=== PATIENT | male | born 1960 | race Two or more races ===

== ENCOUNTER 2023-10-27 14:12 | Outpatient (OUT) | payer MEDICARE, SELFPAY ==
[2023-10-27 16:15] LABS: Hematocrit 30.1 % (42.0-54.0); Hemoglobin 10.4 g/dL (14.0-18.0); Mean Corpuscular HGB Conc 34.6 g/dL (29.9-35.2); Mean Corpuscular Volume 89.9 fL (80.0-94.0); Mean Platelet Volume 8.8 fL (9.5-13.5); Platelet Count 433 10^3/uL (150-450); Red Blood Count 3.35 10^6/uL (4.70-6.10); Red Cell Distribution Width 12.6 % (11.0-15.0); White Blood Count 8.1 10^3/uL (4.0-11.0)
[2023-10-27 16:36] LABS: Free T4 0.95 ng/dL (0.76-1.46)
[2023-10-27 16:51] LABS: Alanine Aminotransferase 23 U/L (16-63); Albumin Globulin Ratio 0.9; Albumin Level 3.2 g/dL (3.4-5.0); Alkaline Phosphatase 114 U/L (46-116); Anion Gap 10.9; Aspartate Amino Transferase 23 U/L (15-37); BUN Creatinine Ratio 9.8; Bilirubin Total 0.5 mg/dL (0.2-1.0); Calcium 9.2 mg/dL (8.5-10.1); Carbon Dioxide 28.2 mmol/L (21.0-32.0); Chloride 91 mmol/L (98-107); Estimated GFR (African America >60 (>=60); Estimated GFR (Non-African Ame >60 (>=60); Free T3 2.39 pg/mL (2.18-3.98); Globulin 3.7 g/dL; Glucose 93 mg/dL (74-106); Potassium 4.1 mmol/L (3.5-5.1); Sodium 126 mmol/L (136-145); Thyroid Stimulating Hormone 3.421 uIU/mL (0.358-3.740); Total Protein 6.9 g/dL (6.4-8.2)
[2023-10-27 19:07] LABS: Band Neutrophils Absolute 0.2 10^3/uL (0.0-0.3); Basophils Abs Manual 0.08 10^3/uL (0.00-0.10); Lymphocytes Absolute Manual 0.72 10^3/uL (1.20-3.80); Monocytes Absolute Manual 0.32 10^3/uL (0.30-0.80); Segmented Neut Absolute Manual 6.39 10^3/uL (1.4-6.5)
== END 2023-10-27 14:13 | disposition home or self-care (01) ==
LOC: LAB 14:25
PROVIDERS: PCP Nurse Practitioner Family
DX: C78.02 Secondary malignant neoplasm of left lung (principal); C44.42 Squamous cell carcinoma of skin of scalp and neck
CPT/HCPCS: 36415; 80053; 84439; 84443; 84481; 85007; 85027

== ENCOUNTER 2023-11-18 14:04 | Outpatient (OUT) | payer MEDICARE, SELFPAY ==
[2023-11-18 14:22] LABS: Basophils Absolute Auto 0.1 10^3/uL (0.0-0.1); Basophils Percent Auto 0.7 % (0.2-2.0); Eosinophils Absolute Auto 0.6 10^3/uL (0.0-0.7); Eosinophils Percent Auto 7.6 % (0.9-7.0); Hematocrit 29.5 % (42.0-54.0); Immature Granulocytes Abs Auto 0.02 10^3/uL (0.00-0.03); Immature Granulocytes Pct Auto 0.3 % (0.0-0.5); Lymphocytes Absolute Auto 0.7 10^3/uL (1.2-3.8); Lymphocytes Percent Auto 9.4 % (20.5-60.0); Mean Corpuscular HGB Conc 33.9 g/dL (29.9-35.2); Mean Corpuscular Hemoglobin 30.1 pg (25.9-34.0); Mean Corpuscular Volume 88.9 fL (80.0-94.0); Mean Platelet Volume 8.2 fL (9.5-13.5); Monocytes Percent Auto 13.2 % (1.7-12.0); Neutrophils Absolute Auto 5.3 10^3/uL (1.4-6.5); Neutrophils Percent Auto 68.8 % (43.0-75.0); Platelet Count 319 10^3/uL (150-450); Red Blood Count 3.32 10^6/uL (4.70-6.10); Red Cell Distribution Width 12.5 % (11.0-15.0); White Blood Count 7.6 10^3/uL (4.0-11.0)
[2023-11-18 15:13] LABS: Alanine Aminotransferase 23 U/L (16-63); Albumin Globulin Ratio 0.9; Albumin Level 3.2 g/dL (3.4-5.0); Alkaline Phosphatase 117 U/L (46-116); Anion Gap 15.7; Aspartate Amino Transferase 22 U/L (15-37); BUN Creatinine Ratio 10.6; Bilirubin Total 0.5 mg/dL (0.2-1.0); Carbon Dioxide 25.5 mmol/L (21.0-32.0); Chloride 91 mmol/L (98-107); Estimated GFR (African America >60 (>=60); Estimated GFR (Non-African Ame >60 (>=60); Free T3 2.56 pg/mL (2.18-3.98); Globulin 3.5 g/dL; Glucose 98 mg/dL (74-106); Potassium 4.2 mmol/L (3.5-5.1); Sodium 128 mmol/L (136-145); Thyroid Stimulating Hormone 2.885 uIU/mL (0.358-3.740); Total Protein 6.7 g/dL (6.4-8.2)
[2023-11-18 15:20] LABS: Free T4 0.85 ng/dL (0.76-1.46)
== END 2023-11-18 14:05 | disposition home or self-care (01) ==
LOC: LAB 14:06
DX: C78.02 Secondary malignant neoplasm of left lung (principal); C44.42 Squamous cell carcinoma of skin of scalp and neck
CPT/HCPCS: 36415; 80053; 84439; 84443; 84481; 85025

== ENCOUNTER 2023-11-20 06:57 | Outpatient (OUT) | payer MEDICARE, SELFPAY | END 2023-11-20 06:58 | disposition home or self-care (01) | DX: E87.1 Hypo-osmolality and hyponatremia (principal) | CPT/HCPCS: 36415; 82533 ==

== ENCOUNTER 2023-12-09 13:54 | Outpatient (OUT) | payer MEDICARE, SELFPAY ==
[2023-12-09 14:24] LABS: Basophils Absolute Auto 0.1 10^3/uL (0.0-0.1); Basophils Percent Auto 1.1 % (0.2-2.0); Eosinophils Absolute Auto 0.8 10^3/uL (0.0-0.7); Eosinophils Percent Auto 10.6 % (0.9-7.0); Hematocrit 29.9 % (42.0-54.0); Hemoglobin 10.3 g/dL (14.0-18.0); Immature Granulocytes Abs Auto 0.02 10^3/uL (0.00-0.03); Immature Granulocytes Pct Auto 0.3 % (0.0-0.5); Lymphocytes Absolute Auto 0.7 10^3/uL (1.2-3.8); Lymphocytes Percent Auto 9.9 % (20.5-60.0); Mean Corpuscular HGB Conc 34.4 g/dL (29.9-35.2); Mean Corpuscular Hemoglobin 31.2 pg (25.9-34.0); Mean Corpuscular Volume 90.6 fL (80.0-94.0); Mean Platelet Volume 8.6 fL (9.5-13.5); Monocytes Absolute Auto 1.1 10^3/uL (0.3-0.8); Monocytes Percent Auto 15.2 % (1.7-12.0); Neutrophils Absolute Auto 4.6 10^3/uL (1.4-6.5); Neutrophils Percent Auto 62.9 % (43.0-75.0); Platelet Count 298 10^3/uL (150-450); Red Cell Distribution Width 12.1 % (11.0-15.0); White Blood Count 7.2 10^3/uL (4.0-11.0)
[2023-12-09 16:44] LABS: Alanine Aminotransferase 24 U/L (16-63); Albumin Globulin Ratio 1.1; Albumin Level 3.4 g/dL (3.4-5.0); Alkaline Phosphatase 100 U/L (46-116); Anion Gap 13.7; Aspartate Amino Transferase 24 U/L (15-37); BUN Creatinine Ratio 11.7; Bilirubin Total 0.5 mg/dL (0.2-1.0); Calcium 9.2 mg/dL (8.5-10.1); Carbon Dioxide 25.4 mmol/L (21.0-32.0); Chloride 94 mmol/L (98-107); Estimated GFR (African America >60 (>=60); Estimated GFR (Non-African Ame >60 (>=60); Free T3 2.05 pg/mL (2.18-3.98); Globulin 3.2 g/dL; Glucose 98 mg/dL (74-106); Potassium 4.1 mmol/L (3.5-5.1); Sodium 129 mmol/L (136-145); Total Protein 6.6 g/dL (6.4-8.2)
[2023-12-09 16:48] LABS: Free T4 0.77 ng/dL (0.76-1.46)
== END 2023-12-09 13:55 | disposition home or self-care (01) ==
LOC: LAB 13:55
DX: C78.02 Secondary malignant neoplasm of left lung (principal); C44.42 Squamous cell carcinoma of skin of scalp and neck
CPT/HCPCS: 36415; 80053; 84439; 84443; 84481; 85025

== ENCOUNTER 2024-01-08 06:58 | Outpatient (OUT) | payer MEDICARE, SELFPAY ==
--- OUTSIDE RECORDS SUMMARY | 2024-01-08 07:03 | XMS_ITS ---
Patient Summarization (C-CDA 2.1 CCD) Created on: January 08, 2024 HANHOSBALDO : 1960 Sex: Male Author Organization Sample organization Care Team Providers Care Bellhop Service Captain Name Role Phone Joseolegario Damien Unavailable Clara Jordan Unavailable SELF, REFERRED Referring Unavailable SELF, REFERRED Primary Care Unavailable JULIEN, TOSEEF Admitting Unavailable JULIEN, TOSEEF Attending Unavailable MAST, KAM Primary Care Unavailable MAST, KAM Referring Unavailable ISSA, FIRAS G Attending Unavailable ISSA, FIRAS G Admitting Unavailable MAST, KAM Referring Unavailable SINDHWANI, NGHIA Attending Unavailable SINDHWANI, NGHIA Admitting Unavailable CLARA JORDAN Primary Care Unavailable CLARA JORDAN Primary Care Unavailable HAMOUDA, BIJU Admitting Unavailable HAMOUDA, BIJU Attending Unavailable UNKNOWN, PHYSICIAN Referring Unavailable Omballi, Mohamed A. Admitting Unavailable Omballi, Mohamed A. Attending Unavailable UNKNOWN, PHYSICIAN Referring Unavailable UNKNOWN, PHYSICIAN Primary Care Unavailable YOLA, E Primary Care Unavailable JOSUE GRIMM Admitting Unavailable JOSUE GRIMM Attending Unavailable UNKNOWN, PHYSICIAN Referring Unavailable NAZZAL, MUNIER Admitting Unavailable NAZZAL, MUNIER Attending Unavailable UNKNOWN, PHYSICIAN Referring Unavailable UNKNOWN, PHYSICIAN Primary Care Unavailable HAMOUDA, BIJU Admitting Unavailable HAMOUDA, BIJU Attending Unavailable UNKNOWN, PHYSICIAN Referring Unavailable UNKNOWN, PHYSICIAN Primary Care Unavailable HAMOUDA, BIJU Attending Unavailable HAMOUDA, BIJU Admitting Unavailable UNKNOWN, PHYSICIAN Referring Unavailable UNKNOWN, PHYSICIAN Primary Care Unavailable CLARA JORDAN Primary Care Unavailable ISSA, FIRAS G Admitting Unavailable UNKNOWN, PHYSICIAN Referring Unavailable ISSA, FIRAS G Attending Unavailable FRANDY Jordan Primary Care Provider FRANDY Jordan Attending Provider None, No PCP Unavailable Unavailable KIRAN WILSON Attending Unavailable Nikki, FRANDY Elizabeth Primary Care Provider ANTON Morris Attending Provider Cortez Morris Admitting Unavailable Cortez Morris Attending Unavailable Clara Jordan Primary Care Unavailable Nikki, Clara Admitting Unavailable Clara Jordan Attending Unavailable Clara Jordan Primary Care Unavailable Generic Provider MD, No Assigned Pcp Primary Car e Provider Unavailable SABAS RICHARDS Attending Unavailable HAMOUDA, BIJU M Referring Unavailable XAVIER, CORTEZ Referring Unavailable HADZIAHMETOVIC, NINO Attending Unavaila ble HAMOUDA, BIJU M Referring Unavailable HAMOUDA, BIJU Asher Attending Unavailable SABAS RICHARDS Attending Unavailable XAVIER, CORTEZ Referring Unavailable HADZIAHMETOVIC, NINO Attending Unavaila SABAS Banks Referring Unavailable HADZIAHMETOVIC, NINO Attending Unavaila ble HADZIAHMETOVIC, NINO Attending Unavaila ble HAMOUDA, BIJU M Referring Unavailable RICHARDSSABAS EM Attending Unavailable ISSA, MATEUSZ Attending Unavailable HAMOUDA, BIUJ M Referring Unavailable SABAS RICHARDS Attending Unavailable HAMOUDA, BIJU M Referring Unavailable HAMOUDA, BIJU M Referring Unavailable HAMOUDA, BIJU M Referring Unavailable HAMOUDA, BIJU M Referring Unavailable HAMOUDA, BIJU M Referring Unavailable HAMOUDA, BIJU M Attending Unavailable HAMOUDA, BIJU M Admitting Unavailable HAMOUDA, BIJU M Referring Unavailable ISSA, FIRMELECIO Attending Unavailable HAMOUDA, BIJU M Attending Unavailable HAMOUDA, BIJU M Attending Unavailable HAMOUDA, BIJU M Referring Unavailable XAVIER, CORTEZ Attending Unavailable HAMOUDA, BIJU M Attending Unavailable XAVIER, CORTEZ Attending Unavailable HAMOUDA, BIJU M Referring Unavailable ISSA, FIRMELECIO Attending Unavailable HADZIAHMETOVIC, MERSIHA Referring Unavaila ble HAMOUDA, BIJU M Referring Unavailable HAMOUDA, BIJU M Referring Unavailable HAMOUDA, BIJU M Referring Unavailable HAMOUDA, BIJU M Referring Unavailable SANDRA PARKER Attending Unavailable SABAS RICHARDS Attending Unavailable CABRERAJH GRAJEDA Attending Unavailable JH CABRERA Admitting Unavailable BIJU SUE Referring Unavailable Allergies Allergy Classification Reported Allergen(s) Allergy Type Date of Onset Reaction(s) Facility Pollen (2 sources) Grass pollen; Translations: [GRASS POLLEN] Substance Allergy 2 [facility] Repository (2 sources) Grass pollen; Translations: [GRASS POLLEN] Propensity to adverse reactions (disorder) 2 Other [facility] Repository (2 sources) bee pollen Allergy to substance (finding) MG-Otolaryngol ogy-Jamee [facility] [place] Work Phone: (2 sources) Grass Allergy to substance (finding) MG-Otolaryngol ogy-Peck [facility] [place] Work Phone: (1 source) Bee pollen Drug Allergy 4 Other [facility] Encounters Encounter Date Encounter Type Care Provider Facility Start: 12-30-2023 End: 12-30-2023 ambulatory SABAS RICHARDS [facility] Start: 12-27-2023 End: 12-28-2023 ambulatory BIJU Asher [facility] Start: 12-10-2023 End: 12-10-2023 [facility] Start: 11-19-2023 End: 11-19-2023 [facility] Start: 11-05-2023 End: 11-05-2023 ambulatory SANDRA [facility] Start: 11-05-2023 End: 11-05-2023 Encounter for general adult medical examination without abnormal findings SANDRA PARKER [facility] Start: 10-29-2023 End: 10-29-2023 [facility] Start: 10-20-2023 End: 10-21-2023 ambulatory NINO ZHENG [facility] Start: 10-08-2023 End: 10-08-2023 ambulatory [facility] Start: 10-07-2023 ambulatory SABAS [facility] Start: 10-05-2023 End: 10-05-2023 ambulatory BIJU [facility] Start: 10-04-2023 End: 10-04-2023 Office outpatient visit 15 minutes Kiran Wilson MD Work Phone: [facility] Comment on above: 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) Start: 09-27-2023 End: 09-28-2023 ambulatory SABAS [facility] Start: 09-21-2023 End: 09-21-2023 ambulatory MATEUSZ CONROY [facility] Start: 09-14-2023 ambulatory [facility] Start: 08-17-2023 End: 08-18-2023 ambulatory [facility] Start: 08-06-2023 End: 08-07-2023 ambulatory [facility] Start: 07-28-2023 End: 07-28-2023 ambulatory [facility]: [facility]28-[facility] Start[facility] 07-22-2023 End: 07-23-2023 ambulatory BIJU Asher [facility] Start: 07-13-2023 End: 07-13-2023 ambulatory Clara Jordan Other [facility] [facility] Other Start: 07-13-2023 Telephone encounter Clara [facility] Start: 06-25-2023 End: 06-25-2023 ambulatory JH CABRERA [facility] Start: 06-22-2023 End: 06-23-2023 ambulatory BIJU Asher [facility] Start: 06-17-2023 ambulatory [facility] Start: 06-08-2023 End: 06-09-2023 ambulatory [facility] Start: 06-05-2023 End: 06-05-2023 ambulatory [facility] Facility:[facility] Start: 06-05-2023 End: 06-05-2023 ambulatory FRANDY Jordan Work Phone: [facility] Work Phone: Start: 06-05-2023 End: 06-05-2023 Patient encounter procedure DNP Clara Jordan Work Phone: [facility] [place] Work Phone: Start: 06-01-2023 End: 06-02-2023 ambulatory [facility] Start: 06-01-2023 [facility] Start: 05-27-2023 End: 05-[facility] Start: 05-21-2023 End: 05-21-2023 ambulatory [facility] Start: 05-21-2023 End: 05-[facility]23 [facility] Start: 05-20-2023 ambulatory [facility] Start: 05-03-2023 Office outpatient ne w 30 minutes No PCP None YT-Tilcihghwoxcwn-Vjd [place]lake Work Phone: Start: 05-03-2023 Patient encounter procedure No PCP None [id number]-[id number] n [facility] [place] Work Phone: Start: 05-03-2023 ambulatory KIRAN WILSON Facility: Start: 04-30-2023 End: 05-03-2023 ambulatory [facility] Start: 04-29-2023 ambulatory [facility] Start: 04-15-2023 End: 04-16-2023 ambulatory NINO ZHENG [facility] Start: 04-09-2023 End: 04-09-2023 ambulatory BIJU Asher [facility] Start: 04-08-2023 ambulatory SABAS [facility] Start: 03-22-2023 End: 03-22-2023 ambulatory CARLOSMELECIO ISSA [facility] Start: 03-19-2023 End: 03-19-2023 ambulatory BIJU Lb [facility] Start: 03-18-2023 ambulatory BIJU [facility]her [facility] Start: 02-26-2023 End: 02-26-2023 ambulatory BIJU Asher [facility] Start: 02-25-2023 End: 02-[facility]-2023 [facility] Start: 02-22-2023 End: 02-23-2023 ambulatory BIJU Asher [facility] Start: 02-05-2023 End: 02-05-2023 ambulatory BIJU Asher [facility] Start: 02-04-2023 ambulatory [facility] Start: 01-15-2023 End: 01-15-2023 ambulatory BIJU Asher [facility] Start: 01-13-2023 End: 01-14-2023 ambulatory KARENShun NORM [facility] Start: 01-12-2023 End: 01-13-2023 ambulatory SABAS [facility] Start: 01-11-2023 End: 01-12-2023 ambulatory [facility] Start: 01-08-2023 End: 01-09-2023 ambulatory [facility] Start: 01-07-2023 End: 01-08-2023 ambulatory [facility] Start: 01-06-2023 End: 01-07-2023 ambulatory [facility] Start: 09-28-2022 End: 09-28-2022 ambulatory Clara Jordan Other [employer] Other Start: 09-28-2022 Telephone encounter Clara Nikki [facility] Start: 09-22-2022 End: 09-22-2022 ambulatory Clara Jordan Other [employer] Other Start: 09-22-2022 Encounter for genera l adult medical examination without abnormal findings Clara Jordan [facility] [place] Start: 09-22-2022 Periodic preventive med est patient 40-64yrs Clara Jordan [facility] [place] Start: 09-19-2022 End: 09-19-2022 ambulatory Clara Jordan Facility:[facility] Start: 09-19-2022 End: 09-19-2022 ambulatory DNP Clara Nikki Work Phone: [facility] Work Phone: Start: 09-19-2022 End: 09-19-2022 Patient encounter procedure DNP Clara Nikki Work Phone: [facility] [place] Work Phone: Start: 09-10-2022 End: 09-10-2022 ambulatory Clara Jordan Other [employer] Other Start: 09-10-2022 Encounter for genera l adult medical examination without abnormal findings Clara Jordan [facility] [place] Start: 09-10-2022 Telephone encounter Clara [facility] Start: 06-23-2022 End: 06-23-2022 ambulatory Clara Jordan Other [employer] Other Start: 06-23-2022 Office outpatient vi sit 25 minutes Clara Jordan [facility] [place] Start: 05-12-2022 End: 05-12-2022 ambulatory Clara Jordan Other [employer] Other Start: 05-12-2022 Office outpatient vi sit 25 minutes Clara Jordan [facility] [place] Start: 04-14-2022 End: 04-14-2022 ambulatory BIJU HAMOUDA Facility:[facility] Start: 04-10-2022 End: 04-11-2022 ambulatory REFERRED SELF Facility:[facility] Start: 03-31-2022 End: 03-31-2022 ambulatory BIJU HAMOUDA Facility:[facility] Start: 03-23-2022 End: 03-23-2022 ambulatory CLARA JORDAN Facility:[facility] Start: 03-06-2022 End: 03-07-2022 ambulatory TREVON SILVERAL Facility:[facility] Start: 02-26-2022 End: 02-27-2022 ambulatory Irais Lora Facility:[facility] Start: 02-24-2022 End: 02-25-2022 ambulatory E YOLA Facility:[facility] Start: 02-02-2022 End: 02-02-2022 ambulatory Damien Adams Other [employer] Other Start: 02-02-2022 Telephone encounter Damien Adams [facility] Start: 12-15-2021 End: 12-16-2021 Evaluation and management of inpatient KAM MAST Facility:[facility] Start: 12-05-2021 End: 12-05-2021 ambulatory Clara Jordan Other [employer] Other Start: 12-05-2021 Telephone encounter Clara [facility] Start: 11-13-2021 End: 11-13-2021 ambulatory Clara Jordan Other [employer] Other Start: 11-13-2021 Telephone encounter Clara [facility] Start: 11-12-2021 End: 11-12-2021 ambulatory Clara Jordan Other [employer] Other Start: 11-12-2021 Encounter for other preprocedural examination Clara Jordan [facility] [place] Start: 11-12-2021 Office outpatient vi sit 25 minutes Clara Jordan [facility] [place] Start: 10-30-2021 End: 10-31-2021 ambulatory CLARA NIKKI Facility:[facility] Start: 08-29-2021 End: 08-30-2021 ambulatory KAM MAST Facility:[facility] Immunizations Immunization Date Immunization Notes Care Provider Bladimir kimble 07-22-2022 influenza virus vaccine, unspecified formulation Kiran Wilson MD Work Phone: [facility] Work Phone: 11-15-2020 COVID-19 Vaccine Moderna - Documentation Purposes Only Clara Nikki Other [employer] Other 10-18-2020 COVID-19 Vaccine Moderna - Documentation Purposes Only Clara Jordan Other [employer] Other 05-17-2020 influenza, seasonal, injectable Clara Nikki Other [employer] Other Medications Current Medications Medication Drug Class(es) Dates Sig (Normalized) Sig (Original) aspirin 81 mg delayed release oral tablet (1 source) Platelet Aggregation Inhibitor, Nonsteroidal Anti-inflammatory Drug take 1 tablet by mouth once daily aspirin 81 mg EC tablet Take 1 tablet (81 mg) by mouth once daily. 0 Active atorvastatin 40 mg oral tablet (13 sources) HMG-CoA Reductase Inhibitor Start: 07-29-2023 End: 07-23-2024 take 1 tablet by mouth once daily atorvastatin (Lipitor) 40 mg tablet Take 1 tablet (40 mg) by mouth once daily. 0 07/29/2023 07/23/2024 Active Atorvastatin Maxime cium 20 MG Take 1 tablet by mouth once daily for 90 days for 90 days Active Atorvastatin Maxime cium 20 MG Oral Tablet Quantity: 0 Refills: 0 Ordered: 03-May-2023 DO Active carvedilol 3.125 mg oral tablet (1 source) alpha-Adrenergic Sylvester, beta-Adrenergic Sylvester take 1 tablet by mouth at dinner carvedilol (Coreg) 3.125 mg tablet TAKE 1 TABLET BY MOUTH WITH BREAKFAST AND WITH EVENING MEAL 0 Active colchicine 0.6 mg oral capsule (2 sources) Start: Colchicine 0.6 MG 1 tablet Orally twice daily (days 2-5) for 4 days Jun, Active Start: 06-23-2022 Colchicine 0.6 MG 1 capsule Orally 1.2 mg (2 capsules) x 1 then 0.6 mg (1 capsule) 1 hour later x 1 (day 1) for 1 days Jun, Active fluconazole 100 mg oral tablet (1 source) Azole Antifungal Fluconazole 100 MG 1 tablet Orally Active lidocaine 25 mg/ml / prilocaine 25 mg/ml topical cream (1 source) Antiarrhythmic, Amide Local Anesthetic Start: lidocaine-prilocain e (Emla) 2.5-2.5 % cream APPLY TO PORT SITE AND COVER 30-45 MINUTES PRIOR TO NEEDLE ACCESS 0 04/09/2023 Active Multi For Him 50+ (4 sources) take 1 tablet by mouth once daily Multi For Him 50+ 1 Tablet Orally Daily Active multivitamin with minerals iron-free (Multivitamin 50 Plus) (1 source) take 1 tablet by mouth once daily multivitamin with minerals iron-free (Multivitamin 50 Plus) Take 1 tablet by mouth once daily. 0 Active predniSONE 20 mg oral tablet (1 source) Start: take 2 tablets by mouth once daily predniSONE 20 MG 2 tabs Orally Once a day for 5 days May, Active sodium fluoride 0.011 mg/mg toothpaste (1 source) Start: PreviDent 5000 Dry Mouth 1.1 % dental paste APPLY AT LEAST A 1 INCH STRIP ONTO TOOTHBRUSH. BRUSH FOR 1 MINUTE & EXPECTORATE. USE TWICE DAILY 0 11/30/2022 Active tadalafil 20 mg oral tablet (1 source) Phosphodiesterase 5 Inhibitor Start: tadalafil 20 mg tablet Take 1 tablet (20 mg) by mouth. 0 03/22/2023 Active Completed/Discontinued Medications Medication Drug Class(es) Dates Sig (Normalized) Sig (Original) Lidocaine CREA (2 sources) Lidocaine CREA Quantity: 0 Refills: 0 Ordered: 03-May-2023 DO Active Triamcinolone (10 sources) Corticosteroid Start: 01-27-2021 Kenalog -40 mg Jan, 20 mg Payers Date Payer Category Payer Medicare [id number] 2023 Unknown [id number] 2023 Unknown [id number] 2023 Unknown 2022 Self-pay [id number] 2022 Unknown [id number] 1960 Unknown [id number] 2.16.8 [id number] 1960 Unknown [id number] .16.8 [id number]. 1960 Unknown [id number] .16.8 [id number] 1960 Unknown [id number] 2.16.8 [id number] 1960 Unknown [id number] 2.16.8 [id number] 1960 Unknown [id number] 2.16.8 [id number] 1960 Unknown [id number] 2.16.8 [id number] 1960 Unknown [id number] 2.16.8 [id number] 1960 Unknown [id number] 2.16.8 [id number] 1960 Unknown [id number] 2.16.8 [id number]. 1960 Unknown [id number] 2.16. [id number] Unknown [id number] 2. [id number] Unknown [id number] 2.16.8 [id number] Unknown [id number] 2.16.8 [id number] Plan of Treatment Date Care Activity Detail Author Start: 01-31-2024 End: 01-31-2024 Patient encounter procedure 01/31/2024 2:00 PM EDT Office Visit [facility] [address] [place] [id number] [place] [id number] [address] [facility] [place] [address] [facility] Start: 2023 Pneumococcal Vaccine: 65+ Years (1 - PCV) Pneumococcal Vaccine: 65+ Years (1 - PCV) [facility] Start: 04-09-2023 COVID-19 Vaccine ( season) COVID-19 Vaccine ( season) [facility] Start: 04-09-2023 Influenza vaccination Influenza Vaccine (#1) [facility] Start: 2008 Zoster Vaccines (1 of 2) Zoster Vaccines (1 of 2) [facility] Start: 1980 DTaP/Tdap/Td Vaccines (1 - Tdap) DTaP/Tdap/Td Vaccines (1 - Tdap) [facility] Start: 1976 Diabetes mellitus screening Diabetes Screening [facility] Start: 1976 Hepatitis C screening Hepatitis C Screening [facility] Start: 1959 MMR Vaccines (1 of 1 - Standard series) MMR Vaccines (1 of 1 - Standard series) [facility] Start: 1960 Lipid panel Lipid Panel [facility] Start: 1960 Screening for malignant neoplasm of colon [facility] Start: 1960 Yearly Adult Physical Yearly Adult Physical [facility] Problems Active Problems Problem Classification Problem Date Documented Date Episodic/Chronic Alcohol-related disorders (11 sources) Alcohol dependence; Translations: [Alcohol dependence, uncomplicated] Onset: 11-12-2021 Resolved: 11-12-2021 Chronic Cancer of bronchus; lung (8 sources) Malignant tumor of lung; Translations: [Malignant neoplasm of unspecified part of unspecified bronchus or lung] Chronic Cancer of head and neck (15 sources) Malignant tumor of tongue; Translations: [Malignant neoplasm of tongue, unspecified] Onset: 03-30-2022 Chronic Cancer of prostate (10 sources) Malignant tumor of prostate; Translations: [Malignant neoplasm of prostate] Onset: 04-02-2022 Chronic Coronary atherosclerosis and other heart disease (2 sources) Atherosclerotic heart disease of [place] coronary artery without angina pectoris; Translations: [Atherosclerotic heart disease of [place] coronary artery without angina pectoris] Onset: 06-10-2023 Chronic Diabetes mellitus without complication (12 sources) Prediabetes; Translations: [Prediabetes] Onset: 11-12-2021 Resolved: 11-12-2021 Episodic Disorders of lipid metabolism (15 sources) Mixed hyperlipidemia; Translations: [Mixed hyperlipidemia] Onset: 11-12-2021 Resolved: 11-12-2021 Chronic Fluid and electrolyte disorders (2 sources) Hypo-osmolality and hyponatremia; Translations: [Hypo-osmolality and hyponatremia] Onset: 11-19-2023 Episodic Gout and other crystal arthropathies (20 sources) Gouty arthropathy; Translations: [Gout, unspecified] Onset: 11-12-2021 Resolved: 11-12-2021 Chronic Maintenance chemotherapy; radiotherapy (2 sources) Encounter for antineoplastic chemotherapy; Translations: [Encounter for antineoplastic chemotherapy] Onset: 11-19-2023 Chronic Osteoarthritis (20 sources) Osteoarthritis of joint of left hand; Translations: [Primary osteoarthritis, left hand] Chronic Other lower respiratory disease (2 sources) Other disorders of lung; Translations: [Other disorders of lung] Onset: 12-30-2023 Episodic Other male genital disorders (2 sources) Erectile dysfunction following radical prostatectomy; Translations: [Erectile dysfunction following radical prostatectomy] Onset: 03-22-2023 Chronic Other non-epithelial cancer of skin (2 sources) Squamous cell carcinoma of skin of scalp and neck; Translations: [Squamous cell carcinoma of skin of scalp and neck] Onset: 05-04-2022 Episodic Other screening for suspected conditions (not mental disorders or infectious disease) (2 sources) Abnormal findings on diagnostic imaging of other specified body structures; Translations: [Abnormal findings on diagnostic imaging of other specified body structures] Onset: 06-01-2023 Chronic Other upper respiratory disease (10 sources) Allergic rhinitis due to pollen; Translations: [Allergic rhinitis due to pollen] Onset: 04-08-2009 Chronic Mikayla-; endo-; and myocarditis; cardiomyopathy (except that caused by tuberculosis or sexually transmitted disease) (2 sources) Endocarditis, valve unspecified; Translations: [Endocarditis, valve unspecified] Onset: 07-28-2023 Chronic Secondary malignancies (2 sources) Secondary malignant neoplasm of right lung; Translations: [Secondary malignant neoplasm of right lung] Onset: 12-03-2022 Chronic Secondary malignancies (2 sources) Secondary malignant neoplasm of left lung; Translations: [Secondary malignant neoplasm of left lung] Onset: 12-03-2022 Chronic Substance-related disorders (11 sources) Nicotine dependence; Translations: [Nicotine dependence, chewing tobacco, uncomplicated] Onset: 11-12-2021 Resolved: 11-12-2021 Chronic Unclassified (1 source) Encounter for general adult medical examination without abnormal findings; Translations: [Encounter for general adult medical examination without abnormal findings] Onset: 09-19-2022 Past or Other Problems Problem Classification Problem Date Documented Da te Episodic/Chronic Deficiency and other anemia (1 source) Anemia, unspecified Onset: 12-05-2021 Resolved: 12-05-2021 Episodic E Codes: Adverse effects of medical drugs (2 sources) Adverse effect of unspecified drugs, medicaments and biological substances, initial encounter; Translations: [Adverse effect of unspecified drugs, medicaments and biological substances, initial encounter] Onset: 05-27-2023 Episodic Other screening for suspected conditions (not mental disorders or infectious disease) (2 sources) Abnormal findings on diagnostic imaging of heart and coronary circulation; Translations: [Abnormal findings on diagnostic imaging of heart and coronary circulation] Onset: 06-10-2023 Episodic Unclassified (1 source) Onset: 10-04-2023 10-04-2023 Procedures Date Procedure Procedure Detail Performing Clinician Start: 02-10-2022 PSA screening REFERRED SELF Comment on above: Performed By: #### [id number] ####[place] [address] [address] Start: 04-27-2022 PSA screening REFERRED SELF Comment on above: Performed By: #### 4 [id number] ####[facility] Start: 10-30-2021 PSA screening REFERRED SELF Comment on above: Performed By: #### 4 [id number] ####[facility] [place], [place] [address] [place] [address] Start: 07-01-2021 PSA screening REFERRED SELF Comment on above: Performed By: #### 4 [id number] ####[facility] Results Test Name Value Interpretation Reference Range Facility CBC WITH AUTO DIFFERENTIALon 12-27-2023 Basophils (Bld) [#/Vol] 0.06 10*3/uL Normal 0.00-0.20 [facility] Comment on above: Performed By: #### L [id number] ####[facility] ([facility])[address] [place] [address] Basophils/100 WBC (Bld) 0.8 % Normal 0.0-1.0 [facility] Comment on above: Performed By: #### L [id number] ####[facility] ([facility])[address] [place] [address] Eosinophils (Bld) [#/Vol] 0.72 10*3/uL High 0.00-0.50 [facility] Comment on above: Performed By: #### L [id number] ####[facility] ([facility])[address] [place] [address] Eosinophils/100 WBC (Bld) 9.6 % High 0.0-6.0 [facility] Comment on above: Performed By: #### L [id number] ####[facility] ([facility])[address] [place] [address] Erythrocyte distribution width (RBC) [Ratio] 12.3 % Normal 11.5-15.0 [facility] Comment on above: Performed By: #### L [id number] ####[facility] ([facility])[address] [place] [address] ERYTHROCYTE MEAN CORPUSCULAR HEMOGLOBIN CONCENTRATION (G/DL) BY AUTOMATED 34.5 g/dL Normal 32.0-35.0 [facility] Comment on above: Performed By: #### L [id number] ####[facility] ([facility])[address] [place] [address] Hematocrit (Bld) [Volume fraction] 33.6 % Low 39.0-55.0 [facility] Comment on above: Performed By: #### L [id number] ####[facility] ([facility])[address] [place] [address] Hemoglobin (Bld) [Mass/Vol] 11.6 g/dL Low 13.0-17.0 [facility] Comment on above: Performed By: #### L [id number] ####[facility] ([facility])[address] [place] [address] Immature granulocytes (Bld) [#/Vol] 0.02 10*3/uL Normal 0.00-0.20 [facility] Comment on above: Performed By: #### L [id number] ####[facility] (AKER)[address] [place] [address] Immature granulocytes/100 WBC (Bld) 0.3 % Normal 0.0-1.0 [facility] Comment on above: Performed By: #### L [id number] ####[facility] ([facility])[address] [place] [address] Lymphocytes (Bld) [#/Vol] 0.70 10*3/uL Low 1.20-4.00 [facility] Comment on above: Performed By: #### L [id number] ####[facility] ([facility])[address] [place] [address] Lymphocytes/100 WBC (Bld) 9.3 % Low 20.0-45.0 [facility] Comment on above: Performed By: #### L [id number] ####[facility] ([facility])[address] [place] [address] MCH (RBC) [Entitic mass] 30.5 pg Normal 27.0-33.0 [facility] Comment on above: Performed By: #### L [id number] ####[facility] ([facility])[address] [place] [address] MCV (RBC) [Entitic vol] 88.4 fL Normal 82.0-98.0 [facility] Comment on above: Performed By: #### L [id number] ####[facility] ([facility])[address] [place] [address] Monocytes (Bld) [#/Vol] 0.85 10*3/uL Normal 0.10-1.00 [facility] Comment on above: Performed By: #### L [id number] ####[facility] ([facility])[address] [place] [address] Monocytes/100 WBC (Bld) 11.3 % Normal 5.0-12.0 [facility] Comment on above: Performed By: #### L [id number] ####[facility] ([facility])[address] [place] [address] Neutrophils (Bld) [#/Vol] 5.18 10*3/uL Normal 1.60-7.60 [facility] Comment on above: Performed By: #### L [id number] ####[facility] ([facility])[address] [place] [address] Neutrophils/100 WBC (Bld) 68.7 % Normal 40.0-72.0 [facility] Comment on above: Performed By: #### L [id number] ####[facility] ([facility])[address] [place] [address] NRBC (PER 100 WBCS) BY AUTOMATED COUNT 0.0 % Normal 0 [facility] Comment on above: Performed By: #### L [id number] ####[facility] ([facility])[address] [place] [address] PLATELETS (10*3/UL) IN BLOOD AUTOMATED COUNT 328 10*3/uL Normal 150-400 [facility] Comment on above: Performed By: #### L [id number] ####[facility] ([facility])[address] [place] [address] RBC (Bld) [#/Vol] 3.80 10*6/uL Low 4.20-5.70 [facility] Comment on above: Performed By: #### L [id number] ####[facility] ([facility])[address] [place] [address] WBC (Bld) [#/Vol] 7.53 10*3/uL Normal 4.00-10.60 [facility] Comment on above: Performed By: #### L [id number] ####[facility] ([facility])[address] [place] [address] COMPREHENSIVE METABOLIC PANE Yahir 12-27-2023 Albumin [Mass/Vol] 4.1 g/dL Normal 3.5-5.7 [facility] Comment on above: Performed By: #### L [id number] ####[facility] ([facility])[address] [place] [address] ALP [Catalytic activity/Vol] 110 U/L High 34-104 [facility] Comment on above: Performed By: #### L [id number] ####[facility] ([facility])[address] [place] [address] ALT [Catalytic activity/Vol] 14 U/L Normal 7-52 [facility] Comment on above: Performed By: #### L [id number] ####[facility] ([facility])[address] [place] [address] Anion gap [Moles/Vol] 12 mmol/L Normal 7-20 [facility] Comment on above: Performed By: #### L [id number] ####[facility] ([facility])[address] [place] [address] AST [Catalytic activity/Vol] 21 U/L Normal 13-39 [facility] Comment on above: Performed By: #### L [id number] ####[facility] ([facility])[address] [place] [address] Bilirubin [Mass/Vol] 0.6 mg/dL Normal 0.3-1.0 [facility] Comment on above: Performed By: #### L [id number] ####[facility] ([facility])[address] [place] [address] Calcium [Mass/Vol] 9.0 mg/dL Normal 8.6-10.3 [facility] Comment on above: Performed By: #### L [id number] ####[facility] ([facility])[address] [place] [address] Chloride [Moles/Vol] 93 mmol/L Low 98-107 [facility] Comment on above: Performed By: #### L [id number] ####[facility] ([facility])[address] [place] [address] CO2 [Moles/Vol] 27 mmol/L Normal 21-31 [facility] Comment on above: Performed By: #### L [id number] ####[facility] (BE[facility]ER)[address] [place] [address] Creatinine [Mass/Vol] 0.78 mg/dL Normal 0.70-1.30 [facility] Comment on above: Performed By: #### L [id number] ####[facility] ([facility])[address] [place] [address] GLOMERULAR FILTRATION RATE ML/MIN/1.73 SQ M.PREDICTED 99.0 mL/min/1.73m*2 Normal >60.0 [facility] Comment on above: Result Comment: The [facility]???s estimated glomerular filtration rate (eGFR) will no longer include consideration of race in its calculation. The National Kidney Foundation???s eGFR Task Force developed new recommendations for the estimation of the glomerular filtration rate in the [place] They recommend immediate implementation of the new equation refit without the race variable in all laboratories because the calculation does not include race. In addition to not including race in the calculation and reporting, it included diversity in its development, and has acceptable performance characteristics and potential consequences that do not disproportionately affect any one group of individuals. Performed By: #### L [id number] ####[facility] ([facility])[address] [place] [address] Glucose [Mass/Vol] 107 mg/dL High 70-100 [facility] Comment on above: Performed By: #### L [id number] ####[facility] ([facility])[address] [place] [address] Potassium [Moles/Vol] 4.5 mmol/L Normal 3.5-5.1 [facility] Comment on above: Performed By: #### L [id number] ####[facility] ([facility])[address] [place] [address] Protein [Mass/Vol] 5.9 g/dL Low 6.0-8.3 [facility] Comment on above: Performed By: #### L [id number] ####[facility] ([facility])[address] [place] [address] Sodium [Moles/Vol] 127 mmol/L Low 136-145 [facility] Comment on above: Performed By: #### L [id number] ####[facility] ([facility])[address] [place] [address] Urea nitrogen [Mass/Vol] 12 mg/dL Normal 7-25 [facility] Comment on above: Performed By: #### L [id number] ####[facility] ([facility])[address] [place] [address] UREA NITROGEN/CREATININE (MASS RATIO) IN SER/PLAS 15.4 Normal [facility] Comment on above: Performed By: #### L [id number] ####[facility] ([facility])[address] [place] [address] CORTISOLon 12-27-2023 CORTISOL (UG/DL) IN SER/PLAS 9.0 ug/dL Normal 6-23 [facility] Comment on above: Performed By: #### L [id number] ####[facility] ([facility])[address] [place] [address] CT CHEST W IV CONTRASTon CT CHEST W IV CONTRAST Invalid Interpretation Code [facility] HEMOGLOBIN A1Con 12-27-2023 Glucose [Mass/Vol] 114 mg/dL Normal [facility] Comment on above: Performed By: #### L [id number] ####[facility] ([facility])[address] [place] [address] HbA1c (Bld) [Mass fraction] 5.6 % Normal 4.0-6.0 [facility] Comment on above: Performed By: #### L [id number] ####[facility] ([facility])[address] [place] [address] Labon 12-27-2023 Lab Normal [facility] PSA, DIAGNOSTICon 12-27-2023 PROSTATE SPECIFIC AG (NG/ML) IN SER/PLAS <0.1 Low 0.4-4 [facility] Comment on above: Order Comment: To be collected in 01/2024. Performed By: #### L [id number] ####[facility] ([facility])[address] [facility] [facility] [address] T3, FREEon 12-27-2023 TRIIODOTHYRONINE (T3) FREE (PG/ML) IN SER/PLAS 3.8 pg/mL Normal 2.5-3.9 [facility] Comment on above: Performed By: #### L [id number] ####[facility] ([facility])[address] [facility] [facility] [address] T4, FREEon 12-27-2023 THYROXINE (T4) FREE (NG/DL) IN SER/PLAS 0.72 ng/dL Normal 0.71-1.85 [facility] Comment on above: Performed By: #### L [id number] ####[facility] ([facility])[address] [facility] [facility] [address] TSHon 12-27-2023 THYROTROPIN (MIU/L) IN SER/PLAS BY DETECTION LIMIT <= 0.05 MIU/L 1.79 mIU/L Normal 0.34-5.60 [facility] Comment on above: Performed By: #### L [id number] ####[facility] ([facility])[address] [place] [address] Orders Onlyon 12-10-2023 Orders Only Normal [facility] Orders Onlyon 11-22-2023 Orders Only Normal [facility] 29on 11-19-2023 29 Addended by: NIKUNJ DYE on: 12/09/2023 04:04 PM Modules accepted: Orders Normal [facility] 37on 11-19-2023 37 Cortisol level in the morning upon waking Keep close track of cough and any shortness of breath, Call if changes/worsens Normal [facility] Infusionon 11-19-2023 Infusion Normal [facility] Orders Onlyon 11-19-2023 Orders Only Normal [facility] Consulton 11-05-2023 Consult Normal [facility] Orders Onlyon 10-29-2023 Orders Only Normal [facility] Orders Onlyon 10-28-2023 Orders Only Normal [facility] CBC WITH AUTO DIFFERENTIALon 10-07-2023 Basophils (Bld) [#/Vol] 0.07 10*3/uL Normal 0.00-0.20 [facility] Comment on above: Performed By: #### L [id number] ####[facility] ([facility])[address] [place] [address] Basophils/100 WBC (Bld) 0.9 % Normal 0.0-1.0 [facility] Comment on above: Performed By: #### L [id number] ####[facility] ([facility]ER)[address] [place] [address] Eosinophils (Bld) [#/Vol] 0.28 10*3/uL Normal 0.00-0.50 [facility] Comment on above: Performed By: #### L [id number] ####[facility] ([facility])[address] [place] [address] Eosinophils/100 WBC (Bld) 3.5 % Normal 0.0-6.0 [facility] Comment on above: Performed By: #### L [id number] ####[facility] ([facility])[address] [place] [address] Erythrocyte distribution width (RBC) [Ratio] 13.2 % Normal 11.5-15.0 [facility] Comment on above: Performed By: #### L [id number] ####[facility] ([facility])[address] [place] [address] ERYTHROCYTE MEAN CORPUSCULAR HEMOGLOBIN CONCENTRATION (G/DL) BY AUTOMATED 36.4 g/dL High 32.0-35.0 [facility] Comment on above: Performed By: #### L [id number] ####[facility] ([facility])[address] [place] [address] Hematocrit (Bld) [Volume fraction] 31.3 % Low 39.0-55.0 [facility] Comment on above: Performed By: #### L [id number] ####[facility] ([facility])[address] [place] [address] Hemoglobin (Bld) [Mass/Vol] 11.4 g/dL Low 13.0-17.0 [facility] Comment on above: Performed By: #### L [id number] ####[facility] ([facility])[address] [place] [address] Immature granulocytes (Bld) [#/Vol] 0.05 10*3/uL Normal 0.00-0.20 [facility] Comment on above: Performed By: #### L [id number] ####[facility] ([facility])[address] [place] [address] Immature granulocytes/100 WBC (Bld) 0.6 % Normal 0.0-1.0 [facility] Comment on above: Performed By: #### L [id number] ####[facility] ([facility])[address] [place] [address] Lymphocytes (Bld) [#/Vol] 0.93 10*3/uL Low 1.20-4.00 [facility] Comment on above: Performed By: #### L [id number] ####[facility] ([facility])[address] [place] [address] Lymphocytes/100 WBC (Bld) 11.6 % Low 20.0-45.0 [facility] Comment on above: Performed By: #### L [id number] ####[facility] (BEAKER)[address] [place] [address] MCH (RBC) [Entitic mass] 31.2 pg Normal 27.0-33.0 [facility] Comment on above: Performed By: #### L [id number] ####[facility] (BE[facility]ER)[address] [place] [address] MCV (RBC) [Entitic vol] 85.8 fL Normal 82.0-98.0 [facility] Comment on above: Performed By: #### L [id number] ####[facility] ([facility])[address] [place] [address] Monocytes (Bld) [#/Vol] 1.28 10*3/uL High 0.10-1.00 [facility] Comment on above: Performed By: #### L [id number] ####[facility] (BE[facility]ER)[address] [place] [address] Monocytes/100 WBC (Bld) 16.0 % High 5.0-12.0 [facility] Comment on above: Performed By: #### L [id number] ####[facility] ([facility])[address] [place] [address] Neutrophils (Bld) [#/Vol] 5.40 10*3/uL Normal 1.60-7.60 [facility] Comment on above: Performed By: #### L [id number] ####[facility] ([facility])[address] [place] [address] Neutrophils/100 WBC (Bld) 67.4 % Normal 40.0-72.0 [facility] Comment on above: Performed By: #### L [id number] ####[facility] (BEAKER)[address] [place] [address] NRBC (PER 100 WBCS) BY AUTOMATED COUNT 0.0 % Normal 0 [facility] Comment on above: Performed By: #### L [id number] ####[facility] ([facility])[address] [place] [address] PLATELETS (10*3/UL) IN BLOOD AUTOMATED COUNT 316 10*3/uL Normal 150-400 [facility] Comment on above: Performed By: #### L [id number] ####[facility] ([facility])[address] [place] [address] RBC (Bld) [#/Vol] 3.65 10*6/uL Low 4.20-5.70 [facility] Comment on above: Performed By: #### L [id number] ####[facility] ([facility])[address] [place] [address] WBC (Bld) [#/Vol] 8.01 10*3/uL Normal 4.00-10.60 [facility] Comment on above: Performed By: #### L [id number] ####[facility] ([facility])[address] [place] [address] COMPREHENSIVE METABOLIC PANE Yahir 10-07-2023 Albumin [Mass/Vol] 4.2 g/dL Normal 3.5-5.7 [facility] Comment on above: Performed By: #### L [id number] ####[facility] ([facility])[address] [place] [address] ALP [Catalytic activity/Vol] 73 U/L Normal 34-104 [facility] Comment on above: Performed By: #### L [id number] ####[facility] ([facility])[address] [place] [address] ALT [Catalytic activity/Vol] 17 U/L Normal 7-52 [facility] Comment on above: Performed By: #### L [id number] ####[facility] (BEAKER)[address] [place] [address] Anion gap [Moles/Vol] 10 mmol/L Normal 7-20 [facility] Comment on above: Performed By: #### L [id number] ####[facility] ([facility])[address] [place] [address] AST [Catalytic activity/Vol] 21 U/L Normal 13-39 [facility] Comment on above: Performed By: #### L [id number] ####[facility] ([facility]ER)[address] [place] [address] Bilirubin [Mass/Vol] 0.5 mg/dL Normal 0.3-1.0 [facility] Comment on above: Performed By: #### L [id number] ####[facility] ([facility]ER)[address] [place] [address] Calcium [Mass/Vol] 9.3 mg/dL Normal 8.6-10.3 [facility] Comment on above: Performed By: #### L [id number] ####[facility] (BEAKER)[address] [place] [address] Chloride [Moles/Vol] 92 mmol/L Low 98-107 [facility] Comment on above: Performed By: #### L [id number] ####[facility] ([facility]ER)[address] [place] [address] CO2 [Moles/Vol] 26 mmol/L Normal 21-31 [facility] Comment on above: Performed By: #### L [id number] ####[facility] ([facility]ER)[address] [place] [address] Creatinine [Mass/Vol] 0.84 mg/dL Normal 0.70-1.30 [facility] Comment on above: Performed By: #### L [id number] ####[facility] (BEAKER)[address] [place] [address] GLOMERULAR FILTRATION RATE ML/MIN/1.73 SQ M.PREDICTED 96.8 mL/min/1.73m*2 Normal >60.0 [facility] Comment on above: Result Comment: The [facility]???s estimated glomerular filtration rate (eGFR) will no longer include consideration of race in its calculation. The National Kidney Foundation???s eGFR Task Force developed new recommendations for the estimation of the glomerular filtration rate in the [place] They recommend immediate implementation of the new equation refit without the race variable in all laboratories because the calculation does not include race. In addition to not including race in the calculation and reporting, it included diversity in its development, and has acceptable performance characteristics and potential consequences that do not disproportionately affect any one group of individuals. Performed By: #### L [id number] ####[facility] ([facility])[address] [place] [address] Glucose [Mass/Vol] 88 mg/dL Normal 70-100 [facility] Comment on above: Performed By: #### L [id number] ####[facility] ([facility])[address] [place] [address] Potassium [Moles/Vol] 4.0 mmol/L Normal 3.5-5.1 [facility] Comment on above: Performed By: #### L [id number] ####[facility] ([facility])[address] [place] [address] Protein [Mass/Vol] 6.8 g/dL Normal 6.0-8.3 [facility] [facility] Comment on above: Performed By: #### L [id number] ####[facility] ([facility])[address] [place] [address] Sodium [Moles/Vol] 124 mmol/L Invalid Interpretation Code 136-145 [facility] Comment on above: Performed By: #### L [id number] ####[facility] (BEAKER)[address] [place] [address] Urea nitrogen [Mass/Vol] 9 mg/dL Normal 7-25 [facility] Comment on above: Performed By: #### L [id number] ####[facility] ([facility])[address] [place] [address] UREA NITROGEN/CREATININE (MASS RATIO) IN SER/PLAS 10.7 Normal [facility] Comment on above: Performed By: #### L [id number] ####[facility] (BEAKER)[address] [place] [address] Labon 10-07-2023 Lab Normal [facility] T3, FREEon 10-07-2023 TRIIODOTHYRONINE (T3) FREE (PG/ML) IN SER/PLAS 3.2 pg/mL Normal 2.5-3.9 [facility] Comment on above: Performed By: #### L [id number] ####[facility] ([facility])[address] [place] [address] T4, FREEon 10-07-2023 THYROXINE (T4) FREE (NG/DL) IN SER/PLAS 0.84 ng/dL Normal 0.71-1.85 [facility] Comment on above: Performed By: #### L [id number] ####[facility] ([facility])[address] [place] [address] TSHon 10-07-2023 THYROTROPIN (MIU/L) IN SER/PLAS BY DETECTION LIMIT <= 0.05 MIU/L 2.87 mIU/L Normal 0.34-5.60 [facility] Comment on above: Performed By: #### L [id number] ####[facility] ([facility])[address] [place] [address] CT CHEST W IV CONTRASTon CT CHEST W IV CONTRAST [facility] 09-21-2023 Follow-Up Normal [facility] Labon 09-14-2023 Lab Normal [facility] PSA, SCREENINGon 09-14-2023 PROSTATE SPECIFIC AG (NG/ML) IN SER/PLAS <0.1 Low 0.4-4 [facility] Comment on above: Order Comment: To be collected 09/2023. Performed By: #### L [id number] ####[facility] ([facility])[address] [place] [address] 37on 08-17-2023 37 50 mg 08/18-08/22 40 mg 08/23-08/27 30 mg 08/28-09/01 20 mg 09/02-09/06 10 mg 09/07-2/3 10mg every other day 09/13, 09/15, 09/17 then stop When finished ok to stop Antibiotic too Normal [facility] 37 Port flushed and CMP, CBC w/d, T3, T4 and TSH drawn today Normal [facility] CBC WITH AUTO DIFFERENTIALon 08-17-2023 Basophils (Bld) [#/Vol] 0.01 10*3/uL Normal 0.00-0.20 [facility] Comment on above: Performed By: #### L [id number] ####[facility] (BEAKER)[address] [place] [address] Basophils/100 WBC (Bld) 0.1 % Normal 0.0-1.0 [facility] Comment on above: Performed By: #### L [id number] ####[facility] (BEAKER)[address] [place] [address] Eosinophils (Bld) [#/Vol] 0.00 10*3/uL Normal 0.00-0.50 [facility] Comment on above: Performed By: #### L [id number] ####[facility] (BEAKER)[address] [place] [address] Eosinophils/100 WBC (Bld) 0.0 % Normal 0.0-6.0 [facility] Comment on above: Performed By: #### L [id number] ####[facility] (BEAKER)[address] [place] [address] Erythrocyte distribution width (RBC) [Ratio] 14.0 % Normal 11.5-15.0 [facility] Comment on above: Performed By: #### L [id number] ####[facility] (BEAKER)[address] [place] [address] ERYTHROCYTE MEAN CORPUSCULAR HEMOGLOBIN CONCENTRATION (G/DL) BY AUTOMATED 35.9 g/dL High 32.0-35.0 [facility] Comment on above: Performed By: #### L [id number] ####[facility] (BEAKER)[address] [address] Hematocrit (Bld) [Volume fraction] 34.8 % Low 39.0-55.0 [facility] Comment on above: Performed By: #### L [id number] ####[facility] (BEAKER)[address] [place] [address] Hemoglobin (Bld) [Mass/Vol] 12.5 g/dL Low 13.0-17.0 [facility] Comment on above: Performed By: #### L [id number] ####[facility] (BEAKER)[address] [place] [address] Immature granulocytes (Bld) [#/Vol] 0.08 10*3/uL Normal 0.00-0.20 [facility] Comment on above: Performed By: #### L [id number] ####[facility] (BEAKER)[address] [place] [address] Immature granulocytes/100 WBC (Bld) 0.8 % Normal 0.0-1.0 [facility] Comment on above: Performed By: #### L [id number] ####[facility] (BEAKER)[address] [place] [address] Lymphocytes (Bld) [#/Vol] 0.49 10*3/uL Low 1.20-4.00 [facility] Comment on above: Performed By: #### L [id number] ####[facility] (BEAKER)[address] [place] [address] Lymphocytes/100 WBC (Bld) 4.7 % Low 20.0-45.0 [facility] Comment on above: Performed By: #### L [id number] ####[facility] (BEAKER)[address] [place] [address] MCH (RBC) [Entitic mass] 30.6 pg Normal 27.0-33.0 [facility] Comment on above: Performed By: #### L [id number] ####[facility] (BEAKER)[address] [place] [address] MCV (RBC) [Entitic vol] 85.3 fL Normal 82.0-98.0 [facility] Comment on above: Performed By: #### L [id number] ####[facility] (BEAKER)[address] [address] Monocytes (Bld) [#/Vol] 0.45 10*3/uL Normal 0.10-1.00 [facility] Comment on above: Performed By: #### L [id number] ####[facility] (BEAKER)[address] [address] Monocytes/100 WBC (Bld) 4.3 % Low 5.0-12.0 [facility] Comment on above: Performed By: #### L [id number] ####[facility] (AKER)[address] [address] Neutrophils (Bld) [#/Vol] 9.33 10*3/uL High 1.60-7.60 [facility] Comment on above: Performed By: #### L [id number] ####[facility] ([facility])[address] [address] Neutrophils/100 WBC (Bld) 90.1 % High 40.0-72.0 [facility] Comment on above: Performed By: #### L [id number] ####[facility] ([facility])[address] [address] NRBC (PER 100 WBCS) BY AUTOMATED COUNT 0.0 % Normal 0 [facility] Comment on above: Performed By: #### L [id number] ####[facility] ([facility])[address] [address] PLATELETS (10*3/UL) IN BLOOD AUTOMATED COUNT 253 10*3/uL Normal 150-400 [facility] Comment on above: Performed By: #### L [id number] ####[facility] ([facility])[address] [address] RBC (Bld) [#/Vol] 4.08 10*6/uL Low 4.20-5.70 [facility] Comment on above: Performed By: #### L [id number] ####[facility] ([facility])[address] [place] [address] WBC (Bld) [#/Vol] 10.36 10*3/uL Normal 4.00-10.60 [facility] Comment on above: Performed By: #### L [id number] ####[facility] ([facility])[address] [place] [address] COMPREHENSIVE METABOLIC PANE Yahir 08-17-2023 Albumin [Mass/Vol] 4.2 g/dL Normal 3.5-5.7 [facility] Comment on above: Performed By: #### L [id number] ####[facility] ([facility])[address] [place] [address] ALP [Catalytic activity/Vol] 64 U/L Normal 34-104 [facility] Comment on above: Performed By: #### L [id number] ####[facility] ([facility])[address] [place] [address] ALT [Catalytic activity/Vol] 31 U/L Normal 7-52 [facility] Comment on above: Performed By: #### L [id number] ####[facility] ([facility])[address] [place] [address] Anion gap [Moles/Vol] 11 mmol/L Normal 7-20 [facility] Comment on above: Performed By: #### L [id number] ####[facility] ([facility])[address] [place] [address] AST [Catalytic activity/Vol] 22 U/L Normal 13-39 [facility] Comment on above: Performed By: #### L [id number] ####[facility] ([facility])[address] [place] [address] Bilirubin [Mass/Vol] 0.7 mg/dL Normal 0.3-1.0 [facility] Comment on above: Performed By: #### L [id number] ####[facility] ([facility])[address] [place] [address] Calcium [Mass/Vol] 9.3 mg/dL Normal 8.6-10.3 [facility] Comment on above: Performed By: #### L [id number] ####[facility] ([facility])[address] [place] [address] Chloride [Moles/Vol] 94 mmol/L Low 98-107 [facility] Comment on above: Performed By: #### L [id number] ####[facility] ([facility])[address] [place] [address] CO2 [Moles/Vol] 25 mmol/L Normal 21-31 [facility] Comment on above: Performed By: #### L [id number] ####[facility] ([facility])[address] [place] [address] Creatinine [Mass/Vol] 0.85 mg/dL Normal 0.70-1.30 [facility] Comment on above: Performed By: #### L [id number] ####[facility] ([facility])[address] [place] [address] GLOMERULAR FILTRATION RATE ML/MIN/1.73 SQ M.PREDICTED 96.4 mL/min/1.73m*2 Normal >60.0 [facility] Comment on above: Result Comment: The [facility]???s estimated glomerular filtration rate (eGFR) will no longer include consideration of race in its calculation. The National Kidney Foundation???s eGFR Task Force developed new recommendations for the estimation of the glomerular filtration rate in the [place] They recommend immediate implementation of the new equation refit without the race variable in all laboratories because the calculation does not include race. In addition to not including race in the calculation and reporting, it included diversity in its development, and has acceptable performance characteristics and potential consequences that do not disproportionately affect any one group of individuals. Performed By: #### L [id number] ####[facility] ([facility])[address] [place] [address] Glucose [Mass/Vol] 115 mg/dL High 70-100 [facility] Comment on above: Performed By: #### L [id number] ####[facility] ([facility])[address] [place] [address] Potassium [Moles/Vol] 4.2 mmol/L Normal 3.5-5.1 [facility] Comment on above: Performed By: #### L [id number] ####[facility] ([facility])[address] [place] [address] Protein [Mass/Vol] 6.5 g/dL Normal 6.0-8.3 [facility] Comment on above: Performed By: #### L [id number] ####[facility] ([facility])[address] [place] [address] Sodium [Moles/Vol] 126 mmol/L Low 136-145 [facility] Comment on above: Performed By: #### L [id number] ####[facility] ([facility])[address] [place] [address] Urea nitrogen [Mass/Vol] 18 mg/dL Normal 7-25 [facility] Comment on above: Performed By: #### L [id number] ####[facility] ([facility])[address] [place] [address] UREA NITROGEN/CREATININE (MASS RATIO) IN SER/PLAS 21.2 Normal [facility] Comment on above: Performed By: #### L [id number] ####[facility] ([facility])[address] [address] Infusionon 08-17-2023 Infusion Normal [facility] T3, FREEon 08-17-2023 TRIIODOTHYRONINE (T3) FREE (PG/ML) IN SER/PLAS 2.7 pg/mL Normal 2.5-3.9 [facility] Comment on above: Performed By: #### L [id number] ####[facility] ([facility])[address] [place] [address] T4, FREEon 08-17-2023 THYROXINE (T4) FREE (NG/DL) IN SER/PLAS 0.78 ng/dL Normal 0.71-1.85 [facility] Comment on above: Performed By: #### L [id number] ####[facility] ([facility])[address] [place] [address] TSHon 08-17-2023 THYROTROPIN (MIU/L) IN SER/PLAS BY DETECTION LIMIT <= 0.05 MIU/L 0.60 mIU/L Normal 0.34-5.60 [facility] Comment on above: Performed By: #### L [id number] ####[facility] ([employer])[address] [place] [address] CT SOFT TISSUE NECK W IV CON TRASTon 08-06-2023 CT SOFT TISSUE NECK W IV CONTRAST Normal [facility] 36on 07-28-2023 36 I called [facility] for pt lipid lab results but no answer. I LVM to fax results or call our office. Normal [facility] Follow-Upon 07-28-2023 Follow-Up Normal [facility] CT CHEST W IV CONTRASTon CT CHEST W IV CONTRAST Normal Un [facility] 36on 07-16-20[address] Cuellar with [employer] Approved follow up CT chest with contrast re-assess pneumonitis Auth # [id number] Team updated via [employer] chat [facility] ANESon 06-25-2023 ANES [facility] HPon 06-25-2023 HP H&P reviewed. The patient was examined and there are no changes to the H&P. [facility] NURSNOTEon 06-25-2023 NURSNOTE RN educated pt on d/c instructions. RN encouraged pt to voice any questions or concerns. Pt verbalizes no questions or concerns at this time. Pt was wheeled off of unit with all of belongings. Normal [facility] CT CHEST W IV CONTRASTon CT CHEST W IV CONTRAST Normal Un [facility] Follow-Upon 06-22-2023 Follow-Up Normal [facility] BASIC METABOLIC PANELon 11-0 Anion gap [Moles/Vol] 11 mmol/L Normal 7-20 [facility] Comment on above: Performed By: #### L [id number] ####[facility] ([facility])[address] [place] [address] Calcium [Mass/Vol] 9.3 mg/dL Normal 8.6-10.3 [facility] Comment on above: Performed By: #### L [id number] ####[facility] ([facility])[address] [place] [address] Chloride [Moles/Vol] 95 mmol/L Low 98-107 [facility] Comment on above: Performed By: #### L [id number] ####[facility] ([facility])[address] [place] [address] CO2 [Moles/Vol] 27 mmol/L Normal 21-31 [facility] Comment on above: Performed By: #### L [id number] ####[facility] ([facility])[address] [place] [address] Creatinine [Mass/Vol] 0.85 mg/dL Normal 0.70-1.30 [facility] Comment on above: Performed By: #### L [id number] ####[facility] ([facility])[address] [place] [address] GLOMERULAR FILTRATION RATE ML/MIN/1.73 SQ M.PREDICTED 97.0 mL/min/1.73m*2 Normal >60.0 [facility] Comment on above: Result Comment: The [facility]???s estimated glomerular filtration rate (eGFR) will no longer include consideration of race in its calculation. The National Kidney Foundation???s eGFR Task Force developed new recommendations for the estimation of the glomerular filtration rate in the [place] They recommend immediate implementation of the new equation refit without the race variable in all laboratories because the calculation does not include race. In addition to not including race in the calculation and reporting, it included diversity in its development, and has acceptable performance characteristics and potential consequences that do not disproportionately affect any one group of individuals. Performed By: #### L [id number] ####[facility] ([facility])[address] [place] [address] Glucose [Mass/Vol] 87 mg/dL Normal 70-100 [facility] Comment on above: Performed By: #### L [id number] ####[facility] (BEAKER)[address] [place] [address] Potassium [Moles/Vol] 4.3 mmol/L Normal 3.5-5.1 [facility] Comment on above: Performed By: #### L [id number] ####[facility] (BEAKER)[address] [place] [address] Sodium [Moles/Vol] 129 mmol/L Low 136-145 [facility] Comment on above: Performed By: #### L [id number] ####[facility] (BEAKER)[address] [place] [address] Urea nitrogen [Mass/Vol] 11 mg/dL Normal 7-25 [facility] Comment on above: Performed By: #### L [id number] ####[facility] ([facility])[address] [place] [address] UREA NITROGEN/CREATININE (MASS RATIO) IN SER/PLAS 12.9 Normal [facility] Comment on above: Performed By: #### L [id number] ####[facility] (BEAKER)[address] [place] [address] CBCon 06-17-2023 Erythrocyte distribution width (RBC) [Ratio] 12.8 % Normal 11.5-15.0 [facility] Comment on above: Performed By: #### L [id number] ####[facility] (BEAKER)[address] [place] [address] ERYTHROCYTE MEAN CORPUSCULAR HEMOGLOBIN CONCENTRATION (G/DL) BY AUTOMATED 34.8 g/dL Normal 32.0-35.0 [facility] Comment on above: Performed By: #### L [id number] ####[facility] (BEAKER)[address] [place] [address] Hematocrit (Bld) [Volume fraction] 32.8 % Low 39.0-55.0 [facility] Comment on above: Performed By: #### L [id number] ####[facility] (BEAKER)[address] [place] [address] Hemoglobin (Bld) [Mass/Vol] 11.4 g/dL Low 13.0-17.0 [facility] Comment on above: Performed By: #### L [id number] ####[facility] ([facility])[address] [address] MCH (RBC) [Entitic mass] 29.7 pg Normal 27.0-33.0 [facility] Comment on above: Performed By: #### L [id number] ####[facility] ([facility])[address] [address] MCV (RBC) [Entitic vol] 85.4 fL Normal 82.0-98.0 [facility] Comment on above: Performed By: #### L [id number] ####[facility] ([facility])[address] [place] [address] PLATELETS (10*3/UL) IN BLOOD AUTOMATED COUNT 305 10*3/uL Normal 150-400 [facility] Comment on above: Performed By: #### L [id number] ####[facility] ([facility])[address] [place] [address] RBC (Bld) [#/Vol] 3.84 10*6/uL Low 4.20-5.70 [facility] Comment on above: Performed By: #### L [id number] ####[facility] ([facility])[address] [place] [address] WBC (Bld) [#/Vol] 6.91 10*3/uL Normal 4.00-10.60 [facility] Comment on above: Performed By: #### L [id number] ####[facility] ([facility])[address] [address] Labon 06-17-2023 Lab Normal [facility] Orders Onlyon 06-17-2023 Orders Only Normal [facility] PSA, SCREENINGon 06-17-2023 PROSTATE SPECIFIC AG (NG/ML) IN SER/PLAS <0.1 Low 0.4-4 [facility] Comment on above: Order Comment: To be collected in 06/2023 Performed By: #### L [id number] ####[facility] ([place])[address] [place] [address] 36on 06-12-2023 36 Spoke to . Questions answered. [facility] 36on 06-10-2023 36 Patient calling to discuss recent heart testing. Please call to discuss cell [phone]. Thank you [facility] 36 Spoke to patient/ regarding ECHO results. 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 Recommend coronary angiogram for ischemic evaluation. Discussed risks and benefits. Patient is agreeable to proceed. [facility] Telephoneon 06-10-2023 Telephone [facility] Cholesterol [Mass/volume] in Serum or PlasmaOrdered By: Clara Jordan on 06-05-2023 Cholesterol [Mass/Vol] 152 mg/dL 140-200 [facility] Comment on above: Chol less than 200 m g/dl low riskChol 201-239 mg/dl borderline riskChol 240 mg/dl and greater high risk Cholesterol in LDL Calc [Mas s/Vol]Ordered By: Clara Jordan on 06-05-2023 Cholesterol in LDL [Mass/Vol] 82 mg/dL 0-100 [facility] Comment on above: LDL ATP III CLASSIFI CATIONLDL less than 100 mg/dL OptimalLDL 100-129 mg/dL Near or above optimalLDL 130-159 mg/dL Borderline highLDL 160-189 mg/dL HighLDL greater than 189 mg/dL Very high Cholesterol in VLDL Calc [Ma ss/Vol]Ordered By: Clara Jordan on 06-05-2023 Cholesterol in VLDL [Mass/Vol] 23 mg/dL [facility] Lipid Panelon 06-05-2023 Cholesterol [Mass/Vol] 152 mg/dL Normal 140-200 [facility] Comment on above: Order Comment: FASTI NG Result Comment: Chol less than 200 mg/dl low risk Chol 201-239 mg/dl borderline risk Chol 240 mg/dl and greater high risk Performed By: #### L IPID #### [facility] [address] Cholesterol in HDL [Mass/Vol] 47 mg/dL Normal 23-92 [facility] Comment on above: Order Comment: FASTI NG Result Comment: HDL CHOL ATP-III CLASSIFICATION Cardiovascular Risk HDL > or equal to 60 mg/dL LOW HDL < 40 mg/dL HIGH Performed By: #### L IPID #### [facility] [address] Cholesterol.total/Chol esterol in HDL [Mass ratio] 3.2 {ratio} Normal <5.0 [facility] Comment on above: Order Comment: FASTI NG Result Comment: PERF ORMED BY: [place], [place] [address] PATHOLOGIST EPIC APPLICATION COORDINATOR MAYA SHELTON M.D. Performed By: #### L IPID #### [facility] [address] LDL Cholesterol,Calculated 82 mg/dL Normal 0-100 [facility] Comment on above: Order Comment: FASTI NG Result Comment: LDL ATP III CLASSIFICATION LDL less than 100 mg/dL Optimal LDL 100-129 mg/dL Near or above optimal LDL 130-159 mg/dL Borderline high LDL 160-189 mg/dL High LDL greater than 189 mg/dL Very high Performed By: #### L IPID #### [address] Triglyceride w/Reflex 115 mg/dL Normal 0-149 [facility] Comment on above: Order Comment: FASTI NG Result Comment: TRIG ATP III CLASSIFICATION TRIG less than 150 mg/dL Normal TRIG 150-199 mg/dL Borderline high TRIG 200-500 mg/dL High TRIG greater than 500 mg/dL Very high Standard traceable to the Center for Disease Conrtrol and Prevention (CDC) test method. Performed By: #### L IPID #### [facility] [address] VLDL CHOLESTEROL 23 mg/dL Normal [facility] Comment on above: Order Comment: FASTI NG Performed By: #### L IPID #### [facility] [address] [place] [address] [place] Serum or plasma high density lipoprotein (HDL) cholesterol measurementOrdered By: Clara Jordan on 06-05-2023 Cholesterol in HDL [Mass/Vol] 47 mg/dL 23-92 [facility] Comment on above: HDL CHOL ATP-III CLA SSIFICATION Cardiovascular RiskHDL > or equal to 60 mg/dL LOWHDL < 40 mg/dL HIGH Serum or plasma total choles terol/high density lipoprotein (HDL) cholesterol mass ratOrdered By: Clara Jordan on 06-05-2023 Cholesterol.total/Chol esterol in HDL [Mass ratio] 3.2 {ratio} <5.0 [facility] Triglyceride [Mass/volume] i n Serum or PlasmaOrdered By: Clara Jordan on 06-05-2023 Triglyceride [Mass/Vol] 115 mg/dL 0-149 [facility] Comment on above: TRIG ATP III CLASSIF ICATIONTRIG less than 150 mg/dL NormalTRIG 150-199 mg/dL Borderline highTRIG 200-500 mg/dL High TRIG greater than 500 mg/dL Very highStandard traceable to the Center for Disease Conrtrol and Prevention (CDC) test method. 29on 06-01-2023 29 Addended by: CORTEZ MORRIS on: 06/10/2023 02:41 PM Modules accepted: Level of Service Normal [facility] Consulton 06-01-2023 Consult Normal [facility] HPon 06-01-2023 HP Normal [facility] 37on 05-27-2023 37 Normal [facility] CT CHEST W IV CONTRASTon CT CHEST W IV CONTRAST [facility] WITH AUTO DIFFERENTIALon 05-20-2023 Basophils (Bld) [#/Vol] 0.06 10*3/uL Normal 0.00-0.20 [facility] Comment on above: Performed By: #### L [id number] ####[facility] (BEAKER)[address] [place] [address] Basophils/100 WBC (Bld) 0.9 % Normal 0.0-1.0 [facility] Comment on above: Performed By: #### L [id number] ####[facility] (BEAKER)[address] [place] [address] Eosinophils (Bld) [#/Vol] 0.30 10*3/uL Normal 0.00-0.50 [facility] Comment on above: Performed By: #### L [id number] ####[facility] (BEAKER)[address] [place] [address] Eosinophils/100 WBC (Bld) 4.4 % Normal 0.0-6.0 [facility] Comment on above: Performed By: #### L [id number] ####[facility] (BEAKER)[address] [place] [address] Erythrocyte distribution width (RBC) [Ratio] 12.3 % Normal 11.5-15.0 [facility] Comment on above: Performed By: #### L [id number] ####[facility] (BEAKER)[address] [place] [address] ERYTHROCYTE MEAN CORPUSCULAR HEMOGLOBIN CONCENTRATION (G/DL) BY AUTOMATED 34.4 g/dL Normal 32.0-35.0 [facility] Comment on above: Performed By: #### L [id number] ####[facility] (BEAKER)[address] [place] [address] Hematocrit (Bld) [Volume fraction] 32.0 % Low 39.0-55.0 [facility] Comment on above: Performed By: #### L [id number] ####[facility] (BEAKER)[address] [place] [address] Hemoglobin (Bld) [Mass/Vol] 11.0 g/dL Low 13.0-17.0 [facility] Comment on above: Performed By: #### L [id number] ####[facility] (BEAKER)[address] [place] [address] Immature granulocytes (Bld) [#/Vol] 0.03 10*3/uL Normal 0.00-0.20 [facility] Comment on above: Performed By: #### L [id number] ####[facility] (BEAKER)[address] [place] [address] Immature granulocytes/100 WBC (Bld) 0.4 % Normal 0.0-1.0 [facility] Comment on above: Performed By: #### L [id number] ####[facility] (BEAKER)[address] [place] [address] Lymphocytes (Bld) [#/Vol] 0.41 10*3/uL Low 1.20-4.00 [facility] Comment on above: Performed By: #### L [id number] ####[facility] (BEAKER)[address] [place] [address] Lymphocytes/100 WBC (Bld) 6.0 % Low 20.0-45.0 [facility] Comment on above: Performed By: #### L [id number] ####[facility] (BEAKER)[address] [place] [address] MCH (RBC) [Entitic mass] 29.6 pg Normal 27.0-33.0 [facility] Comment on above: Performed By: #### L [id number] ####[facility] (BEAKER)[address] [place] [address] MCV (RBC) [Entitic vol] 86.3 fL Normal 82.0-98.0 [facility] Comment on above: Performed By: #### L [id number] ####[facility] (BEAKER)[address] [place] [address] Monocytes (Bld) [#/Vol] 0.91 10*3/uL Normal 0.10-1.00 [facility] Comment on above: Performed By: #### L [id number] ####[facility] (BEAKER)[address] [place] [address] Monocytes/100 WBC (Bld) 13.2 % High 5.0-12.0 [facility] Comment on above: Performed By: #### L [id number] ####[facility] (BEAKER)[address] [place] [address] Neutrophils (Bld) [#/Vol] 5.18 10*3/uL Normal 1.60-7.60 [facility] Comment on above: Performed By: #### L [id number] ####[facility] ([facility])[address] [place] [place] [address] Neutrophils/100 WBC (Bld) 75.1 % High 40.0-72.0 [facility] Comment on above: Performed By: #### L [id number] ####[facility] ([facility])[address] [place] [address] NRBC (PER 100 WBCS) BY AUTOMATED COUNT 0.0 % Normal 0 [facility] Comment on above: Performed By: #### L [id number] ####[facility] ([facility])[address] [place] [address] PLATELETS (10*3/UL) IN BLOOD AUTOMATED COUNT 352 10*3/uL Normal 150-400 [facility] Comment on above: Performed By: #### L [id number] ####[facility] ([facility])[address] [place] [address] RBC (Bld) [#/Vol] 3.71 10*6/uL Low 4.20-5.70 [facility] Comment on above: Performed By: #### L [id number] ####[facility] ([facility])[address] [place] [address] WBC (Bld) [#/Vol] 6.89 10*3/uL Normal 4.00-10.60 [facility] Comment on above: Performed By: #### L [id number] ####[facility] (BEAKER)[address] [place] [address] COMPREHENSIVE METABOLIC PANE Yahir 05-20-2023 Albumin [Mass/Vol] 4.2 g/dL Normal 3.5-5.7 [facility] Comment on above: Performed By: #### L [id number] ####[facility] (BEAKER)[address] [place] [address] ALP [Catalytic activity/Vol] 132 U/L High 34-104 [facility] Comment on above: Performed By: #### L [id number] ####[facility] ([facility])[address] [place] [address] ALT [Catalytic activity/Vol] 16 U/L Normal 7-52 [facility] Comment on above: Performed By: #### L [id number] ####[facility] ([facility])[address] [place] [address] Anion gap [Moles/Vol] 13 mmol/L Normal 7-20 [facility] Comment on above: Performed By: #### L [id number] ####[facility] ([facility])[address] [place] [address] AST [Catalytic activity/Vol] 23 U/L Normal 13-39 [facility] Comment on above: Performed By: #### L [id number] ####[facility] ([facility])[address] [place] [address] Bilirubin [Mass/Vol] 0.4 mg/dL Normal 0.3-1.0 [facility] Comment on above: Performed By: #### L [id number] ####[facility] ([facility])[address] [place] [address] Calcium [Mass/Vol] 9.5 mg/dL Normal 8.6-10.3 [facility] Comment on above: Performed By: #### L [id number] ####[facility] ([facility])[address] [place] [address] Chloride [Moles/Vol] 92 mmol/L Low 98-107 [facility] Comment on above: Performed By: #### L [id number] ####[facility] ([facility])[address] [place] [address] CO2 [Moles/Vol] 26 mmol/L Normal 21-31 [facility] Comment on above: Performed By: #### L [id number] ####[facility] ([facility])[address] [place] [address] Creatinine [Mass/Vol] 0.77 mg/dL Normal 0.70-1.30 [facility] Comment on above: Performed By: #### L [id number] ####[facility] ([facility])[address] [place] [address] GLOMERULAR FILTRATION RATE ML/MIN/1.73 SQ M.PREDICTED 100.0 mL/min/1.73m*2 Normal >60.0 [facility] Comment on above: Result Comment: The [facility]???s estimated glomerular filtration rate (eGFR) will no longer include consideration of race in its calculation. The National Kidney Foundation???s eGFR Task Force developed new recommendations for the estimation of the glomerular filtration rate in the [place] They recommend immediate implementation of the new equation refit without the race variable in all laboratories because the calculation does not include race. In addition to not including race in the calculation and reporting, it included diversity in its development, and has acceptable performance characteristics and potential consequences that do not disproportionately affect any one group of individuals. Performed By: #### L [id number] ####[facility] ([facility])[address] [place] [address] Glucose [Mass/Vol] 90 mg/dL Normal 70-100 [facility] Comment on above: Performed By: #### L [id number] ####[facility] ([facility])[address] [place] [address] Potassium [Moles/Vol] 4.2 mmol/L Normal 3.5-5.1 [facility] Comment on above: Performed By: #### L [id number] ####[facility] ([facility])[address] [place] [address] Protein [Mass/Vol] 6.9 g/dL Normal 6.0-8.3 [facility] Comment on above: Performed By: #### L [id number] ####[facility] ([facility])[address] [place] [address] Sodium [Moles/Vol] 127 mmol/L Low 136-145 [facility] Comment on above: Performed By: #### L [id number] ####[facility] ([facility])[address] [place] [address] Urea nitrogen [Mass/Vol] 11 mg/dL Normal 7-25 [facility] Comment on above: Performed By: #### L [id number] ####[facility] ([facility])[address] [place] [address] UREA NITROGEN/CREATININE (MASS RATIO) IN SER/PLAS 14.3 Normal [facility] Comment on above: Performed By: #### L [id number] ####[facility] ([facility])[address] [place] [address] Labon 05-20-2023 Lab Normal [facility] T3, FREEon 05-20-2023 TRIIODOTHYRONINE (T3) FREE (PG/ML) IN SER/PLAS 3.3 pg/mL Normal 2.5-3.9 [facility] Comment on above: Performed By: #### L [id number] ####[facility] ([facility])[address] [place] [address] T4, FREEon 05-20-2023 THYROXINE (T4) FREE (NG/DL) IN SER/PLAS 0.71 ng/dL Normal 0.71-1.85 [facility] Comment on above: Performed By: #### L [id number] ####[facility] ([facility])[address] [place] [address] TSHon 05-20-2023 THYROTROPIN (MIU/L) IN SER/PLAS BY DETECTION LIMIT <= 0.05 MIU/L 3.16 mIU/L Normal 0.34-5.60 [facility] Comment on above: Performed By: #### L [id number] ####[facility] ([facility])[address] [place] [address] Tobacco Screening.on 023 Adult depression screening assessment No [facility] [place] Work Phone: Fall risk assessment a) No falls within the last year [facility]tolaryng[facility]-[place] [facility] [place] Work Phone: Tobacco use status CPHS b) No [facility]tolaryng[facility] [facility] [place] Work Phone: Orders Onlyon 04-30-2023 Orders Only Normal [facility] CBC WITH AUTO DIFFERENTIALon 04-29-2023 Basophils (Bld) [#/Vol] 0.07 10*3/uL Normal 0.00-0.20 [facility] Comment on above: Performed By: #### L [id number] ####[facility] (BEAKER)[address] [place] [address] Basophils/100 WBC (Bld) 1.1 % High 0.0-1.0 [facility] Comment on above: Performed By: #### L [id number] ####[facility] (BEAKER)[address] [place] [address] Eosinophils (Bld) [#/Vol] 0.31 10*3/uL Normal 0.00-0.50 [facility] Comment on above: Performed By: #### L [id number] ####[facility] (BEAKER)[address] [place] [address] Eosinophils/100 WBC (Bld) 4.7 % Normal 0.0-6.0 [facility] Comment on above: Performed By: #### L [id number] ####[facility] (BEAKER)[address] [place] [address] Erythrocyte distribution width (RBC) [Ratio] 12.2 % Normal 11.5-15.0 [facility] Comment on above: Performed By: #### L [id number] ####[facility] (BEAKER)[address] [place] [address] ERYTHROCYTE MEAN CORPUSCULAR HEMOGLOBIN CONCENTRATION (G/DL) BY AUTOMATED 34.3 g/dL Normal 32.0-35.0 [facility] Comment on above: Performed By: #### L [id number] ####[facility] (BEAKER)[address] [place] [address] Hematocrit (Bld) [Volume fraction] 29.7 % Low 39.0-55.0 [facility] Comment on above: Performed By: #### L [id number] ####[facility] (BEAKER)[address] [place] [address] Hemoglobin (Bld) [Mass/Vol] 10.2 g/dL Low 13.0-17.0 [facility] Comment on above: Performed By: #### L [id number] ####[facility] (BEAKER)[address] [place] [address] Immature granulocytes (Bld) [#/Vol] 0.02 10*3/uL Normal 0.00-0.20 [facility] Comment on above: Performed By: #### L [id number] ####[facility] (BEAKER)[address] [place] [address] Immature granulocytes/100 WBC (Bld) 0.3 % Normal 0.0-1.0 [facility] Comment on above: Performed By: #### L [id number] ####[facility] (BEAKER)[address] [place] [address] Lymphocytes (Bld) [#/Vol] 0.43 10*3/uL Low 1.20-4.00 [facility] Comment on above: Performed By: #### L [id number] ####[facility] (BEAKER)[address] [place] [address] Lymphocytes/100 WBC (Bld) 6.5 % Low 20.0-45.0 [facility] Comment on above: Performed By: #### L [id number] ####[facility] (BEAKER)[address] [place] [address] MCH (RBC) [Entitic mass] 29.7 pg Normal 27.0-33.0 [facility] Comment on above: Performed By: #### L [id number] ####[facility] (BEAKER)[address] [place] [address] MCV (RBC) [Entitic vol] 86.3 fL Normal 82.0-98.0 [facility] Comment on above: Performed By: #### L [id number] ####[facility] (BEAKER)[address] [place] [address] Monocytes (Bld) [#/Vol] 0.91 10*3/uL Normal 0.10-1.00 [facility] Comment on above: Performed By: #### L [id number] ####[facility] ([facility])[address] [place] [address] Monocytes/100 WBC (Bld) 13.7 % High 5.0-12.0 [facility] Comment on above: Performed By: #### L [id number] ####[facility] ([facility])[address] [place] [address] Neutrophils (Bld) [#/Vol] 4.90 10*3/uL Normal 1.60-7.60 [facility] Comment on above: Performed By: #### L [id number] ####[facility] ([facility])[address] [place] [address] Neutrophils/100 WBC (Bld) 73.7 % High 40.0-72.0 [facility] Comment on above: Performed By: #### L [id number] ####[facility] ([facility])[address] [place] [address] NRBC (PER 100 WBCS) BY AUTOMATED COUNT 0.0 % Normal 0 [facility] Comment on above: Performed By: #### L [id number] ####[facility] ([facility])[address] [place] [address] PLATELETS (10*3/UL) IN BLOOD AUTOMATED COUNT 332 10*3/uL Normal 150-400 [facility] Comment on above: Performed By: #### L [id number] ####[facility] ([facility])[address] [place] [address] RBC (Bld) [#/Vol] 3.44 10*6/uL Low 4.20-5.70 [facility] Comment on above: Performed By: #### L [id number] ####[facility] ([facility])[address] [place] [address] WBC (Bld) [#/Vol] 6.64 10*3/uL Normal 4.00-10.60 [facility] Comment on above: Performed By: #### L [id number] ####[facility] ([facility])[address] [place] [address] COMPREHENSIVE METABOLIC PANE Yahir 04-29-2023 Albumin [Mass/Vol] 4.0 g/dL Normal 3.5-5.7 [facility] Comment on above: Performed By: #### L [id number] ####[facility] ([facility])[address] [place] [address] ALP [Catalytic activity/Vol] 128 U/L High 34-104 [facility] Comment on above: Performed By: #### L [id number] ####[facility] ([facility])[address] [place] [address] ALT [Catalytic activity/Vol] 16 U/L Normal 7-52 [facility] Comment on above: Performed By: #### L [id number] ####[facility] ([facility])[address] [place] [address] Anion gap [Moles/Vol] 11 mmol/L Normal 7-20 [facility] Comment on above: Performed By: #### L [id number] ####[facility] ([facility])[address] [place] [address] AST [Catalytic activity/Vol] 22 U/L Normal 13-39 [facility] Comment on above: Performed By: #### L [id number] ####[facility] ([facility])[address] [place] [address] Bilirubin [Mass/Vol] 0.4 mg/dL Normal 0.3-1.0 [facility] Comment on above: Performed By: #### L [id number] ####[facility] ([facility])[address] [place] [address] Calcium [Mass/Vol] 9.3 mg/dL Normal 8.6-10.3 [facility] Comment on above: Performed By: #### L [id number] ####[facility] ([facility])[address] [place] [address] Chloride [Moles/Vol] 96 mmol/L Low 98-107 [facility] Comment on above: Performed By: #### L [id number] ####[facility] ([facility])[address] [place] [address] CO2 [Moles/Vol] 26 mmol/L Normal 21-31 [facility] Comment on above: Performed By: #### L [id number] ####[facility] ([facility])[address] [place] [address] Creatinine [Mass/Vol] 0.80 mg/dL Normal 0.70-1.30 [facility] Comment on above: Performed By: #### L [id number] ####[facility] ([facility])[address] [place] [address] GLOMERULAR FILTRATION RATE ML/MIN/1.73 SQ M.PREDICTED 98.8 mL/min/1.73m*2 Normal >60.0 [facility] Comment on above: Result Comment: The [facility]???s estimated glomerular filtration rate (eGFR) will no longer include consideration of race in its calculation. The National Kidney Foundation???s eGFR Task Force developed new recommendations for the estimation of the glomerular filtration rate in the [place] They recommend immediate implementation of the new equation refit without the race variable in all laboratories because the calculation does not include race. In addition to not including race in the calculation and reporting, it included diversity in its development, and has acceptable performance characteristics and potential consequences that do not disproportionately affect any one group of individuals. Performed By: #### L [id number] ####[facility] ([facility])[address] [place] [address] Glucose [Mass/Vol] 92 mg/dL Normal 70-100 [facility] Comment on above: Performed By: #### L [id number] ####[facility] ([facility])[address] [place] [address] Potassium [Moles/Vol] 4.1 mmol/L Normal 3.5-5.1 [facility] Comment on above: Performed By: #### L [id number] ####[facility] ([facility])[address] [place] [address] Protein [Mass/Vol] 6.5 g/dL Normal 6.0-8.3 [facility] [facility] Comment on above: Performed By: #### L [id number] ####[facility] ([facility])[address] [place] [address] Sodium [Moles/Vol] 129 mmol/L Low 136-145 [facility] Comment on above: Performed By: #### L [id number] ####[facility] ([facility])[address] [place] [address] Urea nitrogen [Mass/Vol] 11 mg/dL Normal 7-25 [facility] Comment on above: Performed By: #### L [id number] ####[facility] ([facility])[address] [place] [address] UREA NITROGEN/CREATININE (MASS RATIO) IN SER/PLAS 13.8 Normal [facility] Comment on above: Performed By: #### L [id number] ####[facility] ([facility])[address] [place] [address] Labon 04-29-2023 Lab Normal [facility] T3, FREEon 04-29-2023 TRIIODOTHYRONINE (T3) FREE (PG/ML) IN SER/PLAS 3.3 pg/mL Normal 2.5-3.9 [facility] Comment on above: Performed By: #### L [id number] ####[facility] ([facility])[address] [place] [address] T4, FREEon 04-29-2023 THYROXINE (T4) FREE (NG/DL) IN SER/PLAS 0.83 ng/dL Normal 0.71-1.85 [facility] Comment on above: Performed By: #### L [id number] ####[facility] ([facility])[address] [place] [address] TSHon 04-29-2023 THYROTROPIN (MIU/L) IN SER/PLAS BY DETECTION LIMIT <= 0.05 MIU/L 2.55 mIU/L Normal 0.34-5.60 [facility] Comment on above: Performed By: #### L [id number] ####[facility] ([facility])[address] [place] [address] Documentationon 04-21-2023 Documentation Normal [facility] CBC WITH AUTO DIFFERENTIALon 04-08-2023 Basophils (Bld) [#/Vol] 0.06 10*3/uL Normal 0.00-0.20 [facility] Comment on above: Performed By: #### L [id number] ####[facility] ([facility])[address] [place] [address] Basophils/100 WBC (Bld) 0.9 % Normal 0.0-1.0 [facility] Comment on above: Performed By: #### L [id number] ####[facility] ([facility])[address] [place] [address] Eosinophils (Bld) [#/Vol] 0.32 10*3/uL Normal 0.00-0.50 [facility] Comment on above: Performed By: #### L [id number] ####[facility] ([facility])[address] [place] [address] Eosinophils/100 WBC (Bld) 4.7 % Normal 0.0-6.0 [facility] Comment on above: Performed By: #### L [id number] ####[facility] ([facility])[address] [place] [address] Erythrocyte distribution width (RBC) [Ratio] 11.9 % Normal 11.5-15.0 [facility] Comment on above: Performed By: #### L [id number] ####[facility] ([facility])[address] [place] [address] ERYTHROCYTE MEAN CORPUSCULAR HEMOGLOBIN CONCENTRATION (G/DL) BY AUTOMATED 33.9 g/dL Normal 32.0-35.0 [facility] Comment on above: Performed By: #### L [id number] ####[facility] ([facility])[address] [place] [address] Hematocrit (Bld) [Volume fraction] 31.0 % Low 39.0-55.0 [facility] Comment on above: Performed By: #### L [id number] ####[facility] ([facility])[address] [place] [address] Hemoglobin (Bld) [Mass/Vol] 10.5 g/dL Low 13.0-17.0 [facility] Comment on above: Performed By: #### L [id number] ####[facility] ([facility])[address] [place] [address] Immature granulocytes (Bld) [#/Vol] 0.03 10*3/uL Normal 0.00-0.20 [facility] Comment on above: Performed By: #### L [id number] ####[facility] ([facility])[address] [place] [address] Immature granulocytes/100 WBC (Bld) 0.4 % Normal 0.0-1.0 [facility] Comment on above: Performed By: #### L [id number] ####[facility] ([facility])[address] [place] [address] Lymphocytes (Bld) [#/Vol] 0.48 10*3/uL Low 1.20-4.00 [facility] Comment on above: Performed By: #### L [id number] ####[facility] ([facility])[address] [place] [address] Lymphocytes/100 WBC (Bld) 7.0 % Low 20.0-45.0 [facility] Comment on above: Performed By: #### L [id number] ####[facility] ([facility])[address] [place] [address] MCH (RBC) [Entitic mass] 29.3 pg Normal 27.0-33.0 [facility] Comment on above: Performed By: #### L [id number] ####[facility] ([facility])[address] [place] [address] MCV (RBC) [Entitic vol] 86.6 fL Normal 82.0-98.0 [facility] Comment on above: Performed By: #### L [id number] ####[facility] ([facility])[address] [place] [address] Monocytes (Bld) [#/Vol] 0.83 10*3/uL Normal 0.10-1.00 [facility] Comment on above: Performed By: #### L [id number] ####[facility] ([facility])[address] [place] [address] Monocytes/100 WBC (Bld) 12.1 % High 5.0-12.0 [facility] Comment on above: Performed By: #### L [id number] ####[facility] ([facility])[address] [place] [address] Neutrophils (Bld) [#/Vol] 5.12 10*3/uL Normal 1.60-7.60 [facility] Comment on above: Performed By: #### L [id number] ####[facility] ([facility])[address] [place] [address] Neutrophils/100 WBC (Bld) 74.9 % High 40.0-72.0 [facility] Comment on above: Performed By: #### L [id number] ####[facility] ([facility])[address] [place] [address] NRBC (PER 100 WBCS) BY AUTOMATED COUNT 0.0 % Normal 0 [facility] Comment on above: Performed By: #### L [id number] ####[facility] ([facility])[address] [place] [address] PLATELETS (10*3/UL) IN BLOOD AUTOMATED COUNT 343 10*3/uL Normal 150-400 [facility] Comment on above: Performed By: #### L [id number] ####[facility] ([facility])[address] [place] [address] RBC (Bld) [#/Vol] 3.58 10*6/uL Low 4.20-5.70 [facility] Comment on above: Performed By: #### L [id number] ####[facility] ([facility])[address] [place] [address] WBC (Bld) [#/Vol] 6.84 10*3/uL Normal 4.00-10.60 [facility] Comment on above: Performed By: #### L [id number] ####[facility] ([facility])[address] [place] [address] COMPREHENSIVE METABOLIC PANE Yahir 04-08-2023 Albumin [Mass/Vol] 4.2 g/dL Normal 3.5-5.7 [facility] Comment on above: Performed By: #### L [id number] ####[facility] ([facility])[address] [place] [address] ALP [Catalytic activity/Vol] 155 U/L High 34-104 [facility] Comment on above: Performed By: #### L [id number] ####[facility] ([facility])[address] [place] [address] ALT [Catalytic activity/Vol] 16 U/L Normal 7-52 [facility] Comment on above: Performed By: #### L [id number] ####[facility] ([facility])[address] [place] [address] Anion gap [Moles/Vol] 11 mmol/L Normal 7-20 [facility] Comment on above: Performed By: #### L [id number] ####[facility] ([facility])[address] [place] [address] AST [Catalytic activity/Vol] 22 U/L Normal 13-39 [facility] Comment on above: Performed By: #### L [id number] ####[facility] ([facility])[address] [place] [address] Bilirubin [Mass/Vol] 0.4 mg/dL Normal 0.3-1.0 [facility] Comment on above: Performed By: #### L [id number] ####[facility] ([facility])[address] [place] [address] Calcium [Mass/Vol] 9.5 mg/dL Normal 8.6-10.3 [facility] Comment on above: Performed By: #### L [id number] ####[facility] ([facility])[address] [place] [address] Chloride [Moles/Vol] 95 mmol/L Low 98-107 [facility] Comment on above: Performed By: #### L [id number] ####[facility] ([facility])[address] [place] [address] CO2 [Moles/Vol] 27 mmol/L Normal 21-31 [facility] Comment on above: Performed By: #### L [id number] ####[facility] ([facility])[address] [place] [address] Creatinine [Mass/Vol] 0.77 mg/dL Normal 0.70-1.30 [facility] Comment on above: Performed By: #### L [id number] ####[facility] ([facility])[address] [place] [address] GLOMERULAR FILTRATION RATE ML/MIN/1.73 SQ M.PREDICTED 100.0 mL/min/1.73m*2 Normal >60.0 [facility] Comment on above: Result Comment: The [facility]???s estimated glomerular filtration rate (eGFR) will no longer include consideration of race in its calculation. The National Kidney Foundation???s eGFR Task Force developed new recommendations for the estimation of the glomerular filtration rate in the [place] They recommend immediate implementation of the new equation refit without the race variable in all laboratories because the calculation does not include race. In addition to not including race in the calculation and reporting, it included diversity in its development, and has acceptable performance characteristics and potential consequences that do not disproportionately affect any one group of individuals. Performed By: #### L [id number] ####[facility] ([facility])[address] [place] [address] Glucose [Mass/Vol] 94 mg/dL Normal 70-100 [facility] Comment on above: Performed By: #### L [id number] ####[facility] ([facility])[address] [place] [address] Potassium [Moles/Vol] 4.1 mmol/L Normal 3.5-5.1 [facility] Comment on above: Performed By: #### L [id number] ####[facility] ([facility])[address] [place] [address] Protein [Mass/Vol] 6.8 g/dL Normal 6.0-8.3 [facility] Comment on above: Performed By: #### L [id number] ####[facility] ([facility])[address] [place] [address] Sodium [Moles/Vol] 129 mmol/L Low 136-145 [facility] Comment on above: Performed By: #### L [id number] ####[facility] ([facility])[address] [place] [address] Urea nitrogen [Mass/Vol] 10 mg/dL Normal 7-25 [facility] Comment on above: Performed By: #### L [id number] ####[facility] ([facility])[address] [place] [address] UREA NITROGEN/CREATININE (MASS RATIO) IN SER/PLAS 13.0 Normal [facility] Comment on above: Performed By: #### L [id number] ####[facility] ([facility])[address] [place] [address] Labon 04-08-2023 Lab Normal [facility] T3, FREEon 04-08-2023 TRIIODOTHYRONINE (T3) FREE (PG/ML) IN SER/PLAS 3.0 pg/mL Normal 2.5-3.9 [facility] Comment on above: Performed By: #### L [id number] ####[facility] ([facility])[address] [place] [address] TSHon 04-08-2023 THYROTROPIN (MIU/L) IN SER/PLAS BY DETECTION LIMIT <= 0.05 MIU/L 2.16 mIU/L Normal 0.34-5.60 [facility] Comment on above: Performed By: #### L [id number] ####[facility] ([facility])[address] [place] [address] Follow-Upon 03-22-2023 Follow-Up Normal [facility] CBC WITH AUTO DIFFERENTIALon 03-18-2023 Basophils (Bld) [#/Vol] 0.05 10*3/uL Normal 0.00-0.20 [facility] Comment on above: Performed By: #### L [id number] ####[facility] ([facility])[address] [place] [address] Basophils/100 WBC (Bld) 0.8 % Normal 0.0-1.0 [facility] Comment on above: Performed By: #### L [id number] ####[facility] ([facility])[address] [place] [address] Eosinophils (Bld) [#/Vol] 0.42 10*3/uL Normal 0.00-0.50 [facility] Comment on above: Performed By: #### L [id number] ####[facility] ([facility])[address] [place] [address] Eosinophils/100 WBC (Bld) 6.5 % High 0.0-6.0 [facility] Comment on above: Performed By: #### L [id number] ####[facility] ([facility])[address] [place] [address] Erythrocyte distribution width (RBC) [Ratio] 12.1 % Normal 11.5-15.0 [facility] Comment on above: Performed By: #### L [id number] ####[facility] ([facility])[address] [place] [address] ERYTHROCYTE MEAN CORPUSCULAR HEMOGLOBIN CONCENTRATION (G/DL) BY AUTOMATED 35.5 g/dL High 32.0-35.0 [facility] Comment on above: Performed By: #### L [id number] ####[facility] ([facility])[address] [place] [address] Hematocrit (Bld) [Volume fraction] 31.3 % Low 39.0-55.0 [facility] Comment on above: Performed By: #### L [id number] ####[facility] ([facility])[address] [place] [address] Hemoglobin (Bld) [Mass/Vol] 11.1 g/dL Low 13.0-17.0 [facility] Comment on above: Performed By: #### L [id number] ####[facility] ([facility])[address] [place] [address] Immature granulocytes (Bld) [#/Vol] 0.03 10*3/uL Normal 0.00-0.20 [facility] Comment on above: Performed By: #### L [id number] ####[facility] ([facility])[address] [place] [address] Immature granulocytes/100 WBC (Bld) 0.5 % Normal 0.0-1.0 [facility] Comment on above: Performed By: #### L [id number] ####[facility] ([facility])[address] [place] [address] Lymphocytes (Bld) [#/Vol] 0.53 10*3/uL Low 1.20-4.00 [facility] Comment on above: Performed By: #### L [id number] ####[facility] ([facility])[address] [place] [address] Lymphocytes/100 WBC (Bld) 8.2 % Low 20.0-45.0 [facility] Comment on above: Performed By: #### L [id number] ####[facility] ([facility])[address] [place] [address] MCH (RBC) [Entitic mass] 30.6 pg Normal 27.0-33.0 [facility] Comment on above: Performed By: #### L [id number] ####[facility] ([facility])[address] [place] [address] MCV (RBC) [Entitic vol] 86.2 fL Normal 82.0-98.0 [facility] Comment on above: Performed By: #### L [id number] ####[facility] ([facility])[address] [place] [address] Monocytes (Bld) [#/Vol] 0.91 10*3/uL Normal 0.10-1.00 [facility] Comment on above: Performed By: #### L [id number] ####[facility] ([facility])[address] [place] [address] Monocytes/100 WBC (Bld) 14.0 % High 5.0-12.0 [facility] Comment on above: Performed By: #### L [id number] ####[facility] ([facility])[address] [place] [address] Neutrophils (Bld) [#/Vol] 4.56 10*3/uL Normal 1.60-7.60 [facility] Comment on above: Performed By: #### L [id number] ####[facility] ([facility])[address] [place] [address] Neutrophils/100 WBC (Bld) 70.0 % Normal 40.0-72.0 [facility] Comment on above: Performed By: #### L [id number] ####[facility] ([facility])[address] [place] [address] NRBC (PER 100 WBCS) BY AUTOMATED COUNT 0.0 % Normal 0 [facility] Comment on above: Performed By: #### L [id number] ####[facility] ([facility])[address] [place] [address] PLATELETS (10*3/UL) IN BLOOD AUTOMATED COUNT 287 10*3/uL Normal 150-400 [facility] Comment on above: Performed By: #### L [id number] ####[facility] ([facility])[address] [place] [address] RBC (Bld) [#/Vol] 3.63 10*6/uL Low 4.20-5.70 [facility] Comment on above: Performed By: #### L [id number] ####[facility] ([facility])[address] [place] [address] WBC (Bld) [#/Vol] 6.50 10*3/uL Normal 4.00-10.60 [facility] Comment on above: Performed By: #### L [id number] ####[facility] ([facility])[address] [place] [address] COMPREHENSIVE METABOLIC PANE Yahir 03-18-2023 Albumin [Mass/Vol] 4.2 g/dL Normal 3.5-5.7 [facility] Comment on above: Performed By: #### L [id number] ####[facility] ([facility])[address] [place] [address] ALP [Catalytic activity/Vol] 110 U/L High 34-104 [facility] Comment on above: Performed By: #### L [id number] ####[facility] ([facility])[address] [place] [address] ALT [Catalytic activity/Vol] 15 U/L Normal 7-52 [facility] Comment on above: Performed By: #### L [id number] ####[facility] ([facility])[address] [place] [address] Anion gap [Moles/Vol] 12 mmol/L Normal 7-20 [facility] Comment on above: Performed By: #### L [id number] ####[facility] ([facility])[address] [place] [address] AST [Catalytic activity/Vol] 21 U/L Normal 13-39 [facility] Comment on above: Performed By: #### L [id number] ####[facility] ([facility])[address] [place] [address] Bilirubin [Mass/Vol] 0.5 mg/dL Normal 0.3-1.0 [facility] Comment on above: Performed By: #### L [id number] ####[facility] ([facility])[address] [place] [address] Calcium [Mass/Vol] 9.3 mg/dL Normal 8.6-10.3 [facility] Comment on above: Performed By: #### L [id number] ####[facility] ([facility])[address] [place] [address] Chloride [Moles/Vol] 93 mmol/L Low 98-107 [facility] Comment on above: Performed By: #### L [id number] ####[facility] ([facility])[address] [place] [address] CO2 [Moles/Vol] 26 mmol/L Normal 21-31 [facility] Comment on above: Performed By: #### L [id number] ####[facility] ([facility])[address] [place] [address] Creatinine [Mass/Vol] 0.77 mg/dL Normal 0.70-1.30 [facility] Comment on above: Performed By: #### L [id number] ####[facility] ([facility]ER)[address] [place] [address] GLOMERULAR FILTRATION RATE ML/MIN/1.73 SQ M.PREDICTED 100.0 mL/min/1.73m*2 Normal >60.0 [facility] Comment on above: Result Comment: The [facility]???s estimated glomerular filtration rate (eGFR) will no longer include consideration of race in its calculation. The National Kidney Foundation???s eGFR Task Force developed new recommendations for the estimation of the glomerular filtration rate in the [place] They recommend immediate implementation of the new equation refit without the race variable in all laboratories because the calculation does not include race. In addition to not including race in the calculation and reporting, it included diversity in its development, and has acceptable performance characteristics and potential consequences that do not disproportionately affect any one group of individuals. Performed By: #### L [id number] ####[facility] ([facility])[address] [place] [address] Glucose [Mass/Vol] 94 mg/dL Normal 70-100 [facility] Comment on above: Performed By: #### L [id number] ####[facility] ([facility])[address] [place] [address] Potassium [Moles/Vol] 4.1 mmol/L Normal 3.5-5.1 [facility] Comment on above: Performed By: #### L [id number] ####[facility] ([facility])[address] [place] [address] Protein [Mass/Vol] 6.7 g/dL Normal 6.0-8.3 [facility] Comment on above: Performed By: #### L [id number] ####[facility] ([facility])[address] [place] [address] Sodium [Moles/Vol] 127 mmol/L Low 136-145 [facility] Comment on above: Performed By: #### L [id number] ####[facility] ([facility])[address] [place] [address] Urea nitrogen [Mass/Vol] 11 mg/dL Normal 7-25 [facility] Comment on above: Performed By: #### L [id number] ####[facility] ([facility])[address] [place] [address] UREA NITROGEN/CREATININE (MASS RATIO) IN SER/PLAS 14.3 [facility] Comment on above: Performed By: #### L [id number] ####[facility] ([facility])[address] [place] [address] Labon 03-18-2023 Lab Normal [facility] PSA, SCREENINGon 03-18-2023 PROSTATE SPECIFIC AG (NG/ML) IN SER/PLAS <0.1 Low 0.4-4 [facility] Comment on above: Order Comment: To be collected February,. Performed By: #### L [id number] ####[facility] ([facility] [place] [address] T3, FREEon 03-18-2023 TRIIODOTHYRONINE (T3) FREE (PG/ML) IN SER/PLAS 3.1 pg/mL Normal 2.5-3.9 [facility] Comment on above: Performed By: #### L [id number] ####[facility] ([facility])[address] [place] [address] T4, FREEon 03-18-2023 THYROXINE (T4) FREE (NG/DL) IN SER/PLAS 0.86 ng/dL Normal 0.71-1.85 [facility] Comment on above: Performed By: #### L [id number] ####[facility] ([facility])[address] [place] [address] TSHon 03-18-2023 THYROTROPIN (MIU/L) IN SER/PLAS BY DETECTION LIMIT <= 0.05 MIU/L 1.17 mIU/L Normal 0.34-5.60 [facility] Comment on above: Performed By: #### L [id number] ####[facility] ([facility])[address] [place] [address] CBC WITH AUTO DIFFERENTIALon 02-25-2023 Basophils (Bld) [#/Vol] 0.07 10*3/uL Normal 0.00-0.20 [facility] Comment on above: Performed By: #### L [id number] ####[facility] ([facility])[address] [place] [address] Basophils/100 WBC (Bld) 1.3 % High 0.0-1.0 [facility] Comment on above: Performed By: #### L [id number] ####[facility] ([facility])[address] [place] [address] Eosinophils (Bld) [#/Vol] 0.29 10*3/uL Normal 0.00-0.50 [facility] Comment on above: Performed By: #### L [id number] ####[facility] ([facility])[address] [place] [address] Eosinophils/100 WBC (Bld) 5.4 % Normal 0.0-6.0 [facility] Comment on above: Performed By: #### L [id number] ####[facility] ([facility])[address] [place] [address] Erythrocyte distribution width (RBC) [Ratio] 12.3 % Normal 11.5-15.0 [facility] Comment on above: Performed By: #### L [id number] ####[facility] ([facility])[address] [place] [address] ERYTHROCYTE MEAN CORPUSCULAR HEMOGLOBIN CONCENTRATION (G/DL) BY AUTOMATED 35.9 g/dL High 32.0-35.0 [facility] Comment on above: Performed By: #### L [id number] ####[facility] ([facility])[address] [place] [address] Hematocrit (Bld) [Volume fraction] 30.6 % Low 39.0-55.0 [facility] Comment on above: Performed By: #### L [id number] ####[facility] ([facility])[address] [place] [address] Hemoglobin (Bld) [Mass/Vol] 11.0 g/dL Low 13.0-17.0 [facility] Comment on above: Performed By: #### L [id number] ####[facility] ([facility])[address] [place] [address] Immature granulocytes (Bld) [#/Vol] 0.02 10*3/uL Normal 0.00-0.20 [facility] Comment on above: Performed By: #### L [id number] ####[facility] ([facility])[address] [place] [address] Immature granulocytes/100 WBC (Bld) 0.4 % Normal 0.0-1.0 [facility] Comment on above: Performed By: #### L [id number] ####[facility] ([facility])[address] [place] [address] Lymphocytes (Bld) [#/Vol] 0.40 10*3/uL Low 1.20-4.00 [facility] Comment on above: Performed By: #### L [id number] ####[facility] ([facility])[address] [place] [address] Lymphocytes/100 WBC (Bld) 7.5 % Low 20.0-45.0 [facility] Comment on above: Performed By: #### L [id number] ####[facility] ([facility])[address] [place] [address] MCH (RBC) [Entitic mass] 31.2 pg Normal 27.0-33.0 [facility] Comment on above: Performed By: #### L [id number] ####[facility] ([facility])[address] [place] [address] MCV (RBC) [Entitic vol] 86.7 fL Normal 82.0-98.0 [facility] Comment on above: Performed By: #### L [id number] ####[facility] ([facility])[address] [place] [address] Monocytes (Bld) [#/Vol] 0.79 10*3/uL Normal 0.10-1.00 [facility] Comment on above: Performed By: #### L [id number] ####[facility] ([facility])[address] [place] [address] Monocytes/100 WBC (Bld) 14.8 % High 5.0-12.0 [facility] Comment on above: Performed By: #### L [id number] ####[facility] ([facility])[address] [place] [address] Neutrophils (Bld) [#/Vol] 3.77 10*3/uL Normal 1.60-7.60 [facility] Comment on above: Performed By: #### L [id number] ####[facility] ([facility])[address] [place] [address] Neutrophils/100 WBC (Bld) 70.6 % Normal 40.0-72.0 [facility] Comment on above: Performed By: #### L [id number] ####[facility] ([facility])[address] [place] [address] NRBC (PER 100 WBCS) BY AUTOMATED COUNT 0.0 % Normal 0 [facility] Comment on above: Performed By: #### L [id number] ####[facility] ([facility])[address] [place] [address] PLATELETS (10*3/UL) IN BLOOD AUTOMATED COUNT 255 10*3/uL Normal 150-400 [facility] Comment on above: Performed By: #### L [id number] ####[facility] ([facility])[address] [place] [address] RBC (Bld) [#/Vol] 3.53 10*6/uL Low 4.20-5.70 [facility] Comment on above: Performed By: #### L [id number] ####[facility] ([facility])[address] [place] [address] WBC (Bld) [#/Vol] 5.34 10*3/uL Normal 4.00-10.60 [facility] Comment on above: Performed By: #### L [id number] ####[facility] ([facility])[address] [place] [address] COMPREHENSIVE METABOLIC PANE Yahir 02-25-2023 Albumin [Mass/Vol] 4.2 g/dL Normal 3.5-5.7 [facility] Comment on above: Performed By: #### L [id number] ####[facility] ([facility])[address] [place] [address] ALP [Catalytic activity/Vol] 80 U/L Normal 34-104 [facility] Comment on above: Performed By: #### L [id number] ####[facility] ([facility])[address] [place] [address] ALT [Catalytic activity/Vol] 15 U/L Normal 7-52 [facility] Comment on above: Performed By: #### L [id number] ####[facility] ([facility])[address] [place] [address] Anion gap [Moles/Vol] 11 mmol/L Normal 7-20 [facility] Comment on above: Performed By: #### L [id number] ####[facility] ([facility])[address] [place] [address] AST [Catalytic activity/Vol] 21 U/L Normal 13-39 [facility] Comment on above: Performed By: #### L [id number] ####[facility] ([facility])[address] [place] [address] Bilirubin [Mass/Vol] 0.5 mg/dL Normal 0.3-1.0 [facility] Comment on above: Performed By: #### L [id number] ####[facility] ([facility])[address] [place] [address] Calcium [Mass/Vol] 9.1 mg/dL Normal 8.6-10.3 [facility] Comment on above: Performed By: #### L [id number] ####[facility] ([facility])[address] [place] [address] Chloride [Moles/Vol] 96 mmol/L Low 98-107 [facility] Comment on above: Performed By: #### L [id number] ####[facility] ([facility])[address] [place] [address] CO2 [Moles/Vol] 26 mmol/L Normal 21-31 [facility] Comment on above: Performed By: #### L [id number] ####[facility] ([facility])[address] [place] [address] Creatinine [Mass/Vol] 0.86 mg/dL Normal 0.70-1.30 [facility] Comment on above: Performed By: #### L [id number] ####[facility] ([facility])[address] [place] [address] GLOMERULAR FILTRATION RATE ML/MIN/1.73 SQ M.PREDICTED 96.7 mL/min/1.73m*2 Normal >60.0 [facility] Comment on above: Result Comment: The [facility]???s estimated glomerular filtration rate (eGFR) will no longer include consideration of race in its calculation. The National Kidney Foundation???s eGFR Task Force developed new recommendations for the estimation of the glomerular filtration rate in the [place] They recommend immediate implementation of the new equation refit without the race variable in all laboratories because the calculation does not include race. In addition to not including race in the calculation and reporting, it included diversity in its development, and has acceptable performance characteristics and potential consequences that do not disproportionately affect any one group of individuals. Performed By: #### L [id number] ####[facility] ([facility])[address] [place] [address] Glucose [Mass/Vol] 89 mg/dL Normal 70-100 [facility] Comment on above: Performed By: #### L [id number] ####[facility] ([facility])[address] [place] [address] Potassium [Moles/Vol] 4.2 mmol/L Normal 3.5-5.1 [facility] Comment on above: Performed By: #### L [id number] ####[facility] ([facility])[address] [place] [address] Protein [Mass/Vol] 6.6 g/dL Normal 6.0-8.3 [facility] Comment on above: Performed By: #### L [id number] ####[facility] ([facility])[address] [place] [address] Sodium [Moles/Vol] 129 mmol/L Low 136-145 [facility] Comment on above: Performed By: #### L [id number] ####[facility] ([facility])[address] [place] [address] Urea nitrogen [Mass/Vol] 14 mg/dL Normal 7-25 [facility] Comment on above: Performed By: #### L [id number] ####[facility] ([facility])[address] [place] [address] UREA NITROGEN/CREATININE (MASS RATIO) IN SER/PLAS 16.3 Normal [facility] Comment on above: Performed By: #### L [id number] ####[facility] ([facility])[address] [place] [address] Labon 02-25-2023 Lab Normal [facility] T3, FREEon 02-25-2023 TRIIODOTHYRONINE (T3) FREE (PG/ML) IN SER/PLAS 3.3 pg/mL Normal 2.5-3.9 [facility] Comment on above: Performed By: #### L [id number] ####[facility] ([facility])[address] [place] [address] T4, FREEon 02-25-2023 THYROXINE (T4) FREE (NG/DL) IN SER/PLAS 0.86 ng/dL Normal 0.71-1.85 [facility] Comment on above: Performed By: #### L [id number] ####[facility] ([facility])[address] [place] [address] TSHon 02-25-2023 THYROTROPIN (MIU/L) IN SER/PLAS BY DETECTION LIMIT <= 0.05 MIU/L 1.17 mIU/L Normal 0.34-5.60 [facility] Comment on above: Performed By: #### L [id number] ####[facility] ([facility])[address] [place] [address] CT CHEST W IV CONTRASTon CT CHEST W IV CONTRAST [facility] WITH AUTO DIFFERENTIALon 02-04-2023 Basophils (Bld) [#/Vol] 0.07 10*3/uL Normal 0.00-0.20 [facility] Comment on above: Performed By: #### L [id number] ####[facility] ([facility])[address] [place] [address] Basophils/100 WBC (Bld) 1.2 % High 0.0-1.0 [facility] Comment on above: Performed By: #### L [id number] ####[facility] ([facility])[address] [place] [address] Eosinophils (Bld) [#/Vol] 0.27 10*3/uL Normal 0.00-0.50 [facility] Comment on above: Performed By: #### L [id number] ####[facility] (BE[facility]ER)[address] [place] [address] Eosinophils/100 WBC (Bld) 4.7 % Normal 0.0-6.0 [facility] Comment on above: Performed By: #### L [id number] ####[facility] ([facility])[address] [place] [address] Erythrocyte distribution width (RBC) [Ratio] 12.3 % Normal 11.5-15.0 [facility] Comment on above: Performed By: #### L [id number] ####[facility] ([facility])[address] [place] [address] ERYTHROCYTE MEAN CORPUSCULAR HEMOGLOBIN CONCENTRATION (G/DL) BY AUTOMATED 34.0 g/dL Normal 32.0-35.0 [facility] Comment on above: Performed By: #### L [id number] ####[facility] ([facility])[address] [place] [address] Hematocrit (Bld) [Volume fraction] 33.8 % Low 39.0-55.0 [facility] Comment on above: Performed By: #### L [id number] ####[facility] ([facility])[address] [place] [address] Hemoglobin (Bld) [Mass/Vol] 11.5 g/dL Low 13.0-17.0 [facility] Comment on above: Performed By: #### L [id number] ####[facility] (BE[facility])[address] [place] [address] Immature granulocytes (Bld) [#/Vol] 0.02 10*3/uL Normal 0.00-0.20 [facility] Comment on above: Performed By: #### L [id number] ####[facility] (BE[facility]ER)[address] [place] [address] Immature granulocytes/100 WBC (Bld) 0.4 % Normal 0.0-1.0 [facility] Comment on above: Performed By: #### L [id number] ####[facility] ([facility])[address] [place] [address] Lymphocytes (Bld) [#/Vol] 0.42 10*3/uL Low 1.20-4.00 [facility] Comment on above: Performed By: #### L [id number] ####[facility] ([facility])[address] [place] [address] Lymphocytes/100 WBC (Bld) 7.4 % Low 20.0-45.0 [facility] Comment on above: Performed By: #### L [id number] ####[facility] (BE[facility]ER)[address] [place] [address] MCH (RBC) [Entitic mass] 29.7 pg Normal 27.0-33.0 [facility] Comment on above: Performed By: #### L [id number] ####[facility] (BE[facility]ER)[address] [place] [address] MCV (RBC) [Entitic vol] 87.3 fL Normal 82.0-98.0 [facility] Comment on above: Performed By: #### L [id number] ####[facility] ([facility]ER)[address] [place] [address] Monocytes (Bld) [#/Vol] 0.84 10*3/uL Normal 0.10-1.00 [facility] Comment on above: Performed By: #### L [id number] ####[facility] ([facility]ER)[address] [place] [address] Monocytes/100 WBC (Bld) 14.7 % High 5.0-12.0 [facility] Comment on above: Performed By: #### L [id number] ####[facility] ([facility]ER)[address] [place] [address] Neutrophils (Bld) [#/Vol] 4.09 10*3/uL Normal 1.60-7.60 [facility] Comment on above: Performed By: #### L [id number] ####[facility] (BE[facility]ER)[address] [place] [address] Neutrophils/100 WBC (Bld) 71.6 % Normal 40.0-72.0 [facility] Comment on above: Performed By: #### L [id number] ####[facility] ([facility])[address] [place] [address] NRBC (PER 100 WBCS) BY AUTOMATED COUNT 0.0 % Normal 0 [facility] Comment on above: Performed By: #### L [id number] ####[facility] ([facility])[address] [place] [address] PLATELETS (10*3/UL) IN BLOOD AUTOMATED COUNT 264 10*3/uL Normal 150-400 [facility] Comment on above: Performed By: #### L [id number] ####[facility] ([facility])[address] [place] [address] RBC (Bld) [#/Vol] 3.87 10*6/uL Low 4.20-5.70 [facility] Comment on above: Performed By: #### L [id number] ####[facility] ([facility])[address] [place] [address] WBC (Bld) [#/Vol] 5.71 10*3/uL Normal 4.00-10.60 [facility] Comment on above: Performed By: #### L [id number] ####[facility] ([facility])[address] [place] [address] COMPREHENSIVE METABOLIC PANE Yahir 02-04-2023 Albumin [Mass/Vol] 4.2 g/dL Normal 3.5-5.7 [facility] Comment on above: Performed By: #### L [id number] ####[facility] ([facility])[address] [place] [address] ALP [Catalytic activity/Vol] 86 U/L Normal 34-104 [facility] Comment on above: Performed By: #### L [id number] ####[facility] ([facility])[address] [place] [address] ALT [Catalytic activity/Vol] 21 U/L Normal 7-52 [facility] Comment on above: Performed By: #### L [id number] ####[facility] ([facility])[address] [place] [address] Anion gap [Moles/Vol] 11 mmol/L Normal 7-20 [facility] Comment on above: Performed By: #### L [id number] ####[facility] ([facility])[address] [place] [address] AST [Catalytic activity/Vol] 24 U/L Normal 13-39 [facility] Comment on above: Performed By: #### L [id number] ####[facility] ([facility])[address] [place] [address] Bilirubin [Mass/Vol] 0.4 mg/dL Normal 0.3-1.0 [facility] Comment on above: Performed By: #### L [id number] ####[facility] ([facility])[address] [place] [address] Calcium [Mass/Vol] 9.0 mg/dL Normal 8.6-10.3 [facility] Comment on above: Performed By: #### L [id number] ####[facility] ([facility])[address] [place] [address] Chloride [Moles/Vol] 94 mmol/L Low 98-107 [facility] Comment on above: Performed By: #### L [id number] ####[facility] ([facility])[address] [place] [address] CO2 [Moles/Vol] 26 mmol/L Normal 21-31 [facility] Comment on above: Performed By: #### L [id number] ####[facility] (BEAKER)[address] [place] [address] Creatinine [Mass/Vol] 0.79 mg/dL Normal 0.70-1.30 [facility] Comment on above: Performed By: #### L [id number] ####[facility] (BEAKER)[address] [place] [address] GLOMERULAR FILTRATION RATE ML/MIN/1.73 SQ M.PREDICTED 99.2 mL/min/1.73m*2 Normal >60.0 [facility] Comment on above: Result Comment: The [facility]???s estimated glomerular filtration rate (eGFR) will no longer include consideration of race in its calculation. The National Kidney Foundation???s eGFR Task Force developed new recommendations for the estimation of the glomerular filtration rate in the [place] They recommend immediate implementation of the new equation refit without the race variable in all laboratories because the calculation does not include race. In addition to not including race in the calculation and reporting, it included diversity in its development, and has acceptable performance characteristics and potential consequences that do not disproportionately affect any one group of individuals. Performed By: #### L [id number] ####[facility] ([facility])[address] [place] [address] Glucose [Mass/Vol] 73 mg/dL Normal 70-100 [facility] Comment on above: Performed By: #### L [id number] ####[facility] ([facility])[address] [place] [address] Potassium [Moles/Vol] 4.0 mmol/L Normal 3.5-5.1 [facility] Comment on above: Performed By: #### L [id number] ####[facility] ([facility])[address] [place] [address] Protein [Mass/Vol] 6.7 g/dL Normal 6.0-8.3 [facility] Comment on above: Performed By: #### L [id number] ####[facility] ([facility])[address] [place] [address] Sodium [Moles/Vol] 127 mmol/L Low 136-145 [facility] Comment on above: Performed By: #### L [id number] ####[facility] (BE[facility]ER)[address] [place] [address] Urea nitrogen [Mass/Vol] 12 mg/dL Normal 7-25 [facility] Comment on above: Performed By: #### L [id number] ####[facility] ([facility])[address] [place] [address] UREA NITROGEN/CREATININE (MASS RATIO) IN SER/PLAS 15.2 Normal [facility] Comment on above: Performed By: #### L [id number] ####[facility] ([facility])[address] [place] [address] Labon 02-04-2023 Lab Normal [facility] T3, FREEon 02-04-2023 TRIIODOTHYRONINE (T3) FREE (PG/ML) IN SER/PLAS 3.4 pg/mL Normal 2.5-3.9 [facility] Comment on above: Performed By: #### L [id number] ####[facility] ([facility])[address] [place] [address] T4, FREEon 02-04-2023 THYROXINE (T4) FREE (NG/DL) IN SER/PLAS 0.79 ng/dL Normal 0.71-1.85 [facility] Comment on above: Performed By: #### L [id number] ####[facility] ([facility])[address] [place] [address] TSHon 02-04-2023 THYROTROPIN (MIU/L) IN SER/PLAS BY DETECTION LIMIT <= 0.05 MIU/L 1.33 mIU/L Normal 0.34-5.60 [facility] Comment on above: Performed By: #### L [id number] ####[facility] ([facility])[address] [place] [address] Orders Onlyon 01-15-2023 Orders Only Normal [facility] CBC WITH AUTO DIFFERENTIALon 01-13-2023 Basophils (Bld) [#/Vol] 0.04 10*3/uL Normal 0.00-0.20 [facility] Comment on above: Performed By: #### L [id number] ####[facility] ([facility])[address] [place] [address] Basophils/100 WBC (Bld) 0.8 % Normal 0.0-1.0 [facility] Comment on above: Performed By: #### L [id number] ####[facility] ([facility])[address] [place] [address] Eosinophils (Bld) [#/Vol] 0.29 10*3/uL Normal 0.00-0.50 [facility] Comment on above: Performed By: #### L [id number] ####[facility] ([facility])[address] [place] [address] Eosinophils/100 WBC (Bld) 5.8 % Normal 0.0-6.0 [facility] Comment on above: Performed By: #### L [id number] ####[facility] ([facility])[address] [place] [address] Erythrocyte distribution width (RBC) [Ratio] 12.2 % Normal 11.5-15.0 [facility] Comment on above: Performed By: #### L [id number] ####[facility] ([facility])[address] [place] [address] ERYTHROCYTE MEAN CORPUSCULAR HEMOGLOBIN CONCENTRATION (G/DL) BY AUTOMATED 34.8 g/dL Normal 32.0-35.0 [facility] Comment on above: Performed By: #### L [id number] ####[facility] ([facility])[address] [place] [address] Hematocrit (Bld) [Volume fraction] 31.9 % Low 39.0-55.0 [facility] Comment on above: Performed By: #### L [id number] ####[facility] ([facility])[address] [place] [address] Hemoglobin (Bld) [Mass/Vol] 11.1 g/dL Low 13.0-17.0 [facility] Comment on above: Performed By: #### L [id number] ####[facility] ([facility])[address] [place] [address] Immature granulocytes (Bld) [#/Vol] 0.02 10*3/uL Normal 0.00-0.20 [facility] Comment on above: Performed By: #### L [id number] ####[facility] ([facility])[address] [place] [address] Immature granulocytes/100 WBC (Bld) 0.4 % Normal 0.0-1.0 [facility] Comment on above: Performed By: #### L [id number] ####[facility] ([facility])[address] [place] [address] Lymphocytes (Bld) [#/Vol] 0.36 10*3/uL Low 1.20-4.00 [facility] Comment on above: Performed By: #### L [id number] ####[facility] ([facility])[address] [place] [address] Lymphocytes/100 WBC (Bld) 7.3 % Low 20.0-45.0 [facility] Comment on above: Performed By: #### L [id number] ####[facility] ([facility])[address] [place] [address] MCH (RBC) [Entitic mass] 30.3 pg Normal 27.0-33.0 [facility] Comment on above: Performed By: #### L [id number] ####[facility] ([facility])[address] [place] [address] MCV (RBC) [Entitic vol] 87.2 fL Normal 82.0-98.0 [facility] Comment on above: Performed By: #### L [id number] ####[facility] ([facility])[address] [place] [address] Monocytes (Bld) [#/Vol] 0.65 10*3/uL Normal 0.10-1.00 [facility] Comment on above: Performed By: #### L [id number] ####[facility] ([facility])[address] [place] [address] Monocytes/100 WBC (Bld) 13.1 % High 5.0-12.0 [facility] Comment on above: Performed By: #### L [id number] ####[facility] ([facility])[address] [place] [address] Neutrophils (Bld) [#/Vol] 3.60 10*3/uL Normal 1.60-7.60 [facility] Comment on above: Performed By: #### L [id number] ####[facility] ([facility])[address] [place] [address] Neutrophils/100 WBC (Bld) 72.6 % High 40.0-72.0 [facility] Comment on above: Performed By: #### L [id number] ####[facility] ([facility])[address] [place] [address] NRBC (PER 100 WBCS) BY AUTOMATED COUNT 0.0 % Normal 0 [facility] Comment on above: Performed By: #### L [id number] ####[facility] ([facility])[address] [place] [address] PLATELETS (10*3/UL) IN BLOOD AUTOMATED COUNT 238 10*3/uL Normal 150-400 [facility] Comment on above: Performed By: #### L [id number] ####[facility] ([facility])[address] [place] [address] RBC (Bld) [#/Vol] 3.66 10*6/uL Low 4.20-5.70 [facility] Comment on above: Performed By: #### L [id number] ####[facility] ([facility])[address] [place], [place] [address] WBC (Bld) [#/Vol] 4.96 10*3/uL Normal 4.00-10.60 [facility] Comment on above: Performed By: #### L [id number] ####[facility] ([facility])[address] [place] [address] COMPREHENSIVE METABOLIC PANE Yahir 01-13-2023 Albumin [Mass/Vol] 4.4 g/dL Normal 3.5-5.7 [facility] Comment on above: Performed By: #### L [id number] ####[facility] ([facility])[address] [place] [address] ALP [Catalytic activity/Vol] 71 U/L Normal 34-104 [facility] Comment on above: Performed By: #### L [id number] ####[facility] ([facility])[address] [place] [address] ALT [Catalytic activity/Vol] 15 U/L Normal 7-52 [facility] Comment on above: Performed By: #### L [id number] ####[facility] ([facility])[address] [place] [address] Anion gap [Moles/Vol] 11 mmol/L Normal 7-20 [facility] Comment on above: Performed By: #### L [id number] ####[facility] ([facility])[address] [place] [address] AST [Catalytic activity/Vol] 21 U/L Normal 13-39 [facility] Comment on above: Performed By: #### L [id number] ####[facility] ([facility])[address] [place] [address] Bilirubin [Mass/Vol] 0.5 mg/dL Normal 0.3-1.0 [facility] Comment on above: Performed By: #### L [id number] ####[facility] ([facility])[address] [place] [address] Calcium [Mass/Vol] 9.2 mg/dL Normal 8.6-10.3 [facility] Comment on above: Performed By: #### L [id number] ####[facility] ([facility])[address] [place] [address] Chloride [Moles/Vol] 97 mmol/L Low 98-107 [facility] Comment on above: Performed By: #### L [id number] ####[facility] ([facility])[address] [place] [address] CO2 [Moles/Vol] 26 mmol/L Normal 21-31 [facility] Comment on above: Performed By: #### L [id number] ####[facility] ([facility])[address] [place] [address] Creatinine [Mass/Vol] 0.76 mg/dL Normal 0.70-1.30 [facility] Comment on above: Performed By: #### L [id number] ####[facility] ([facility])[address] [place] [address] GLOMERULAR FILTRATION RATE ML/MIN/1.73 SQ M.PREDICTED 100.4 mL/min/1.73m*2 Normal >60.0 [facility] Comment on above: Result Comment: The [facility]???s estimated glomerular filtration rate (eGFR) will no longer include consideration of race in its calculation. The [employer] Foundation???s eGFR Task Force developed new recommendations for the estimation of the glomerular filtration rate in the [place] They recommend immediate implementation of the new equation refit without the race variable in all laboratories because the calculation does not include race. In addition to not including race in the calculation and reporting, it included diversity in its development, and has acceptable performance characteristics and potential consequences that do not disproportionately affect any one group of individuals. Performed By: #### L [id number] ####[facility] ([facility])[address] [place] [address] Glucose [Mass/Vol] 99 mg/dL Normal 70-100 [facility] Comment on above: Performed By: #### L [id number] ####[facility] ([facility])[address] [place] [address] Potassium [Moles/Vol] 4.1 mmol/L Normal 3.5-5.1 [facility] Comment on above: Performed By: #### L [id number] ####[facility] ([facility])[address] [place] [address] Protein [Mass/Vol] 6.7 g/dL Normal 6.0-8.3 [facility] Comment on above: Performed By: #### L [id number] ####[facility] ([facility])[address] [place] [address] Sodium [Moles/Vol] 130 mmol/L Low 136-145 [facility] Comment on above: Performed By: #### L [id number] ####[facility] ([facility])[address] [place] [address] Urea nitrogen [Mass/Vol] 13 mg/dL Normal 7-25 [facility] Comment on above: Performed By: #### L [id number] ####[facility] ([facility])[address] [place] [address] UREA NITROGEN/CREATININE (MASS RATIO) IN SER/PLAS 17.1 Normal [facility] Comment on above: Performed By: #### L [id number] ####[facility] ([facility])[address] [place] [address] Labon 01-13-2023 Lab Normal [facility] T3, FREEon 01-13-2023 TRIIODOTHYRONINE (T3) FREE (PG/ML) IN SER/PLAS 3.1 pg/mL Normal 2.5-3.9 [facility] Comment on above: Performed By: #### L [id number] ####[facility] ([facility])[address] [place] [address] T4, FREEon 01-13-2023 THYROXINE (T4) FREE (NG/DL) IN SER/PLAS 0.85 ng/dL Normal 0.71-1.85 [facility] Comment on above: Performed By: #### L [id number] ####[facility] ([facility])[address] [place] [address] TSHon 01-13-2023 THYROTROPIN (MIU/L) IN SER/PLAS BY DETECTION LIMIT <= 0.05 MIU/L 1.50 mIU/L Normal 0.34-5.60 [facility] Comment on above: Performed By: #### L [id number] ####[facility] ([facility])[address] [place] [address] A1C HEMOGLOBINon 09-22-2022 HbA1c (Bld) [Mass fraction] 5.9 % [employer] Other HbA1c (Bld) [Mass fraction]o n 09-22-2022 A1C HEMOGLOBIN [employer] Other Albumin [Mass/volume] in Ser um or PlasmaOrdered By: Clara Jordan on 09-19-2022 Albumin [Mass/Vol] 3.6 g/dL 3.2-5.5 [facility] Basophils Auto (Bld) [#/Vol] Ordered By: Clara Jordan on 09-19-2022 Basophils (Bld) [#/Vol] 0.0 10*3/uL 0.0-0.2 [facility] Basophils/100 WBC Auto (Bld) Ordered By: Clara Jordan on 09-19-2022 Basophils/100 WBC (Bld) 0.7 % . [facility] CT biopsyOrdered By: Janet Jordan on 09-19-2022 Transferrin [Mass/Vol] 215 mg/dL Normal 180-380 mg/dL [facility] Cholesterol [Mass/volume] in Serum or PlasmaOrdered By: Clara Jordan on 09-19-2022 Cholesterol [Mass/Vol] 164 mg/dL Normal 140-200 mg/dL [facility] Comment on above: Chol less than 200 m g/dl low riskChol 201-239 mg/dl borderline riskChol 240 mg/dl and greater high risk Cholesterol in LDL Calc [Mas s/Vol]Ordered By: Clara Jordan on 09-19-2022 Cholesterol in LDL [Mass/Vol] 90 mg/dL 0-100 [facility] Comment on above: LDL ATP III CLASSIFI CATIONLDL less than 100 mg/dL OptimalLDL 100-129 mg/dL Near or above optimalLDL 130-159 mg/dL Borderline highLDL 160-189 mg/dL HighLDL greater than 189 mg/dL Very high Cholesterol in VLDL Calc [Ma ss/Vol]Ordered By: Clara Jordan on 09-19-2022 Cholesterol in VLDL [Mass/Vol] 19 mg/dL [facility] Complete Blood Count Auto Di ffon 09-19-2022 Basophils (Bld) [#/Vol] 0.0 10*3/uL Normal 0.0-0.2 [facility] Comment on above: Order Comment: Reaso n for Exam Well adult exam Result Comment: PERF ORMED BY: [facility] [address] [place] [address] PATHOLOGIST EPIC APPLICATION COORDINATOR MAYA SHELTON M.D. Performed By: #### V [id number], FE PRO, CMP, [id number], LIPID, CBC, TSH3, URMACRERAT #### [facility] [address] [place] [address] [place] Basophils (Bld) [#/Vol] [id number] 10*3/uL Normal 0.0-0.2 10*3/uL [employer] Other Basophils/100 WBC (Bld) 0.7 % Normal . [facility] Comment on above: Order Comment: Reaso n for Exam Well adult exam Performed By: #### V [id number], FE PRO, CMP, [id number], LIPID, CBC, TSH3, URMACRERAT #### [facility] [address] [place] [address] [place] Basophils/100 WBC (Bld) 0.700 % . % [employer] Other Eosinophils (Bld) [#/Vol] 0.7 10*3/uL High 0.0-0.45 [facility] Comment on above: Order Comment: Reaso n for Exam Well adult exam Performed By: #### V [id number], FE PRO, CMP, [id number], LIPID, CBC, TSH3, URMACRERAT #### [facility] [address] [place] [address] [place] Eosinophils (Bld) [#/Vol] 0.897942954 10*3/uL High 0.0-0.45 10*3/uL [employer] Other Eosinophils/100 WBC (Bld) 12.7 % Normal . [facility] Comment on above: Order Comment: Reaso n for Exam Well adult exam Performed By: #### V [id number], FE PRO, CMP, [id number], LIPID, CBC, TSH3, URMACRERAT #### [facility] [address] [place] [address] [place] Eosinophils/100 WBC (Bld) 12.700 % . % [employer] Other Erythrocyte distribution width (RBC) [Ratio] 12.1 % Normal 12.0-14.8 [facility] Comment on above: Order Comment: Reaso n for Exam Well adult exam Performed By: #### V [id number], FE PRO, CMP, [id number], LIPID, CBC, TSH3, URMACRERAT #### [facility] [address] Erythrocyte distribution width (RBC) [Ratio] 12.100 % Normal 12.0-14.8 % [employer] Other Hematocrit (Bld) [Volume fraction] 34.5 % Low 38.8-50.0 [facility] Comment on above: Order Comment: Reaso n for Exam Well adult exam Performed By: #### V [id number], FE PRO, CMP, [id number], LIPID, CBC, TSH3, URMACRERAT #### [facility] [address] [place] [id number] [facility] Hematocrit (Bld) [Volume fraction] 34.500 % Low 38.8-50.0 % [employer] Other Hemoglobin (Bld) [Mass/Vol] 11.9 g/dL Low 13.0-17.0 [facility] Comment on above: Order Comment: Reaso n for Exam Well adult exam Performed By: #### V [id number], FE PRO, CMP, [id number], LIPID, CBC, TSH3, URMACRERAT #### [facility] [address] [place] [id number] [facility] Hemoglobin (Bld) [Mass/Vol] 11.819912 g/dL Low 13.0-17.0 g/dL [employer] Other Lymphocytes (Bld) [#/Vol] 0.4 10*3/uL Low 1.00-4.8 [facility] Comment on above: Order Comment: Reaso n for Exam Well adult exam Performed By: #### V [id number], FE PRO, CMP, [id number], LIPID, CBC, TSH3, URMACRERAT #### [facility] [address] [place] [id number] [facility] Lymphocytes (Bld) [#/Vol] 0.515301776 10*3/uL Low 1.00-4.8 10*3/uL [employer] Other Lymphocytes/100 WBC (Bld) 6.9 % Normal . [facility] Comment on above: Order Comment: Reaso n for Exam Well adult exam Performed By: #### V [id number], FE PRO, CMP, [id number], LIPID, CBC, TSH3, URMACRERAT #### [facility] [address] [place] [phone] [facility] Lymphocytes/100 WBC (Bld) 6.900 % . % [employer] Other MCH (RBC) [Entitic mass] 30.6 pg Normal 27.5-35.2 [facility] Comment on above: Order Comment: Reaso n for Exam Well adult exam Performed By: #### V [id number], FE PRO, CMP, [id number], LIPID, CBC, TSH3, URMACRERAT #### [facility] [address] [place] [phone] [facility] MCH (RBC) [Entitic mass] 30.6000 pg Normal 27.5-35.2 pg [employer] Other MCV (RBC) [Entitic vol] 88.7 fL Normal 83.5-101 [facility] Comment on above: Order Comment: Reaso n for Exam Well adult exam Performed By: #### V [id number], FE PRO, CMP, [id number], LIPID, CBC, TSH3, URMACRERAT #### [facility] [address] [place] [phone] [facility] MCV (RBC) [Entitic vol] 88.7000 fL Normal 83.5-101 fL [employer] Other Mean Corpuscular HGB Conc 34.5 g/dL Normal 32.5-35.6 [facility] Comment on above: Order Comment: Reaso n for Exam Well adult exam Performed By: #### V [id number], FE PRO, CMP, [id number], LIPID, CBC, TSH3, URMACRERAT #### [facility] [address] [place] [phone] [place] Monocytes (Bld) [#/Vol] 0.8 10*3/uL Normal 0.0-0.8 [facility] Comment on above: Order Comment: Reaso n for Exam Well adult exam Performed By: #### V [id number], FE PRO, CMP, [id number], LIPID, CBC, TSH3, URMACRERAT #### [facility] [address] [place] [address] [place] Monocytes (Bld) [#/Vol] 0.381302745 10*3/uL Normal 0.0-0.8 10*3/uL [employer] Other Monocytes/100 WBC (Bld) 14.1 % Normal . [facility] Comment on above: Order Comment: Reaso n for Exam Well adult exam Performed By: #### V [id number], FE PRO, CMP, [id number], LIPID, CBC, TSH3, URMACRERAT #### [facility] [address] [place] [phone] [place] Monocytes/100 WBC (Bld) 14.100 % . % [employer] Other Neutrophils (Bld) [#/Vol] 3.7 10*3/uL Normal 1.8-7.7 [facility] Comment on above: Order Comment: Reaso n for Exam Well adult exam Performed By: #### V [id number], FE PRO, CMP, [id number], LIPID, CBC, TSH3, URMACRERAT #### [facility] [address] [place] [phone] [place] Neutrophils (Bld) [#/Vol] 3.792040648 10*3/uL Normal 1.8-7.7 10*3/uL [employer] Other Neutrophils/100 WBC (Bld) 65.6 % Normal . [facility] Comment on above: Order Comment: Reaso n for Exam Well adult exam Performed By: #### V [id number], FE PRO, CMP, [id number], LIPID, CBC, TSH3, URMACRERAT #### [facility] [address] Neutrophils/100 WBC (Bld) 65.600 % . % [employer] Other NRBC% 0.1 /100{WBC} Normal 0-0.5 [facility] Comment on above: Order Comment: Reaso n for Exam Well adult exam Performed By: #### V [id number], FE PRO, CMP, [id number], LIPID, CBC, TSH3, URMACRERAT #### [facility] [address] Platelet mean volume (Bld) [Entitic vol] 6.3 fL Low 6.6-10.1 [facility] Comment on above: Order Comment: Reaso n for Exam Well adult exam Performed By: #### V [id number], FE PRO, CMP, [id number], LIPID, CBC, TSH3, URMACRERAT #### [facility] [address] Platelet mean volume (Bld) [Entitic vol] 6.3000 fL Low 6.6-10.1 fL [employer] Other Platelets (Bld) [#/Vol] 282 10*3/uL Normal 150-450 [facility] Comment on above: Order Comment: Reaso n for Exam Well adult exam Performed By: #### V [id number], FE PRO, CMP, [id number], LIPID, CBC, TSH3, URMACRERAT #### [facility] [address] RBC (Bld) [#/Vol] 3.89 10*6/uL Low 3.90-5.60 [facility] Comment on above: Order Comment: Reaso n for Exam Well adult exam Performed By: #### V [id number], FE PRO, CMP, [id number], LIPID, CBC, TSH3, URMACRERAT #### [facility] [address] [place], [place] [address] WBC (Bld) [#/Vol] 5.6 10*3/uL Normal 4.1-10.5 [facility] Comment on above: Order Comment: Reaso n for Exam Well adult exam Performed By: #### V [id number], FE PRO, CMP, [id number], LIPID, CBC, TSH3, URMACRERAT #### [facility] [address] [place] [phone] [facility] WBC (Bld) [#/Vol] 5.156996802 10*3/uL Normal 4.1 -10.5 10*3/uL [employer] Other Complete Blood Count Auto Diff 5.6 10*3/uL Normal 4.1-10.5 10*3/uL [employer] Other Complete Blood Count Auto Diff 34.5 g/dL Normal 32.5-35.6 g/dL [employer] Other Complete Blood Count Auto Diff 0.1 /100{WBC} Normal 0-0.5 /100{WBC} [employer] Other Comprehensive Metabolic Pane [facility] 09-19-2022 Albumin [Mass/Vol] 3.6 g/dL Normal 3.2-5.5 [facility] Comment on above: Order Comment: Reaso n for Exam Well adult exam FASTING Performed By: #### V [id number], FE PRO, CMP, [id number], LIPID, CBC, TSH3, URMACRERAT #### [facility] [address] [place] [phone] [facility] Albumin [Mass/Vol] 3.021969 g/dL Normal 3.2-5.5 g/dL [employer] Other Albumin/Globulin [Mass ratio] 1.4 {ratio} Normal [facility] Comment on above: Order Comment: Reaso n for Exam Well adult exam FASTING Performed By: #### V [id number], FE PRO, CMP, [id number], LIPID, CBC, TSH3, URMACRERAT #### [facility] [address] ALP [Catalytic activity/Vol] 122 U/L High 32-92 [facility] Comment on above: Order Comment: Reaso n for Exam Well adult exam FASTING Performed By: #### V [id number], FE PRO, CMP, [id number], LIPID, CBC, TSH3, URMACRERAT #### [facility] [address] ALT [Catalytic activity/Vol] 23 U/L Normal 10-60 [employer] Other Comment on above: Order Comment: Reaso n for Exam Well adult exam FASTING Performed By: #### V [id number], FE PRO, CMP, [id number], LIPID, CBC, TSH3, URMACRERAT #### [facility] [address] [place] [address] Anion gap [Moles/Vol] 12.4 mmol/L Normal 6.0-15.0 [facility] Comment on above: Order Comment: Reaso n for Exam Well adult exam FASTING Performed By: #### V [id number], FE PRO, CMP, [id number], LIPID, CBC, TSH3, URMACRERAT #### [facility] [address] [place], [place] [id number] [facility] AST [Catalytic activity/Vol] 27 U/L Normal 10-42 [facility] Comment on above: Order Comment: Reaso n for Exam Well adult exam FASTING Performed By: #### V [id number], FE PRO, CMP, [id number], LIPID, CBC, TSH3, URMACRERAT #### [facility] [address] [place] [phone] [facility] Bilirubin [Mass/Vol] 0.6 mg/dL Normal 0.3-1.2 [facility] Comment on above: Order Comment: Reaso n for Exam Well adult exam FASTING Performed By: #### V [id number], FE PRO, CMP, [id number], LIPID, CBC, TSH3, URMACRERAT #### [facility] [address] [place] [address] [facility] Bilirubin [Mass/Vol] 0.2250878 mg/dL Normal 0.3-1.2 mg /dL [facility] Other Calcium [Mass/Vol] 9.5 mg/dL Normal 8.2-10.2 [facility] Comment on above: Order Comment: Reaso n for Exam Well adult exam FASTING Performed By: #### V [id number], FE PRO, CMP, [id number], LIPID, CBC, TSH3, URMACRERAT #### [facility] [address] [place] [address] [facility] Calcium [Mass/Vol] 9.4037871 mg/dL Normal 8.2-10 .2 mg/dL [facility] Soft Tissue Regeneration Other Chloride [Moles/Vol] 98 mmol/L Normal 95-114 [facility] Comment on above: Order Comment: Reaso n for Exam Well adult exam FASTING Performed By: #### V [id number], FE PRO, CMP, [id number], LIPID, CBC, TSH3, URMACRERAT #### [facility] [address] [place] [id number] [facility] CO2 [Moles/Vol] 26.5 mmol/L Normal 22.0-30.0 [facility] Comment on above: Order Comment: Reaso n for Exam Well adult exam FASTING Performed By: #### V [id number], FE PRO, CMP, [id number], LIPID, CBC, TSH3, URMACRERAT #### [facility] [address] [place] [id number] [facility] CO2 [Moles/Vol] 26.85579261 mmol/L Normal 22.0-3 0.0 mmol/L [facility] Soft Tissue Regeneration Other Creatinine [Mass/Vol] 0.86 mg/dL Normal 0.64-1.27 [facility] Comment on above: Order Comment: Reaso n for Exam Well adult exam FASTING Performed By: #### V [id number], FE PRO, CMP, [id number], LIPID, CBC, TSH3, URMACRERAT #### [facility] [address] Creatinine [Mass/Vol] 0.55754717 mg/dL Normal 0. 64-1.27 mg/dL [employer] Other Estimated GFR ( Sasha > 60 [facility] Comment on above: Order Comment: Reaso n for Exam Well adult exam FASTING Result Comment: GFR estimated reference range: According to KDOQI guidelines, <60 ml/min/1.73m2 is sufficient to diagnose a patient with chronic kidney disease. Performed By: #### V [id number], FE PRO, CMP, [id number], LIPID, CBC, TSH3, URMACRERAT #### [facility] [address] Estimated GFR (Non- Am > 60 [facility] Comment on above: Order Comment: Reaso n for Exam Well adult exam FASTING Performed By: #### V [id number], FE PRO, CMP, [id number], LIPID, CBC, TSH3, URMACRERAT #### [facility] [address] Globulin (S) [Mass/Vol] 2.6 g/dL [facility] Comment on above: Order Comment: Reaso n for Exam Well adult exam FASTING Performed By: #### V [id number], FE PRO, CMP, [id number], LIPID, CBC, TSH3, URMACRERAT #### [facility] [address] Glucose [Mass/Vol] 110 mg/dL High 70-100 [facility] Comment on above: Order Comment: Reaso n for Exam Well adult exam FASTING Result Comment: [place] om Glucose Reference Range is dependent on time and content of last meal. Glucose of more than 200 mg/dL in a nonstressed, ambulatory subject supports the diagnosis of Diabetes Mellitus. ADA recommended reference range Performed By: #### V [id number], FE PRO, CMP, [id number], LIPID, CBC, TSH3, URMACRERAT #### [facility] [address] Potassium [Moles/Vol] 4.9 mmol/L Normal 3.5-5.1 [facility] Comment on above: Order Comment: Reaso n for Exam Well adult exam FASTING Performed By: #### V [id number], FE PRO, CMP, [id number], LIPID, CBC, TSH3, URMACRERAT #### [facility] [address] Potassium [Moles/Vol] 4.97220263 mmol/L Normal 3 .5-5.1 mmol/L [facility] Soft Tissue Regeneration Other Protein [Mass/Vol] 6.2 g/dL Normal 6.1-7.9 [facility] Comment on above: Order Comment: Reaso n for Exam Well adult exam FASTING Performed By: #### V [id number], FE PRO, CMP, [id number], LIPID, CBC, TSH3, URMACRERAT #### [facility] [address] Protein [Mass/Vol] 6.944271 g/dL Normal 6.1-7.9 g/dL [facility] Soft Tissue Regeneration Other Sodium [Moles/Vol] 132 mmol/L Low 136-146 [facility] Comment on above: Order Comment: Reaso n for Exam Well adult exam FASTING Performed By: #### V [id number], FE PRO, CMP, [id number], LIPID, CBC, TSH3, URMACRERAT #### [facility] [address] [place] [id number] [facility] Urea nitrogen [Mass/Vol] 8 mg/dL Low 9-23 [facility] Comment on above: Order Comment: Reaso n for Exam Well adult exam FASTING Performed By: #### V [id number], FE PRO, CMP, [id number], LIPID, CBC, TSH3, URMACRERAT #### [facility] [address] [place] [id number] [facility] Comprehensive Metabolic Panel > 60 [facility] Other Comprehensive Metabolic Panel 2.6 g/dL [employer] Other Creatinine [Mass/volume] in UrineOrdered By: Clara Jordan on 09-19-2022 Creatinine (U) [Mass/Vol] 61.6 mg/dL [facility] Comment on above: No reference range e stablished Creatinine and Glomerular fi ltration rate.predicted panel (S/P/Bld)Ordered By: Clara Jordan on 09-19-2022 Creatinine [Mass/Vol] 0.86 mg/dL 0.64-1.27 [facility] Eosinophils Auto (Bld) [#/Vo l]Ordered By: Clara Jordan on 09-19-2022 Eosinophils (Bld) [#/Vol] 0.7 10*3/uL 0.0-0.45 [facility] Eosinophils/100 WBC Auto (Bl d)Ordered By: Clara Jordan on 09-19-2022 Eosinophils/100 WBC (Bld) 12.7 % . [facility] Erythrocyte distribution wid th Auto (RBC) [Ratio]Ordered By: Clara Jordan on 09-19-2022 Erythrocyte distribution width (RBC) [Ratio] 12.1 % 12.0-14.8 [facility] Erythrocytes [#/volume] in B lood by Automated countOrdered By: Clara Jordan on 09-19-2022 RBC (Bld) [#/Vol] 3.89 10*6/uL Low 3.90-5.60 [facility] Estimated glomerular filtrat ion rate (GFR) non- AmericanOrdered By: Clara Jordan on 09-19-2022 GFR/1.73 sq M.predicted among non-blacks MDRD (S/P/Bld) [Vol rate/Area] > 60 mL/Min [facility] FE PROon 09-19-2022 % Iron Saturation 26.6 % Normal 20-50 [facility] Comment on above: Order Comment: Reaso n for Exam Well adult exam FASTING Performed By: #### V [id number], FE PRO, CMP, [id number], LIPID, CBC, TSH3, URMACRERAT #### [facility] [address] [place] [phone] [facility] Ferritin [Mass/Vol] 802.1 ng/mL High 23.9-336.2 [facility] Comment on above: Order Comment: Reaso n for Exam Well adult exam FASTING Performed By: #### V [id number], FE PRO, CMP, [id number], LIPID, CBC, TSH3, URMACRERAT #### [facility] [address] [place] [id number] [facility] Ferritin [Mass/Vol] 371.6100576 ng/mL High 23. 9-336.2 ng/mL [facility] Soft Tissue Regeneration Other Iron [Mass/Vol] 80 ug/dL Normal 40-160 [facility] Comment on above: Order Comment: Reaso n for Exam Well adult exam FASTING Performed By: #### V [id number], FE PRO, CMP, [id number], LIPID, CBC, TSH3, URMACRERAT #### [facility] [address] [place] [address] Total Iron Binding Capacity 301 ug/dL Normal 255-450 [facility] Comment on above: Order Comment: Reaso n for Exam Well adult exam FASTING Performed By: #### V [id number], FE PRO, CMP, [id number], LIPID, CBC, TSH3, URMACRERAT #### [facility] [address] [place] [phone] [facility] Transferrin [Mass/Vol] 215 mg/dL Normal 180-380 [facility] Comment on above: Order Comment: Reaso n for Exam Well adult exam FASTING Performed By: #### V [id number], FE PRO, CMP, [id number], LIPID, CBC, TSH3, URMACRERAT #### [facility] [address] [place] [phone] [facility] FE PRO 301 ug/dL Normal 255-450 ug/dL [employer] Other FE PRO 26.6 % Normal 20-50 % [employer] Other Ferritin [Mass/volume] in Se rum or PlasmaOrdered By: Clara Jordan on 09-19-2022 Ferritin [Mass/Vol] 802.1 ng/mL 23.9-336.2 [facility] Folate [Mass/volume] in Seru m or PlasmaOrdered By: Clara Jordan on 09-19-2022 Folate [Mass/Vol] ng/mL >5.9 [facility] Comment on above: Folate reference ran ge: >5.9 ng/mlThe WHO technical consultation on folate and vitamin [id number] has determined that folate concentrations lessthan 4 ng/ml are considered deficient. Globulin Calc (S) [Mass/Vol] Ordered By: Clara Jordan on 09-19-2022 Globulin (S) [Mass/Vol] 2.6 g/dL [facility] Hematocrit Auto (Bld) [Volum e fraction]Ordered By: Clara Jordan on 09-19-2022 Hematocrit (Bld) [Volume fraction] 34.5 % 38.8-50.0 [facility] Hemoglobin [Mass/volume] in BloodOrdered By: Clara Jordan on 09-19-2022 Hemoglobin (Bld) [Mass/Vol] 11.9 g/dL 13.0-17.0 [facility] Iron [Mass/volume] in Serum or PlasmaOrdered By: Clara Jordan on 09-19-2022 Iron [Mass/Vol] 80 ug/dL Normal 40-160 ug/dL [facility] Iron binding capacity [Mass/ volume] in Serum or PlasmaOrdered By: Clara Jordan on 09-19-2022 Iron binding capacity [Mass/Vol] 301 ug/dL 255-450 [facility] Iron saturation [Mass Fracti on] in Serum or PlasmaOrdered By: Clara Jordan on 09-19-2022 Iron saturation [Mass fraction] 26.6 % 20-50 [facility] Leukocytes [#/volume] correc kristy for nucleated erythrocytes in Blood by Automated counOrdered By: Clara Jordan on 09-19-2022 WBC corrected for nucl RBC Auto (Bld) [#/Vol] 5.6 10*3/uL 4.1-10.5 [facility] Lipid Panelon 09-19-2022 Cholesterol [Mass/Vol] 164 mg/dL Normal 140-200 [facility] Comment on above: Order Comment: Reaso n for Exam Well adult exam FASTING Result Comment: Chol less than 200 mg/dl low risk Chol 201-239 mg/dl borderline risk Chol 240 mg/dl and greater high risk Performed By: #### V [id number], FE PRO, CMP, [id number], LIPID, CBC, TSH3, URMACRERAT #### [facility] [address] [place] [phone] [place] Cholesterol in HDL [Mass/Vol] 55 mg/dL Normal 29-71 [facility] Comment on above: Order Comment: Reaso n for Exam Well adult exam FASTING Result Comment: HDL CHOL ATP-III CLASSIFICATION Cardiovascular Risk HDL > or equal to 60 mg/dL LOW HDL < 40 mg/dL HIGH Performed By: #### V [id number], FE PRO, CMP, [id number], LIPID, CBC, TSH3, URMACRERAT #### [facility] [address] [place] [phone] [place] Cholesterol in LDL Elph Qn 90 mg/dL Normal 0-100 mg/dL [employer] Other Cholesterol.total/Chol esterol in HDL [Mass ratio] 3.0 {ratio} Normal <5.0 [facility] Comment on above: Order Comment: Reaso n for Exam Well adult exam FASTING Performed By: #### V [id number], FE PRO, CMP, [id number], LIPID, CBC, TSH3, URMACRERAT #### [facility] [address] [place] [phone] [facility] LDL Cholesterol,Calculated 90 mg/dL Normal 0-100 [facility] Comment on above: Order Comment: Reaso n for Exam Well adult exam FASTING Result Comment: LDL ATP III CLASSIFICATION LDL less than 100 mg/dL Optimal LDL 100-129 mg/dL Near or above optimal LDL 130-159 mg/dL Borderline high LDL 160-189 mg/dL High LDL greater than 189 mg/dL Very high Performed By: #### V [id number], FE PRO, CMP, [id number], LIPID, CBC, TSH3, URMACRERAT #### [facility] [address] Triglyceride w/Reflex 96 mg/dL Normal 35-149 [facility] Comment on above: Order Comment: Reaso n for Exam Well adult exam FASTING Result Comment: TRIG ATP III CLASSIFICATION TRIG less than 150 mg/dL Normal TRIG 150-199 mg/dL Borderline high TRIG 200-500 mg/dL High TRIG greater than 500 mg/dL Very high Standard traceable to the Center for Disease Conrtrol and Prevention (CDC) test method. Performed By: #### V [id number], FE PRO, CMP, [id number], LIPID, CBC, TSH3, URMACRERAT #### [facility] [address] VLDL CHOLESTEROL 19 mg/dL Normal [facility] Comment on above: Order Comment: Reaso n for Exam Well adult exam FASTING Performed By: #### V [id number], FE PRO, CMP, [id number], LIPID, CBC, TSH3, URMACRERAT #### [facility] [address] Lipid Panel 96 mg/dL Normal 35-149 mg/dL [facility] Soft Tissue Regeneration Other Lipid Panel 19 mg/dL [facility] Soft Tissue Regeneration Other Lymphocytes Auto (Bld) [#/Vo l]Ordered By: Clara Jordan on 09-19-2022 Lymphocytes (Bld) [#/Vol] 0.4 10*3/uL 1.00-4.8 [facility] Lymphocytes/100 WBC Auto (Bl d)Ordered By: Clara Jordan on 09-19-2022 Lymphocytes/100 WBC (Bld) 6.9 % . [facility] MCH Auto (RBC) [Entitic mass ]Ordered By: Clara Jordan on 09-19-2022 MCH (RBC) [Entitic mass] 30.6 pg 27.5-35.2 [facility] MCHC Auto (RBC) [Mass/Vol]Or dered By: Clara Jordan on 09-19-2022 MCHC (RBC) [Mass/Vol] 34.5 g/dL 32.5-35.6 [facility] MCV Auto (RBC) [Entitic vol] Ordered By: Clara Jordan on 09-19-2022 MCV (RBC) [Entitic vol] 88.7 fL 83.5-101 [facility] MicroAlb Creat Ratio,Uon Albumin DL <= 20 mg/L (U) [Mass/Vol] 0.2 mg/dL Normal 0.0-1.8 [facility] Comment on above: Order Comment: Reaso n for Exam Well adult exam Performed By: #### V [id number], FE PRO, CMP, [id number], LIPID, CBC, TSH3, URMACRERAT #### [facility] [address] [place] [address] [facility] Albumin DL <= 20 mg/L (U) [Mass/Vol] 0.2714238 mg/dL Normal 0.0-1.8 mg/dL [facility] Soft Tissue Regeneration Other Albumin/Creatinine DL <= 20 mg/L (U) [Mass ratio] 3.294673 mg/g Normal 0.0-30.0 mg/g [facility] Soft Tissue Regeneration Other Creatinine (U) [Mass/Vol] 61.8498626 mg/dL [facility] Soft Tissue Regeneration Other Creatinine, Urine (Random) 61.6 mg/dL Normal [facility] Comment on above: Order Comment: Reaso n for Exam Well adult exam Result Comment: No r eference range established Performed By: #### V [id number], FE PRO, CMP, [id number], LIPID, CBC, TSH3, URMACRERAT #### [facility] [address] [place] [address] [facility] Microalbumin/Creatinin e Ratio 3.0 mg/g Normal 0.0-30.0 [facility] Comment on above: Order Comment: Reaso n for Exam Well adult exam Result Comment: 30-3 00 mg/g indicates an increased risk for diabetic nephropathy. Greater than 300 mg/g is consistent with clinical nephropathy. (Am. J. Kidney Disease 1995, 25:107) PERFORMED BY: [facility] [address] [place] [id number] PATHOLOGIST EPIC APPLICATION COORDINATOR MAYA SHELTON M.D. Performed By: #### V [id number], FE PRO, CMP, [id number], LIPID, CBC, TSH3, URMACRERAT #### [facility] [address] Monocytes Auto (Bld) [#/Vol] Ordered By: Clara Jordan on 09-19-2022 Monocytes (Bld) [#/Vol] 0.8 10*3/uL 0.0-0.8 [facility] Monocytes/100 WBC Auto (Bld) Ordered By: Clara Jordan on 09-19-2022 Monocytes/100 WBC (Bld) 14.1 % . [facility] Neutrophils Auto (Bld) [#/Vo l]Ordered By: Clara Jordan on 09-19-2022 Neutrophils (Bld) [#/Vol] 3.7 10*3/uL 1.8-7.7 [facility] Neutrophils/100 WBC Auto (Bl d)Ordered By: Clara Jordan on 09-19-2022 Neutrophils/100 WBC (Bld) 65.6 % . [facility] No Panel InformationOrdered By: Clara Jordan on 09-19-2022 25-Hydroxy Vitamin D Total 37.7 ng/mL 30-100 [facility] Comment on above: VITAMIN D STATUS 25( [place])VITAMIN D RANGE (ng/mL) Deficient <20 Insufficient 20 to <30Sufficient 30 to 100Reference: Tatianna MF,Dwayne PERKINS, Mariella GOOD, et al. Evaluation,treatment, and prevention of vitamin D deficiency; an Endocrine Society clinical practice guideline. JCEM. 2010; 96(7):1911-30. Estimated GFR () > 60 mL/Min [facility] Comment on above: GFR estimated refere nce range: According to KDOQI guidelines, <60 ml/min/1.73m2 is sufficient to diagnose a patient with chronic kidney disease. Pharmacy Creatinine Clearance (Chem N/A [facility] Nucleated erythrocytes [Pres ence] in Blood by Automated countOrdered By: Clara Jordan on 09-19-2022 Nucleated RBC Auto Ql (Bld) 0.1 /100{WBC} 0-0.5 [facility] Platelet mean volume Auto (B ld) [Entitic vol]Ordered By: Clara Jordan on 09-19-2022 Platelet mean volume (Bld) [Entitic vol] 6.3 fL 6.6-10.1 [facility] Platelets [#/volume] in Bloo d by Automated countOrdered By: Clara Jordan on 09-19-2022 Platelets (Bld) [#/Vol] 282 10*3/uL Normal 150-450 10*3/uL [facility] Protein [Mass/volume] in Ser um or PlasmaOrdered By: Clara Jordan on 09-19-2022 Protein [Mass/Vol] 6.2 g/dL 6.1-7.9 [facility] Serum or plasma alanine ramos otransferase measurement without P-5'-P (enzymatic activiOrdered By: Clara Jordan on 09-19-2022 ALT No additional P-5'-P [Catalytic activity/Vol] 23 U/L 10-60 [facility] Serum or plasma albumin/glob ulin mass ratioOrdered By: Clara Jordan on 09-19-2022 Albumin/Globulin [Mass ratio] 1.4 {ratio} [facility] Serum or plasma alkaline yulia sphatase measurement (enzymatic activity/volume)Ordered By: Clara Jordan on 09-19-2022 ALP [Catalytic activity/Vol] 122 U/L High 32-92 U/L [facility] Serum or plasma anion gap de terminationOrdered By: Clara Jordan on 09-19-2022 Anion gap [Moles/Vol] 12.4 mmol/L 6.0-15.0 [facility] Serum or plasma aspartate am inotransferase measurement (enzymatic activity/volume)Ordered By: Clara Jordan on 09-19-2022 AST [Catalytic activity/Vol] 27 U/L Normal 10-42 U/L [facility] Serum or plasma calcium adam urement (mass/volume)Ordered By: Clara Jordan on 09-19-2022 Calcium [Mass/Vol] 9.5 mg/dL 8.2-10.2 [facility] Serum or plasma chloride prashant surement (moles/volume)Ordered By: Clara Jordan on 09-19-2022 Chloride [Moles/Vol] 98 mmol/L Normal 95-114 mmol/L [facility] Serum or plasma glucose adam urement (mass/volume)Ordered By: Clara Jordan on 09-19-2022 Glucose [Mass/Vol] 110 mg/dL High 70-100 mg/dL [facility] Comment on above: ADA recommended refe rence rangeRandom Glucose Reference Range is dependent on time and content of last meal. Glucose of more than 200 mg/dL in a nonstressed, ambulatory subject supports the diagnosis of Diabetes Mellitus. Serum or plasma high density lipoprotein (HDL) cholesterol measurementOrdered By: Clara Jordan on 09-19-2022 Cholesterol in HDL [Mass/Vol] 55 mg/dL Normal 29-71 mg/dL [facility] Comment on above: HDL CHOL ATP-III CLA SSIFICATION Cardiovascular RiskHDL > or equal to 60 mg/dL LOWHDL < 40 mg/dL HIGH Serum or plasma potassium me asurement (moles/volume)Ordered By: Clara Jordan on 09-19-2022 Potassium [Moles/Vol] 4.9 mmol/L 3.5-5.1 [facility] Serum or plasma sodium measu rement (moles/volume)Ordered By: Clara Jordan on 09-19-2022 Sodium [Moles/Vol] 132 mmol/L Low 136-146 mmol/L [facility] Serum or plasma total biliru bin measurement (mass/volume)Ordered By: Clara Jordan on 09-19-2022 Bilirubin [Mass/Vol] 0.6 mg/dL 0.3-1.2 [facility] Serum or plasma total carbon dioxide measurement (moles/volume)Ordered By: Clara Jordan on 09-19-2022 CO2 [Moles/Vol] 26.5 mmol/L 22.0-30.0 [facility] Serum or plasma total choles terol/high density lipoprotein (HDL) cholesterol mass ratOrdered By: Clara Jordan on 09-19-2022 Cholesterol.total/Chol esterol in HDL [Mass ratio] 3.0 {ratio} <5.0 [facility] Serum or plasma urea nitroge n measurement (mass/volume)Ordered By: Clara Jordan on 09-19-2022 Urea nitrogen [Mass/Vol] 8 mg/dL Low 9-23 mg/dL [facility] TSH DL <= 0.005 mIU/L QnOrde red By: Clara Jordan on 09-19-2022 TSH Qn 1.04 m[IU]/L 0.45-5.33 [facility] Thyroid Stimulating Hormoneo n 09-19-2022 TSH Qn 1.04 m[IU]/L Normal 0.45-5.33 [facility] Comment on above: Order Comment: Reaso n for Exam Well adult exam FASTING Performed By: #### V [id number], FE PRO, CMP, [id number], LIPID, CBC, TSH3, URMACRERAT #### [facility] [address] TSH Qn 1.78975572804 m[IU]/L Normal 0.45-5.33 u[iU]/mL [employer] Other Triglyceride [Mass/volume] i n Serum or PlasmaOrdered By: Clara Jordan on 09-19-2022 Triglyceride [Mass/Vol] 96 mg/dL 35-149 [facility] Comment on above: TRIG ATP III CLASSIF ICATIONTRIG less than 150 mg/dL NormalTRIG 150-199 mg/dL Borderline highTRIG 200-500 mg/dL High TRIG greater than 500 mg/dL Very highStandard traceable to the Center for Disease Conrtrol and Prevention (CDC) test method. Urine microalbumin measureme nt with detection limit of 20 mg/L or less (mass/volume)Ordered By: Clara Jordan on 09-19-2022 Albumin DL <= 20 mg/L (U) [Mass/Vol] 0.2 mg/dL 0.0-1.8 [facility] Urine microalbumin/creatinin e mass ratioOrdered By: Clara Jordan on 09-19-2022 Albumin/Creatinine DL <= 20 mg/L (U) [Mass ratio] 3.0 mg/g 0.0-30.0 [facility] Comment on above: 30-300 mg/g indicate s an increased risk for diabetic nephropathy. Greater than 300 mg/g is consistent with clinical nephropathy. (Am. J. Kidney Disease 1995, 25:107) Vit. B12/Folate ProfileOrder ed By: Clara Jordan on 09-19-2022 Cobalamin (Vitamin B12) [Mass/Vol] 834 pg/mL Normal 180-914 pg/mL [facility] Vit. B12/Folate Profileon Cobalamin (Vitamin B12) [Mass/Vol] 834 pg/mL Normal 180-914 [facility] Comment on above: Order Comment: Reaso n for Exam Well adult exam FASTING Performed By: #### V [id number], FE PRO, CMP, [id number], LIPID, CBC, TSH3, URMACRERAT #### [facility] [address] Folate > 22.3 Normal >5.9 [facility] Comment on above: Order Comment: Reaso n for Exam Well adult exam FASTING Result Comment: Rosi te reference range: >5.9 ng/ml The WHO technical consultation on folate and vitamin b12 deficiencies has determined that folate concentrations less than 4 ng/ml are considered deficient. Performed By: #### V [id number], FE PRO, CMP, [id number], LIPID, CBC, TSH3, URMACRERAT #### [facility] [address] Vit. B12/Folate Profile > 22.3 >5.9 [employer] Other Vitamin D 25 Hydroxy Totalon 09-19-2022 Vitamin D 25 Hydroxy Total 37.7 ng/mL Normal 30-100 [facility] Comment on above: Order Comment: Reaso n for Exam Well adult exam FASTING Result Comment: LONNIE MIN D STATUS 25([place])VITAMIN D RANGE (ng/mL) Deficient <20 Insufficient 20 to <30 Sufficient 30 to 100 Reference: Tatianna MF,Dwayne NC, Mariella GOOD, et al. Evaluation,treatment, and prevention of vitamin D deficiency; an Endocrine Society clinical practice guideline. JCEM. 2011 Feb; 96(7):1911-30. PERFORMED BY: [facility] [address] [place] [address] PATHOLOGIST EPIC APPLICATION COORDINATOR MAYA SHELTON M.D. Performed By: #### V [id number], FE PRO, CMP, [id number], LIPID, CBC, TSH3, URMACRERAT #### [facility] [address] Vitamin D 25 Hydroxy Total 37.7 ng/mL Normal 30-100 ng/mL [employer] Other WBC Auto (Bld) [#/Vol]Ordere d By: Clara Jordan on 09-19-2022 WBC (Bld) [#/Vol] 5.6 10*3/uL 4.1-10.5 [facility] CBC W/DIFFon 04-14-2022 ABS IMM GRANS 0.0 10*3/uL Normal 0.0-0.2 [facility] Comment on above: Performed By: #### [id number] #### [facility] [address] [facility] [place] [address], [facility] ABS NEUTROPHILS 2.2 10*3/uL Normal 1.6-7.6 [facility] Comment on above: Performed By: #### [id number] #### [facility] [address] [place] [address], [facility] Basophils (Bld) [#/Vol] 0.0 10*3/uL Normal 0.0-0.2 The [facility] Comment on above: Performed By: #### 8 [id number] #### [facility] [address] [facility] [place] [address], [facility] Basophils/100 WBC (Bld) 0.3 % Normal 0.0-1.0 The [facility] Comment on above: Performed By: #### 8 [id number] #### [facility] [address] [place] [address], [place] Eosinophils (Bld) [#/Vol] 0.0 10*3/uL Normal 0.0-0.5 The [facility] Comment on above: Performed By: #### 8 [id number] #### [facility] [address] [facility] [place] [address], [facility] Eosinophils/100 WBC (Bld) 1.4 % Normal 0.0-6.0 The [facility] Comment on above: Performed By: #### 8 [id number] #### [facility] [address] [facility] [place] [address], [facility] Erythrocyte distribution width (RBC) [Ratio] 11.9 % Normal 11.5-15.0 The [facility] Comment on above: Performed By: #### 8 [id number] #### [facility] [address] [facility] [place] [address], [facility] Hematocrit (Bld) [Volume fraction] 28.2 % Low 39.0-50.0 The [facility] Comment on above: Performed By: #### 8 [id number] #### [facility] [address] [place] [address], [facility] Hemoglobin (Bld) [Mass/Vol] 9.5 g/dL Low 13.0-17.0 The [facility] Comment on above: Performed By: #### 8 [id number] #### [facility] [address] [place] [address], [facility] IMMATURE GRANS 0.3 % Normal 0.0-1.0 The [facility] Comment on above: Performed By: #### 8 [id number] #### [facility] [address] [facility] [place] [address], [facility] Lymphocytes (Bld) [#/Vol] 0.3 10*3/uL Low 1.2-4.0 The [facility] Comment on above: Performed By: #### 8 [id number] #### [facility] [address] [facility] [place] [address], [facility] Lymphocytes/100 WBC (Bld) 9.2 % Low 20.0-45.0 The [facility] Comment on above: Performed By: #### 8 [id number] #### [facility] [address] [place] [address], [facility] MCH (RBC) [Entitic mass] 29.6 pg Normal 27.0-33.0 The [facility] Comment on above: Performed By: #### 8 [id number] #### [facility] [address] [facility] [place] [address], [facility] MCHC (RBC) [Mass/Vol] 33.7 g/dL Normal 32.0-35.0 The [facility] Comment on above: Performed By: #### 8 [id number] #### [facility] [address] [place] [address], [facility] MCV (RBC) [Entitic vol] 87.9 fL Normal 82.0-98.0 The [facility] Comment on above: Performed By: #### 8 [id number] #### [facility] [address] [facility] [place] [address], [facility] Monocytes (Bld) [#/Vol] 0.4 10*3/uL Normal 0.1-1.0 The [facility] Comment on above: Performed By: #### 8 [id number] #### [facility] [address] [facility] [place] [address], [facility] MONOS 13.7 % High 5.0-12.0 The [facility] Comment on above: Performed By: #### 8 [id number] #### [facility] [address] [facility] [place] [address], [facility] Neutrophils/100 WBC (Bld) 75.1 % High 40.0-72.0 The [facility] Comment on above: Performed By: #### 8 [id number] #### [facility] [address] [place] [address], [facility] Nucleated RBC/100 WBC (Bld) [Ratio] 0 % Normal 0-0 [facility] Comment on above: Performed By: #### 8 [id number] #### [facility] [address] [facility] [place] [address], [facility] PLAT CNT 169 10*3/uL Normal 150-400 [facility] Comment on above: Performed By: #### 8 [id number] #### [facility] [address] [place] [address], [facility] RBC (Bld) [#/Vol] 3.21 10*6/uL Low 4.20-5.70 The [facility] Comment on above: Performed By: #### 8 [id number] #### [facility] [address] [place] [address], [facility] WBC (Bld) [#/Vol] 2.92 10*3/uL Low 4.00-10.60 The [facility] Comment on above: Performed By: #### 8 [id number] #### [facility] [address] [place] [address], [facility] HEMOGRAM CORNELIO POCon 04-14-20 22 ABS NEUT CORNELIO POC 2.2 10*3/uL Normal 1.6-7.6 The [facility] Comment on above: Performed By: #### 8 [id number] #### [facility] [address] [place] [address], [facility] Hematocrit (Bld) [Volume fraction] 28.1 % Low 39.0-50.0 The [facility] Comment on above: Performed By: #### 8 [id number] #### [facility] [address] [place] [address], [facility] Hemoglobin (Bld) [Mass/Vol] 9.6 g/dL Low 13.0-17.0 The [facility] Comment on above: Performed By: #### 8 [id number] #### [facility] [address] [place] [address], [facility] PLAT CNT CORNELIO POC 166 10*3/uL Normal 150-400 The [facility] Comment on above: Performed By: #### 8 [id number] #### [facility] [address] WBC (Bld) [#/Vol] 2.8 10*3/uL Low 4.0-10.6 The [facility] Comment on above: Performed By: #### 8 [id number] #### [facility] [address] Endoscopy Reporton Endoscopy Report MR#: [id number] [facility] Pt. Name: Osbaldo León Surgery Date: 04/10/2022 Room #: 0C Date of : 1960 PROCEDURE NOTE ATTENDING: Eugenia Cano M.D. MACHINE INKER: Yusuf Mcdaniels MD. PROCEDURE: EGD with PEG tube placement. INDICATION: Oropharyngeal dysphagia/ History of tongue cancer. ANESTHESIA: Monitored anesthesia care. DESCRIPTION OF PROCEDURE: After obtaining informed consent, the scope was passed under direct vision from the mouth into the 2nd part of the duodenum using the transillumination method. The scope was then directed into the anterior wall of the stomach. The contract assistant marked the spot where the transillumination was of maximum intensity in preparation for insertion of PEG tube. Following this, the abdominal skin the area that was marked, was cleaned with chlorhexidine preps. After this, under sterile technique, the contract assistant made a small wheal of 1 mL of lidocaine into the skin. Following this, the needle was introduced into the stomach into the abdominal wall until the stomach was pierced. Lidocaine was injected as the needle was retracted through the abdominal wall. Following this, a scalpel was used to cut 1 cm transverse into the skin. Catheter with a needle was introduced through the abdominal wall until it reached the stomach. Snare was then introduced through the catheter and the guidewire was introduced through the catheter and a snare was introduced through the scope. The snare caught the guidewire and both were withdrawn from the mouth. The guidewire was then attached to the PEG tube, which was then pulled through the mouth and into the stomach and then out of the abdominal skin. The endoscope was then introduced into the mouth and confirmed the correct placement of the PEG tube. The PEG tube was secured at 2 cm from the skin with a bumper at 3.5 cm from the skin. IMPRESSION: Successful endoscopic placement of 20-Citizen Of [place] PEG tube. PEG tube bumper was noted at 3.5 cm externally at the skin. COMPLICATIONS: None. ESTIMATED BLOOD LOSS: Minimal. RECOMMENDATIONS: May use PEG tube for tube feeds in 4 hours after procedure for food and medications, but can be used immediately for liquids. Electronically Signed by: Eugenia Cano M.D. 04/16/2022 12:00 A Eugenia Cano M.D. I was present for the entire procedure from insertion of the scope until it was withdrawn. Date Dict: 04/10/2022/01:56 P/Yusuf Mcdaniels MD Date Trans: 04/11/2022 06:04 Shun/lucretia [id number] Normal The [facility] CBC W/DIFFon 04-10-2022 ABS IMM GRANS 0.1 10*3/uL Normal 0.0-0.2 The [facility] Comment on above: Performed By: #### 8 [id number] #### [facility] [address] ABS NEUTROPHILS 7.0 10*3/uL Normal 1.6-7.6 The [facility] Comment on above: Performed By: #### 8 [id number] #### [facility] [address] [place] [address], [facility] Basophils (Bld) [#/Vol] 0.0 10*3/uL Normal 0.0-0.2 The [facility] Comment on above: Performed By: #### 8 [id number] #### [facility] [address] [place] [address], [facility] Basophils/100 WBC (Bld) 0.0 % Normal 0.0-1.0 The [facility] Comment on above: Performed By: #### 8 [id number] #### [facility] [address] [place] [address], [facility] Eosinophils (Bld) [#/Vol] 0.0 10*3/uL Normal 0.0-0.5 The [facility] Comment on above: Performed By: #### 8 [id number] #### [facility] [address] [place] [address], [facility] Eosinophils/100 WBC (Bld) 0.4 % Normal 0.0-6.0 The [facility] Comment on above: Performed By: #### 8 [id number] #### [facility] [address] Erythrocyte distribution width (RBC) [Ratio] 12.2 % Normal 11.5-15.0 The [facility] Comment on above: Performed By: #### 8 [id number] #### [facility] [address] [facility] [place] [address], [facility] Hematocrit (Bld) [Volume fraction] 32.0 % Low 39.0-50.0 The [facility] Comment on above: Performed By: #### 8 [id number] #### [facility] [address] [facility] [place] [address], [facility] Hemoglobin (Bld) [Mass/Vol] 10.7 g/dL Low 13.0-17.0 The [facility] Comment on above: Performed By: #### 8 [id number] #### [facility] [address] [facility] [place] [address], [facility] IMMATURE GRANS 0.6 % Normal 0.0-1.0 The [facility] Comment on above: Performed By: #### 8 [id number] #### [facility] [address] [place] [address], [facility] Lymphocytes (Bld) [#/Vol] 0.5 10*3/uL Low 1.2-4.0 The [facility] Comment on above: Performed By: #### 8 [id number] #### [facility] [address] [place] [address], [facility] Lymphocytes/100 WBC (Bld) 5.5 % Low 20.0-45.0 The [facility] Comment on above: Performed By: #### 8 [id number] #### [facility] [address] [place] [address], [facility] MCH (RBC) [Entitic mass] 29.6 pg Normal 27.0-33.0 The [facility] Comment on above: Performed By: #### 8 [id number] #### [facility] [address] [facility] MCHC (RBC) [Mass/Vol] 33.4 g/dL Normal 32.0-35.0 The [facility] Comment on above: Performed By: #### 8 [id number] #### [facility] [address] [place] [address], [facility] MCV (RBC) [Entitic vol] 88.6 fL Normal 82.0-98.0 The [facility] Comment on above: Performed By: #### 8 [id number] #### [facility] [address] [place] [address], [facility] Monocytes (Bld) [#/Vol] 0.6 10*3/uL Normal 0.1-1.0 The [facility] Comment on above: Performed By: #### 8 [id number] #### [facility] [address] [place] [address], [facility] MONOS 7.8 % Normal 5.0-12.0 The [facility] Comment on above: Performed By: #### 8 [id number] #### [facility] [address] [place] [address], [facility] Neutrophils/100 WBC (Bld) 85.7 % High 40.0-72.0 [facility] Comment on above: Performed By: #### 8 [id number] #### [facility] [address] [facility]. [address] Nucleated RBC/100 WBC (Bld) [Ratio] 0 % Normal 0-0 The [facility] Comment on above: Performed By: #### 8 [id number] #### [facility] [address] [place] [address], [facility] PLAT CNT 260 10*3/uL Normal 150-400 The [facility] Comment on above: Performed By: #### 8 [id number] #### [facility] [address] RBC (Bld) [#/Vol] 3.61 10*6/uL Low 4.20-5.70 The [facility] Comment on above: Performed By: #### 8 [id number] #### [facility] [address] WBC (Bld) [#/Vol] 8.21 10*3/uL Normal 4.00-10.60 The [facility] Comment on above: Performed By: #### 8 [id number] #### [facility] [address] COMP METABOLIC PANELon 04-10 Albumin [Mass/Vol] 4.1 g/dL Normal 3.5-5.7 [facility] Comment on above: Performed By: #### 0 0121, [id number] ####[facility] ALKALINE PHOSPH 363 IU/L High 34-104 The [facility] Comment on above: Performed By: #### 0 0121, [id number] ####[facility] ALT [Catalytic activity/Vol] 213 U/L High 7-52 The [facility] Comment on above: Performed By: #### 0 0121, [id number] ####[facility] [place] [address], [place] AST [Catalytic activity/Vol] 59 U/L High 13-39 The [facility] Comment on above: Performed By: #### 0 0121, [id number] ####[facility] [place] [address], [place] Bilirubin [Mass/Vol] 0.8 mg/dL Normal 0.3-1.0 The [facility] Comment on above: Performed By: #### 0 0121, [id number] ####[facility] [place] [address], [place] Calcium [Mass/Vol] 9.6 mg/dL Normal 8.6-10.3 [facility] Comment on above: Performed By: #### 0 0121, 40389 ####[facility] [place] [address], [place] Chloride [Moles/Vol] 96 mmol/L Low 98-107 [facility] Comment on above: Performed By: #### 0 0121, 23820 ####[facility] [place] [address], [place] CO2 [Moles/Vol] 28 mmol/L Normal 21-31 [facility] Comment on above: Performed By: #### 0 0121, 77031 ####[facility] [place] [address], [place] Creatinine [Mass/Vol] 0.96 mg/dL Normal 0.70-1.30 The [facility] Comment on above: Performed By: #### 0 0121, 05859 ####[facility] [place] [address], [place] GFR/1.73 sq M.predicted among non-blacks MDRD (S/P/Bld) [Vol rate/Area] mL/min/{1.73_m2} Normal >60 The [facility] Comment on above: Result Comment: The [facility]'s estimated glomerular filtration rate (eGFR) will no longer include consideration of race in its calculation. The National [employer]'s eGFR Task Force developed new recommendations for the estimation of the glomerular filtration rate in the [place] They recommend immediate implementation of the new equation refit without the race variable in all laboratories because the calculation does not include race. In addition to not including race in the calculation and reporting, it included diversity in its development, and has acceptable performance characteristics and potential consequences that do not disproportionately affect any one group of individuals. Performed By: #### 0 0121, [id number] ####[facility] [facility] [place] [address], [facility] Glucose [Mass/Vol] 98 mg/dL Normal 70-100 The [facility] Comment on above: Performed By: #### 0 0121, 75001 ####[facility] [facility] [place] [address], [facility] Potassium [Moles/Vol] 4.1 mmol/L Normal 3.5-5.1 The [facility] Comment on above: Performed By: #### 0 0121, 82022 ####[facility] [facility] [place] [address], [facility] Protein [Mass/Vol] 6.9 g/dL Normal 6.0-8.3 The [facility] Comment on above: Performed By: #### 0 0121, 13984 ####[facility] [place] [address], [place] Sodium [Moles/Vol] 134 mmol/L Low 136-145 The [facility] Comment on above: Performed By: #### 0 0121, 55572 ####[facility] [facility] [place] [address], [place] Urea nitrogen [Mass/Vol] 36 mg/dL High 7-25 The [facility] Comment on above: Performed By: #### 0 0121, 74058 ####[facility] [facility] MAGNESIUM BLOODon 04-10-2022 Magnesium [Mass/Vol] 2.0 mg/dL Normal 1.9-2.7 The [facility] Comment on above: Performed By: #### 8 [id number] #### [facility] [address] [facility] POC GLUCOSE LABon 04-10-2022 Glucose [Mass/Vol] 103 mg/dL High 70-100 The [facility] Comment on above: Performed By: #### 8 [id number] #### [facility] [address] [facility] CBC W/DIFFon 04-07-2022 ABS IMM GRANS 0.0 10*3/uL Normal 0.0-0.2 The [facility] Comment on above: Performed By: #### 8 [id number] #### [facility] [address] [facility] ABS NEUTROPHILS 5.2 10*3/uL Normal 1.6-7.6 [facility] Comment on above: Performed By: #### 8 [id number] #### [facility] [address] [place] [address], [facility] Basophils (Bld) [#/Vol] 0.0 10*3/uL Normal 0.0-0.2 The [facility] Comment on above: Performed By: #### 8 [id number] #### [facility] [address] [facility] Basophils/100 WBC (Bld) 0.2 % Normal 0.0-1.0 The [facility] Comment on above: Performed By: #### 8 [id number] #### [facility] [address] [place] [address], [facility] Eosinophils (Bld) [#/Vol] 0.1 10*3/uL Normal 0.0-0.5 The [facility] Comment on above: Performed By: #### 8 [id number] #### [facility] [address] [facility] [place] [address], [facility] Eosinophils/100 WBC (Bld) 0.9 % Normal 0.0-6.0 The [facility] Comment on above: Performed By: #### 8 [id number] #### [facility] [address] Erythrocyte distribution width (RBC) [Ratio] 12.1 % Normal 11.5-15.0 The [facility] Comment on above: Performed By: #### 8 [id number] #### [facility] [address] [facility] Hematocrit (Bld) [Volume fraction] 31.5 % Low 39.0-50.0 The [facility] Comment on above: Performed By: #### 8 [id number] #### [facility] [address] [facility] Hemoglobin (Bld) [Mass/Vol] 11.0 g/dL Low 13.0-17.0 The [facility] Comment on above: Performed By: #### 8 [id number] #### [facility] [address] [place] [address], [facility] IMMATURE GRANS 0.3 % Normal 0.0-1.0 The [facility] Comment on above: Performed By: #### 8 [id number] #### [facility] [address] [place] [address], [facility] Lymphocytes (Bld) [#/Vol] 0.3 10*3/uL Low 1.2-4.0 The [facility] Comment on above: Performed By: #### 8 [id number] #### [facility] [address] [place] [address], [facility] Lymphocytes/100 WBC (Bld) 4.7 % Low 20.0-45.0 The [facility] Comment on above: Performed By: #### 8 [id number] #### [facility] [address] [place] [address], [facility] MCH (RBC) [Entitic mass] 29.9 pg Normal 27.0-33.0 The [facility] Comment on above: Performed By: #### 8 [id number] #### [facility] [address] [facility] [place] [address], [facility] MCHC (RBC) [Mass/Vol] 34.9 g/dL Normal 32.0-35.0 The [facility] Comment on above: Performed By: #### 8 [id number] #### [facility] [address] [facility] [place] [address], [facility] MCV (RBC) [Entitic vol] 85.6 fL Normal 82.0-98.0 The [facility] Comment on above: Performed By: #### 8 [id number] #### [facility] [address] [place] [address], [facility] Monocytes (Bld) [#/Vol] 0.8 10*3/uL Normal 0.1-1.0 The [facility] Comment on above: Performed By: #### 8 [id number] #### [facility] [address] [place] [address], [facility] MONOS 11.9 % Normal 5.0-12.0 The [facility] Comment on above: Performed By: #### 8 [id number] #### [facility] [address] [place] [address], [facility] Neutrophils/100 WBC (Bld) 82.0 % High 40.0-72.0 The [facility] Comment on above: Performed By: #### 8 [id number] #### [facility] [address] [facility] [address] Nucleated RBC/100 WBC (Bld) [Ratio] 0 % Normal 0-0 The [facility] Comment on above: Performed By: #### 8 [id number] #### [facility] [address] [place] [address], [facility] PLAT CNT 297 10*3/uL Normal 150-400 [facility] Comment on above: Performed By: #### 8 [id number] #### [facility] [address] [facility]. [address] RBC (Bld) [#/Vol] 3.68 10*6/uL Low 4.20-5.70 [facility] Comment on above: Performed By: #### 8 [id number] #### [facility] [address] [facility]. [address] WBC (Bld) [#/Vol] 6.36 10*3/uL Normal 4.00-10.60 [facility] Comment on above: Performed By: #### 8 [id number] #### [facility] [address] [facility] HEMOGRAM CORNELIO POCon 04-07-20 22 ABS NEUT CORNELIO POC 5.2 10*3/uL Normal 1.6-7.6 The [facility] Comment on above: Performed By: #### 8 [id number] #### [facility] [address] [facility]. [address] Hematocrit (Bld) [Volume fraction] 31.7 % Low 39.0-50.0 The [facility] Comment on above: Performed By: #### 8 [id number] #### [facility] [address] [place] [address], [facility] Hemoglobin (Bld) [Mass/Vol] 11.2 g/dL Low 13.0-17.0 The [facility] Comment on above: Performed By: #### 8 [id number] #### [facility] [address] [place] [address], [facility] PLAT CNT CORNELIO POC 294 10*3/uL Normal 150-400 The [facility] Comment on above: Performed By: #### 8 [id number] #### [facility] [address] [facility] [place] [address], [facility] WBC (Bld) [#/Vol] 6.3 10*3/uL Normal 4.0-10.6 The [facility] Comment on above: Performed By: #### 8 [id number] #### [facility] [address] [facility]. [address] BASIC METABOLIC PANELon 03-10 Calcium [Mass/Vol] 9.4 mg/dL Normal 8.6-10.3 The [facility] Comment on above: Performed By: #### 0 0071, 23352 ####[facility] Chloride [Moles/Vol] 93 mmol/L Low 98-107 The [facility] Comment on above: Performed By: #### 0 0071, 29796 ####[facility] [place] [address], [facility] CO2 [Moles/Vol] 23 mmol/L Normal 21-31 The [facility] Comment on above: Performed By: #### 0 0071, 05053 ####[facility] Creatinine [Mass/Vol] 0.73 mg/dL Normal 0.70-1.30 The [facility] Comment on above: Performed By: #### 0 0071, 54164 ####[facility] GFR/1.73 sq M.predicted among non-blacks MDRD (S/P/Bld) [Vol rate/Area] mL/min/{1.73_m2} Normal >60 The [facility] Comment on above: Result Comment: The [facility]'s estimated glomerular filtration rate (eGFR) will no longer include consideration of race in its calculation. The National Kidney Foundation's eGFR Task Force developed new recommendations for the estimation of the glomerular filtration rate in the [place] They recommend immediate implementation of the new equation refit without the race variable in all laboratories because the calculation does not include race. In addition to not including race in the calculation and reporting, it included diversity in its development, and has acceptable performance characteristics and potential consequences that do not disproportionately affect any one group of individuals. Performed By: #### 0 0071, 73679 ####[facility] [facility] [address], [facility] Glucose [Mass/Vol] 97 mg/dL Normal 70-100 The [facility] Comment on above: Performed By: #### 0 0071, 84403 ####[facility] [facility] [place] [address], [facility] Potassium [Moles/Vol] 5.2 mmol/L High 3.5-5.1 The [facility] Comment on above: Performed By: #### 0 0071, 81589 ####[facility] [facility] [place] [address], [facility] Sodium [Moles/Vol] 129 mmol/L Low 136-145 The [facility] Comment on above: Performed By: #### 0 0071, 09997 ####[facility] [facility] [place] [address], [facility] Urea nitrogen [Mass/Vol] 31 mg/dL High 7-25 The [facility] Comment on above: Performed By: #### 0 0071, 64856 ####[facility] [facility] [place] [address], [facility] LIVER BATTERYon 04-06-2022 Albumin [Mass/Vol] 4.2 g/dL Normal 3.5-5.7 The [facility] Comment on above: Order Comment: repea t in 1 week (04/06)PER LAB ORDER ONLY DRAW LIVER FUNCTION PANEL LSPPER LAB ORDER ONLY DRAW LIVER FUNCTION PANEL LSP Performed By: #### 0 0071, 08757 ####[facility] [facility] [place] [address], [facility] ALKALINE PHOSPH 372 IU/L High 34-104 The [facility] Comment on above: Order Comment: repea t in 1 week (04/06)PER LAB ORDER ONLY DRAW LIVER FUNCTION PANEL LSPPER LAB ORDER ONLY DRAW LIVER FUNCTION PANEL LSP Performed By: #### 0 0071, 52288 ####[facility] [place] [address], [facility] ALT [Catalytic activity/Vol] 138 U/L High 7-52 The [facility] Comment on above: Order Comment: repea t in 1 week (04/06)PER LAB ORDER ONLY DRAW LIVER FUNCTION PANEL LSPPER LAB ORDER ONLY DRAW LIVER FUNCTION PANEL LSP Performed By: #### 0 0071, 43772 ####[facility] [place] [address], [facility] AST [Catalytic activity/Vol] 47 U/L High 13-39 [facility] Comment on above: Order Comment: repea t in 1 week (04/06)PER LAB ORDER ONLY DRAW LIVER FUNCTION PANEL LSPPER LAB ORDER ONLY DRAW LIVER FUNCTION PANEL LSP Performed By: #### 0 0071, 55423 ####[facility] [facility] [place] [address], [facility] Bilirubin [Mass/Vol] 0.4 mg/dL Normal 0.3-1.0 The [facility] Comment on above: Order Comment: repea t in 1 week (04/06)PER LAB ORDER ONLY DRAW LIVER FUNCTION PANEL LSPPER LAB ORDER ONLY DRAW LIVER FUNCTION PANEL LSP Performed By: #### 0 0071, 84241 ####[facility] [facility] [id number], [facility] Bilirubin.direct [Mass/Vol] 0.1 mg/dL Normal 0.0-0.2 The [facility] Comment on above: Order Comment: repea t in 1 week (04/06)PER LAB ORDER ONLY DRAW LIVER FUNCTION PANEL LSPPER LAB ORDER ONLY DRAW LIVER FUNCTION PANEL LSP Performed By: #### 0 0071, 04670 ####[facility] Protein [Mass/Vol] 6.9 g/dL Normal 6.0-8.3 [facility] Comment on above: Order Comment: repea t in 1 week (04/06)PER LAB ORDER ONLY DRAW LIVER FUNCTION PANEL LSPPER LAB ORDER ONLY DRAW LIVER FUNCTION PANEL LSP Performed By: #### 0 0071, 89366 ####[facility] AFP TUMOR MARKER [id number] AFP TUMOR MARKER 3 ng/mL Normal 0-9 The [facility] Comment on above: Result Comment: INTE RPRETIVE INFORMATION: Alpha Fetoprotein Tumor Marker The Katie Suzette Access DxI AFP method is used. Results obtained with different assay methods or kits cannot be used interchangeably. AFP is a valuable aid in the management of nonseminomatous testicular cancer patients when used in conjunction with information available from the clinical evaluation and other diagnostic procedures. Increased AFP concentrations have also been observed in ataxia telangiectasia, hereditary tyrosinemia, primary hepatocellular carcinoma, teratocarcinoma, gastrointestinal tract cancers with and without liver metastases, and in benign hepatic conditions such as acute viral hepatitis, chronic active hepatitis, and cirrhosis. The result cannot be interpreted as absolute evidence of the presence or absence of malignant disease. The result is not interpretable as a tumor marker in females. Access complete set of age- and/or gender-specific reference intervals for this test in the [facility] Test Directory ([employer]). Performed By: [facility] [employer] [facility] ([facility]: [place]) [address] [place] [id number] Director Game: Alma Cai MD, PhD CBC W/DIFFon 03-30-2022 ABS IMM GRANS 0.1 10*3/uL Normal 0.0-0.2 The [facility] Comment on above: Performed By: #### 8 5499 #### [facility] [address] [place] [address], [facility] ABS NEUTROPHILS 8.0 10*3/uL High 1.6-7.6 The [facility] Comment on above: Performed By: #### 8 5499 #### [facility] [address] [place] [id number], [facility] Basophils (Bld) [#/Vol] 0.0 10*3/uL Normal 0.0-0.2 The [facility] Comment on above: Performed By: #### 8 5499 #### [facility] [address] [facility] [place] [address], [facility] Basophils/100 WBC (Bld) 0.2 % Normal 0.0-1.0 The [facility] Comment on above: Performed By: #### 8 5499 #### [facility] [address] [place] [address], [facility] Eosinophils (Bld) [#/Vol] 0.1 10*3/uL Normal 0.0-0.5 The [facility] Comment on above: Performed By: #### 8 5499 #### [facility] [address] [place] [address], [facility] Eosinophils/100 WBC (Bld) 1.2 % Normal 0.0-6.0 The [facility] Comment on above: Performed By: #### 8 5499 #### [facility] [address] [place] [id number], [facility] Erythrocyte distribution width (RBC) [Ratio] 12.2 % Normal 11.5-15.0 The [facility] Comment on above: Performed By: #### 8 5499 #### [facility] [address] [place] [id number], [facility] Hematocrit (Bld) [Volume fraction] 33.4 % Low 39.0-50.0 The [facility] Comment on above: Performed By: #### 8 5499 #### [facility] [address] [facility] [place] [address], [facility] Hemoglobin (Bld) [Mass/Vol] 11.1 g/dL Low 13.0-17.0 The [facility] Comment on above: Performed By: #### 8 5499 #### [facility] [address] [facility] [place] [address], [facility] IMMATURE GRANS 0.6 % Normal 0.0-1.0 The [facility] Comment on above: Performed By: #### 8 5499 #### [facility] [address] [place] [address], [facility] Lymphocytes (Bld) [#/Vol] 0.7 10*3/uL Low 1.2-4.0 The [facility] Comment on above: Performed By: #### 8 5499 #### [facility] [address] [place] [address], [facility] Lymphocytes/100 WBC (Bld) 6.7 % Low 20.0-45.0 The [facility] Comment on above: Performed By: #### 8 5499 #### [facility] [address] [place] [address], [facility] MCH (RBC) [Entitic mass] 29.2 pg Normal 27.0-33.0 The [facility] Comment on above: Performed By: #### 8 5499 #### [facility] [address] [place] [address], [facility] MCHC (RBC) [Mass/Vol] 33.2 g/dL Normal 32.0-35.0 The [facility] Comment on above: Performed By: #### 8 5499 #### [facility] [address] [place] [address], [facility] MCV (RBC) [Entitic vol] 87.9 fL Normal 82.0-98.0 The [facility] Comment on above: Performed By: #### 8 5499 #### [facility] [address] [place] [address], [facility] Monocytes (Bld) [#/Vol] 1.0 10*3/uL Normal 0.1-1.0 The [facility] Comment on above: Performed By: #### 8 5499 #### [facility] [address] [place] [address], [facility] MONOS 10.3 % Normal 5.0-12.0 The [facility] Comment on above: Performed By: #### 8 5499 #### [facility] [address] [place] [address], [facility] Neutrophils/100 WBC (Bld) 81.0 % High 40.0-72.0 The [facility] Comment on above: Performed By: #### 8 5499 #### [facility] [address] Nucleated RBC/100 WBC (Bld) [Ratio] 0 % Normal 0-0 The [facility] Comment on above: Performed By: #### 8 5499 #### [facility] [address] [place] [address], [facility] PLAT CNT 346 10*3/uL Normal 150-400 The [facility] Comment on above: Performed By: #### 8 5499 #### [facility] [address] [place] [address], [facility] RBC (Bld) [#/Vol] 3.80 10*6/uL Low 4.20-5.70 The [facility] Comment on above: Performed By: #### 8 5499 #### [facility] [address] [place] [address], [facility] WBC (Bld) [#/Vol] 9.88 10*3/uL Normal 4.00-10.60 The [facility] Comment on above: Performed By: #### 8 5499 #### [facility] [address] [place] [address], [facility] COMP METABOLIC PANELon 03-30 Albumin [Mass/Vol] 4.1 g/dL Normal 3.5-5.7 The [facility] Comment on above: Performed By: #### 0 0121, 75595, 93075 ####[facility] [place] [address], [place] ALKALINE PHOSPH 369 IU/L High 34-104 The [facility] Comment on above: Performed By: #### 0 0121, 27593, 16513 ####[facility] [place] [address], [place] ALT [Catalytic activity/Vol] 334 U/L Critically high 7-52 The [facility] Comment on above: Performed By: #### 0 0121, 53151, 32980 ####[facility] [place] [address], [facility] AST [Catalytic activity/Vol] 88 U/L High 13-39 The [facility] Comment on above: Performed By: #### 0 0121, 29283, 09713 ####[facility] [place] [address], [place] Bilirubin [Mass/Vol] 0.6 mg/dL Normal 0.3-1.0 The [facility] Comment on above: Performed By: #### 0 0121, 34402, 41408 ####[facility] [place] [address], [place] Calcium [Mass/Vol] 9.4 mg/dL Normal 8.6-10.3 The [facility] Comment on above: Performed By: #### 0 0121, 90539, 08519 ####[facility] [place] [address], [place] Chloride [Moles/Vol] 92 mmol/L Low 98-107 The [facility] Comment on above: Performed By: #### 0 0121, 58544, 40046 ####[facility] [place] [address], [facility] CO2 [Moles/Vol] 28 mmol/L Normal 21-31 The [facility] Comment on above: Performed By: #### 0 0121, 87762, 16667 ####[facility] [place] [address], [facility] Creatinine [Mass/Vol] 0.84 mg/dL Normal 0.70-1.30 The [facility] Comment on above: Performed By: #### 0 0121, , 29190 ####[place] [address] [place] [address], [facility] GFR/1.73 sq M.predicted among non-blacks MDRD (S/P/Bld) [Vol rate/Area] mL/min/{1.73_m2} Normal >60 The [facility] Comment on above: Result Comment: The [facility]'s estimated glomerular filtration rate (eGFR) will no longer include consideration of race in its calculation. The National Kidney Foundation's eGFR Task Force developed new recommendations for the estimation of the glomerular filtration rate in the [place] They recommend immediate implementation of the new equation refit without the race variable in all laboratories because the calculation does not include race. In addition to not including race in the calculation and reporting, it included diversity in its development, and has acceptable performance characteristics and potential consequences that do not disproportionately affect any one group of individuals. Performed By: #### 0 0121, 14953, 96917 ####[facility] [place] [address], [facility] Glucose [Mass/Vol] 94 mg/dL Normal 70-100 [facility] Comment on above: Performed By: #### 0 0121, 32098, 17336 ####[facility] [place] [address], [facility] Potassium [Moles/Vol] 4.9 mmol/L Normal 3.5-5.1 The [facility] Comment on above: Performed By: #### 0 0121, 60677, 20436 ####[facility] [place] [address], [facility] Protein [Mass/Vol] 6.7 g/dL Normal 6.0-8.3 The [facility] Comment on above: Performed By: #### 0 0121, 46678, 52339 ####[facility] [facility] [place] [address], [facility] Sodium [Moles/Vol] 127 mmol/L Low 136-145 The [facility] Comment on above: Performed By: #### 0 0121, 25991, 06636 ####[facility] [facility] Urea nitrogen [Mass/Vol] 30 mg/dL High 7-25 The [facility] Comment on above: Performed By: #### 0 0121, 68980, 79293 ####[facility] [facility].[address] DIRECT BILIon 03-30-2022 Bilirubin.direct [Mass/Vol] 0.2 mg/dL Normal 0.0-0.2 The [facility] Comment on above: Order Comment: Liver Battery conflicts with Comprehensive Metabolic Panel. Liver Battery canceled and Direct Bilirubin added. Performed By: #### 0 0121, 95617, 92648 ####[facility] HEPATITIS A ANTIBODY IGMon 0 03-30-2022 HEP A AB IGM Non-Reactive Normal NONREACTIVE The [facility] Comment on above: Performed By: #### 3 1397, 01818, 38773, 13681 ####[facility] HEPATITIS B CORE ANTIBODYon 03-30-2022 HEP B CORE AB Non-Reactive Normal NONREACTIVE The [facility] Comment on above: Performed By: #### 3 1397, 07440, 95504, 80095 ####[facility] [facility].[address] HEPATITIS B SURFACE ANTIGEN QUALon 03-30-2022 HEP B SURF AG QUAL Non-Reactive Normal NONREACTIVE [facility] Comment on above: Performed By: #### 3 1397, 77639, 92381, 91125 ####[facility] HEPATITIS C ANTIBODYon 03-30 ANTI-HCV Non-Reactive Normal NONREACTIVE The [facility] Comment on above: Performed By: #### 3 1397, 17299, 32049, 56189 ####[facility] [address] MAGNESIUM BLOODon 03-30-2022 Magnesium [Mass/Vol] 2.1 mg/dL Normal 1.9-2.7 The [facility] Comment on above: Performed By: #### 0 0121, 96387, 15187 ####[facility] CBC W/DIFFon 03-18-2022 ABS IMM GRANS 0.0 10*3/uL Normal 0.0-0.2 The [facility] Comment on above: Performed By: #### 8 5499 #### [facility] [address] [place] [address], [facility] ABS NEUTROPHILS 5.2 10*3/uL Normal 1.6-7.6 The [facility] Comment on above: Performed By: #### 8 5499 #### [facility] [address] [facility] [place] [address], [facility] Basophils (Bld) [#/Vol] 0.0 10*3/uL Normal 0.0-0.2 The [facility] Comment on above: Performed By: #### 8 5499 #### [facility] [address] [place] [address], [facility] Basophils/100 WBC (Bld) 0.5 % Normal 0.0-1.0 The [facility] Comment on above: Performed By: #### 8 5499 #### [facility] [address] [place] [address], [facility] Eosinophils (Bld) [#/Vol] 0.2 10*3/uL Normal 0.0-0.5 The [facility] Comment on above: Performed By: #### 8 5499 #### [facility] [address] [facility] [place] [address], [facility] Eosinophils/100 WBC (Bld) 2.7 % Normal 0.0-6.0 The [facility] Comment on above: Performed By: #### 8 5499 #### [facility] [address] [facility] [place] [address], [facility] Erythrocyte distribution width (RBC) [Ratio] 12.6 % Normal 11.5-15.0 The [facility] Comment on above: Performed By: #### 8 5499 #### [facility] [address] [facility] [place] [address], [facility] Hematocrit (Bld) [Volume fraction] 32.1 % Low 39.0-50.0 The [facility] Comment on above: Performed By: #### 8 5499 #### [facility] [address] [facility] [place] [address], [facility] Hemoglobin (Bld) [Mass/Vol] 10.6 g/dL Low 13.0-17.0 The [facility] Comment on above: Performed By: #### 8 5499 #### [facility] [address] [place] [address], [facility] IMMATURE GRANS 0.3 % Normal 0.0-1.0 [facility] Comment on above: Performed By: #### 8 5499 #### [facility] [address] [facility] [place] [address], [facility] Lymphocytes (Bld) [#/Vol] 1.0 10*3/uL Low 1.2-4.0 The [facility] Comment on above: Performed By: #### 8 5499 #### [facility] [address] [place] [address], [facility] Lymphocytes/100 WBC (Bld) 14.1 % Low 20.0-45.0 The [facility] Comment on above: Performed By: #### 8 5499 #### [facility] [address] [facility]. [address] MCH (RBC) [Entitic mass] 29.3 pg Normal 27.0-33.0 The [facility] Comment on above: Performed By: #### 8 5499 #### [facility] [address] [facility]. [address] MCHC (RBC) [Mass/Vol] 33.0 g/dL Normal 32.0-35.0 The [facility] Comment on above: Performed By: #### 8 5499 #### [facility] [address] [facility] [place] [address], [facility] MCV (RBC) [Entitic vol] 88.7 fL Normal 82.0-98.0 The [facility] Comment on above: Performed By: #### 8 5499 #### [facility] [address] [place] [address], [facility] Monocytes (Bld) [#/Vol] 0.8 10*3/uL Normal 0.1-1.0 The [facility] Comment on above: Performed By: #### 8 5499 #### [facility] [address] [place] [address], [facility] MONOS 10.5 % Normal 5.0-12.0 The [facility] Comment on above: Performed By: #### 8 5499 #### [facility] [address] [place] [address], [facility] Neutrophils/100 WBC (Bld) 71.9 % Normal 40.0-72.0 [facility] Comment on above: Performed By: #### 8 5499 #### [facility] [address] [facility] [place] [address], [facility] Nucleated RBC/100 WBC (Bld) [Ratio] 0 % Normal 0-0 The [facility] Comment on above: Performed By: #### 8 5499 #### [facility] [address] [place] [address], [facility] PLAT CNT 385 10*3/uL Normal 150-400 The [facility] Comment on above: Performed By: #### 8 5499 #### [facility] [address] [place] [address], [facility] RBC (Bld) [#/Vol] 3.62 10*6/uL Low 4.20-5.70 The [facility] Comment on above: Performed By: #### 8 5499 #### [facility] [address] [place] [address], [facility] WBC (Bld) [#/Vol] 7.30 10*3/uL Normal 4.00-10.60 The [facility] Comment on above: Performed By: #### 8 5499 #### [facility] [address] [place] [address], [facility] COMP METABOLIC PANELon 03-18 Albumin [Mass/Vol] 4.5 g/dL Normal 3.5-5.7 The [facility] Comment on above: Performed By: #### 1 0008 #### [facility] [address] [facility] [place] [address], [facility] ALKALINE PHOSPH 195 IU/L High 34-104 The [facility] Comment on above: Performed By: #### 1 0008 #### [facility] [address] [place] [address], [place] ALT [Catalytic activity/Vol] 29 U/L Normal 7-52 [facility] Comment on above: Performed By: #### 1 0008 #### [facility] [address] [place] [address], [place] AST [Catalytic activity/Vol] 30 U/L Normal 13-39 The [facility] Comment on above: Performed By: #### 1 0008 #### [facility] [address] [place] [address], [place] Bilirubin [Mass/Vol] 0.5 mg/dL Normal 0.3-1.0 [facility] Comment on above: Performed By: #### 1 0008 #### [facility] [address] [place] [address], [place] Calcium [Mass/Vol] 9.6 mg/dL Normal 8.6-10.3 [facility] Comment on above: Performed By: #### 1 0008 #### [facility] [address] [place] [address], [place] Chloride [Moles/Vol] 97 mmol/L Low 98-107 [facility] Comment on above: Performed By: #### 1 0008 #### [facility] [address] [place] [address], [place] CO2 [Moles/Vol] 28 mmol/L Normal 21-31 [facility] Comment on above: Performed By: #### 1 0008 #### [facility] [address] [place] [address], [place] Creatinine [Mass/Vol] 0.73 mg/dL Normal 0.70-1.30 [facility] Comment on above: Performed By: #### 1 0008 #### [facility] [address] [place] [address], [facility] GFR/1.73 sq M.predicted among non-blacks MDRD (S/P/Bld) [Vol rate/Area] mL/min/{1.73_m2} Normal >60 The [facility] Comment on above: Result Comment: The [facility]'s estimated glomerular filtration rate (eGFR) will no longer include consideration of race in its calculation. The National Kid[employer] Foundation's eGFR Task Force developed new recommendations for the estimation of the glomerular filtration rate in the [place] They recommend immediate implementation of the new equation refit without the race variable in all laboratories because the calculation does not include race. In addition to not including race in the calculation and reporting, it included diversity in its development, and has acceptable performance characteristics and potential consequences that do not disproportionately affect any one group of individuals. Performed By: #### 1 0008 #### [facility] [address] [place] [address], [facility] Glucose [Mass/Vol] 94 mg/dL Normal 70-100 The [facility] Comment on above: Performed By: #### 1 0008 #### [facility] [address] [place] [address], [facility] Potassium [Moles/Vol] 4.6 mmol/L Normal 3.5-5.1 The [facility] Comment on above: Performed By: #### 1 0008 #### [facility] [address] [place] [address], [facility] Protein [Mass/Vol] 7.1 g/dL Normal 6.0-8.3 The [facility] Comment on above: Performed By: #### 1 0008 #### [facility] [address] [place] [address], [place] Sodium [Moles/Vol] 133 mmol/L Low 136-145 [facility] Comment on above: Performed By: #### 1 0008 #### [facility] [address] [place] [address], [place] Urea nitrogen [Mass/Vol] 14 mg/dL Normal 7-25 [facility] Comment on above: Performed By: #### 1 0008 #### [facility] [address] MAGNESIUM BLOODon 03-18-2022 Magnesium [Mass/Vol] 2.0 mg/dL Normal 1.9-2.7 The [facility] Comment on above: Performed By: #### 1 0008 #### [facility] [address] Operative Reporton Operative Report MR#: [id number] S [facility] Pt. Name: Osbaldo León Room #: 0C Discharge 03/06/2022 Date: Birthdate: 1960 OPERATIVE REPORT DATE OF SURGERY: 03/06/2022 SURGEON: Trevon Macias M.D. 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 PROCEDURE DONE: Placement of a right subclavian Port-A-Cath. MACHINE INKER SURGEON: Christine Vogel M.D. ANESTHESIA: Local anesthesia sedation. INDICATION: The patient is a 61-year-old male patient presenting for placement of a Port-A-Cath. DESCRIPTION OF PROCEDURE: The patient put in a supine position. The right side of the chest and neck were prepped and draped in the usual fashion. Under ultrasound guidance, access was made to the right subclavian vein. The position was confirmed by fluoroscopy for the wire. After that, incision was made after local anesthesia in the chest area. Skin, subcutaneous flap was raised. The port was inserted in position and sutured in position with 3-0 Prolene. After that, the catheter was tunneled through a peel-away sheath with the tip of the catheter in the superior vena cava. After that, the catheter was connected to the port and snapped in position. Then hep saline was injected in the port, and there was easy withdrawal of blood from the port. After that, subcutaneous tissue closed with 3-0 Vicryl and the skin closed with 4-0 subcuticular stitch. The patient tolerated the procedure well, with no complications. Electronically Signed by: Trevon Macias M.D. 03/10/2022 09:59 A Trevon Macias M.D. Date Dict: 03/09/2022/07:53 P/Trevon Macias M.D. Date Trans: 03/09/2022 09:26 P/mmo [id number] Normal The [facility] POC GLUCOSE LABon 03-06-2022 Glucose [Mass/Vol] 101 mg/dL High 70-100 The [facility] Comment on above: Performed By: #### 8 [id number] #### [address] TREATMENT PLAN >30 SLICE- RTXon 02-27-2022 CT TREATMENT PLAN >30 SLICE-RTX [facility] Department of Radiology [address] [place] [id number] Patient Name: OSBALDO LEÓN : 1960 Sex: M Age: Race: White Pt. Location: OUTP Patient Status: O Ordered Date: 02/27/2022 4:10:00 PM Completed Date: 02/27/2022 04:52 PM Requesting Provider: NINO ZHENG Attending Provider: IRAIS LORA Report Copy To: Signs & Symptoms: head, neck, lung History: Comments: Exam: CT TREATMENT PLAN >30 SLICE-RTX CT TREATMENT PLAN >30 SLICE-RTX 02/27/2022 4:52 PM SIGN AND SYMPTOMS: Tongue cancer, lung cancer TECHNOLOGIST COMMENTS: Dictate for documentation only FINDINGS: CT scan imaging was utilized for treatment planning. All CT scans at this facility use dose modulation, iterative reconstruction, and/or weight based dosing when appropriate to reduce radiation dose to as low as reasonably achievable. Electronically signed: Migel Saeed. Transcribed by: [email or web address], User Resident: Electronically Signed by: MIGEL SAEED @ 03/03/2022 08:13 AM Normal The [facility] FLUORO FOR BRONCHOSCOPYon FLUORO FOR BRONCHOSCOPY [facility] Department of Radiology [address] [place] [id number] Patient Name: OSBALDO LEÓN : 1960 Sex: M Age: Race: White Pt. Location: OUTP Patient Status: O Ordered Date: 02/26/2022 7:30:00 AM Completed Date: 02/26/2022 02:19 PM Requesting Provider: IRAIS LORA Attending Provider: IRAIS LORA Report Copy To: Signs & Symptoms: BRONCH History: Comments: BRONCH Exam: FLUORO FOR BRONCHOSCOPY FLUORO FOR BRONCHOSCOPY CLINICAL INFORMATION: 2.53 mins of fluoro used by Dr Lora. BRONCH. COMPARISON: None. IMPRESSION: * Intraoperative fluoroscopy provided. Dose 13.28 mgy. Time 173.2 seconds. Electronically signed: Annia Seymour. Transcribed by: [email or web address], User Resident: Electronically Signed by: ANNIA BOSTONCHRISTIAN @ 02/27/2022 04:21 PM Normal The [facility] Comment on above: Order Comment: [facility] [id number] HUMAN PAPILLOMAVIRUS (HPV) HIGH RISK BY IN SITU HYBRIDIZATION PARAFFIN [facility] [address] ACCESSION NUMBER [id number] SLIDES [id number] MISCELLANEOUS PATHon 022 RESULT PLEASE SEE SURGICAL PATHOLOGY REPORT. Normal The [facility] Comment on above: Order Comment: [facility] [id number] HUMAN PAPILLOMAVIRUS (HPV) HIGH RISK BY IN SITU HYBRIDIZATION PARAFFIN CPT 87581 ACCESSION NUMBER [id number] SLIDES [id number] Result Comment: Test performed at [facility], [address] [place] [id number]. Performed By: #### 8 [id number] #### [facility] [address] Order Comment: ACCES IVAN NUMBER [id number] SLIDES [id number] A Operative Reporton Operative Report MR#: [id number] S [facility] Pt. Name: Osabldo León Room #: 0C Discharge Date: Birthdate: 1960 OPERATIVE REPORT DATE OF SURGERY: 02/26/2022 SURGEON: Irais Lora MD Robotic assisted bronchoscopy, EBUS guided TBNA Date of procedure: 02/26/2022 Indication: History of prostate cancer, salivary gland cancer, now with an enlarging right lower lobe nodule concerning for metastasis versus primary lung cancer Attending: Irais Lora MD Consent/timeout: Obtained/performed Anesthesia: General Description of the procedure: Procedure was done in the OR. Airway maintained via an ET tube. The bronchoscope was passed via the ET tube and advanced to the tracheobronchial tree. Examination of the airways was carried out at least to the first subsegmental level and showed no endobronchial lesions or mucosal abnormalities. The robotic bronchoscope was then activated. Registration completed. We successfully navigated to the right lower lobe nodule. Using radial EBUS we were able to obtain a concentric view. Under ultrasound and fluoroscopic guidance and using a 21-gauge needle we obtained 6 passes of fine-needle aspirates. Following that and using a forceps under fluoroscopic guidance we performed transbronchial biopsies of the right lower lobe nodule. 6 passes were performed. The robotic bronchoscope was then deactivated The EBUS scope was then introduced. Examination of the lymph nodes showed no enlarged lymph nodes in station 11 R, 10 R, 4R. Station 7 was 5 mm. Using a 21-gauge EBUS needle we EBUS guided TBNA, 4 passes performed The patient tolerated the procedure well Blood loss: Minimal Complications: None apparent Post procedure impression recommendations: Recovery per PACU Stat chest x-ray May discharge once chest x-ray is clear Resume diet and medication Await cytology and histology Irais Lora MD Interventional Pulmonary Medicine Electronically Signed by: Irais Lora MD 02/26/2022 02:51 P Irais Lora MD Date Dict: 02/26/2022/02:45 P/Irais Lora MD Date Trans: 02/26/2022 02:45 P/ [id number] Normal The [facility] POC GLUCOSE LABon 02-26-2022 Glucose [Mass/Vol] 93 mg/dL Normal 70-100 [facility] Comment on above: Performed By: #### 8 [id number] #### [facility] [address] [place] [address], [facility] POC SARS COV2 IDon 2 SARS-CoV-2 (COVID-19) RNA FRITZ+probe Ql (Unsp spec) Negative Normal NEGATIVE The [facility] Comment on above: Result Comment: ID N OW COVID-19 assay performed on the ID NOW Instrument is a rapid molecular in vitro diagnostic test utilizing an isothermal nucleic acid amplification technology intended for the qualitative detection of nucleic acid from the SARS-CoV-2 virus in direct anterior nasal (nasal), nasopharyngeal or throat swabs from individuals who are suspected of COVID-19 by their healthcare provider within the first seven days of the onset of symptoms. Testing is limited to laboratories certified under the Clinical Laboratory Improvement Amendments of 1988 (CLIA), 42 U.S.C. ???263a,that meet the requirements to perform high, moderate, or waived complexity tests. The ID NOW COVID-19 assay is also authorized for use at the Point of Care (POC), i.e., in patient care settings operating under a CLIA Certificate of Waiver, Certificate of Compliance, or Certificate of Accreditation. Performed By: #### 3 1921 #### [address] PORTABLE CHEST 1 VIEWon 02-07 PORTABLE CHEST 1 VIEW [facility] Department of Radiology [address] [place] [id number] Patient Name: OSBALDO LEÓN : 1960 Sex: M Age: Race: White Pt. Location: OUTP Patient Status: O Ordered Date: 02/26/2022 3:05:00 PM Completed Date: 02/26/2022 03:13 PM Requesting Provider: IRAIS LORA Attending Provider: IRAIS LORA Report Copy To: Signs & Symptoms: Post Bronch History: Comments: Evaluate for pneumothorax Exam: PORTABLE CHEST 1 VIEW PORTABLE CHEST 1 VIEW 02/26/2022 3:13 PM CLINICAL INDICATIONS: Post Bronch TECHNOLOGIST COMMENTS: Post Bronch - Evaluate for pneumothorax QUESTION FOR THE RADIOLOGIST: Evaluate for pneumothorax PROTOCOL: AP(PA) view was obtained. COMPARISON: None FINDINGS: Heart and mediastinum are within normal limits. 2 cm opacity projecting over the right lower lung presumably site of bronchoscopy and biopsy. No perceivable pneumothorax, effusion or further complicating process. Bony structures appear age compatible. IMPRESSION: * No evidence of pneumothorax. * 2 cm opacity lower lobe pulmonary mass. Electronically signed: Zack Guevara. Transcribed by: [email or web address], User Resident: ZACK GUEVARA Electronically Signed by: ZACK GUEVARA @ 02/26/2022 03:39 PM I personally read this/these film(s) with this resident Normal The [facility] Comment on above: Order Comment: Evalu ate for pneumothorax NM PET CT SKULL-MID THIGH-IN ITIALon 02-24-[address] SKULL-MID THIGH-INITIAL [facility] Department of Radiology [address] [place] [id number] Patient Name: OSBALDO LEÓN : 1960 Sex: M Age: Race: White Pt. Location: 29 Patient Status: D Ordered Date: 02/24/2022 11:00:00 AM Completed Date: 02/24/2022 11:53 AM Requesting Provider: JOSUE GRIMM Attending Provider: Report Copy To: Signs & Symptoms: C01 Cancer of base of Tongue History: order in samantha OK'd PER LEVAR hunter'kelsy by AD* Comments: Exam: NM PET CT SKULL-MID THIGH-INITIAL NM PET CT SKULL-MID THIGH-INITIAL 02/24/2022 11:53 AM CLINICAL INDICATIONS: C01 Cancer of base of Tongue TECHNOLOGIST COMMENTS: IS, multiple lung nodules increasing in size, Rt neck mass bx at [facility] 02/20/22-path pending, h/o prostate ca, [facility] PET/CT 10/30/21, no DM, BG 83 mg/dl. QUESTION FOR THE RADIOLOGIST: PROTOCOL: The patient was injected intravenously with11.8 millicuries of fluorine 18-FDG. Blood glucose level was83 mg/dL at the time of tracer administration. PET scan and CT data was acquired from head to the subtrochanteric femur images were reconstructed in orthogonal projections. Multiplanar reformats were utilized. Attenuation corrected images were constructed using CT data. Fused images were reviewed. RADIOPHARMACEUTICAL: FDG/ 4-40 mCi, 11.829 Millicuries, Intravenous COMPARISON: CT from February 16 FINDINGS: Images through the head and neck show hypermetabolic soft tissue masslike fullness at the tongue base which measures around 4.5 cm. PET activity measures about 9 SUV-10 SUV. This is suggestive of primary neoplasm at the base of the tongue There are hypermetabolic lymph nodes in the right submandibular region and right carotid and jugular region which measures around 3.5 cm on cross-section, uptake is around 6.5 SUV There is a hypermetabolic lymph node which measures around 2.5 cm between the mandibular angle and carotid and jugular on the left side, uptake 7.4 SUV Images of the chest show intense uptake and a right lower lobe nodule, 25 mm and 4.3 SUV Other nodules seen in the lower lungs do not show intense activity or significant change from recent study of February 16. Size is borderline for reliable PET imaging. Attention to those areas on continued surveillance There is moderate coronary calcification There are no large mediastinal or hilar lymph nodes visible. There is only low level activity in the tim measured at 1.6 SUV, no suspicious mediastinal or hilar activity Images through the abdomen/pelvis show no suspicious activity typical of metastatic disease There is activity in the ileocecal region is urologic There is low level activity scattered throughout the GI tract otherwise There is multilevel urinary activity There is some minor activity along the right side of the prostate bed measuring around 3.4 SUV No suspicious bone activity seen Probable physiologic activity in the interspinous region of the upper lumbar spine IMPRESSION: Intense activity in the 4.5 cm mass at the tongue base consistent with primary neoplasm Intense activity and 35mm masses along the right greater than left submandibular and perivascular region 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 Other small nodules in the lower lungs do not show intense activity. Attention to those areas on routine surveillance No sign of metastatic activity in the abdomen/pelvis or bones Some nonspecific activity is seen at the right [place] prostate bed below the bladder. Electronically signed: Alma Schmitz. Transcribed by: [email or web address], User Resident: Electronically Signed by: ALMA SCHMITZ @ 02/27/2022 05:22 PM Normal The [facility] POC GLUCOSE NCon 02-24-2022 Glucose [Mass/Vol] 83 mg/dL Normal 70-100 The [facility] Comment on above: Performed By: #### 8 4513 #### [address] CHEST WO CONTRASTon 02-16 CT CHEST WO CONTRAST [facility] Department of Radiology [address] [place] [id number] Patient Name: OSBALDO LEÓN : 1960 Sex: M Age: Race: White Pt. Location: [facility] Patient Status: D Ordered Date: 02/12/2022 11:10:00 AM Completed Date: 02/16/2022 02:50 PM Requesting Provider: MATEUSZ CONROY Attending Provider: ISSA, FIRAS G Report Copy To: Signs & Symptoms: R91.8 Other nonspecific abnormal finding of lung field I10 History: [place] Comments: surveillance of pulmonary nodules. Please compare to PET/CT scan 10/30/2021. Please do at next available. Exam: CT CHEST WO CONTRAST CT CHEST WO CONTRAST 02/16/2022 2:50 PM CLINICAL INDICATIONS: R91.8 Other nonspecific abnormal finding of lung field I10 TECHNOLOGIST COMMENTS: follow up nodule pt c/o cough QUESTION FOR THE RADIOLOGIST: surveillance of pulmonary nodules. Please compare to PET/CT scan 10/30/2021. Please do at next available. PROTOCOL: Axial CT images of the chest were obtained without IV contrast. TECHNIQUE: Multidetector CT axial slices of the chest without IV contrast. Multiplanar reformats were performed and viewed on a separate workstation and reviewed to further define anatomy and possible pathology. COMPARISON: PET/CT fusion study with pylarify October 30, 2021. FINDINGS: The thyroid and the thoracic inlet appear unremarkable. The central airways are patent. No thoracic aortic aneurysm. The noncontrasted pulmonary arteries are unremarkable. No mediastinal adenopathy identified. Moderate coronary artery calcification present, no cardiomegaly or pericardial effusion. No pneumothorax or pleural effusion. 3 mm nodule in the left apex on image 52, not visualized on the previous exam. Nodule in the superior segment of the right lower lobe on image 276 of the prior study measuring 4.9 mm is present today on image 143 measuring 5.7 mm. 3 mm nodule present posterior laterally in the right lower lobe on image 183, not identified previously. Calcified nodule in the right lower lobe on image 218. Right lower lobe nodule present previously on image 245 measuring 10 mm is present today on image 267 measuring 21 mm. 10 mm nodule present in the base of the right lower lobe on image 290. 8mm nodule present in the posterior sulcus of the left lower lobe on image 344. The chest wall appears unremarkable. The study continued into the upper abdomen is unremarkable. The study viewed at bone window shows degenerative changes in the visualized spine, no acute or aggressive lesions. IMPRESSION: Multiple pulmonary nodules present, the largest measuring 21 mm in the right lower lobe, increasing in size and number since the prior study. Biopsy suggested. All CT scans at this facility use dose modulation, iterative reconstruction, and/or weight based dosing when appropriate to reduce radiation dose to as low as reasonably achievable Electronically signed: Raf Carias. Transcribed by: [email or web address], User Resident: Electronically Signed by: RAF CARIAS @ 02/19/2022 08:04 AM Normal The [facility] Comment on above: Order Comment: surve illance of pulmonary nodules. Please compare to PET/CT scan 10/30/2021. Please do at next available. BASIC METABOLIC PANELon 05-1 Calcium [Mass/Vol] 8.5 mg/dL Low 8.6-10.3 [facility] Comment on above: Order Comment: surve illance of pulmonary nodules. Please compare to PET/CT scan 10/30/2021. Please do at next available. Performed By: #### 0 0071, [id number], [id number] ####[facility] [place] [address], [facility] Chloride [Moles/Vol] 100 mmol/L Normal 98-107 [facility] Comment on above: Order Comment: surve illance of pulmonary nodules. Please compare to PET/CT scan 10/30/2021. Please do at next available. Performed By: #### 0 0071, [id number], [id number] ####[facility] [place] [address], [place] CO2 [Moles/Vol] 25 mmol/L Normal 21-31 The [facility] Comment on above: Order Comment: surve illance of pulmonary nodules. Please compare to PET/CT scan 10/30/2021. Please do at next available. Performed By: #### 0 0071, [id number], [id number] ####[facility] [facility] [place] [address], [facility] Creatinine [Mass/Vol] 1.21 mg/dL Normal 0.70-1.30 [facility] Comment on above: Order Comment: surve illance of pulmonary nodules. Please compare to PET/CT scan 10/30/2021. Please do at next available. Performed By: #### 0 0071, [id number], [id number] ####[facility] [facility] [place] [address], [facility] GFR/1.73 sq M.predicted among blacks MDRD (S/P/Bld) [Vol rate/Area] mL/min/{1.73_m2} Normal >60 [facility] Comment on above: Order Comment: surve illance of pulmonary nodules. Please compare to PET/CT scan 10/30/2021. Please do at next available. Performed By: #### 0 0071, [id number], [id number] ####[facility] [place] [address], [facility] GFR/1.73 sq M.predicted among non-blacks MDRD (S/P/Bld) [Vol rate/Area] mL/min/{1.73_m2} Normal >60 [facility] Comment on above: Order Comment: surve illance of pulmonary nodules. Please compare to PET/CT scan 10/30/2021. Please do at next available. Performed By: #### 0 0071, [id number], [id number] ####[facility] [place] [address], [facility] Glucose [Mass/Vol] 123 mg/dL High 70-100 [facility] Comment on above: Order Comment: surve illance of pulmonary nodules. Please compare to PET/CT scan 10/30/2021. Please do at next available. Performed By: #### 0 0071, [id number], [id number] ####[facility] [place] [address], [facility] Potassium [Moles/Vol] 4.2 mmol/L Normal 3.5-5.1 [facility] Comment on above: Order Comment: surve illance of pulmonary nodules. Please compare to PET/CT scan 10/30/2021. Please do at next available. Performed By: #### 0 0071, [id number], [id number] ####[facility] [place] [address], [facility] Sodium [Moles/Vol] 133 mmol/L Low 136-145 [facility] Comment on above: Order Comment: surve illance of pulmonary nodules. Please compare to PET/CT scan 10/30/2021. Please do at next available. Performed By: #### 0 0071, [id number], [id number] ####[facility] [place] [address], [facility] Urea nitrogen [Mass/Vol] 17 mg/dL Normal 7-25 [facility] Comment on above: Order Comment: surve illance of pulmonary nodules. Please compare to PET/CT scan 10/30/2021. Please do at next available. Performed By: #### 0 0071, [id number], [id number] ####[facility] [facility] CBC COMPLETE BLOOD COUNTon 0 - Erythrocyte distribution width (RBC) [Ratio] 13.0 % Normal 11.5-15.0 [facility] Comment on above: Order Comment: No: D o not add to previous draw Performed By: #### 8 8869 #### [facility] [address] [place] [address], [facility] Hematocrit (Bld) [Volume fraction] 30.3 % Low 39.0-50.0 [facility] Comment on above: Order Comment: No: D o not add to previous draw Performed By: #### 8 [id number] #### [facility] [address] [place] [address], [facility] Hemoglobin (Bld) [Mass/Vol] 10.3 g/dL Low 13.0-17.0 [facility] Comment on above: Order Comment: No: D o not add to previous draw Performed By: #### 8 [id number] #### [facility] [address] [place] [address], [facility] MCH (RBC) [Entitic mass] 30.2 pg Normal 27.0-33.0 The [facility] Comment on above: Order Comment: No: D o not add to previous draw Performed By: #### 8 [id number] #### [facility] [address] [place] [address], [facility] MCHC (RBC) [Mass/Vol] 34.0 g/dL Normal 32.0-35.0 The [facility] Comment on above: Order Comment: No: D o not add to previous draw Performed By: #### 8 [id number] #### [facility] [address] [place] [id number], [facility] MCV (RBC) [Entitic vol] 88.9 fL Normal 82.0-98.0 The [facility] Comment on above: Order Comment: No: D o not add to previous draw Performed By: #### 8 [id number] #### [facility] [address] [place] [id number], [facility] Nucleated RBC/100 WBC (Bld) [Ratio] 0 % Normal 0-0 The [facility] Comment on above: Order Comment: No: D o not add to previous draw Performed By: #### 8 [id number] #### [facility] [address] [place] [address], [facility] PLAT CNT 276 10*3/uL Normal 150-400 The [facility] Comment on above: Order Comment: No: D o not add to previous draw Performed By: #### 8 [id number] #### [facility] [address] [place] [id number], [facility] RBC (Bld) [#/Vol] 3.41 10*6/uL Low 4.20-5.70 The [facility] Comment on above: Order Comment: No: D o not add to previous draw Performed By: #### 8 [id number] #### [facility] [address] WBC (Bld) [#/Vol] 12.27 10*3/uL High 4.00-10.60 The [facility] Comment on above: Order Comment: No: D o not add to previous draw Performed By: #### 8 [id number] #### [facility] [address] CREATININE FLUIDon 2 Creatinine [Mass/Vol] 1.4 mg/dL Normal The [facility] Comment on above: Order Comment: drain fluid for creatinineNo: Do not add to previous draw Result Comment: The reference range and other method performance specifications have not been established for this test in fluids. the test result should be integrated into the clinical context for interpretation. Performed By: #### 9 [id number] ####[facility] [address] MAGNESIUM BLOODon 12-16-2021 Magnesium [Mass/Vol] 2.8 mg/dL High 1.9-2.7 The [facility] Comment on above: Order Comment: surve illance of pulmonary nodules. Please compare to PET/CT scan 10/30/2021. Please do at next available. Performed By: #### 0 0071, [id number], [id number] ####[facility] [address] PHOSPHORUS BLOODon 2 Phosphate [Mass/Vol] 4.3 mg/dL Normal 2.5-5.0 The [facility] Comment on above: Order Comment: surve illance of pulmonary nodules. Please compare to PET/CT scan 10/30/2021. Please do at next available. Performed By: #### 0 0071, [id number], [id number] ####[facility] [address] BASIC METABOLIC PANELon Calcium [Mass/Vol] 8.9 mg/dL Normal 8.6-10.3 [facility] Comment on above: Order Comment: No: D o not add to previous draw Performed By: #### 3 1920 #### [facility] [address] [place] [address], [place] Chloride [Moles/Vol] 106 mmol/L Normal 98-107 The [facility] Comment on above: Order Comment: No: D o not add to previous draw Performed By: #### 3 1920 #### [facility] [address] [place] [address], [place] CO2 [Moles/Vol] 24 mmol/L Normal 21-31 The [facility] Comment on above: Order Comment: No: D o not add to previous draw Performed By: #### 3 1920 #### [facility] [address] [place] [address], [place] Creatinine [Mass/Vol] 0.82 mg/dL Normal 0.70-1.30 The [facility] Comment on above: Order Comment: No: D o not add to previous draw Performed By: #### 3 1920 #### [facility] [address] [place] [address], [place] GFR/1.73 sq M.predicted among blacks MDRD (S/P/Bld) [Vol rate/Area] mL/min/{1.73_m2} Normal >60 The [facility] Comment on above: Order Comment: No: D o not add to previous draw Performed By: #### 3 1920 #### [facility] [address] [place] [address], [place] GFR/1.73 sq M.predicted among non-blacks MDRD (S/P/Bld) [Vol rate/Area] mL/min/{1.73_m2} Normal >60 The [facility] Comment on above: Order Comment: No: D o not add to previous draw Performed By: #### 3 1920 #### [facility] [address] [place] [address], [place] Glucose [Mass/Vol] 128 mg/dL High 70-100 The [facility] Comment on above: Order Comment: No: D o not add to previous draw Performed By: #### 3 1920 #### [facility] [address] [place] [address], [place] Potassium [Moles/Vol] 4.1 mmol/L Normal 3.5-5.1 The [facility] Comment on above: Order Comment: No: D o not add to previous draw Performed By: #### 3 1920 #### [facility] [address] [place] [address], [place] Sodium [Moles/Vol] 140 mmol/L Normal 136-145 The [facility] Comment on above: Order Comment: No: D o not add to previous draw Performed By: #### 3 1920 #### [facility] [address] [place] [address], [place] Urea nitrogen [Mass/Vol] 13 mg/dL Normal 7-25 The [facility] Comment on above: Order Comment: No: D o not add to previous draw Performed By: #### 3 1920 #### [facility] [address] [place] [address], [place] CBC COMPLETE BLOOD COUNTon 0 - Erythrocyte distribution width (RBC) [Ratio] 12.8 % Normal 11.5-15.0 The [facility] Comment on above: Order Comment: No: D o not add to previous draw Performed By: #### 8 [id number] #### [facility] [address] [place] [address], [place] Hematocrit (Bld) [Volume fraction] 32.2 % Low 39.0-50.0 The [facility] Comment on above: Order Comment: No: D o not add to previous draw Performed By: #### 8 [id number] #### [facility] [address] [place] [address], [place] Hemoglobin (Bld) [Mass/Vol] 10.9 g/dL Low 13.0-17.0 The [facility] Comment on above: Order Comment: No: D o not add to previous draw Performed By: #### 8 [id number] #### [facility] [address] [place] [address], [facility] MCH (RBC) [Entitic mass] 30.0 pg Normal 27.0-33.0 The [facility] Comment on above: Order Comment: No: D o not add to previous draw Performed By: #### 8 [id number] #### [facility] [address] [place] [address], [facility] MCHC (RBC) [Mass/Vol] 33.9 g/dL Normal 32.0-35.0 The [facility] Comment on above: Order Comment: No: D o not add to previous draw Performed By: #### 8 [id number] #### [facility] [address] [facility] [place] [address], [facility] MCV (RBC) [Entitic vol] 88.7 fL Normal 82.0-98.0 The [facility] Comment on above: Order Comment: No: D o not add to previous draw Performed By: #### 8 [id number] #### [facility] [address] [place] [address], [facility] Nucleated RBC/100 WBC (Bld) [Ratio] 0 % Normal 0-0 The [facility] Comment on above: Order Comment: No: D o not add to previous draw Performed By: #### 8 [id number] #### [facility] [address] [facility] [place] [address], [facility] PLAT CNT 309 10*3/uL Normal 150-400 The [facility] Comment on above: Order Comment: No: D o not add to previous draw Performed By: #### 8 [id number] #### [facility] [address] [place] [address], [facility] RBC (Bld) [#/Vol] 3.63 10*6/uL Low 4.20-5.70 The [facility] Comment on above: Order Comment: No: D o not add to previous draw Performed By: #### 8 [id number] #### [facility] [address] WBC (Bld) [#/Vol] 14.24 10*3/uL High 4.00-10.60 The [facility] Comment on above: Order Comment: No: D o not add to previous draw Performed By: #### 8 [id number] #### [facility] [address] MAGNESIUM BLOODon 12-15-2021 Magnesium [Mass/Vol] 1.8 mg/dL Low 1.9-2.7 The [facility] Comment on above: Order Comment: No: D o not add to previous draw Performed By: #### 3 1921 #### [facility] [address] Operative Reporton 2 Operative Report MR#: [id number] S [facility] Pt. Name: [facility] Room #: PAT Discharge Date: Birthdate: 1960 OPERATIVE REPORT DATE OF SURGERY: 12/15/2021 SURGEON: Mateusz Conroy MD MACHINE INKER: 1. Yanique Barry MD . PREOPERATIVE DIAGNOSIS: Unfavorable intermediate risk prostate cancer, Rosanna 3+4 = 7 POSTOPERATIVE DIAGNOSIS: Unfavorable intermediate risk prostate cancer, Rosanna 3+4 = 7 PROCEDURES PERFORMED: 1. Robot-assisted radical prostatectomy, left nerve sparing. 2. Bilateral extended pelvic lymphadenectomy. ANESTHESIA: General endotracheal. ANTIBIOTICS: Ancef 2g. VT PROPHYLAXIS: Sequential compression devices and 5000 units of subcutaneous heparin. URINE OUTPUT: Per anesthesia records. IV FLUIDS: 1300 cc Crystalloid. ESTIMATED BLOOD LOSS: 50 mL. SPECIMENS: 1. Prostate gland, bilateral seminal vesicles and bilateral distal vas deferens. 2. Bilateral pelvic lymph nodes including right and left external and internal iliac nodes, and obturator nodes. 3. Anterior prostate fat. DRAINS: 1. 19-Citizen Of [place] Ayush drain to left lower quadrant. 2. 18-Citizen [place] 2-way Pittman catheter to gravity drainage. COMPLICATIONS: None immediate. FINDINGS: 1. Da Karma XI used with monopolar scissors in the right arm, bipolar [place] in the left arm and ProGrasp in the 4th arm. 2. No significant intra-abdominal adhesions. 3. Bilateral extended pelvic node dissection performed with obturator nerve noted to be intact bilaterally at the conclusion of the case. No gross maurizio involvement. 4. No evidence of extraprostatic disease around seminal vesicles or distal vasa. 5. Vesicourethral anastomosis appeared watertight. No median lobe 6. Good hemostasis in the pelvis at the end of the case. 7. Left nerve sparing performed. INDICATIONS FOR PROCEDURE: Mr. Osbaldo León is a 61 year old male with history of HLD, arthritis and unfavorable intermediate risk prostate cancer who was noted to have an elevated PSA 5.8 ng/mL 07/01/2021 from PSA 4.8 ng/mL, %fPSA 10 on 05/14/2021. ExoDx Prostate Intelliscore 68.4 on 07/01/2021. A mpMRI of prostate on 08/06/2021 revealed prostate volume 27.2 mL, PSA density 0.21 ng/mL , an 11 mm lesion noted in right PZ mid gland with extension to right posterior base and right apex, with MRI characteristics of PI-RADS 4. No SVI, EP, adenopathy. Mr. León underwent systematic and MRI/ultrasound fusion prostate biopsy for a total of 17 cores (12 cores systematic, 5 cores from JULIANE #1) 08/29/2021. Pathology revealed adenocarcinoma of the prostate, Conway 3+4 = 7; GG 2 involving 5/17 cores up to 50% or 6 mm of the core in JULIANE# and RLM, Conway 3+3= 6; GG 1 in 6/17 up to 35% or 5 mm of the core for a total of 8/13 cores positive for malignancy (since JULIANE #1 was sampled more than once). No cribriform histology or PNI. AUA-SI 2/35, QoL 0. VITALY 20/25. PRICILA 35 g prostate with right lobe induration, cT2a, no discrete nodule. PSMA PET/CT scan 10/30/2021 revealing no evidence of metastatic prostate cancer, increased activity in right posterior aspect of the prostate consistent with undertreated neoplasm. None evident right lower lobe pulmonary nodules largest up to [address] scan. Therefore, AJCC stage IIB (cT2a, NX, MX, PSA 5.8 ng/mL, GG 2). After extensive counseling of the treatment options, patient elected to undergo the above-named procedure. Risk, benefit, expected outcome, possible complication were discussed with patient in details he elected to proceed. An informed consent was obtained. PROCEDURE IN DETAIL: The patient was met in preoperative holding area. The risks, benefits, and alternatives of the procedure were explained and elected to proceed. The patient also consented for tissue to be used for research purposes. He was brought to the operative suite and laid supine on the operating table. The patient was given 5000 units subcutaneous heparin and Ancef IV 2 g for antibiotic prophylaxis. EPC cuffs were on and working through the entire duration of the procedure. General endotracheal anesthesia was induced. The patient was secured to the bed and all pressure points were padded. Abdomen was shaved and the bed was tested in Trendelenburg. The patient was then prepped and draped in a standard surgical fashion. A surgical time-out was performed with 2 patient identifiers. All parties were in agreement. An 18-Citizen [place] indwelling Pittman catheter was placed into the bladder and balloon was inflated with 10 mL of sterile water. We began by making an 8 mm incision superior to the umbilicus and used a Veress needle to obtain pneumoperitoneum with an opening pressure of 3 mmHg. An 8 mm robotic Visiport was used to enter the abdomen. The abdomen was inspected and there was no evidence of Veress needle-related injuries. There were no abdominal adhesions or carcinomatosis. At this point, the patient was placed in steep T (more content not included)... Normal The [facility] PHOSPHORUS BLOODon 2 Phosphate [Mass/Vol] 4.0 mg/dL Normal 2.5-5.0 The [facility] Comment on above: Order Comment: No: D o not add to previous draw Performed By: #### 3 [id number] #### [facility] [address] [place] [address], [facility] POC GLUCOSE LABon 12-15-2021 Glucose [Mass/Vol] 102 mg/dL High 70-100 [facility] Comment on above: Performed By: #### 8 4345 #### [facility] [address] [facility] [place] [address], [facility] *URINE CULTUREon 12-03-2021 *URINE CULTURE Clinical Report: (D) Specimen: URINE Collected: 12/03/2021 14:58 Status: Final Last Updated: 12/05/2021 08:17 CULT RES (Final) NO GROWTH 48 HOURS Normal The [facility] Comment on above: Performed By: #### 3 192 #### [facility] [address] [facility] [place] [address], [facility] CBC COMPLETE BLOOD COUNTon 0 12-03-2021 Erythrocyte distribution width (RBC) [Ratio] 12.4 % Normal 11.5-15.0 The [facility] Comment on above: Performed By: #### 3 1920 #### [facility] [address] [place] [address], [facility] Hematocrit (Bld) [Volume fraction] 34.3 % Low 39.0-50.0 The [facility] Comment on above: Performed By: #### 3 192 #### [facility] [address] [place] [address], [facility] Hemoglobin (Bld) [Mass/Vol] 11.7 g/dL Low 13.0-17.0 The [facility] Comment on above: Performed By: #### 3 1920 #### [facility] [address] [place] [address], [facility] MCH (RBC) [Entitic mass] 29.8 pg Normal 27.0-33.0 The [facility] Comment on above: Performed By: #### 3 192 #### [facility] [address] [place] [address], [facility] MCHC (RBC) [Mass/Vol] 34.1 g/dL Normal 32.0-35.0 The [facility] Comment on above: Performed By: #### 3 192 #### [facility] [address] [place], [address] MCV (RBC) [Entitic vol] 87.3 fL Normal 82.0-98.0 The [facility] Comment on above: Performed By: #### 3 192 #### [facility] [address] [facility] Nucleated RBC/100 WBC (Bld) [Ratio] 0 % Normal 0-0 The [facility] Comment on above: Performed By: #### 3 192 #### [facility] [address] PLAT CNT 349 10*3/uL Normal 150-400 The [facility] Comment on above: Performed By: #### 3 1920 #### [facility] [address] RBC (Bld) [#/Vol] 3.93 10*6/uL Low 4.20-5.70 The [facility] Comment on above: Performed By: #### 3 1920 #### [facility] [address] WBC (Bld) [#/Vol] 9.03 10*3/uL Normal 4.00-10.60 [facility] Comment on above: Performed By: #### 3 1920 #### [facility] [address] COMP METABOLIC PANELon 12-03 Albumin [Mass/Vol] 4.6 g/dL Normal 3.5-5.7 [facility] Comment on above: Performed By: #### 0 0121 ####[facility] [address] ALKALINE PHOSPH 94 IU/L Normal 34-104 The [facility] Comment on above: Performed By: #### 0 0121 ####[facility] [address] ALT [Catalytic activity/Vol] 17 U/L Normal 7-52 The [facility] Comment on above: Performed By: #### 0 0121 ####[facility] [facility] [place] [address], [place] AST [Catalytic activity/Vol] 23 U/L Normal 13-39 The [facility] Comment on above: Performed By: #### 0 0121 ####[facility] [facility] [place] [address], [place] Bilirubin [Mass/Vol] 0.6 mg/dL Normal 0.3-1.0 The [facility] Comment on above: Performed By: #### 0 0121 ####[facility] [facility] [place] [address], [place] Calcium [Mass/Vol] 9.5 mg/dL Normal 8.6-10.3 [facility] Comment on above: Performed By: #### 0 0121 ####[facility] [facility] [place] [address], [place] Chloride [Moles/Vol] 98 mmol/L Normal 98-107 The [facility] Comment on above: Performed By: #### 0 0121 ####[facility] [facility] [place] [address], [place] CO2 [Moles/Vol] 25 mmol/L Normal 21-31 [facility] Comment on above: Performed By: #### 0 0121 ####[facility] [facility] [place] [address], [place] Creatinine [Mass/Vol] 0.83 mg/dL Normal 0.70-1.30 The [facility] Comment on above: Performed By: #### 0 0121 ####[facility] [place] [address], [place] GFR/1.73 sq M.predicted among blacks MDRD (S/P/Bld) [Vol rate/Area] mL/min/{1.73_m2} Normal >60 The [facility] Comment on above: Performed By: #### 0 0121 ####[facility] [facility] [place] [address], [facility] GFR/1.73 sq M.predicted among non-blacks MDRD (S/P/Bld) [Vol rate/Area] mL/min/{1.73_m2} Normal >60 The [facility] Comment on above: Performed By: #### 0 0121 ####[facility] [facility] [place] [address], [facility] Glucose [Mass/Vol] 81 mg/dL Normal 70-100 The [facility] Comment on above: Performed By: #### 0 0121 ####[place] [address] [facility] [place] [address], [facility] Potassium [Moles/Vol] 4.6 mmol/L Normal 3.5-5.1 The [facility] Comment on above: Performed By: #### 0 0121 ####[facility] [facility] [place] [address], [facility] Protein [Mass/Vol] 7.1 g/dL Normal 6.0-8.3 The [facility] Comment on above: Performed By: #### 0 0121 ####[facility] [place] [address], [facility] Sodium [Moles/Vol] 135 mmol/L Low 136-145 The [facility] Comment on above: Performed By: #### 0 0121 ####[facility] [id number], [facility] Urea nitrogen [Mass/Vol] 10 mg/dL Normal 7-25 The [facility] Comment on above: Performed By: #### 0 0121 ####[facility] [place] [address], [facility] A1C HEMOGLOBINon 11-12-2021 HbA1c (Bld) [Mass fraction] 5.9 % [employer] Other HbA1c (Bld) [Mass fraction]o n 11-12-2021 A1C HEMOGLOBIN [facility] Soft Tissue Regeneration Other NM PET CT SKULL-MID THIGH WI PYLARIFY-INITIALon 10-30-[address] SKULL-MID THIGH WITH PYLARIFY-INITIAL [facility] Department of Radiology [address] [place] [id number] Patient Name: OSBALDO LEÓN : 1960 Sex: M Age: Race: White Pt. Location: [facility] Patient Status: D Ordered Date: 10/16/2021 8:20:00 AM Completed Date: 10/30/2021 01:44 PM Requesting Provider: MATEUSZ CONROY Attending Provider: Report Copy To: Signs & Symptoms: C61 Malignant neoplasm of prostate I10 History: [place] Comments: PSA 5.8 on 07/01/21, Rule out metastatic prostate cancer for clinical stage III prostate cancer , Height (ft.): 6 ft 0 in , Weight (lbs): 194 , Rule out metastatic prostate cancer for clinical stage III prostate cancer , Height (ft.): 6 ft 0 in , Weight (lbs): 194 , , , Ordering Provider - MATEUSZ CONROY MD , Exam: NM PET CT SKULL-MID THIGH WITH PYLARIFY-INITIAL Addendum Begins 4.6 mm sized noncalcified nodule in the superior segment of the right lower lobe on CT image 276. 9 mm right lower lobe nodule on CT image 247. 7 mm nodule in the base of the right lower lobe on image CT 237. [address] follow-up recommended per Fleischner Society recommendations. Electronically signed: Raf Carias. Addendum Ends NM PET CT SKULL-MID THIGH WITH PYLARIFY-INITIAL 10/30/2021 1:44 PM CLINICAL INDICATIONS: C61 Malignant neoplasm of prostate I10 TECHNOLOGIST COMMENTS: Pylarify-PSMA, IS, newly dx prostate ca s/p bx 08/29/21, PSA 4.6 ng/mL drawn today, 5.8 ng/mL drawn 07/01/21, non-smoker, prostate MRI 08/06/21. QUESTION FOR THE RADIOLOGIST: PSA 5.8 on 07/01/21, Rule out metastatic prostate cancer for clinical stage III prostate cancer , Height (ft.): 6 ft 0 in , Weight (lbs): 194 , Rule out metastatic prostate ...More In Sending System PROTOCOL: The patient was injected intravenously with9.57 millicuries of fluorine 18-pylarify. PET scan and CT data was acquired from skull vertex to mid thigh images were reconstructed in orthogonal projections. Multiplanar reformats were utilized. Attenuation corrected images were constructed using CT data. Fused images were reviewed. RADIOPHARMACEUTICAL: F-18 PIFLUFOLASTAT - PYLARIFY, 9.57 Millicuries, Intravenous COMPARISON: Prostate MR July 20192020. FINDINGS: Physiologic activity is identified in the lacrimal glands, salivary glands, liver, spleen, GI and tracts. Focus of increased activity noted along the right posterior aspect of the prostate. No abnormal activity appreciated outside of the prostate. IMPRESSION: Focus of increased activity in the right posterior aspect of the prostate corresponding to a focus of abnormality on prostate MR consistent with neoplasm. No metastatic foci appreciated. Electronically signed: Raf Carias. Transcribed by: [id number], User Resident: Electronically Signed by: RAF CARIAS @ 11/01/2021 10:02 AM Normal The [facility] Comment on above: Order Comment: [facility] [id number] HUMAN PAPILLOMAVIRUS (HPV) HIGH RISK BY IN SITU HYBRIDIZATION PARAFFIN [facility] [id number] ACCESSION NUMBER [id number] SLIDES [id number] Operative Reporton 2 Operative Report MR#: [id number] S [facility] Pt. Name: Osbaldo León Room #: 0C Discharge Date: Birthdate: 1960 OPERATIVE REPORT DATE OF SURGERY: 08/29/2021 SURGEON: Nghia Galaviz MD PREOPERATIVE DIAGNOSES: 1. Elevated PSA 2. Abnormal prostate MRI consistent with PI-RADS 4 lesion POSTOPERATIVE DIAGNOSES: 1. Elevated PSA 2. Abnormal prostate MRI consistent with PI-RADS 4 lesion PROCEDURES PERFORMED: 1. Transrectal ultrasound of the prostate. 2. Transrectal guidance of needle biopsy. 3. Systematic and MRI-TRUS fusion prostate biopsy. ANESTHESIA: Monitored anesthesia care. FINDINGS: 1. Estimated TRUS prostate volume 19.6 mL. AP Diameter 22.0 mm. 2. Estimated MRI prostate volume 21.8 mL. 3. PRICILA: not enlarged, non-tender, smooth / no nodules (SIZE - 30 grams) 4. Ultrasound showed seminal vesicles intact, prostatic capsule intact, no median lobe, no discrete hypoechoic nodules, no calcifications. 5. One region of interest identified and targeted: JULIANE #1 in right medial PZ; volume 1.53 mL. SPECIMENS: A total of 17 cores (12 cores systematic biopsy, 5 cores from JULIANE#1) were sent for pathology. 1. Left lateral base. 2. Left lateral mid. 3. Left lateral apex. 4. Left medial base. 5. Left medial mid. 6. Left medial apex. 7. Right medial base. 8. Right medial mid. 9. Right medial apex. 10. Right lateral base. 11. Right lateral middle. 12. Right lateral apex. 13. JULIANE #1 in right medial PZ. INDICATIONS: We explained to the patient risks, benefits, expected outcome, possible complication, including risk of augustina covid-19 and the patient elected to proceed. An informed consented obtained. PROCEDURE IN DETAIL: The patient was brought back to the operative suite and placed in the left lateral decubitus position. Monitored anesthesia care was administered. He had previously taken oral Cipro beginning yesterday and this morning. Standard time-out was performed indicating correct patient, procedure, and positioning. Initial digital rectal examination revealed no hard nodule or induration. An End-Fire ultrasound probe was inserted into the rectum and prostatography ensued. The [employer] workstation was coupled to the ultrasound probe and using the device, a series of ultrasonic images of the prostate, seminal vesicles and base of the bladder were obtained. Findings as mentioned above. These images were then subsequently reconstructed in 3D space using the [employer] workstation. The MRI was imported to the [employer] workstation, fusion of the ultrasound and MRI images were was performed. MR/ultrasound fusion prostate model planning and reconstruction was performed. The JULIANE #1 was identified in the right medial PZ. Five cores were taken from JULIANE #1. Subsequently, a 12-core systematic biopsy was then performed using the MR/ultrasound fusion prostate module, which was obtained from the medial and lateral aspects of the right and left lobes of the prostate at the base, mid gland and apex. These were labeled specimen 1 through 12. The JULIANE samples were labeled 13. All biopsy samples were deemed adequate for interpretation were sent to pathology for permanent review. The Janel device was then undocked from the ultrasound probe and ultrasound probe was removed from the rectum. There was no active bleeding identified. The patient tolerated the procedure well without complications. He was taken to the PACU in stable condition. Dr. Galaviz was present throughout the duration of the procedure. ESTIMATED BLOOD LOSS: Less than 5 mL. COMPLICATIONS: None. CONDITION: Stable. FOLLOWUP: He is instructed to continue antibiotic as prescribed and to follow up in 2-[address] Galaviz to discuss pathology. Electronically Signed by: Nghia Galaviz MD 09/01/2021 04:36 P Nghia Galaviz MD I was present for the entire procedure. Date Dict: 08/29/2021/02:35 P/Alda Jackson MD Date Trans: 08/29/2021 02:35 P/ PRANEETH_ANKUR:[id number] Normal The [facility] POC GLUCOSE LABon 08-29-2021 Glucose [Mass/Vol] 99 mg/dL Normal 70-100 The [facility] Comment on above: Performed By: #### 8 [id number] #### [facility] [address] POC SARS COV2 IDon 2 SARS-CoV-2 (COVID-19) RNA FRITZ+probe Ql (Unsp spec) Negative Normal NEGATIVE The [facility] Comment on above: Result Comment: ID N OW COVID-19 assay performed on the ID NOW Instrument is a rapid molecular in vitro diagnostic test utilizing an isothermal nucleic acid amplification technology intended for the qualitative detection of nucleic acid from the SARS-CoV-2 virus in direct anterior nasal (nasal), nasopharyngeal or throat swabs from individuals who are suspected of COVID-19 by their healthcare provider within the first seven days of the onset of symptoms. Testing is limited to laboratories certified under the Clinical Laboratory Improvement Amendments of 1988 (CLIA), 42 U.S.C. ???263a,that meet the requirements to perform high, moderate, or waived complexity tests. The ID NOW COVID-19 assay is also authorized for use at the Point of Care (POC), i.e., in patient care settings operating under a CLIA Certificate of Waiver, Certificate of Compliance, or Certificate of Accreditation. Performed By: #### 8 [id number] #### [facility] [address] [facility]. [address] *URINE CULTUREon 08-26-2021 *URINE CULTURE Clinical Report: (D) Specimen: URINE Collected: 08/26/2021 12:29 Status: Final Last Updated: 08/28/2021 07:47 CULT RES (Final) NO GROWTH 48 HOURS Normal The [facility] Comment on above: Performed By: #### 3 1921 #### [facility] [address] [facility]. [address] APTTon 08-26-2021 aPTT Coag (Bld) [Time] 29.1 s Normal 25.0-35.0 Th e [facility] Comment on above: Result Comment: ALL RESULTS MUST BE INTERPRETED WITH RESPECT TO BLOOD DRAWING ARTIFACT OR DILUTION ERROR OF ANTICOAGULANT AT THE TIME OF SAMPLING. THE APTT SHOULD NOT BE USED TO MONITOR UNFRACTIONATED HEPARIN THERAPY, THIS LABORATORY NO LONGER HAS AN ESTABLISHED THERAPEUTIC RANGE BASED ON THE APTT. IT IS RECOMMENDED THAT THE UFH - HEPARIN ASSAY (ANTI-XA ACTIVITY) BE USED FOR THIS PURPOSE. Performed By: #### 3 1920 #### [facility] [address] CBC W/DIFFon 08-26-2021 ABS IMM GRANS 0.0 10*3/uL Normal 0.0-0.2 The [facility] Comment on above: Performed By: #### 3 1920 #### [facility] [address] [place] [address], [facility] ABS NEUTROPHILS 4.6 10*3/uL Normal 1.6-7.6 The [facility] Comment on above: Performed By: #### 3 1920 #### [facility] [address] [place] [address], [facility] Basophils (Bld) [#/Vol] 0.0 10*3/uL Normal 0.0-0.2 The [facility] Comment on above: Performed By: #### 3 1920 #### [facility] [address] [place] [address], [facility] Basophils/100 WBC (Bld) 0.4 % Normal 0.0-1.0 The [facility] Comment on above: Performed By: #### 3 1 #### [facility] [address] [place] [address], [facility] Eosinophils (Bld) [#/Vol] 0.2 10*3/uL Normal 0.0-0.5 The [facility] Comment on above: Performed By: #### 3 1920 #### [facility] [address] [place] [address], [facility] Eosinophils/100 WBC (Bld) 3.4 % Normal 0.0-6.0 The [facility] Comment on above: Performed By: #### 3 1920 #### [address] Erythrocyte distribution width (RBC) [Ratio] 12.7 % Normal 11.5-15.0 The [facility] Comment on above: Performed By: #### 3 1920 #### [facility] [address] [place] [address], [facility] Hematocrit (Bld) [Volume fraction] 36.0 % Low 39.0-50.0 The [facility] Comment on above: Performed By: #### 3 1920 #### [facility] [address] [facility] [place] [address], [facility] Hemoglobin (Bld) [Mass/Vol] 12.2 g/dL Low 13.0-17.0 The [facility] Comment on above: Performed By: #### 3 1920 #### [facility] [address] [place] [address], [facility] IMMATURE GRANS 0.3 % Normal 0.0-1.0 The [facility] Comment on above: Performed By: #### 3 1920 #### [facility] [address] [place] [address], [facility] Lymphocytes (Bld) [#/Vol] 1.3 10*3/uL Normal 1.2-4.0 The [facility] Comment on above: Performed By: #### 3 1920 #### [facility] [address] [place] [address], [facility] Lymphocytes/100 WBC (Bld) 19.3 % Low 20.0-45.0 The [facility] Comment on above: Performed By: #### 3 1920 #### [facility] [address] [place] [address], [facility] MCH (RBC) [Entitic mass] 29.5 pg Normal 27.0-33.0 The [facility] Comment on above: Performed By: #### 3 1920 #### [facility] [address] [place] [address], [facility] MCHC (RBC) [Mass/Vol] 33.9 g/dL Normal 32.0-35.0 The [facility] Comment on above: Performed By: #### 3 1920 #### [facility] [address] [place] [id number], [facility] MCV (RBC) [Entitic vol] 87.0 fL Normal 82.0-98.0 The [facility] Comment on above: Performed By: #### 3 1920 #### [facility] [address] [place] [id number], [facility] Monocytes (Bld) [#/Vol] 0.6 10*3/uL Normal 0.1-1.0 The [facility] Comment on above: Performed By: #### 3 1920 #### [facility] [address] [place] [address], [facility] MONOS 8.9 % Normal 5.0-12.0 The [facility] Comment on above: Performed By: #### 3 1920 #### [facility] [address] [place] [address], [facility] Neutrophils/100 WBC (Bld) 67.7 % Normal 40.0-72.0 The [facility] Comment on above: Performed By: #### 3 1920 #### [facility] [address] [place] [address], [facility] Nucleated RBC/100 WBC (Bld) [Ratio] 0 % Normal 0-0 The [facility] Comment on above: Performed By: #### 3 1920 #### [facility] [address] [place] [id number], [facility] PLAT CNT 322 10*3/uL Normal 150-400 The [facility] Comment on above: Performed By: #### 3 1920 #### [facility] [address] [place] [id number], [facility] RBC (Bld) [#/Vol] 4.14 10*6/uL Low 4.20-5.70 The [facility] Comment on above: Performed By: #### 3 1921 #### [facility] [address] [facility] [address] WBC (Bld) [#/Vol] 6.73 10*3/uL Normal 4.00-10.60 The [facility] Comment on above: Performed By: #### 3 1921 #### [facility] [address] COMP METABOLIC PANELon 08-26 Albumin [Mass/Vol] 4.6 g/dL Normal 3.5-5.7 [facility] Comment on above: Performed By: #### 0 0121 ####[facility] [facility] ALKALINE PHOSPH 134 IU/L High 34-104 [facility] Comment on above: Performed By: #### 0 0121 ####[facility] [facility] ALT [Catalytic activity/Vol] 33 U/L Normal 7-52 The [facility] Comment on above: Performed By: #### 0 0121 ####[facility] [facility] AST [Catalytic activity/Vol] 30 U/L Normal 13-39 The [facility] Comment on above: Performed By: #### 0 0121 ####[facility] [place] [address], [facility] Bilirubin [Mass/Vol] 0.5 mg/dL Normal 0.3-1.0 The [facility] Comment on above: Performed By: #### 0 0121 ####[facility] [place] [address], [facility] Calcium [Mass/Vol] 9.5 mg/dL Normal 8.6-10.3 The [facility] Comment on above: Performed By: #### 0 0121 ####[facility] [place] [address], [facility] Chloride [Moles/Vol] 103 mmol/L Normal 98-107 The [facility] Comment on above: Performed By: #### 0 0121 ####[facility] [facility] [place] [address], [facility] CO2 [Moles/Vol] 27 mmol/L Normal 21-31 The [facility] Comment on above: Performed By: #### 0 0121 ####[facility] [place] [address], [facility] Creatinine [Mass/Vol] 0.93 mg/dL Normal 0.70-1.30 The [facility] Comment on above: Performed By: #### 0 0121 ####[facility] [facility] [place] [address], [place] GFR/1.73 sq M.predicted among blacks MDRD (S/P/Bld) [Vol rate/Area] mL/min/{1.73_m2} Normal >60 The [facility] Comment on above: Performed By: #### 0 0121 ####[facility] [facility] [place] [address], [facility] GFR/1.73 sq M.predicted among non-blacks MDRD (S/P/Bld) [Vol rate/Area] mL/min/{1.73_m2} Normal >60 The [facility] Comment on above: Performed By: #### 0 0121 ####[facility] [facility] [place] [address], [place] Glucose [Mass/Vol] 97 mg/dL Normal 70-100 The [facility] Comment on above: Performed By: #### 0 0121 ####[facility] [facility].[address] Potassium [Moles/Vol] 4.2 mmol/L Normal 3.5-5.1 The [facility] Comment on above: Performed By: #### 0 0121 ####[facility] Protein [Mass/Vol] 7.1 g/dL Normal 6.0-8.3 The [facility] Comment on above: Performed By: #### 0 0121 ####[facility] [facility].[address] Sodium [Moles/Vol] 139 mmol/L Normal 136-145 The [facility] Comment on above: Performed By: #### 0 0121 ####[facility] [facility].[address] Urea nitrogen [Mass/Vol] 11 mg/dL Normal 7-25 The [facility] Comment on above: Performed By: #### 0 0121 ####[facility] PROTHROMBIN TIMEon 2 INR Coag (PPP) [Relative time] 0.99 {INR} Normal 0.91-1.16 The [facility] Comment on above: Result Comment: ACCC P RECOMMENDED INR FOR WARFARIN THERAPY --------- ------- CONDITION INR PROPHYLAXIS OF VENOUS THROMBOSIS 2-3 (HIGH-RISK SURGERY) TREATMENT OF VENOUS THROMBOSIS 2-3 TREATMENT OF PULMONARY EMBOLISM 2-3 PREVENTION OF SYSTEMIC EMBOLISM: 2-3 ACUTE MYOCARDIAL INFARCTION TISSUE HEART VALVES VALVULAR HEART DISEASE ATRIAL FIBRILLATION RECURRENT SYSTEMIC EMBOLISM MECHANICAL HEART VALVE 2.5-3.5 FROM: ORAL ANTICOAGULANTS. MECHANISM OF ACTION, CLINICAL EFFECTIVENESS, AND OPTIMAL THERAPEUTIC RANGE. CHEST 1995;108:231S-246S. Performed By: #### 3 1920 #### [facility] [address] [place] [address], [place] PT Coag (PPP) [Time] 13.1 s Normal 12.3-14.8 The [facility] Comment on above: Result Comment: ALL RESULTS MUST BE INTERPRETED WITH RESPECT TO BLOOD DRAWING ARTIFACT OR DILUTION ERROR OF ANTICOAGULANT AT THE TIME OF SAMPLING. Performed By: #### 3 1 #### [facility] [address] [place] [address], [place] URINALYSISon 08-26-2021 Appearance (U) CLEAR Normal CLEAR The [facility] Comment on above: Performed By: #### 1 0008 #### [facility] [address] [place] [address], [place] Bilirubin Ql (U) Negative Normal NEGATIVE The [facility] Comment on above: Performed By: #### 1 0008 #### [facility] [address] [place] [address], [place] Color (U) STRAW Abnormal YELLOW The [facility] Comment on above: Performed By: #### 1 0008 #### [facility] [address] [place] [address], [place] EPIS NONE SEEN Normal FEW,OCC,NONE SEEN The [facility] Comment on above: Performed By: #### 1 0008 #### [facility] [address] [place] [address], [place] Glucose Ql (U) Negative Normal NEGATIVE The [facility] Comment on above: Performed By: #### 1 0008 #### [facility] [address] [place] [address], [place] Hemoglobin Ql (U) MODERATE Abnormal NEGATIVE The [facility] Comment on above: Performed By: #### 1 0008 #### [facility] [address] [place] [address], [facility] KETONE Negative Normal NEGATIVE The [facility] Comment on above: Performed By: #### 1 0008 #### [facility] [address] [place] [address], [facility] LEUK IZZY Negative Normal NEGATIVE The [facility] Comment on above: Performed By: #### 1 0008 #### [facility] [address] [place] [address], [facility] MUCUS THREADS OCC Abnormal NONE SEEN The [facility] Comment on above: Performed By: #### 1 0008 #### [facility] [address] [facility] [place] [address], [facility] Nitrite Ql (U) Negative Normal NEGATIVE The [facility] Comment on above: Performed By: #### 1 0008 #### [facility] [address] [facility] [place] [address], [facility] pH (U) 5.0 [pH] Normal 5.0-8.0 The [facility] Comment on above: Performed By: #### 1 0008 #### [facility] [address] [place] [address], [facility] Protein Ql (U) Negative Normal NEGATIVE The [facility] Comment on above: Performed By: #### 1 0008 #### [facility] [address] [place] [address], [facility] RBC 0-2 Abnormal NONE SEEN The [facility] Comment on above: Performed By: #### 1 0008 #### [facility] [address] [place] [address], [facility] SPEC GRAV 1.008 Low 1.015-1.020 The [facility] Comment on above: Performed By: #### 1 0008 #### [facility] [address] [facility] [place] [address], [facility] WBC UA NONE SEEN Normal NONE SEEN The [facility] Comment on above: Performed By: #### 1 0008 #### [facility] [address] [facility] [place] [address], [facility] MRI PROSTATE W WO CONTRAST A ND 3D POST PROCESSINGon 08-06-2021 MRI PROSTATE W WO CONTRAST AND 3D POST PROCESSING [facility] Department of Radiology [address] [place] [address] [id number] Patient Name: OSBALDO LEÓN : 1960 Sex: M Age: Race: White Pt. Location: [facility] Patient Status: D Ordered Date: 07/01/2021 1:20:00 PM Completed Date: 08/06/2021 05:41 PM Requesting Provider: NGHIA GALAVIZ Attending Provider: NGHIA GALAVIZ Report Copy To: UNKNOWN, PHYSICIAN Signs & Symptoms: R97.20 Elevated prostate specific antigen [PSA] I10 History: Kent, Luisa no FB per Comments: Exam: MRI PROSTATE W WO CONTRAST AND 3D POST PROCESSING CLINICAL INFORMATION: , Elevated PSA. TECHNIQUE: Multiplanar, multisequence MR imaging of the pelvis was performed with and without intravenous contrast. PROTOCOL: Prostate without and with intravenous contrast COMPARISON: None FINDINGS: The prostate gland measures 3.2 x 3.8 x 4.3 cm (cc x transverse x AP). The prostate volume measures 27.2 ml. Peripheral zone: In the right posteromedial/latera l mid gland there is an 11 mm observation which demonstrates T2-weighted hypointensity with impeded effusion/reduced ADC and early focal enhancement. Transitional zone: No MR features suspicious for carcinoma Central zone: Symmetric hypointensity with no MR features suspicious for carcinoma. Prostatic capsule: Intact. Please note the high resolution small [id number] images were compromised by rectal peristalsis. Neurovascular bundles: No asymmetric thickening. Please note that high-resolution small field of view images were compromised perirectal peristalsis. Seminal vesicles: Unremarkable. Nodes: No enlarged lymph nodes. Bones: No aggressive osseous lesions. Extra prostatic findings :None IMPRESSION: * PI-RADS 4, suspicious 11 mm observation in the right posteromedial/latera l mid gland peripheral zone with extension to the right posterior base and right anterior apex. Electronically signed: Jose López M.D.. Transcribed by: [id number], User Resident: Electronically Signed by: JOSE LÓPEZ @ 08/18/2021 08:43 AM Normal The [facility] *FLUOROQUINOLONE RESISTANT O ANNABELLEHERBERTKatharine 07-01-2021 *FLUOROQUINOLONE RESISTANT ORGANISMS Clinical Report: (D) Specimen: SWAB Collected: 07/01/2021 13:00 Status: Final Last Updated: 07/04/2021 08:14 (1) No collection time noted on specimen or requisition. The collection time recorded is the time of receipt in the lab. ORGANISM (Final) Ciprofloxacin resistant E. coli - absent Result changed by BERT on 07/04/2021 08:14. The previous result was: ISO (Final) Normal The [facility] Comment on above: Order Comment: No co llection time noted on specimen or requisition. The collection time recorded is the time of receipt in the lab. Performed By: #### 3 0628 #### [facility] [address] [place] [address], [facility] TESTOSTERONE, TOTAL ILon IL Normal The [facility] Comment on above: Result Comment: Test Performed by [facility] [address] [place] [address] - Released 07/01/2021 21:05 Testosterone [Mass/Vol] 238 ng/dL Normal 220-1000 The [facility] Physician Referralon 021 Physician Referral [id number] #1.00CD:127 Normal [facility] Formson 02-28-2021 Forms [id number] #1.00CD:127 Normal [facility] Lab Reportson 02-28-2021 Lab Reports [id number] #1.00CD:127 Normal [facility] Lab Reports [id number] #1.00CD:127 Normal [facility] Screenson 02-28-2021 Screens [id number] #1.00CD:127 Normal [facility] Ambulatory Clinical Summaryo n 02-27-2021 Ambulatory Clinical Summary {[id number]}CD:[id number] Normal [facility] Patient Educationon 02-28-20 21 Patient Education Urology Hematuria, Adult Hematuria is blood in the urine. Blood may be visible in the urine, or it may be identified with a test. This condition can be caused by infections of the bladder, urethra, kidney, or prostate. Other possible causes include: ? Kidney stones. ? Cancer of the urinary tract. ? Too much calcium in the urine. ? Conditions that are passed from parent to child (inherited conditions). ? Exercise that requires a lot of energy. Infections can usually be treated with medicine, and a kidney stone usually will pass through your urine. If neither of these is the cause of your hematuria, more tests may be needed to identify the cause of your symptoms. It is very important to tell your health care provider about any blood in your urine, even if it is painless or the blood stops without treatment. Blood in the urine, when it happens and then stops and then happens again, can be a symptom of a very serious condition, including cancer. There is no pain in the initial stages of many urinary cancers. Follow these instructions at home: Medicines ? Take wtfn-eyj-owaikkc and prescription medicines only as told by your health care provider. ? If you were prescribed an antibiotic medicine, take it as told by your health care provider. Do not stop taking the antibiotic even if you start to feel better. Eating and drinking ? Drink enough fluid to keep your urine clear or pale yellow. It is recommended that you drink 3?4 quarts (2.8?3.8 L) a day. If you have been diagnosed with an infection, it is recommended that you drink cranberry juice in addition to large amounts of water. ? Avoid caffeine, tea, and carbonated beverages. These tend to irritate the bladder. ? Avoid alcohol because it may irritate the prostate (men). General instructions ? If you have been diagnosed with a kidney stone, follow your health care provider's instructions about straining your urine to catch the stone. ? Empty your bladder often. Avoid holding urine for long periods of time. ? If you are female: ? After a bowel movement, wipe from front to back and use each piece of toilet paper only once. ? Empty your bladder before and after sex. ? Pay attention to any changes in your symptoms. Tell your health care provider about any changes or any new symptoms. ? It is your responsibility to get your test results. Ask your health care provider, or the department performing the test, when your results will be ready. ? Keep all follow-up visits as told by your health care provider. This is important. Contact a health care provider if: ? You develop back pain. ? You have a fever. ? You have nausea or vomiting. ? Your symptoms do not improve after 3 days. ? Your symptoms get worse. Get help right away if: ? You develop severe vomiting and are unable take medicine without vomiting. ? You develop severe pain in your back or abdomen even though you are taking medicine. ? You pass a large amount of blood in your urine. ? You pass blood clots in your urine. ? You feel very weak or like you might faint. ? You faint. Summary ? Hematuria is blood in the urine. It has many possible causes. ? It is very important that you tell your health care provider about any blood in your urine, even if it is painless or the blood stops without treatment. ? Take eajy-tvp-uszfeda and prescription medicines only as told by your health care provider. ? Drink enough fluid to keep your urine clear or pale yellow. This information is not intended to replace advice given to you by your health care provider. Make sure you discuss any questions you have with your health care provider. Document Released: 07/26/2006 Document Revised: 12/20/2019 Document Reviewed: 08/28/2017 [email or web address] Patient Education ? 2019 [employer]. [facility] Urology Office/Clinic Noteon 02-27-2021 Urology Office/Clinic Note Chief Complaint New patient elevated PSA HPI Staff New patient Osbaldo is a 60 y.o. male here for elevated PSA. Current PSA is 4.050 done on 01/17/21 and 4.6 and 10% done on 01/25/21. He was previously seen by Dr. Padilla for hematuria which has been resolved. No family hx of prostate cancer. Dysuria: _Denies Incomplete bladder emptying: _Denies Hematuria: _Denies Frequency: _Denies Urgency: _Denies Nocturia: _1x Stream: _Normal stream Leaking: _Denies Post void dripping: _Denies Wearing pads/ Depends: _Denies Urge incontinence: _Denies Stress incontinence: _Denies Incontinence without Sensory Awareness: _Denies Abdominal pain: _Denies Flank pain: _Denies Sexual complaints: _ History of Present Illness Tests Reviewed: Reviewed UA. psa I have reviewed the previous health record information and history for this patient from Dr. Padilla I have reviewed and verified the staff HPI to be accurate for this encounter. There have been no associated fever, chills, flank pain, or blood in the urine. Denies any urinary infections since last encounter. Review of Systems PHQ Score Initial Depression Screen Score: 0 ROS - Provider Constitutional: denies weight loss, denies hot flashes. Eyes: denies eye problems. Gastrointestinal: denies nausea, denies vomiting. Cardiovascular: denies chest pain or angina. Integumentary: no dryness Musculoskeletal: denies musculoskeletal symptoms. ENMT: denies otolaryngeal symptoms. Respiratory: no shortness of breath. Heme/Lymph: denies easy bleeding tendency, denies easy bruising tendency. Psychiatric: no confusion, no anxiety. Genitourinary: denies dysuria, denies hematuria, denies discharge, denies urinary frequency, denies urinary hesitancy, denies nocturia, denies incontinence, denies genital sores, denies decreased libido, and denies erectile dysfunction. Physical Exam Vitals & Measurements HR: 75(Peripheral) BP: 165/94 HT: 182.9 cm HT: 182.88 cm WT: 89.8 kg WT: 89.81 kg BMI: 26.85 General Appearance: alert, no distress, well nourished, well developed male. Head: normocephalic . Eyes: normal orbit and globe. ENMT: normal examination of external ears. Chest: Lungs CTA, respirations non labored. Cardiovascular: regular rate and rhythm. Abdomen: soft, non distended, no tenderness, no mass or organomegaly, no hernia. Genitourinary: normal scrotum, normal testes, normal urethra, normal epididymis, normal vas deferens/spermatic cord. Flank Pain: none. Bladder: nonpalpable. Penis: normal shaft, normal glans. Prostate: normal prostate, estimated weight 35 gms, no hard nodule observed. Lymph Nodes: unremarkable palpation of the cervical area. Skin: warm, dry, no bruising. Psychiatric: cooperative, affect appropriate for age, normal judgement, euthymic mood. Assessment/Plan 1. Elevated PSA (R97.20: Elevated prostate specific antigen [PSA]) Current psa 4.050 done on 01/17/21 4.6 and 10% done on 01/25/21. will return in 4 months with another psa F/T 2. Asymptomatic microscopic hematuria (R31.21: Asymptomatic microscopic hematuria) UA shows small blood, denies any visible blood I have to follow this patient closely his PSA done in January was 4 and then he got the free and total done was 4.6 and 10% which I am not happy with. Patient going on vacation shortly I so we can do your free and total when he comes back and PRICILA at the time I think that is appropriate so we will give him 3 to 4 months do a PRICILA and most likely is going to end up with an ultrasound and biopsy of his prostate. He has a negative family history for prostate cancer. So that that 1+ blood in his urine but I have scoped him in the past for that issue. And he does not smoke. So we will follow him closely and he may need a biopsy we will see Follow-up With When Contact Information VALERIE MOJICA, Raf Campoverde, MARINA In 4 months 06/30/[address] [place] [address]- [phone] Additional Instructions: With psa F/T Patient Education Hematuria, Adult ILetty personally scribed for Dr. Padilla on 02/27/2021 10:58:22. . Documentation recorded by the scribe, Letty Weinberg, accurately reflects the services(s) I performed and decisions made by me. Authenticated by Dr. Padilla on 02/27/2021 11:00:33. Problem List/Past Medical History Ongoing Asymptomatic microscopic hematuria Elevated PSA Historical No qualifying data Medications atorvastatin 20 mg Tab, 20 mg= 1 tab(s), Oral, Daily Allergies No Known Medication Allergies Social History Tobacco Never (less than 100 in lifetime) Tobacco Use:. Never Smokeless Tobacco Use:., 02/27/2021 Family History Cardiac arrest: Father. : Mother and Father. Heart murmur: Father. Leukemia: Mother. Lab Results Test Name Test Result Date/Time PSA, External 4.600 ng/mL 01/25/2021 16:31 EDT PSA, External 4.050 ng/mL 01/17/2021 16:31 EDT PSA Percent, E (more content not included)... Normal [facility] Comment on above: Result Comment: Elec tronically Signed By: Raf PADILLA MD\.br\Date and Time Signed: 02/27/21 11:00 EDT\.br\Electronically Co-Signed By: Letty Weinberg MA\.br\Date and Time Co-Signed: 02/27/21 10:58 EDT Social History Date Type Detail Facility Start: 10-04-2023 Sex Assigned At N [facility] Other Start: 10-04-2023 Tobacco smoking status NHIS Never smoked tobacco [facility] Work Phone: Start: 10-04-2023 Tobacco use and exposure Smokeless tobacco non-user [facility] Work Phone: Start: 10-04-2023 History of Social function [facility] Work Phone: Start: 09-24-2023 End: 10-04-2023 Exposure to SARS-CoV-2 (event) Not sure [facility] Start: 1960 Sex Assigned At Male F [facility] Start: 1960 Sex Assigned At Not on file U [facility] Work Phone: Unknown if ever smoked [employer] Other Vital Signs Date Time Vital Sign Value Performing Clinician Facility 10-04-2023 16:11-0500 Body height 182.9 cm Kiran Wilson MD Work Phone: [facility] 10-04-2023 16:11-0500 Body mass index (BMI) [Ratio] 26.77 kg/m2 Kiran Wilson MD Work Phone: [facility] 10-04-2023 16:11-0500 Body temperature 97 [degF] Kiran Wilson MD Work Phone: [facility] 10-04-2023 16:11-0500 Body weight 89.54 kg Kiran Wilson MD Work Phone: [facility] 05-03-2023 14:56-0400 Body height 182.88 cm No PCP None [facility] [place] Work Phone: 05-03-2023 14:56-0400 Body mass index (BMI) [Ratio] 23.62 kg/m2 No PCP None [facility] [place] Work Phone: 05-03-2023 14:56-0400 Body surface area Derived from formula 2.01 m2 No PCP None [facility] [place] Work Phone: 05-03-2023 14:56-0400 Body weight 79 kg No PCP None [facility] [place] Work Phone: 09-22-2022 15:30-0500 Body height 180.34 cm Clara Jordan Other [employer] Other 09-22-2022 15:30-0500 Body mass index (BMI) [Ratio] 24.84 kg/m2 Clara Jordan Other [employer] Other 09-22-2022 15:30-0500 Body weight 80.79 kg Clara Jordan Other [employer] Other 09-22-2022 15:30-0500 Diastolic blood pressure 70 mm[Hg] Clara Jordan Other [employer] Other 09-22-2022 15:30-0500 Respiratory rate 18 /min Clara Jordan Other [employer] Other 09-22-2022 15:30-0500 SaO2% (BldA) [Mass fraction] 98 % Clara Jordan Other [employer] Other 09-22-2022 15:30-0500 Systolic blood pressure 130 mm[Hg] Clara Jordan Other [employer] Other 06-23-2022 10:00-0500 Body height 180.34 cm Clara Jordan Other [employer] Other 06-23-2022 10:00-0500 Body mass index (BMI) [Ratio] 22.82 kg/m2 Clara Jordan Other [employer] Other 06-23-2022 10:00-0500 Body temperature 97.2 [degF] Clara Jordan Other [employer] Other 06-23-2022 10:00-0500 Body weight 74.21 kg Clara Nikki Other [employer] Other 06-23-2022 10:00-0500 Diastolic blood pressure 70 mm[Hg] Clara Jordan Other [employer] Other 06-23-2022 10:00-0500 Respiratory rate 18 /min Clara Jordan Other [employer] Other 06-23-2022 10:00-0500 SaO2% (BldA) [Mass fraction] 98 % Clara Jordan Other [employer] Other 06-23-2022 10:00-0500 Systolic blood pressure 118 mm[Hg] Clara Jordan Other [employer] Other 05-12-2022 11:00-0400 Body height 180.34 cm Clara Nikki Other [employer] Other 05-12-2022 11:00-0400 Body mass index (BMI) [Ratio] 21.06 kg/m2 Clara Jordan Other [employer] Other 05-12-2022 11:00-0400 Body temperature 97.2 [degF] Clara Jordan Other [employer] Other 05-12-2022 11:00-0400 Body weight 68.49 kg Clara Jordan Other [employer] Other 05-12-2022 11:00-0400 Diastolic blood pressure 70 mm[Hg] Clara Jordan Other [employer] Other 05-12-2022 11:00-0400 Respiratory rate 18 /min Clara Jordan Other [employer] Other 05-12-2022 11:00-0400 SaO2% (BldA) [Mass fraction] 97 % Clara Nikki Other [employer] Other 05-12-2022 11:00-0400 Systolic blood pressure 100 mm[Hg] Clara Jordan Other [employer] Other 11-12-2021 15:45-0400 Body height 180.34 cm Clara Nikki Other [employer] Other 11-12-2021 15:45-0400 Body mass index (BMI) [Ratio] 26.25 kg/m2 Clara Nikki Other [employer] Other 11-12-2021 15:45-0400 Body temperature 96.6 [degF] Clara Jordan Other [employer] Other 11-12-2021 15:45-0400 Body weight 85.37 kg Clara Jordan Other [employer] Other 11-12-2021 15:45-0400 Diastolic blood pressure 80 mm[Hg] Clara Jordan Other [employer] Other 11-12-2021 15:45-0400 Respiratory rate 18 /min Clara Jordan Other [employer] Other 11-12-2021 15:45-0400 SaO2% (BldA) [Mass fraction] 99 % Clara Jordan Other [employer] Other 11-12-2021 15:45-0400 Systolic blood pressure 128 mm[Hg] Clara Jordan Other [employer] Other Clinical Notes 11-12-2021 to 12-30-2023 Kiran Wilson MD - 10/04/2023 4:00 PM EST Note Date & Type Note Facility 12-30-2023 Note [facility] 12-27-2023 Note I reviewed the resul t. An appointment for follow up to review with Osbaldo León is scheduled. [facility] 11-19-2023 Note [facility] 11-05-2023 Note [facility] 10-29-2023 Note [facility] 10-20-2023 Note [facility] 10-05-2023 Note [facility] 10-04-2023 History of Present illness Narrative ENT Follow up Visit History Of Present Illness Osbaldo León is a 63 y.o. 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 On chart review the lesion was located in the base of his tongue. At the time of his diagnosis he had biopsy-proven metastatic disease. He received radiation to the lung and also completed chemoradiation to the head neck. He was then placed on immunotherapy due to progression of his metastatic disease and received additional SBRT to his pulmonary metastasis. Currently he is still receiving immunotherapy and is overall doing well. He was referred here for scope exam and to establish care for future exams. His last PET scan was July 2022. He will be getting a follow-up CT scan of the chest in May and additional PET scan in July 2023. He is able to swallow and has since had his PEG tube removed. Past medical history includes prostate cancer and he had a prostatectomy. 10/04/23: Patient returns for follow-up. Since his last visit he had a CT scan of his neck in July and had a CT scan of his chest a few days ago. The CT scan of his neck did not show any residual disease in the tongue. He was receiving treatment for pneumonitis and his most recent CT scan of the chest shows some abnormalities but it is improved from his last CT scan Past Medical History He has no past medical history on file. Surgical History He has no past surgical history on file. Social History He reports that he has never smoked. He has never used smokeless tobacco. No history on file for alcohol use and drug use. Family History No family history on file. Allergies Bee pollen and Grass pollen Physical Exam: CONSTITUTIONAL: No acute distress VOICE: No hoarseness or other abnormality RESPIRATION: Breathing comfortably, no stridor CV: No clubbing/cyanosis/edema in hands EYES: EOM intact, sclera normal NEURO: Alert and oriented times 3, Cranial nerves II-XII grossly intact and symmetric bilaterally HEAD AND FACE: Symmetric facial features, no masses or lesions, sinuses non-tender to palpation SALIVARY GLANDS: Parotid and submandibular glands normal bilaterally EARS: Normal external ears, external auditory canals, and TMs to otoscopy, normal hearing to whispered voice. NOSE: External nose midline, anterior rhinoscopy is normal with limited visualization to the anterior aspect of the interior turbinates, no bleeding or drainage, no lesions ORAL CAVITY/OROPHARYNX/LIPS: No visible mucosal lesions. He has some atrophy of the tongue due to prior treatment PHARYNGEAL STERLING: No masses or lesions NECK/LYMPH: No palpable LAD, no thyroid masses, trachea midline SKIN: Neck skin is without scar or injury PSYCH: Alert and oriented with appropriate mood and affect Procedure Note: Flexible Nasolaryngoscopy Verbal informed consent was obtained from the patient/patient's guardian. 4% lidocaine mixed with phenylephrine was prepared and dripped into the nose. It was placed in the right naris. Following an appropriate amount of time to allow for adequate anesthesia, a flexible fiberoptic nasolaryngoscope was placed into the patient's right naris. The nasal cavity, nasopharynx, oropharynx, hypopharynx, and all endolaryngeal structures were visualized and were normal except as listed below. Significant findings included: -No visualized mucosal lesions, airway patent Last Recorded Vitals Temperature 36.1 C (97 F), height 1.829 m (6'), weight 89.5 kg (197 lb 6.4 oz). Relevant Results Assessment and Plan 63 y.o. 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 He was previously treated with SBRT to the lungs as well as chemoradiation. I do not have his prior scans available but according to the records I received he had complete response in the head neck on his PET scan last winter and they have been following his pulmonary disease closely. He has been off of immunotherapy since late fall 2022. He had a CT scan of the neck that did not show any residual disease in the head neck. The CT scan of his chest also looked improved however he was getting treated for pneumonitis -No evidence of disease in the head and neck. -We will follow-up recommendations from his pending oncology visits near [place]. Advised them to discuss [place] Dx with local providers. Will follow-up -He will plan to follow-up with me in about 4 months, earlier with any concerns Kiran Wilson MD documented in this encounter [facility] Work Phone: 09-21-2023 Note [facility] 08-17-2023 Note [facility] 08-17-2023 Note [facility] 07-28-2023 Note [facility] 07-28-2023 Note [facility] 07-22-2023 Note I reviewed the resul t. An appointment for follow up to review with Osbaldo León is scheduled. [facility] 06-22-2023 Note [facility] 06-22-2023 Note [facility] 06-22-2023 Note Please forward to jordan morales MD and also ensure follow up with provider ordering test. Thanks Myranda Masters MD [facility] 06-22-2023 Note I reviewed the resul t. An appointment for follow up to review with Osbaldo eLón is scheduled. [facility] 06-11-2023 Note Patient called and have a few more question about procedure. Please call at [phone] [facility] 06-01-2023 Note [facility] 05-27-2023 Note [facility] 04-15-2023 Note [facility] 04-15-2023 Note [facility] 03-22-2023 Note [facility] 02-25-2023 Note [facility] 02-22-2023 Note I reviewed the resul t. An appointment for follow up to review with Osbaldo León is scheduled. [facility] 01-13-2023 Note [facility] 09-22-2022 Evaluation note Encounter Date Diagnosis Assessment Notes Sep, Mixed hyperlipidemia (ICD-10 - E78.2) Recent lab work reviewed with him. Well controlled on Lipitor 20 mg daily. Will continue this. Patient is advised to work on healthy diet choices and appropriate servings, weight control, regular exercise as directed, reduced fat intake, and salt avoidance. Patient voiced understanding of this and agrees to this plan. Sep, Well adult exam (ICD-10 - Z00.00) Recent lab work reviewed with him. He will share his mildly low H/H and high ferritin levels with his oncologist. Continue to follow with specialists. Specialty notes reviewed as received. Patient is advised to work on healthy diet choices and appropriate servings, weight control, regular exercise as directed, reduced fat intake, and salt avoidance. Patient voiced understanding of this and agrees to this plan. Sep, Prediabetes (ICD-10 - R73.03) Hgba1c shows good control of prediabetes without medication. UTD with other lab work. We will continue this. Patient is advised to work on healthy diet choices and appropriate servings, weight control, regular exercise as directed, reduced fat intake, and salt avoidance. Patient voiced understanding of this and agrees to this plan. Sep, Prostate cancer (ICD-10 - C61) He will share his mildly low H/H and high ferritin levels with his oncologist. He will continue to follow with [facility] specialists for this. Specialty notes reviewed as received. Sep, Malignant neoplasm of lung, unspecified laterality, unspecified part of lung (ICD-10 - C34.90) He will share his mildly low H/H and high ferritin levels with his oncologist. He will continue to follow with [facility] specialists for this. Specialty notes reviewed as received. Sep, Tongue cancer (ICD-10 - C02.9) He will share his mildly low H/H and high ferritin levels with his oncologist. He will continue to follow with [facility] specialists for this. Specialty notes reviewed as received. Sep, Gouty arthropathy (ICD-10 - M10.9) Stable at this time without medications. No recent flare ups. 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 Will treat him with colchicine as he was treated with this last flare up and worked very well. Unable to take Prednisone due to oncology recommendations with recent radiation. Medication profile and possible SE reviewed with patient. Take as directed. He does want to start prophylactic Allopurinol treatment. Will plan on seeing him back in the office in 2 weeks and plan on starting him on Allopurinol as long as his gout flare up is completely resolved. Will plan on rechecking uric acid level in 1 week after starting Allopurinol. Decrease amount of gout inducing foods as much as possible. Increase fluids. Patient and patient verbalizes understanding and agree to treatment plan. [employer] Other 10-04-2022 Evaluation note* Encounter Date Diagnosis Assessment Notes Treatment Notes Treatment Clinical Notes May, Prostate cancer (ICD-10 - C61) He will continue to follow with [facility] specialists for this. Specialty notes reviewed as received. 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 Was tried on ATB as ER thought it was cellulitis but he did not improve with this. He has history of gout. Will treat him with a burst of Prednisone daily x 5 days with food. He will call his [facility] specialists and make sure this is okay for him to take prior to taking. Medication profile and possible SE reviewed with him. He will keep us posted if this becomes a more recurrent issue. Notify office should this persist and not improve. May, Malignant neoplasm of lung, unspecified laterality, unspecified part of lung (ICD-10 - C34.90) He will continue to follow with [facility] specialists for this. Specialty notes reviewed as received. May, Tongue cancer (ICD-10 - C02.9) He will continue to follow with [facility] specialists for this. Specialty notes reviewed as received. [employer] Other 10-03-2022 History of Present illness Narrative* 62-year-old male here to establish care for history of head neck cancer. 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 On chart review the lesion was located in the base of his tongue. At the time of his diagnosis he had biopsy-proven metastatic disease. He receivedradiation to the lung and also completed chemoradiation to the head neck. He was then placed on immunotherapy due to progression of his metastatic disease and received additional SBRT to his pulmonary metastasis. Currently he is still receiving immunotherapy and is overall doing well. He was referred here for scope exam and to establish care for future exams. His last PET scan was July 2022. He will be getting a follow-up CT scan of the chest in May and additional PET scan in July 2023. He is able to swallow and has since had his PEG tube removed. * Past medical history includes prostate cancer and he had a prostatectomy. [facility] Work Phone: [phone]) 522-438405-10-2022 NoteMR#: [id number] I [facility] Pt. Name: Osbaldo León Admitted: 12/15/2021 Discharged: 12/16/2021 Date of : 1960 Physician: Mateusz Conroy MD DISCHARGE SUMMARY Date of admission: 12/15/2021 Date of discharge: 12/16/2021 ADMITTING DIAGNOSIS: Conway 3+4 = 7 prostate cancer DISCHARGE DIAGNOSIS: Conway 3+4 = 7 prostate cancer PROCEDURE PERFORMED: Robot-assisted radical prostatectomy with extended bilateral pelvic lymph node dissection HOSPITAL COURSE: This is a 61-year-old male with unfavorable intermediate risk Rosanna 3+4 = 7 prostate cancer who presented for radical prostatectomy with pelvic lymphadenectomy. Please see separate operative note for details of the procedure. He tolerated the procedure well and was admitted to the regular floor postoperatively for monitoring overnight. PACU labs are unremarkable, creatinine slightly elevated at 1.21 on postop day 1, however patient was making excellent urine output, 1.075 L in 24 hours. On postoperative day 1, patient was ambulating, passing flatus, tolerating regular diet, and pain was very well controlled on oral regimen. ROSALIO creatinine was checked and found to be 1.4 which was consistent with his serum creatinine. ROSALIO drain was removed prior to discharge. Incisions appeared clean, dry and intact covered with skin glue. Hemoglobin was stable 10.3 from 10.9 immediately postoperatively, and 11.7 preoperatively. Patient was discharged home in excellent condition with Pittman catheter in place. Discharge medication tramadol for pain as needed, Colace, Levsin for bladder spasms as needed. Plan: Patient will follow up in clinic in approximately 7 to 10 days for Pittman catheter removal. Electronically Signed by: Mateusz Conroy MD 12/28/2021 04:31 P Mateusz Conroy MD I personally saw this patient on the day of the encounter, performed the jonas portion(s) of the service and participated in the management and confirm the resident's documentation. Please note there may be an additional personal documentation from me. Date Dict: 12/16/2021/02:41 P/Radha Polk, DO Date Trans: 12/16/2021 02:41 P/ PRANEETH_JN:[id number]* Encounter Date Diagnosis Assessment Notes Treatment Notes Treatment Clinical Notes Nov, Low hemoglobin (ICD-10 - D64.9) [employer] Other 04-06-2022 Evaluation note* Encounter Date Diagnosis Assessment Notes Treatment Notes Treatment Clinical Notes Nov, Mixed hyperlipidemia (ICD-10 - E78.2) He will complete upcoming lab work for preop testing. Currently takes Lipitor 20 mg daily. Will continue this pending lab results. Patient is advised to work on healthy diet choices and appropriate servings, weight control, regular exercise as directed, reduced fat intake, and salt avoidance. Patient voiced understanding of this and agrees to this plan. Nov, Pre-op evaluation (ICD-10 - Z01.818) Patient presents for preop evaluation and surgical clearance for upcoming prostate removal due to prostate cancer with Dr. Mateusz Conroy on December 15, 2021. OV note needs faxed to [phone]. He will be having preop testing 3 weeks before procedure. He will forward this to our office when it is complete. Patient has not completed presurgical testing including lab work, EKG, chest x-ray.This will be forwarded to our office when it is complete and clearance for upcoming surgery will be completed pending results of this testing. His chronic conditions, which include mixed hyperlipidemia, prediabetes, gout, seem to be for the most part stable and well controlled. He is a low risk surgical candidate and since his chronic conditions are well controlled, he seems to be of appropriate risk for surgery for prostate removal. However, clearance will depend upcoming preop testing which will be forwarded to our office 3 weeks prior to procedure. Nov, Prediabetes (ICD-10 - R73.03) Recent hgba1c shows good control of prediabetes without medication. Complete upcoming preop testing lab work. We will continue this pending lab results. Patient is advised to work on healthy diet choices and appropriate servings, weight control, regular exercise as directed, reduced fat intake, and salt avoidance. Patient voiced understanding of this and agrees to this plan. Nov, Gouty arthropathy (ICD-10 - M10.9) Stable at this time without medications. Nov, Nicotine dependence, chewing tobacco, uncomplicated (ICD-10 - F17.220) Cessation of this highly recommended. Nov, Uncomplicated alcohol dependence (ICD-10 - F10.20) Recommended daily allowances reviewed with patient. 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 documented in this encounter [facility] Work Phone: [facility] general Narrative - Reported* Type Description Date Medical History hx gout Surgical History wisdom teeth Hospitalization History No know Hospitalization history [employer] Other [facility] general Narrative - Reported* Type Description Date Medical History hx gout Medical History prostate cancer Medical History lung cancer Medical History tongue cancer Surgical History wisdom teeth Hospitalization History No know Hospitalization history [employer] Other Summary Purpose Family History No Family History Records FoundNo Family History Records FoundNo Family History Records FoundNo Family History Records FoundNo Family History Records Found Advance Directives No Advanced Directives Records Found Advance Directive Response Recorded Date/ Time Advance Directives No March 11 4:56am Advance Directive Response Recorded Date/ Time Advance Directives No March 11 018 5:56am Reason for Referral Reason * Waiting for appt Refer to GI for low H/H Diagnosis 1 Low hemoglobin (D64. 9) Referral Organization [facility] Tory Rowland Referring Provider First Name Clara Referring Provider Last Name Nikki Referring Provider Specialty Nurse Pract itioner Referred Organization [facility] Gastroenterolo gy Referred Provider Damien Adams Referred Address [address],[phone] Referred Provider Specialty Gastroentero logy Referral Priority Routine General Notes Shirley Allen 11:24:21 AM > referral received and sent p2p successful per log Chief Complaint and Reason for Visit Chief Complaint Z00.00 Chief Complaint E78.2 Chief Complaint Establish care for history of head neck cancer Additional Source Comments (unrecognized sect ion and content) No Status Records FoundNo Status Records FoundNo Status Records FoundNo Status Records FoundNo Status Records Found INFORMATION SOURCE (unrecogn ized section and content) DATE CREATED AUTHOR 07/19/2021 [facility] DATE CREATED AUTHOR AUTHOR'S ORGANIZ ATION 04/17/2022 [facility] DATE CREATED AUTHOR AUTHOR'S ORGANIZ ATION 05/14/2023 [facility] DATE CREATED AUTHOR AUTHOR'S ORGANIZ ATION 06/13/2023 [facility] DATE CREATED AUTHOR AUTHOR'S ORGANIZ ATION 01/05/2024 [facility] REASON FOR VISIT (unrecogniz ed section and content) Reason Comments Follow-up Care Teams (unrecognized sec tion and content) Team Status: Inactive Member Role Status Dates Clara Jordan DNP Primary Care Provider, Attending Provider Active Team Status: Active Member Role Status Dates Clara Jordan DNP Primary Care Provider Active Team Status: Inactive Member Role Status Dates Clara Jordan DNP Primary Care Provider Active ANTON Dove Attending Provider Active [employer] Relationship Specialty Start Date End Date Generic Provider, No Assigned Pcp, [address] [place] [address] PCP - General 10/04/23 Goals (unrecognized section and content) Goals may be documented in a n alternate section FOR RECORDS PERTAINING TO PATIENTS WHO ARE OR HAVE BEEN ENROLLED IN A CHEMICAL DEPENDENCY/SUBSTANCEABUSE PROGRAM, SOME INFORMATION MAY BE OMITTED. This clinical summary was aggregated from multiple sources. Caution should be exercised in using it in the provision of clinical care. This summary normalizes information from multiple sources, and as a consequence, information in this document may materially change the coding, format and clinical context of patient data. In addition, data may be omitted in some cases. CLINICAL DECISIONS SHOULD BE BASED ON THE PRIMARY CLINICAL RECORDS. [facility] [employer] provides no warranty or guarantee of the accuracy or completeness of information in this document.
[2024-01-08 08:28] LABS: Alanine Aminotransferase 33 U/L (16-63); Albumin Globulin Ratio 1.1; Albumin Level 3.5 g/dL (3.4-5.0); Alkaline Phosphatase 107 U/L (46-116); Anion Gap 9.7; Aspartate Amino Transferase 20 U/L (15-37); Bilirubin Total 0.5 mg/dL (0.2-1.0); Carbon Dioxide 31.7 mmol/L (21.0-32.0); Chloride 97 mmol/L (98-107); Chol HDL Ratio 2.5; Cholesterol 180 mg/dL (<=200); Estimated GFR (African America >60 (>=60); Estimated GFR (Non-African Ame >60 (>=60); Globulin 3.3 g/dL; Glucose 103 mg/dL (74-106); HDL Cholesterol 71 mg/dL (40-60); Potassium 4.4 mmol/L (3.5-5.1); Sodium 134 mmol/L (136-145); Total Protein 6.8 g/dL (6.4-8.2); Triglycerides 137 mg/dL (<=150); VLDL CHOLESTEROL 27.4 mg/dL
== END 2024-01-08 06:59 | disposition home or self-care (01) ==
LOC: LAB 07:00
PROVIDERS: Visit Provider Nurse Practitioner Family
DX: E78.2 Mixed hyperlipidemia (principal)
CPT/HCPCS: 36415; 80053; 80061

== ENCOUNTER 2024-07-22 07:06 | Outpatient (OUT) | payer MEDICARE, SELFPAY ==
--- OUTSIDE RECORDS SUMMARY | 2024-07-22 07:12 | XMS_ITS | CCD ---
Author Organization [facility] Care Team Providers Care Underwriting Sales Representative Name Role Phone Joseolegario Damien Unavailable Clara Jordan Unavailable SELF, REFERRED Referring Unavailable SELF, REFERRED Primary Care Unavailable JULIEN, TOSEEF Admitting Unavailable JULIEN, TOSEEF Attending Unavailable MAST, KAM Primary Care Unavailable MAST, KAM Referring Unavailable ISSA, FIRAS G Attending Unavailable ISSA, FIRAS G Admitting Unavailable MAST, KAM Referring Unavailable SINDHWANI, NGHIA Attending Unavailable SINDHWANI, NGHIA Admitting Unavailable CLARA JORDAN Primary Care Unavailable CALRA JORDAN Primary Care Unavailable HAMOUDA, JESSICA Admitting Unavailable HAMOUDA, JESSICA Attending Unavailable UNKNOWN, PHYSICIAN Referring Unavailable Omballi, Mohamed A. Admitting Unavailable Omballi, Mohamed A. Attending Unavailable UNKNOWN, PHYSICIAN Referring Unavailable UNKNOWN, PHYSICIAN Primary Care Unavailable YOLA, E Primary Care Unavailable JOSUE GRIMM Admitting Unavailable JOSUE GRIMM Attending Unavailable UNKNOWN, PHYSICIAN Referring Unavailable NAZZAL, MUNIER Admitting Unavailable NAZZAL, MUNIER Attending Unavailable UNKNOWN, PHYSICIAN Referring Unavailable UNKNOWN, PHYSICIAN Primary Care Unavailable HAMOUDA, JESSICA Admitting Unavailable HAMOUDA, JESSICA Attending Unavailable UNKNOWN, PHYSICIAN Referring Unavailable UNKNOWN, PHYSICIAN Primary Care Unavailable HAMOUDA, JESSICA Attending Unavailable HAMOUDA, JESSICA Admitting Unavailable UNKNOWN, PHYSICIAN Referring Unavailable UNKNOWN, PHYSICIAN Primary Care Unavailable CLARA JORDAN Primary Care Unavailable ISSA, FIRAS G Admitting Unavailable UNKNOWN, PHYSICIAN Referring Unavailable ISSA, FIRAS G Attending Unavailable FRANDY Jordan Primary Care Provider FRANDY Jordan Attending Provider None, No PCP Unavailable Unavailable KIRAN WILSON Attending Unavailable FRANDY Jordan Primary Care Provider ANTON Morris Attending Provider [phone] Cortez Morris Admitting Unavailable Cortez Morris Attending Unavailable Clara Jordan Primary Care Unavailable Clara Jordan Admitting Unavailable Clara Jordan Attending Unavailable Kaple, Clara Primary Care Unavailable Generic Provider MD, No Assigned Pcp Primary Car e Provider Unavailable THKIRAN NUNEZ E Attending Unavailable THKIRAN NUNEZ E Attending Unavailable GENERIC PROVIDER, NO ASSIGNED PCP Primary Care Unavailable Generic Provider MD, No Assigned Pcp Primary Car e Provider Unavailable KIRAN WILSON E Attending Unavailable GENERIC PROVIDER, NO ASSIGNED PCP Primary Care Unavailable Generic Provider MD, No Assigned Pcp Primary Car e Provider Unavailable HAMOUDA, JESSICA M Referring Unavailable HAMOUDA, JESSICA M Referring Unavailable XAVIERCORTEZ Attending Unavailable KIM SABAS Referring Unavailable HADZIAHMETOVIC, MERSANDREASA Referring Unavaila ble OMBALLI, MOHAMED Referring Unavailable OMBALLI, MOHAMED Referring Unavailable KIM, SABAS Attending Unavailable HAMOUDA, JESSICA M Referring Unavailable HAMOUDA, JESSICA M Attending Unavailable HAMOUDA, JESSICA M Attending Unavailable KIM, SABAS Attending Unavailable XAVIERCORTEZ Attending Unavailable KIMSABAS Attending Unavailable OMBALLI, MOHAMED Referring Unavailable OMBALLI, MOHAMED Attending Unavailable HADZIAHMETOVIC, KARENA Attending Unavaila ble HADZIAHMETOVIC, MERSANDREASA Attending Unavaila ble HAMOUDA, JESSICA M Referring Unavailable HAMOUDA, JESSICA M Referring Unavailable HAMOUDA, JESSICA M Referring Unavailable HAMOUDA, JESSICA M Attending Unavailable KIM, SABAS Attending Unavailable OMBALLI, MOHAMED Attending Unavailable HAMOUDA, JESSICA M Attending Unavailable ISSA, FIRAS Attending Unavailable ISSA, FIRAS Attending Unavailable HAMOUDA, JESSICA M Attending Unavailable HAMOUDA, JESSICA M Referring Unavailable KIM, SABAS Attending Unavailable KIM, SABAS Attending Unavailable HAMOUDA, JESSICA M Referring Unavailable KIM, SABAS Referring Unavailable KIM, SABAS Attending Unavailable ISSA, FIRAS Attending Unavailable ISSA, FIRAS Referring Unavailable DELPHINE PARKER Attending Unavailable Allergies Allergy Classification Reported Allergen(s) Allergy Type Date of Onset Reaction(s) Facility (7 sources) Grass pollen; Translations: [GRASS POLLEN] Propensity to adverse reactions (disorder) 2 Other [facility] (2 sources) bee pollen Allergy to substance (finding) [facility]tol[facility] [facility] [place] Work Phone: (2 sources) Grass Allergy to substance (finding) [facility]-Otol[facility]ol [facility] [facility] [place] Work Phone: (3 sources) Bee pollen; Translations: [BEE POLLEN] Drug Allergy 4 Other [facility] Medications Current Medications Medication Drug Class(es) Dates Sig (Normalized) Sig (Original) aspirin 81 mg delayed release oral tablet (3 sources) Platelet Aggregation Inhibitor, Nonsteroidal Anti-inflammatory Drug take 1 tablet by mouth once daily aspirin 81 mg EC tablet Take 1 tablet (81 mg) by mouth once daily. Active atorvastatin 40 mg oral tablet (15 sources) HMG-CoA Reductase Inhibitor Start: 07-29-2023 End: 07-23-2024 take 1 tablet by mouth once daily atorvastatin (Lipitor) 40 mg tablet Take 1 tablet (40 mg) by mouth once daily. 07/29/2023 06/03/2024 Discontinued (Med List Cleanup) Atorvastatin Maxime cium 20 MG Take 1 tablet by mouth once daily for 90 days for 90 days Active Atorvastatin Maxime cium 20 MG Oral Tablet Quantity: 0 Refills: 0 Ordered: 03-May-2023 DO Active carvedilol 3.125 mg oral tablet (3 sources) alpha-Adrenergic Sylvester, beta-Adrenergic Sylvester take 1 tablet by mouth at dinner carvedilol (Coreg) 3.125 mg tablet TAKE 1 TABLET BY MOUTH WITH BREAKFAST AND WITH EVENING MEAL Active colchicine 0.6 mg oral capsule (2 sources) Start: 2 Colchicine 0.6 MG 1 tablet Orally twice daily (days 2-5) for 4 days Jun, Active Start: 06-23-2022 Colchicine 0.6 MG 1 capsule Orally 1.2 mg (2 capsules) x 1 then 0.6 mg (1 capsule) 1 hour later x 1 (day 1) for 1 days Jun, 2022 Active fluconazole 100 mg oral tablet (1 source) Azole Antifungal Fluconazole 100 MG 1 tablet Orally Active lidocaine 25 mg/ml / prilocaine 25 mg/ml topical cream (3 sources) Antiarrhythmic, Amide Local Anesthetic Start: lidocaine-prilocaine (Emla) 2.5-2.5 % cream APPLY TO PORT SITE AND COVER 30-45 MINUTES PRIOR TO NEEDLE ACCESS 04/09/2023 Active Multi For Him 50+ (4 sources) take 1 tablet by mouth once daily Multi For Him 50+ 1 Tablet Orally Daily Active multivitamin with minerals iron-free (Multivitamin 50 Plus) (3 sources) take 1 tablet by mouth once daily multivitamin with minerals iron-free (Multivitamin 50 Plus) Take 1 tablet by mouth once daily. Active take 1 tablet by mouth once abhijeet y multivitamin with minerals iron-free (Multivitamin 50 Plus) Take 1 tablet by mouth once daily. 0 Active predniSONE 20 mg oral tablet (3 sources) Start: 05-12-2022 take 2 tablets by mouth once daily predniSONE 20 MG 2 tabs Orally Once a day for 5 days May, Active End: 06-03-2024 take 1 tablet by mouth once daily predniSONE (Deltasone) 20 mg tablet Take 1 tablet (20 mg) by mouth once daily. Ends February 10 06/03/2024 Discontinued (Med List Cleanup) rosuvastatin calcium 40 mg oral tablet (1 source) HMG-CoA Reductase Inhibitor Start: 04-10-2024 take 1 tablet by mouth in the morning rosuvastatin (Crestor) 40 mg tablet TAKE 1 TABLET BY MOUTH IN THE MORNING -- REPLACING ATORVASTATIN 04/10/2024 Active sulfamethoxazole 800 mg / trimethoprim 160 mg oral tablet (2 sources) Dihydrofolate Reductase Inhibitor Antibacterial, Sulfonamide Antimicrobial End: 06-03-2024 take 1 tablet by mouth once daily sulfamethoxazole -trimethoprim (Bactrim DS) 800-160 mg tablet Take 1 tablet by mouth once daily. Mon, wed, fri Stops on February 10 06/03/2024 Discontinued (Med List Cleanup) tadalafil 20 mg oral tablet (3 sources) Phosphodiesterase 5 Inhibitor Start: 03-22-2023 tadalafil 20 mg tablet Take 1 tablet (20 mg) by mouth. 03/22/2023 Active Completed/Discontinued Medications Medication Drug Class(es) Dates Sig (Normalized) Sig (Original) Lidocaine CREA (2 sources) Lidocaine CREA Quantity: 0 Refills: 0 Ordered: 03-May-2023 DO Active sodium fluoride 0.011 mg/mg toothpaste (2 sources) Start: 11-30-2022 End: 01-31-2024 PreviDent 5000 Dry Mouth 1.1 % dental paste APPLY AT LEAST A 1 INCH STRIP ONTO TOOTHBRUSH. BRUSH FOR 1 MINUTE & EXPECTORATE. USE TWICE DAILY 11/30/2022 01/31/2024 Discontinued (Entered in Error) Triamcinolone (10 sources) Corticosteroid Start: 01-27-2021 Kenalog -40 mg Jan, 20 mg Problems Active Problems Problem Classification Problem Date Documented Date Episodic/Chronic Alcohol-related disorders (11 sources) Alcohol dependence; Translations: [Alcohol dependence, uncomplicated] Onset: 11-12-2021 Resolved: 11-12-2021 Chronic Cancer of bronchus; lung (8 sources) Malignant tumor of lung; Translations: [Malignant neoplasm of unspecified part of unspecified bronchus or lung] Chronic Cancer of head and neck (19 sources) Malignant tumor of tongue; Translations: [Malignant neoplasm of tongue, unspecified] Onset: 03-30-2022 Chronic Cancer of prostate (10 sources) Malignant tumor of prostate; Translations: [Malignant neoplasm of prostate] Onset: 04-02-2022 Chronic Coronary atherosclerosis and other heart disease (2 sources) Atherosclerotic heart disease of [place] coronary artery without angina pectoris; Translations: [Atherosclerotic heart disease of [place] coronary artery without angina pectoris] Onset: 06-10-2023 Chronic Diabetes mellitus without complication (12 sources) Prediabetes; Translations: [Prediabetes] Onset: 11-12-2021 Resolved: 11-12-2021 Episodic Disorders of lipid metabolism (15 sources) Mixed hyperlipidemia; Translations: [Mixed hyperlipidemia] Onset: 11-12-2021 Resolved: 11-12-2021 Chronic E Codes: Adverse effects of medical drugs (2 sources) Adverse effect of unspecified drugs, medicaments and biological substances, initial encounter; Translations: [Adverse effect of unspecified drugs, medicaments and biological substances, initial encounter] Onset: 07-13-2024 Episodic Gout and other crystal arthropathies (20 sources) Gouty arthropathy; Translations: [Gout, unspecified] Onset: 11-12-2021 Resolved: 11-12-2021 Chronic Maintenance chemotherapy; radiotherapy (2 sources) Encounter for antineoplastic chemotherapy; Translations: [Encounter for antineoplastic chemotherapy] Onset: 11-19-2023 Chronic Osteoarthritis (20 sources) Osteoarthritis of joint of left hand; Translations: [Primary osteoarthritis, left hand] Chronic Other lower respiratory disease (2 sources) Interstitial pulmonary disease, unspecified; Translations: [Interstitial pulmonary disease, unspecified] Onset: 06-09-2024 Chronic Other lower respiratory disease (2 sources) Other disorders of lung; Translations: [Other disorders of lung] Onset: 12-30-2023 Episodic Other upper respiratory disease (10 sources) Allergic [...] neoplasm of left lung] Onset: 12-03-2022 Chronic Secondary malignancies (2 sources) Secondary malignant neoplasm of right lung; Translations: [Secondary malignant neoplasm of right lung] Onset: 12-03-2022 Chronic Substance-related disorders (11 [...] Anemia, unspecified Onset: 12-05-2021 Resolved: 12-05-2021 Episodic Fluid and electrolyte disorders (2 sources) Hypo-osmolality and hyponatremia; Translations: [Hypo-osmolality and hyponatremia] Onset: 11-19-2023 Episodic Other aftercare (2 sources) Encounter for follow-up examination after completed treatment for malignant neoplasm; Translations: [Encounter for follow-up examination after completed treatment for malignant neoplasm] Onset: 02-24-2024 Episodic Other non-epithelial cancer of skin (2 sources) [...] and coronary circulation] Onset: 06-10-2023 Episodic Unclassified (3 sources) Onset: 10-04-2023 Resolved: 01-31-2024 10-04-2023 Results Test Name Value Interpretation Reference Range Facility 36on 07-21-2024 36 Patient is calling t o have lab order from 01/11/24 to be sent to the [facility]. Please fax to [phone]. Thank you This phone message was created by the Ambulatory float staff. If you need child support officer follow up regarding this patient, please make your appropriate clinic staff member aware. Thank you. Normal [facility] Follow-Upon 07-18-2024 Follow-Up [id number] Osbaldo León 1960 M Date Provider Department Center 07/18/2024 Gia-MATEUSZ CONROY ONC DCC Family History Problem Relation Age of Onset Leukemia Mother Cancer Mother Heart attack Father 65 Comments: massive HI Family Status - Relation Status Age at Mother Father Level of Service:[id number] CT OFFICE/OUTPATIENT ESTABLISHED LOW MDM 20 MIN Reason for Visit and Comments: Follow-up [337664] - Psa prior Normal [facility] CT CHEST W IV CONTRASTon CT CHEST W IV CONTRAST CT CHEST W IV CON TRAST 07/13/2024 1:32 PM CLINICAL INDICATIONS: Rule out drug-induced pneumonitis. 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 Lora on 06/09/24 which was consistent with recurrent pneumonitis and organizing pneumonia. PROTOCOL: CONTRAST: 100 and Omnipaque 350 TECHNIQUE: Multidetector CT axial slices of the chest were obtained with IV contrast. Multiplanar reformats were performed and viewed on a separate workstation and reviewed to further define anatomy and possible pathology. All CT scans at this facility use dose modulation, iterative reconstruction, and/or weight based dosing when appropriate to reduce radiation dose to as low as reasonably achievable. COMPARISON: 05/19/2024.. FINDINGS: Lower neck: Thyroid gland within normal limits, no supraclavicle adenopathy. Vessels: Within normal limits. Moderate atherosclerotic changes in the aorta. and coronary arteries. Mediastinum and Tim: Within normal limits. Heart: Normal size. No pericardial effusion. Airways: Within normal limits Lungs: The left upper lobe demonstrates significant improvement in the area of the subpleural dense consolidation with now residual mild geographical ground glass subpleural changes noted. This extends to the level of the lingular segment to a mild degree as well as involving the anterior and lateral segments of the left lower lobe. More inferiorly in the lingula segment there is some residual interstitial fibrotic changes noted. The right upper lobe demonstrates a vague area of residual groundglass in the upper lobe centrally that was previously identified but appears less discrete (4/125). Right lower lobe apical segmental consolidation with air bronchograms with a slightly linear configuration redemonstrated as being stable Further area of linear atelectasis in the right lower lobe identified (4/12 and 14 this area appears decreased in size. Surrounding peribronchial nodular changes have improved and now associated with vague groundglass change (4/264. Nodular densities at the right lung base adjacent to the IVC and improved with some residual changes remaining measuring 1.4 cm in maximum dimension. Pleura: Within normal limits. Chest Wall: Within normal limits. Upper Abdomen: Within normal limits. Bones: Within normal limits. IMPRESSION: Overall significant improvement but residual disease remains in both lungs post follow-up. The largest area of dense subpleural consolidation in the left upper lobe has significantly resolved with some residual groundglass changes. Right lung improvement associated with the linear areas of atelectasis with some areas of persistent nodularity and vague groundglass changes. Electronically signed: Carlos Mari MD. Not Fiorella Invalid Interpretation Code [facility] Follow-Upon 07-13-2024 Follow-Up [id number] Osbaldo León 1960 M Date Provider Department Center 07/13/2024 Musa-IRAIS LORA ONC DCC Family History Problem Relation Age of Onset Leukemia Mother Cancer Mother Heart attack Father 65 Comments: massive HI Family Status - Relation Status Age at Mother Father Level of Service:83092 CT OFFICE/OUTPATIENT ESTABLISHED LOW MDM 20 MIN (GC) Normal [facility] PSA, DIAGNOSTICon 07-13-2024 PROSTATE SPECIFIC AG (NG/ML) IN SER/PLAS <0.1 Low 0.4-4 [facility] Comment on above: Performed By: #### L [id number] #### [facility] (BEAKER) [address] [place] [address] Orders Onlyon 06-20-2024 Orders Only [id number] Osbaldo León 1960 M Date Provider Department Center 06/20/2024 IRAIS HARRISON [facility] GEORGEImani Family History Problem Relation Age of Onset Leukemia Mother Cancer Mother Heart attack Father 65 Comments: massive HI Family Status - Relation Status Age at Mother Father Normal [facility] AFB CULTUREon 06-09-2024 AFB CULTURE No growth at 42 days Normal [facility] Comment on above: Performed By: #### L [id number] ####[facility] ([facility])[address] [place] [address] AFB STAIN No acid fast bacilli seen [facility] Comment on above: Performed By: #### L [id number] ####[facility] ([facility])[address] [place] [address] BODY FLUID CELL DIFFERENTIAL on 06-09-2024 BASOPHILS TOTAL PER COUNTED LEUKOCYTES IN BODY FLUID BY MANUAL COUNT [facility] Comment on above: Order Comment: Diffe rential performed on cytospin Performed By: #### L [id number] #### [facility] ([facility]) [address] [place] [address] CELLS COUNTED TOTAL (#) IN BODY FLUID 100 Normal [facility] Comment on above: Order Comment: Diffe rential performed on cytospin Performed By: #### L [id number] #### [facility] ([facility]) [address] [place] [address] EOSINOPHILS TOTAL PER COUNTED LEUKOCYTES IN BODY FLUID BY MANUAL COUNT 12 Normal [facility] Comment on above: Order Comment: Diffe rential performed on cytospin Performed By: #### L [id number] #### [facility] ([facility]) [address] [place] [address] LYMPHOCYTES TOTAL PER COUNTED LEUKOCYTES IN BODY FLUID BY MANUAL COUNT 49 [facility] Comment on above: Order Comment: Diffe rential performed on cytospin Performed By: #### L [id number] #### [facility] [address] [place] [address] MESOTHELIAL CELLS TOTAL PER COUNTED LEUKOCYTES IN BODY FLUID BY MANUAL COUN [facility] Comment on above: Order Comment: Diffe rential performed on cytospin Performed By: #### L [id number] #### [facility] [address] [place] [address] MONOCYTES+MACROPHAGES TOTAL PER COUNTED LEUKOCYTES IN BODY FLUID BY MANUAL 26 [facility] Comment on above: Order Comment: Diffe rential performed on cytospin Performed By: #### L [id number] #### [facility] ([facility]) [address] [place] [address] NEUTROPHILS TOTAL PER COUNTED LEUKOCYTES IN BODY FLUID BY MANUAL COUNT 13 [facility] Comment on above: Order Comment: Diffe rential performed on cytospin Performed By: #### L [id number] #### [facility] ([facility]) [address] [place] [address] OTHER CELLS BODY FLUID (MANUAL) [facility] Comment on above: Order Comment: Diffe rential performed on cytospin Performed By: #### L [id number] #### [facility] ([facility]) [address] [place] [address] FUNGAL CULTUREon 06-09-2024 FUNGAL SMEAR Budding yeast with pseudohyphae [facility] Comment on above: Performed By: #### L [id number] ####[facility] (BEAKER)[address] [place] [address] HISTOLOGY - TISSUE EXAMon LAB AP ASR DISCLAIMER The interpretation of this case included the use of immunohistochemistry or special stains. These tests have not been cleared or approved by the U.S. Food and Drug Administration. The FDA has determined that such clearance or approval is not necessary. These tests are used for clinical purposes and should not be regarded as investigational or for research. This laboratory is certified to perform high complexity testing under the Clinical Laboratory Improvement Amendments of 1998. Normal [facility] Comment on above: Performed By: #### L [id number] ####[facility] ([facility])[address] [facility] [place] [address] LAB AP CASE REPORT Normal [facility] Comment on above: Result Comment: Surg ical Pathology Case: [id number] Authorizing Provider: Irais Lora MD Collected: 06/09/2024 1353 Ordering Location: [facility] Main Operating Room Received: 06/09/2024 1412 Pathologist: Naina Storey MD Specimen: Lung, Left Upper Lobe, Left Upper Lung bx r/o Cancer Performed By: #### L [id number] ####[facility] [facility] [place] [address] LAB AP CLINICAL INFORMATION Order Diagnoses Normal [facility] Comment on above: Result Comment: J84. 9 - ILD (interstitial lung disease) (CMS/HCC) [ICD-10-CM] J98.4 - Pneumonitis [ICD-10-CM] Performed By: #### L [id number] ####[facility] (BEAKER)[address] [place] [place] [address] LAB AP DIAGNOSIS COMMENT Normal [facility] Comment on above: Result Comment: Spec ial stains for fungal organisms and acid fast bacilli were performed with adequate controls. GMS and AFB are negative. 06-14-24: This case was reviewed by Tamra Alcantar MD at [facility] (please see accompanying consultation report). Please see diagnosis above. Comment: This letter concerns findings in the left upper lobe bronchoscopic biopsy from Osbaldo León, a 63-year-old man. As detailed in Clinical documents that accompanied this case, the patient is a non-smoker with history of prostate cancer and [id number] squamous cell carcinoma. He is now suffering from increasing cough and CT findings described as multifocal pneumonitis. As you can see from the diagnosis field, I reviewed these slides and completely agree with your description. The main change in sections of the generous biopsy is a patchy, airspace-filling process, comprised of polypoid and serpentine plugs of fibromyxoid tissue situated within distal airspaces. This is accompanied by a minimal chronic inflammatory infiltrate that includes rare multinucleated giant cells and loosely clusters of macrophages that impart a vaguely granulomatous appearance. I see no aspirated foreign particulates or necrotizing granulomas, and the relative significance of this inflammatory component is unclear to me. Nonetheless, if not already done, it may be worthwhile to perform tissue special stains to assess for the presence of opportunistic microorganisms. In the end, I see no features indicative of a specific etiology for the patient's organizing pneumonia in this sample, but granulomatous infection remains a leading concern. Performed By: #### L [id number] ####[facility] ([facility])[address] [place] [address] LAB AP GROSS DESCRIPTION [facility] Comment on above: Result Comment: A. L janine, Left Upper Lobe. Received in formalin labeled Osbaldo León, Left Upper Lung bx r/o Cancer, are 2 pieces of kenyon-pink soft tissue admixed with clotted blood measuring 1.0 x 0.4 x 0.2 cm in aggregate. The specimen is filtered and submitted in toto in 1 cassette. Percy Joseph, Pathologists' Complaint Specialist Student Performed By: #### L [id number] ####[facility] ([facility])[address] [place] [address] LAB AP MICROSCOPIC DESCRIPTION Microscopic examination performed. [facility] Comment on above: Performed By: #### L [id number] ####[facility] ([facility])[address] [place] [address] LAB AP REPORT FINAL DIAGNOSIS NARRATIVE [facility] Comment on above: Result Comment: Lung , left upper lobe, bronchoscopic biopsy ([id number], 1; 06/09/2024): - Organizing pneumonia with vaguely granulomatous features (see detailed comment below). - No malignancy identified Preliminary result electronically signed by Naina Storey MD on 06/12/2024 at 2:02 PM Performed By: #### L [id number] ####[facility] (BEAKER)[address] [place] [address] NON-NETWORKING TECHNICIAN CYTOLOGY - CELLULAR EXAMon 06-09-2024 LAB AP CASE REPORT Normal [facility] Comment on above: Result Comment: Non- gynecologic Cytology Case: [id number] Authorizing Provider: Irais Lora MD Collected: 06/09/2024 1357 Ordering Location: [facility] Main Operating Room Received: 06/12/2024 1234 Pathologist: Taiwo Judge MD Specimen: Lung, Left Upper Lobe, Left Upper Lung BAL Performed By: #### L [id number] ####[facility] (BEAKER)[address] [place] [address] LAB AP CLINICAL INFORMATION Order Diagnoses [facility] Comment on above: Result Comment: J84. 9 - ILD (interstitial lung disease) (CMS/HCC) [ICD-10-CM] J98.4 - Pneumonitis [ICD-10-CM] Performed By: #### L [id number] ####[facility] (BEAKER)[address] [place] [address] LAB AP DIAGNOSIS COMMENT See also concurrent biopsy, [id number]. [facility] Comment on above: Performed By: #### L [id number] ####[facility] (BEAKER)[address] [place] [address] LAB AP GROSS DESCRIPTION [facility] Comment on above: Result Comment: 9 mL hazy, white fluid Performed By: #### L [id number] ####[facility] (BEAKER)[address] [place] [address] LAB AP REPORT FINAL DIAGNOSIS NARRATIVE Normal [facility] Comment on above: Result Comment: A. L janine, Left Upper Lobe, bronchoalveolar lavage: - Negative for malignancy. 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 Performed By: #### L [id number] ####[facility] (BEAKER)[address] [place] [address] NURSNOTEon 06-09-2024 NURSNOTE Follow up at [facility] with Keith Mckeon, for biopsy results in 2-4 weeks. Portable Chest X-Ray in PACU. May resume a Regular Diet and home medications. Normal [facility] NURSNOTE Bronchoscopy Finding s: Left Upper Lung Nodule Normal [facility] PATHOLOGY REVIEWon PATHOLOGY REVIEW Electronically yariel d by Grisel Liao MD on 06/09/24 at 7:07 PM. Normal [facility] Comment on above: Performed By: #### L [id number] ####[facility] (BEAKER)[address] [place] [address] POCT GLUCOSE METER UNSOLICIT ED RESULTSon 06-09-2024 Glucose [Mass/Vol] 100 mg/dL Normal 70-[address] [facility] Comment on above: Order Comment: Waive d Testing in the ED is performed under the ED CLIA certificate #[id number]. Result Comment: acas til5 Performed By: #### L [id number] ####[facility] (BEAKER)[address] [place] [address] RESPIRATORY CULTUREon 2023 Bacteria identified Cx Nom (Unsp spec) >10,000 CFU/mL Colonies Consistent with Upper Respiratory Maria E [facility] Comment on above: Performed By: #### L [id number] ####[facility] (BEAKER)[address] [place] [address] GRAM STAIN RESULT Normal [facility] Comment on above: Result Comment: Poly morphonuclear leukocytes Gram positive cocci in clusters Gram positive bacilli Gram positive cocci in chains Gram negative bacilli Cytocentrifuge sample Performed By: #### L [id number] ####[facility] (BEAKER)[address] [place] [address] Prep for Procedureon 024 Prep for Procedure [id number] Osbaldo León 1960 M Date Provider Department Center 06/06/2024 IRAIS HARRISON [facility] Family History Problem Relation Age of Onset Leukemia Mother Cancer Mother Heart attack Father 65 Comments: massive HI Family Status - Relation Status Age at Mother Father Normal [facility] Orders Onlyon 06-01-2024 Orders Only [id number] Osbaldo León 1960 M Date Provider Department Center 06/01/2024 IRAIS HARRISON [facility] Family History Problem Relation Age of Onset Leukemia Mother Cancer Mother Heart attack Father 65 Comments: massive HI Family Status - Relation Status Age at Mother Father Normal [facility] HPon 05-24-2024 HP HEMATOLOGY and MEDIC AL ONCOLOGY Dr. Jessica Ambrose MD / MD Sabas Anne AOCNP / Salo Jarrell CNP / Angy Camara APRN-RITO Patient Name: Osbaldo León Date of : 1960 Encounter Date: 05/24/2024 Patient Care Team: Delphine Parker CNP as PCP - General (Internal Medicine) Jessica Ambrose MD as Consulting Physician (Hematology and Oncology) Mateusz Conroy MD as Consulting Physician (Urology) Nino Castro (Radiation Oncology) Sabas Kim NP as Consulting Physician (Oncology) Josue Grimm MD as Referring Physician Kiran Wilson MD (Otolaryngology) Salo Jarrell NP as Nurse Practitioner (Hematology and Oncology) IMPRESSION and ASSESSMENT: Osbaldo León is a 63 y.o. male with: Cancer Staging Primary malignant neoplasm of prostate (CMS/HCC) Staging form: Prostate, AJCC 8th Edition - Pathologic stage from 12/14/2021: Stage IIIB (pT3, pN0, cM0, PSA: 5.5, Grade Group: 2) - Signed by Jessica Ambrose MD on 04/20/2022 Squamous cell carcinoma of head and neck Staging form: Cutaneous Carcinoma of the Head and Neck, AJCC 8th Edition - Clinical stage from 02/20/2022: Stage IV (cTX, cN3a, pM1) - Signed by Jessica Ambrose MD on 05/06/2022 Diagnoses and all orders for this visit: Squamous cell carcinoma of head and neck - ON[facility] TUMOR BOARD; Future Malignant neoplasm metastatic to left lung (CMS/HCC) [facility]; Future Pneumonitis Chronic hyponatremia Problem List Items Addressed This Visit Respiratory Malignant neoplasm metastatic to left lung (CMS/HCC) [facility] Pneumonitis Other Squamous cell carcinoma of head and neck - Primary Rele[facility] Other Visit Diagnoses Chronic hyponatremia RECOMMENDATIONS and PLAN: I reviewed CT chest from 05/19/2024, and compared it again 02/24/2024, 12/27/2023, and 09/27/23 with patient and his family today. There is new finding of a more consolidative process in the right lower lobe, with direct extension/involvement of right middle lobe. This is new compared to prior imaging. Clinically, he has had an increase in cough but is otherwise asymptomatic. I reviewed with him the differential for these findings, with high suspicion for inflammation due to IO related pneumonitis. Other possible etiologies include atypical infections, other organizing pneumonia, recurrence of cancer, other. We will review his imaging at our next lung tumor board, with tentative plan to proceed with bronchoscopy for further diagnostic certainty. I will hold on initiation of steroid until bronchoscopy can be completed, hopefully within the next 1 to 2 weeks. We will reconnect after bronchoscopy results, to proceed with further management. Tentatively plan for repeat CT chest in approximately 6 weeks, with return to clinic in person at that time. Jessica Ambrose MD [employer] Supervisor Fred Domínguez M.D. Endowed Professor in Hematology Chief of Hematology/Oncology Tire Room Supervisor, Hematology and Medical Oncology Fellowship Hematology/Oncology. Internal Medicine. [facility]. [facility]. Clinic: [phone] Office: [phone] SUBJECTIVE: Interval History: 05/24/2024 Osbaldo León presents to the clinic today to review recent CT chest. Since her last visit, he and his both noticed he has had an increase in cough, over the preceding 4 to 6 weeks. He is coughing while he is asleep, and having different episodes of cough which is nonproductive. He has no sick contacts. No fevers or chills, no nausea or vomiting, no change in bowel or bladder habits. He does not endorse any shortness of breath or dyspnea on exertion. He is checking his oxygen saturation, which is consistently running in the 96 to 97% range at home. His energy level is good and stable, his appetite is improved and he has no limitations on his activities of daily living. Oncology History Overview Note Osbaldo León is a gentleman with 2 meta-synchronous cancers diagnosed in 2021: Prostate Cancer: pT3a(R1)N0, dx August 2021 s/p radical prostatectomy and bilateral extended pelvis lymphadenectomy. [facility] 7 (3+4). 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 During this time, he lost about 20 pounds and at time of diagnosis, able to eat semi-solid and soft foods. PMHx: Prostate Cancer. HPL. Surgical Hx: Prostatectomy 2021. Social Hx: Lifelong nonsmoker. Occasional EtOH. Occasional exercise. Lee work (more content not included)... Normal [facility] CT CHEST W IV CONTRASTon CT CHEST W IV CONTRAST CT CHEST W IV CON TRAST 05/19/2024 3:25 PM CLINICAL INDICATIONS: Pneumonitis, squamous cell carcinoma of head and neck, follow-up. TECHNIQUE: Multidetector CT axial slices of the chest were obtained with IV contrast. Sagittal and coronal 2-D reformatting performed. All CT scans at this facility use dose modulation, iterative reconstruction, and/or weight based dosing when appropriate to reduce radiation dose to as low as reasonably achievable. COMPARISON: 02/24/2024. FINDINGS: Interval development of confluent, ill-defined peripheral airspace disease in the mid to inferior, peripheral left lower lobe and adjacent anterior, inferior left lower lobe. No significant change in the ill-defined nodular airspace opacity in the inferior right lower lobe axial image 279 series 5. However, there is new adjacent ill-defined airspace disease in the right lower lobe, as well as development of ill-defined multifocal airspace opacities in the inferolateral right lower lobe and persistent bandlike opacity in the inferolateral right lower lobe and superior right lower lobe. Stable ill-defined lateral right lower lobe groundglass opacity. Additional multifocal groundglass opacities throughout both lungs have otherwise improved. Severe coronary artery calcification. No pleural or pericardial effusion. No pneumothorax. No new or enlarging pulmonary nodule. No new or enlarging mediastinal, hilar, or axillary lymph nodes. No suspicious osseous lesion. IMPRESSION: 1. Multifocal pneumonitis, new confluent peripheral left upper lobe airspace opacities and new airspace disease in the right lower lobe. Ill-defined nodular airspace opacity in the inferior right lower lobe appears similar to the prior study. A malignant process in this region is not excluded and continued follow-up is advised per oncology guidelines. 2. Bandlike opacities in the right lower lobe are not significantly changed. Multifocal groundglass opacities throughout both lungs have improved. 3. Severe coronary artery calcifications. Electronically signed: Gen Jordan. Not Vldtd Invalid Interpretation Code [facility] CBC WITH AUTO DIFFERENTIALon 02-24-2024 Basophils (Bld) [#/Vol] 0.06 10*3/uL Normal 0.00-0.20 [facility] Comment on above: Performed By: #### L [id number] #### [facility] (BEAKER) [address] [place] [address] Basophils/100 WBC (Bld) 1.1 % High 0.0-1.0 [facility] Comment on above: Performed By: #### L [id number] #### [facility] (AKER) [address] [place] [address] Eosinophils (Bld) [#/Vol] 0.21 10*3/uL Normal 0.00-0.50 [facility] Comment on above: Performed By: #### L [id number] #### [facility] ([facility]) [address] [place] [address] Eosinophils/100 WBC (Bld) 3.9 % Normal 0.0-6.0 [facility] Comment on above: Performed By: #### L [id number] #### [facility] ([facility]) [address] [place] [address] Erythrocyte distribution width (RBC) [Ratio] 13.5 % Normal 11.5-15.0 [facility] Comment on above: Performed By: #### L [id number] #### [facility] [address] [place] [address] ERYTHROCYTE MEAN CORPUSCULAR HEMOGLOBIN CONCENTRATION (G/DL) BY AUTOMATED 34.4 g/dL Normal 32.0-35.0 [facility] Comment on above: Performed By: #### L [id number] #### [facility] (BEAKER) [address] [place] [address] Hematocrit (Bld) [Volume fraction] 31.4 % Low 39.0-55.0 [facility] Comment on above: Performed By: #### L [id number] #### [facility] (BEAKER) [address] [place] [address] Hemoglobin (Bld) [Mass/Vol] 10.8 g/dL Low 13.0-17.0 [facility] Comment on above: Performed By: #### L [id number] #### [facility] (BEAKER) [address] [place] [address] Immature granulocytes (Bld) [#/Vol] 0.03 10*3/uL Normal 0.00-0.20 [facility] Comment on above: Performed By: #### L [id number] #### [facility] (BEAKER) [address] [place] [address] Immature granulocytes/100 WBC (Bld) 0.6 % Normal 0.0-1.0 [facility] Comment on above: Performed By: #### L [id number] #### [facility] (BEAKER) [address] [place] [address] Lymphocytes (Bld) [#/Vol] 0.77 10*3/uL Low 1.20-4.00 [facility] Comment on above: Performed By: #### L [id number] #### [facility] (BEAKER) [address] [place] [address] Lymphocytes/100 WBC (Bld) 14.3 % Low 20.0-45.0 [facility] Comment on above: Performed By: #### L [id number] #### [facility] ([facility]) [address] [place] [address] MCH (RBC) [Entitic mass] 29.9 pg Normal 27.0-33.0 [facility] Comment on above: Performed By: #### L [id number] #### [facility] ([facility]) [address] [place] [address] MCV (RBC) [Entitic vol] 87.0 fL Normal 82.0-98.0 [facility] Comment on above: Performed By: #### L [id number] #### [facility] ([facility]) [address] [place] [address] Monocytes (Bld) [#/Vol] 0.88 10*3/uL Normal 0.10-1.00 [facility] Comment on above: Performed By: #### L [id number] #### [facility] ([facility]) [address] [place] [address] Monocytes/100 WBC (Bld) 16.3 % High 5.0-12.0 [facility] Comment on above: Performed By: #### L [id number] #### [facility] ([facility]) [address] [place] [address] Neutrophils (Bld) [#/Vol] 3.45 10*3/uL Normal 1.60-7.60 [facility] Comment on above: Performed By: #### L [id number] #### [facility] ([facility]) [address] [place] [address] Neutrophils/100 WBC (Bld) 63.8 % Normal 40.0-72.0 [facility] Comment on above: Performed By: #### L [id number] #### [facility] [address] [place] [address] NRBC (PER 100 WBCS) BY AUTOMATED COUNT 0.0 % Normal 0 [facility] Comment on above: Performed By: #### L [id number] #### [facility] ([facility]) [address] [place] [address] PLATELETS (10*3/UL) IN BLOOD AUTOMATED COUNT 245 10*3/uL Normal 150-400 [facility] Comment on above: Performed By: #### L [id number] #### [facility] ([facility]) [address] [place] [address] RBC (Bld) [#/Vol] 3.61 10*6/uL Low 4.20-5.70 [facility] Comment on above: Performed By: #### L [id number] #### [facility] ([facility]) [address] [place] [address] WBC (Bld) [#/Vol] 5.40 10*3/uL Normal 4.00-10.60 [facility] Comment on above: Performed By: #### L [id number] #### [facility] ([facility]) [address] [place] [address] COMPREHENSIVE METABOLIC PANE Yahir 02-24-2024 Albumin [Mass/Vol] 3.7 g/dL Normal 3.5-5.[address] [facility] Comment on above: Performed By: #### L [id number] #### [facility] ([facility]) [address] [place] [address] ALP [Catalytic activity/Vol] 54 U/L Normal 34-104 [facility] Comment on above: Performed By: #### L [id number] #### [facility] ([facility]) [address] [place] [address] ALT [Catalytic activity/Vol] 20 U/L Normal 7-52 [facility] Comment on above: Performed By: #### L [id number] #### [facility] ([facility]) [address] [place] [address] Anion gap [Moles/Vol] 10 mmol/L Normal 7-20 [facility] Comment on above: Performed By: #### L [id number] #### [facility] (BEAKER) [address] [place] [address] AST [Catalytic activity/Vol] 25 U/L Normal 13-39 [facility] Comment on above: Performed By: #### L [id number] #### [facility] (BEAKER) [address] [place] [address] Bilirubin [Mass/Vol] 0.5 mg/dL Normal 0.3-1.0 [facility] Comment on above: Performed By: #### L [id number] #### [facility] (BEAKER) [address] [place] [address] Calcium [Mass/Vol] 8.6 mg/dL Normal 8.6-10.[address] [facility] Comment on above: Performed By: #### L [id number] #### [facility] [address] [place] [address] Chloride [Moles/Vol] 94 mmol/L Low 98-107 [facility] Comment on above: Performed By: #### L [id number] #### [facility] (BEAKER) [address] [place] [address] CO2 [Moles/Vol] 26 mmol/L Normal 21-31 [facility] Comment on above: Performed By: #### L [id number] #### [facility] (BEAKER) [address] [place] [address] Creatinine [Mass/Vol] 0.91 mg/dL Normal 0.70-1.30 [facility] Comment on above: Performed By: #### L [id number] #### [facility] (BEAKER) [address] [place] [address] GLOMERULAR FILTRATION RATE ML/MIN/1.73 SQ M.PREDICTED 93.5 mL/min/1.73m*2 Normal >60.0 [facility] Comment on above: Result Comment: The [facility]???s estimated glomerular filtration rate (eGFR) will no [...] group of individuals. Performed By: #### L [id number] #### [facility] ([facility]) [address] [place] [address] Glucose [Mass/Vol] 87 mg/dL Normal 70-[address] [facility] Comment on above: Performed By: #### L [id number] #### [facility] ([facility]) [address] [place] [address] Potassium [Moles/Vol] 3.9 mmol/L Normal 3.5-5.1 [facility] Comment on above: Performed By: #### L [id number] #### [facility] ([facility]) [address] [place] [address] Protein [Mass/Vol] 5.8 g/dL Low 6.0-8.[address] [facility] Comment on above: Performed By: #### L [id number] #### [facility] ([facility]) [address] [place] [address] Sodium [Moles/Vol] 126 mmol/L Low 136-[address] [facility] Comment on above: Performed By: #### L [id number] #### [facility] ([facility]) [address] [place] [address] Urea nitrogen [Mass/Vol] 8 mg/dL Normal 7-25 [facility] Comment on above: Performed By: #### L [id number] #### [facility] ([facility]) [address] [place] [address] UREA NITROGEN/CREATININE (MASS RATIO) IN SER/PLAS 8.8 Normal [facility] Comment on above: Performed By: #### L [id number] #### [facility] ([facility]) [address] [place] [address] CT CHEST W IV CONTRASTon CT CHEST W IV CONTRAST CT CHEST WITH CON TRAST HISTORY: Pneumonitis COMPARISON: 12/27/2023 TECHNIQUE: Routine CT chest with contrast. All CT scans at this facility use dose modulation, iterative reconstruction, and/or weight based dosing when appropriate to reduce radiation dose to as low as reasonably achievable. FINDINGS: Multifocal airspace opacities have decreased in density since previous study, now mostly groundglass appearance. No new pulmonary abnormalities. No bronchiectasis. Visualized structures in the lower neck are unremarkable. Right chest port in place. Normal heart size. Visualized structures in the upper abdomen are unremarkable. No pleural or pericardial effusions. The thoracic aorta is unremarkable. Coronary artery calcifications. The central pulmonary arteries are unremarkable. No enlarged thoracic lymph nodes. No acute osseous abnormalities or aggressive osseous lesions. IMPRESSION: *Multifocal parenchymal opacities have decreased in density since previous study most of which are now groundglass in appearance. No new pulmonary abnormalities. Overall findings compatible with improving multifocal nonspecific pneumonitis. Electronically signed: Vinicio Das MD. Not Vldtd Invalid Interpretation Code [facility] Labon 02-24-2024 Lab [id number] Osbaldo León 1960 M Date Provider Department [place] 02/24/2024 2243-[facility] RESOURCE [facility] DRAW DCC Family History Problem Relation Age of Onset Leukemia Mother Cancer Mother Heart attack Father 65 Comments: massive HI Family Status - Relation Status Age at Mother Father Normal [facility] T3, FREEon 02-24-2024 TRIIODOTHYRONINE (T3) FREE (PG/ML) IN SER/PLAS 3.5 pg/mL Normal 2.5-3.9 [facility] Comment on above: Performed By: #### L [id number] #### [facility] (BEAKER) [address] [place] [address] T4, FREEon 02-24-2024 THYROXINE (T4) FREE (NG/DL) IN SER/PLAS 0.77 ng/dL Normal 0.71-1.85 [facility] Comment on above: Performed By: #### L [id number] #### [facility] (BEAKER) [address] [place] [address] TSHon 02-24-2024 THYROTROPIN (MIU/L) IN SER/PLAS BY DETECTION LIMIT <= 0.05 MIU/L 2.19 mIU/L Normal 0.34-5.60 [facility] Comment on above: Performed By: #### L [id number] #### [facility] (BEAKER) [address] [place] [address] Follow-Upon 01-18-2024 Follow-Up [id number] Osbaldo León Do 1960 [facility] Provider Department Center 01/18/2024 397-MATEUSZ CONROY ONC DCC Family History Problem Relation Age of Onset Leukemia Mother Cancer Mother Heart attack Father 65 Comments: massive HI Family Status - Relation Status Age at Mother Father Level of Service:[id number] CT OFFICE/OUTPATIENT ESTABLISHED SF MDM 10 MIN Reason for Visit and Comments: Follow-up [[id number]] - 4 month F/U - review PSA results. Normal [facility] 37on 01-13-2024 37 Wednesday01/16/2024 --50 mg x 5days --> 40mg x 5 days--> 30mg x 5 days--> 20mg x 5 days--> 10mg x 3 days, then every other for 2 days then stop. Should be done 02/11/2024. Normal [facility] Office Visiton 01-11-2024 Follow-up visit [id number] Osbaldo León Do 1960 M Date Provider Department Center 01/11/2024 166-CORTEZ MORRIS MICHAEL [facility] Family History Problem Relation Age of Onset Leukemia Mother Cancer Mother Heart attack Father 65 Comments: massive HI Family Status - Relation Status Age at Mother Father Level of Service:66258 CT OFFICE/OUTPATIENT ESTABLISHED LOW MDM 20 MIN Reason for Visit and Comments: Coronary Artery Disease [187] Hyperlipidemia [182] Normal [facility] CBC WITH AUTO DIFFERENTIALon 12-27-2023 Basophils (Bld) [#/Vol] 0.06 10*3/uL Normal 0.00-0.20 [facility] Comment on above: Performed By: #### L [id number] #### [facility] (BEAKER) [address] [place] [address] Basophils/100 WBC (Bld) 0.8 % Normal 0.0-1.0 [facility] Comment on above: Performed By: #### L [id number] #### [facility] (BEAKER) [address] [place] [address] Eosinophils (Bld) [#/Vol] 0.72 10*3/uL High 0.00-0.50 [facility] Comment on above: Performed By: #### L [id number] #### [facility] [address] [place] [address] Eosinophils/100 WBC (Bld) 9.6 % High 0.0-6.0 [facility] Comment on above: Performed By: #### L [id number] #### [facility] ([facility]) [address] [place] [address] Erythrocyte distribution width (RBC) [Ratio] 12.3 % Normal 11.5-15.0 [facility] Comment on above: Performed By: #### L [id number] #### [facility] ([facility]) [address] [address] ERYTHROCYTE MEAN CORPUSCULAR HEMOGLOBIN CONCENTRATION (G/DL) BY AUTOMATED 34.5 g/dL Normal 32.0-35.0 [facility] Comment on above: Performed By: #### L [id number] #### [facility] ([facility]) [address] [place] [address] Hematocrit (Bld) [Volume fraction] 33.6 % Low 39.0-55.0 [facility] Comment on above: Performed By: #### L [id number] #### [facility] [address] [place] [address] Hemoglobin (Bld) [Mass/Vol] 11.6 g/dL Low 13.0-17.0 [facility] Comment on above: Performed By: #### L [id number] #### [facility] ([facility]) [address] [place] [address] Immature granulocytes (Bld) [#/Vol] 0.02 10*3/uL Normal 0.00-0.20 [facility] Comment on above: Performed By: #### L [id number] #### [facility] [address] [place] [address] Immature granulocytes/100 WBC (Bld) 0.3 % Normal 0.0-1.0 [facility] Comment on above: Performed By: #### L [id number] #### [facility] ([facility]) [address] [place] [address] Lymphocytes (Bld) [#/Vol] 0.70 10*3/uL Low 1.20-4.00 [facility] Comment on above: Performed By: #### L [id number] #### [facility] ([facility]) [address] [place] [address] Lymphocytes/100 WBC (Bld) 9.3 % Low 20.0-45.0 [facility] Comment on above: Performed By: #### L [id number] #### [facility] ([facility]) [address] [place] [address] MCH (RBC) [Entitic mass] 30.5 pg Normal 27.0-33.0 [facility] Comment on above: Performed By: #### L [id number] #### [facility] [address] [place] [address] MCV (RBC) [Entitic vol] 88.4 fL Normal 82.0-98.0 [facility] Comment on above: Performed By: #### L [id number] #### [facility] [address] [place] [address] Monocytes (Bld) [#/Vol] 0.85 10*3/uL Normal 0.10-1.00 [facility] Comment on above: Performed By: #### L [id number] #### [facility] (BEAKER) [address] [place] [address] Monocytes/100 WBC (Bld) 11.3 % Normal 5.0-12.0 [facility] Comment on above: Performed By: #### L [id number] #### [facility] ([facility]) [address] [place] [address] Neutrophils (Bld) [#/Vol] 5.18 10*3/uL Normal 1.60-7.60 [facility] Comment on above: Performed By: #### L [id number] #### [facility] ([facility]) [address] [place] [address] Neutrophils/100 WBC (Bld) 68.7 % Normal 40.0-72.0 [facility] Comment on above: Performed By: #### L [id number] #### [facility] ([facility]) [address] [place] [address] NRBC (PER 100 WBCS) BY AUTOMATED COUNT 0.0 % Normal 0 [facility] Comment on above: Performed By: #### L [id number] #### [facility] ([facility]) [address] [place] [address] PLATELETS (10*3/UL) IN BLOOD AUTOMATED COUNT 328 10*3/uL Normal 150-400 [facility] Comment on above: Performed By: #### L [id number] #### [facility] ([facility]) [address] [place] [address] RBC (Bld) [#/Vol] 3.80 10*6/uL Low 4.20-5.70 [facility] Comment on above: Performed By: #### L [id number] #### [facility] ([facility]) [address] [place] [address] WBC (Bld) [#/Vol] 7.53 10*3/uL Normal 4.00-10.60 [facility] Comment on above: Performed By: #### L [id number] #### [facility] ([facility]) [address] [place] [address] COMPREHENSIVE METABOLIC PANE Yahir 12-27-2023 Albumin [Mass/Vol] 4.1 g/dL Normal 3.5-5.[address] [facility] Comment on above: Performed By: #### L [id number] ####[facility] ([facility])[address] [place] [address] ALP [Catalytic activity/Vol] 110 U/L High 34-104 [facility] Comment on above: Performed By: #### L [id number] ####[facility] (BEAKER)[address] [place] [address] ALT [Catalytic activity/Vol] 14 U/L Normal 7-52 [facility] Comment on above: Performed By: #### L [id number] ####[facility] (BEAKER)[address] [place] [address] Anion gap [Moles/Vol] 12 mmol/L Normal 7-20 [facility] Comment on above: Performed By: #### L [id number] ####[facility] (BEAKER)[address] [place] [address] AST [Catalytic activity/Vol] 21 U/L Normal 13-39 [facility] Comment on above: Performed By: #### L [id number] ####[facility] (BEAKER)[address] [place] [address] Bilirubin [Mass/Vol] 0.6 mg/dL Normal 0.3-1.0 [facility] Comment on above: Performed By: #### L [id number] ####[facility] (BEAKER)[address] [place] [address] Calcium [Mass/Vol] 9.0 mg/dL Normal 8.6-10.[address] [facility] Comment on above: Performed By: #### L [id number] ####[facility] ([facility]ER)[address] [place] [address] Chloride [Moles/Vol] 93 mmol/L Low 98-107 [facility] Comment on above: Performed By: #### L [id number] ####[facility] (BEAKER)[address] [place] [address] CO2 [Moles/Vol] 27 mmol/L Normal 21-31 [facility] Comment on above: Performed By: #### L [id number] ####[facility] ([facility])[address] [place] [address] Creatinine [Mass/Vol] 0.78 mg/dL Normal 0.70-1.30 [facility] Comment on above: Performed By: #### L [id number] ####[facility] ([facility])[address] [place] [address] GLOMERULAR FILTRATION RATE ML/MIN/1.73 SQ M.PREDICTED 99.0 mL/min/1.73m*2 Normal >60.0 [facility] Comment on above: Result Comment: The [facility]???s estimated glomerular filtration rate (eGFR) will no [...] of individuals. Performed By: #### L [id number] ####[facility] ([facility])[address] [place] [address] Glucose [Mass/Vol] 107 mg/dL High 70-[address] [facility] Comment on above: Performed By: #### L [id number] ####[facility] ([facility])[address] [place] [address] Potassium [Moles/Vol] 4.5 mmol/L Normal 3.5-5.1 [facility] Comment on above: Performed By: #### L [id number] ####[facility] ([facility])[address] [place] [address] Protein [Mass/Vol] 5.9 g/dL Low 6.0-8.[address] [facility] Comment on above: Performed By: #### L [id number] ####[facility] [facility] [place] [address] Sodium [Moles/Vol] 127 mmol/L Low 136-145 [facility] Comment on above: Performed By: #### L [id number] ####[facility] ([facility])[address] [place] [address] Urea nitrogen [Mass/Vol] 12 mg/dL Normal 7-25 [facility] Comment on above: Performed By: #### L [id number] ####[facility] ([facility])[address] [place] [address] UREA NITROGEN/CREATININE (MASS RATIO) IN SER/PLAS 15.4 Normal [facility] Comment on above: Performed By: #### L [id number] ####[facility] ([facility])[address] [place] [address] CORTISOLon 12-27-2023 CORTISOL (UG/DL) IN SER/PLAS 9.0 ug/dL Normal 6-23 [facility] Comment on above: Performed By: #### L [id number] ####[facility] ([facility])[address] [place] [address] CT CHEST W IV CONTRASTon CT CHEST W IV CONTRAST CLINICAL HISTORY: Squamous cell carcinoma of the head and neck. COMPARISON: CT chest, 09/27/2023 TECHNIQUE: CT chest was performed following the uneventful administration of nonionic intravenous contrast. Coronal and sagittal reformatted images were obtained and reviewed. Automated exposure control was utilized. FINDINGS: LUNG/PLEURA: Trachea is clear. Significant interval worsening of multifocal and part solid opacities throughout both lungs. This includes, for example, part solid 2.3 cm opacity within the lingula (190/451). Similar-appearing confluent opacity within the right lung base. Mild interstitial edema. Focal consolidation. No pneumothorax. No significant effusion. HEART and GREAT VESSELS: Heart is normal in size. Moderate coronary calcification. Normal caliber pulmonary artery. MEDIASTINUM and LYMPH NODES: No enlarged axillary lymph nodes. Nonenlarged mediastinal and hilar lymph nodes appear similar to prior. Esophagus is nondilated. UPPER ABDOMEN: Included liver, pancreas, kidneys, adrenals, spleen demonstrate no acute abnormality. MUSCULOSKELETAL AND LOWER NECK No acute osseous abnormality. Multiple degenerative changes of the thoracic spine. Degenerative changes shoulders. Normal thyroid morphology. Right chest wall MediPort, its tip at the cavoatrial junction. IMPRESSION: Worsening multifocal groundglass and part-solid solid pulmonary opacities. Findings are nonspecific, can be seen with treatment related pneumonitis and/or atypical/viral infection. Difficult to exclude any underlying metastatic disease. Additional findings as above. All CT scans at this facility use dose modulation, iterative reconstruction, and/or weight based dosing when appropriate to reduce radiation dose to as low as reasonably achievable. Electronically signed: JONATHAN FLORES. Not Vldtd Invalid Interpretation Code [facility] HEMOGLOBIN A1Con 12-27-2023 Glucose [Mass/Vol] 114 mg/dL Normal [facility] Comment on above: Performed By: #### L [id number] #### [facility] (BEAKER) [address] [place] [address] HbA1c (Bld) [Mass fraction] 5.6 % Normal 4.0-6.0 [facility] Comment on above: Performed By: #### L [id number] #### [facility] (BEAKER) [address] [place] [address] Labon 12-27-2023 Lab [id number] Osbaldo León 1960 M Date Provider Department [place] 12/27/2023 2243-[facility] RESOURCE [facility] DRAW [facility] Family History Problem Relation Age of Onset Leukemia Mother Cancer Mother Heart attack Father 65 Comments: massive [place] Family Status - Relation Status Age at Mother Father Normal [facility] PSA, DIAGNOSTICon 12-27-2023 PROSTATE SPECIFIC AG (NG/ML) IN SER/PLAS <0.1 Low 0.4-4 [facility] Comment on above: Order Comment: To be collected in 01/2024. Performed By: #### L [id number] #### [facility] (BEAKER) [address] [place] [address] T3, FREEon 12-27-2023 TRIIODOTHYRONINE (T3) FREE (PG/ML) IN SER/PLAS 3.8 pg/mL Normal 2.5-3.9 [facility] Comment on above: Performed By: #### L [id number] #### [facility] ([facility]) [address] [place] [address] T4, FREEon 12-27-2023 THYROXINE (T4) FREE (NG/DL) IN SER/PLAS 0.72 ng/dL Normal 0.71-1.85 [facility] Comment on above: Performed By: #### L [id number] ####[facility] ([facility])[address] [place] [address] TSHon 12-27-2023 THYROTROPIN (MIU/L) IN SER/PLAS BY DETECTION LIMIT <= 0.05 MIU/L 1.79 mIU/L Normal 0.34-5.60 [facility] Comment on above: Performed By: #### L [id number] ####[facility] ([facility])[address] [place] [address] Orders Onlyon 12-10-2023 Orders Only [id number] Shupp,Osbaldo R 1960 M Date Provider Department Center 12/10/2023 BOBBY PERSAUD [facility] INF [facility] Family History Problem Relation Age of Onset Leukemia Mother Cancer Mother Heart attack Father 65 Comments: massive HI Family Status - Relation Status Age at Mother Father Normal [facility] Orders Only [id number] Shupp,Osbaldo R 1960 M Date Provider Department Center 12/10/2023 JESSICA LEE [facility] ONC [facility] Family History Problem Relation Age of Onset Leukemia Mother Cancer Mother Heart attack Father 65 Comments: massive HI Family Status - Relation Status Age at Mother Father Normal [facility] Orders Onlyon 11-22-2023 Orders Only [id number] Shupp,Osbaldo R 1960 M Date Provider Department Center 11/22/2023 292JESSICA ARCHER [facility] ONC [facility] Family History Problem Relation Age of Onset Leukemia Mother Cancer Mother Heart attack Father 65 Comments: massive HI Family Status - Relation Status Age at Mother Father Normal [facility] 29on 11-19-2023 29 Addended by: NIKUNJ DYE on: 12/09/2023 04:04 PM Modules accepted: Orders Normal [facility] 37on 11-19-2023 37 Cortisol level in th e morning upon waking Keep close track of cough and any shortness of breath, Call if changes/worsens Normal [facility] Infusionon 11-19-2023 Infusion [id number] Osbaldo León 1960 M Date Provider Department Center 11/19/2023 2275-[facility] CHAIR 4 DCC INF DCC Family History Problem Relation Age of Onset Leukemia Mother Cancer Mother Heart attack Father 65 Comments: massive HI Family Status - Relation Status Age at Mother Father Normal [facility] Orders Onlyon 11-19-2023 Orders Only [id number] Osbaldo León 1960 M Date Provider Department Center 11/19/2023 JESSICA LEE ONC ANNIE Family History Problem Relation Age of Onset Leukemia Mother Cancer Mother Heart attack Father 65 Comments: massive HI Family Status - Relation Status Age at Mother Father Normal [facility] Consulton 11-05-2023 Consult [id number] Osbaldo León 1960 [facility] Provider Department Center 11/05/[id number][facility] Comprehensiv Family History Problem Relation Age of Onset Leukemia Mother Cancer Mother Heart attack Father 65 Comments: massive HI Family Status - Relation Status Age at Mother Father Level of Service:[address] CT INITIAL PREVENTIVE MEDICINE NEW PATIENT 65YRS&> Reason for Visit and Comments: Establish Care [42] Normal [facility] Orders Onlyon 10-29-2023 Orders Only [id number] Osbaldo León 1960 Date Provider Department Center 10/29/2023 JESSICA LEE ONC ANNIE Family History Problem Relation Age of Onset Leukemia Mother Cancer Mother Heart attack Father 65 Comments: massive HI Family Status - Relation Status Age at Mother Father Normal [facility] Orders Onlyon 10-28-2023 Orders Only [id number] Osbaldo León 1960 M Date Provider Department Center 10/28/2023 SALO [place] INF DCC Family History Problem Relation Age of Onset Leukemia Mother Cancer Mother Heart attack Father 65 Comments: massive HI Family Status - Relation Status Age at Mother Father Normal [facility] Orders Only [id number] Osbaldo León 1960 M Date Provider Department Center 10/28/2023 BOBBY PERSAUD INF DCC Family History Problem Relation Age of Onset Leukemia Mother Cancer Mother Heart attack Father 65 Comments: massive HI Family Status - Relation Status Age at Mother Father Normal [facility] CBC WITH AUTO DIFFERENTIALon 10-07-2023 Basophils (Bld) [#/Vol] 0.07 10*3/uL Normal 0.00-0.20 [facility] Comment on above: Performed By: #### L [id number] #### [facility] (BEAKER) [address] [place] [address] Basophils/100 WBC (Bld) 0.9 % Normal 0.0-1.0 [facility] Comment on above: Performed By: #### L [id number] #### [facility] ([facility]ER) [address] [place] [address] Eosinophils (Bld) [#/Vol] 0.28 10*3/uL Normal 0.00-0.50 [facility] Comment on above: Performed By: #### L [id number] #### [facility] (BEAKER) [address] [place] [address] Eosinophils/100 WBC (Bld) 3.5 % Normal 0.0-6.0 [facility] Comment on above: Performed By: #### L [id number] #### [facility] (BEAKER) [address] [place] [address] Erythrocyte distribution width (RBC) [Ratio] 13.2 % Normal 11.5-15.0 [facility] Comment on above: Performed By: #### L [id number] #### [facility] (BEAKER) [address] [place] [address] ERYTHROCYTE MEAN CORPUSCULAR HEMOGLOBIN CONCENTRATION (G/DL) BY AUTOMATED 36.4 g/dL High 32.0-35.0 [facility] Comment on above: Performed By: #### L [id number] #### [facility] ([facility]ER) [address] [place] [address] Hematocrit (Bld) [Volume fraction] 31.3 % Low 39.0-55.0 [facility] Comment on above: Performed By: #### L [id number] #### [facility] ([facility]) [address] [place] [address] Hemoglobin (Bld) [Mass/Vol] 11.4 g/dL Low 13.0-17.0 [facility] Comment on above: Performed By: #### L [id number] #### [facility] ([facility]) [address] [address] Immature granulocytes (Bld) [#/Vol] 0.05 10*3/uL Normal 0.00-0.20 [facility] Comment on above: Performed By: #### L [id number] #### [facility] ([facility]) [address] [address] Immature granulocytes/100 WBC (Bld) 0.6 % Normal 0.0-1.0 [facility] Comment on above: Performed By: #### L [id number] #### [facility] ([facility]) [address] [place] [address] Lymphocytes (Bld) [#/Vol] 0.93 10*3/uL Low 1.20-4.00 [facility] Comment on above: Performed By: #### L [id number] #### [facility] ([facility]) [address] [place] [address] Lymphocytes/100 WBC (Bld) 11.6 % Low 20.0-45.0 [facility] Comment on above: Performed By: #### L [id number] #### [facility] ([facility]) [address] [place] [address] MCH (RBC) [Entitic mass] 31.2 pg Normal 27.0-33.0 [facility] Comment on above: Performed By: #### L [id number] #### [facility] (BEAKER) [address] [place] [address] MCV (RBC) [Entitic vol] 85.8 fL Normal 82.0-98.0 [facility] Comment on above: Performed By: #### L [id number] #### [facility] [address] [place] [address] Monocytes (Bld) [#/Vol] 1.28 10*3/uL High 0.10-1.00 [facility] Comment on above: Performed By: #### L [id number] #### [facility] ([facility]) [address] [place] [address] Monocytes/100 WBC (Bld) 16.0 % High 5.0-12.0 [facility] Comment on above: Performed By: #### L [id number] #### [facility] ([facility]) [address] [place] [address] Neutrophils (Bld) [#/Vol] 5.40 10*3/uL Normal 1.60-7.60 [facility] Comment on above: Performed By: #### L [id number] #### [facility] ([facility]) [address] [place] [address] Neutrophils/100 WBC (Bld) 67.4 % Normal 40.0-72.0 [facility] Comment on above: Performed By: #### L [id number] #### [facility] ([facility]) [address] [place] [address] NRBC (PER 100 WBCS) BY AUTOMATED COUNT 0.0 % Normal 0 [facility] Comment on above: Performed By: #### L [id number] #### [facility] [address] [place] [address] PLATELETS (10*3/UL) IN BLOOD AUTOMATED COUNT 316 10*3/uL Normal 150-400 [facility] Comment on above: Performed By: #### L [id number] #### [facility] [address] [place] [address] RBC (Bld) [#/Vol] 3.65 10*6/uL Low 4.20-5.70 [facility] Comment on above: Performed By: #### L [id number] #### [facility] ([facility]) [address] [place] [address] WBC (Bld) [#/Vol] 8.01 10*3/uL Normal 4.00-10.60 [facility] Comment on above: Performed By: #### L [id number] #### [facility] [address] [place] [address] COMPREHENSIVE METABOLIC PANE Yahir 10-07-2023 Albumin [Mass/Vol] 4.2 g/dL Normal 3.5-5.[address] [facility] Comment on above: Performed By: #### L [id number] ####[facility] [place] [address] ALP [Catalytic activity/Vol] 73 U/L Normal 34-104 [facility] Comment on above: Performed By: #### L [id number] ####[facility] [place] [address] ALT [Catalytic activity/Vol] 17 U/L Normal 7-52 [facility] Comment on above: Performed By: #### L [id number] ####[facility] [place] [address] Anion gap [Moles/Vol] 10 mmol/L Normal 7-20 [facility] Comment on above: Performed By: #### L [id number] ####[facility] [place] [address] AST [Catalytic activity/Vol] 21 U/L Normal 13-39 [facility] Comment on above: Performed By: #### L [id number] ####[facility] [place] [address] Bilirubin [Mass/Vol] 0.5 mg/dL Normal 0.3-1.0 [facility] Comment on above: Performed By: #### L [id number] ####[facility] (BEAKER)[address] [place] [address] Calcium [Mass/Vol] 9.3 mg/dL Normal 8.6-10.[address] [facility] Comment on above: Performed By: #### L [id number] ####[facility] [place] [address] Chloride [Moles/Vol] 92 mmol/L Low 98-107 [facility] Comment on above: Performed By: #### L [id number] ####[facility] ([facility])[address] [place] [address] CO2 [Moles/Vol] 26 mmol/L Normal 21-31 [facility] Comment on above: Performed By: #### L [id number] ####[facility] ([facility])[address] [place] [address] Creatinine [Mass/Vol] 0.84 mg/dL Normal 0.70-1.30 [facility] Comment on above: Performed By: #### L [id number] ####[facility] ([facility])[address] [place] [address] GLOMERULAR FILTRATION RATE ML/MIN/1.73 SQ M.PREDICTED 96.8 mL/min/1.73m*2 Normal >60.0 [facility] Comment on above: Result Comment: [facility]???s estimated glomerular filtration rate (eGFR) will no [...] of individuals. Performed By: #### L [id number] ####[facility] [place] [address] Glucose [Mass/Vol] 88 mg/dL Normal 70-[address] [facility] Comment on above: Performed By: #### L [id number] ####[facility] (BEAKER)[address] [place] [address] Potassium [Moles/Vol] 4.0 mmol/L Normal 3.5-5.1 [facility] Comment on above: Performed By: #### L [id number] ####[facility] (BEAKER)[address] [place] [address] Protein [Mass/Vol] 6.8 g/dL Normal 6.0-8.[address] [facility] Comment on above: Performed By: #### L [id number] ####[facility] (BEAKER)[address] [place] [address] Sodium [Moles/Vol] 124 mmol/L Invalid Interpretation Code 136-145 [facility] Comment on above: Performed By: #### L [id number] ####[facility] (BEAKER)[address] [place] [address] Urea nitrogen [Mass/Vol] 9 mg/dL Normal 7-25 [facility] Comment on above: Performed By: #### L [id number] ####[facility] (BEAKER)[address] [place] [address] UREA NITROGEN/CREATININE (MASS RATIO) IN SER/PLAS 10.7 Normal [facility] Comment on above: Performed By: #### L [id number] ####[facility] (BEAKER)[address] [place] [address] Labon 10-07-2023 Lab [id number] Osbaldo León 1960 M Date Provider Department [place] 10/07/2023 2243-[facility] RESOURCE DCC DRAW DCC Family History Problem Relation Age of Onset Leukemia Mother Cancer Mother Heart attack Father 65 Comments: massive HI Family Status - Relation Status Age at Mother Father Normal [facility] T3, FREEon 10-07-2023 TRIIODOTHYRONINE (T3) FREE (PG/ML) IN SER/PLAS 3.2 pg/mL Normal 2.5-3.9 [facility] Comment on above: Performed By: #### L [id number] #### [facility] (BEAKER) [address] [place] [address] T4, FREEon 10-07-2023 THYROXINE (T4) FREE (NG/DL) IN SER/PLAS 0.84 ng/dL Normal 0.71-1.85 [facility] Comment on above: Performed By: #### L [id number] #### [facility] ([facility]) [address] [place] [address] TSHon 10-07-2023 THYROTROPIN (MIU/L) IN SER/PLAS BY DETECTION LIMIT <= 0.05 MIU/L 2.87 mIU/L Normal 0.34-5.60 [facility] Comment on above: Performed By: #### L [id number] #### [facility] ([facility]) [address] [place] [address] CT CHEST W IV CONTRASTon CT CHEST W IV CONTRAST CT CHEST W IV CON TRAST 09/27/2023 2:26 PM CLINICAL INDICATIONS: Pneumonia. TECHNIQUE: Multidetector CT axial slices of the chest were obtained with IV contrast. Multiplanar reformats were performed and viewed on a separate workstation and reviewed to further define anatomy and possible pathology. All CT scans at this facility use dose modulation, iterative reconstruction, and/or weight based dosing when appropriate to reduce radiation dose to as low as reasonably achievable. COMPARISON: 07/22/2023.. FINDINGS: There has been slight interval improvement in the volume of groundglass opacities scattered throughout both lungs. Particularly the groundglass opacities throughout the superior segment of the left lower lobe have significantly cleared as have some groundglass opacities elsewhere in the right upper lobe. Small nodular opacity in the right lower lobe and as well as areas of likely linear atelectasis or scarring persist elsewhere throughout the lower lobes. Calcified granuloma again noted in the right lower lobe. No new areas of parenchymal consolidation nor groundglass opacity are identified. There is no pleural effusion nor pneumothorax. No mediastinal nor hilar lymphadenopathy. Some coronary artery calcifications are present. Right IJ chest port again noted. No acute vertebral body compression fracture nor destructive bone lesion. IMPRESSION: 1. Many of the areas of previously seen groundglass opacity has significantly improved since the prior exam. Findings may reflect interval improvement in infectious or inflammatory causes. Organizing pneumonia, either related to therapy or cryptogenic organizing pneumonia not excluded. There are no findings of disease progression. Continued clinical correlation and follow-up recommended. Electronically signed: Raf Tran. Normal [facility] Follow-Upon 09-21-2023 Follow-Up [id number] Osbaldo León 1960 M Date Provider Department Center 09/21/2023 [id number]-MATEUSZ CONROY DCC ONC DCC Family History Problem Relation Age of Onset Leukemia Mother Cancer Mother Heart attack Father 65 Comments: massive HI Family Status - Relation Status Age at Mother Father Level of Service:38665 CT OFFICE/OUTPATIENT ESTABLISHED SF MDM 10 MIN Normal [facility] Labon 09-14-2023 Lab [id number] Osbaldo León 1960 M Date Provider Department Center 09/14/2023 2243-[facility] LAB RESOURCE DCC DRAW DCC Family History Problem Relation Age of Onset Leukemia Mother Cancer Mother Heart attack Father 65 Comments: massive HI Family Status - Relation Status Age at Mother Father Normal [facility] PSA, SCREENINGon 09-14-2023 PROSTATE SPECIFIC AG (NG/ML) IN SER/PLAS <0.1 Low 0.4-4 [facility] Comment on above: Order Comment: To be collected 09/2023. Performed By: #### L [id number] ####[facility] ([facility]AKER)[address] [place] [address] 37on 08-17-2023 37 Port flushed and CMP , CBC w/d, T3, T4 and TSH drawn today Normal [facility] 37 50 mg 08/18-08/22 40 mg 08/23-08/27 30 mg 08/28-09/01 20 mg 09/02-09/06 10 mg 09/07-09/11 10mg every other day 09/13, 09/15, 09/17 then stop When finished ok to stop Antibiotic too Normal [facility] CBC WITH AUTO DIFFERENTIALon 08-17-2023 Basophils (Bld) [#/Vol] 0.01 10*3/uL Normal 0.00-0.20 [facility] Comment on above: Performed By: #### L [id number] ####[facility] ([facility]AKER)[address] [place] [address] Basophils/100 WBC (Bld) 0.1 % Normal 0.0-1.0 [facility] Comment on above: Performed By: #### L [id number] ####[facility] (BEAKER)[address] [place], [place] [address] Eosinophils (Bld) [#/Vol] 0.00 10*3/uL Normal 0.00-0.50 [facility] Comment on above: Performed By: #### L [id number] ####[facility] (BEAKER)[address] [place] [address] Eosinophils/100 WBC (Bld) 0.0 % Normal 0.0-6.0 [facility] Comment on above: Performed By: #### L [id number] ####[facility] (BEAKER)[address] [place] [address] Erythrocyte distribution width (RBC) [Ratio] 14.0 % Normal 11.5-15.0 [facility] Comment on above: Performed By: #### L [id number] ####[facility] (BEAKER)[address] [place] [address] ERYTHROCYTE MEAN CORPUSCULAR HEMOGLOBIN CONCENTRATION (G/DL) BY AUTOMATED 35.9 g/dL High 32.0-35.0 [facility] Comment on above: Performed By: #### L [id number] ####[facility] (BEAKER)[address] [place] [address] Hematocrit (Bld) [Volume fraction] 34.8 % Low 39.0-55.0 [facility] Comment on above: Performed By: #### L [id number] ####[facility] (BEAKER)[address] [place] [address] Hemoglobin (Bld) [Mass/Vol] 12.5 g/dL Low 13.0-17.0 [facility] Comment on above: Performed By: #### L [id number] ####[facility] (BEAKER)[address] [place] [address] Immature granulocytes (Bld) [#/Vol] 0.08 10*3/uL Normal 0.00-0.20 [facility] Comment on above: Performed By: #### L [id number] ####[facility] (BEAKER)[address] [place] [address] Immature granulocytes/100 WBC (Bld) 0.8 % Normal 0.0-1.0 [facility] Comment on above: Performed By: #### L [id number] ####[facility] (BEAKER)[address] [place] [address] Lymphocytes (Bld) [#/Vol] 0.49 10*3/uL Low 1.20-4.00 [facility] Comment on above: Performed By: #### L [id number] ####[facility] (BEAKER)[address] [place] [address] Lymphocytes/100 WBC (Bld) 4.7 % Low 20.0-45.0 [facility] Comment on above: Performed By: #### L [id number] ####[facility] (BEAKER)[address] [place] [address] MCH (RBC) [Entitic mass] 30.6 pg Normal 27.0-33.0 [facility] Comment on above: Performed By: #### L [id number] ####[facility] (BEAKER)[address] [place] [address] MCV (RBC) [Entitic vol] 85.3 fL Normal 82.0-98.0 [facility] Comment on above: Performed By: #### L [id number] ####[facility] (BEAKER)[address] [place] [address] Monocytes (Bld) [#/Vol] 0.45 10*3/uL Normal 0.10-1.00 [facility] Comment on above: Performed By: #### L [id number] ####[facility] (BEAKER)[address] [place] [address] Monocytes/100 WBC (Bld) 4.3 % Low 5.0-12.0 [facility] Comment on above: Performed By: #### L [id number] ####[facility] [place] [address] Neutrophils (Bld) [#/Vol] 9.33 10*3/uL High 1.60-7.60 [facility] Comment on above: Performed By: #### L [id number] ####[facility] [place] [address] Neutrophils/100 WBC (Bld) 90.1 % High 40.0-72.0 [facility] Comment on above: Performed By: #### L [id number] ####[facility] [place] [address] NRBC (PER 100 WBCS) BY AUTOMATED COUNT 0.0 % Normal 0 [facility] Comment on above: Performed By: #### L [id number] ####[facility] ([facility])[address] [place] [address] PLATELETS (10*3/UL) IN BLOOD AUTOMATED COUNT 253 10*3/uL Normal 150-400 [facility] Comment on above: Performed By: #### L [id number] ####[facility] [place] [address] RBC (Bld) [#/Vol] 4.08 10*6/uL Low 4.20-5.70 [facility] Comment on above: Performed By: #### L [id number] ####[facility] (BEAKER)[address] [place] [address] WBC (Bld) [#/Vol] 10.36 10*3/uL Normal 4.00-10.60 [facility] Comment on above: Performed By: #### L [id number] ####[facility] (BEAKER)[address] [place] [address] COMPREHENSIVE METABOLIC PANE Yahir 08-17-2023 Albumin [Mass/Vol] 4.2 g/dL Normal 3.5-5.[address] [facility] Comment on above: Performed By: #### L [id number] ####[facility] ([facility])[address] [place] [address] ALP [Catalytic activity/Vol] 64 U/L Normal 34-104 [facility] Comment on above: Performed By: #### L [id number] ####[facility] ([facility])[address] [place] [address] ALT [Catalytic activity/Vol] 31 U/L Normal 7-52 [facility] Comment on above: Performed By: #### L [id number] ####[facility] ([facility])[address] [place] [address] Anion gap [Moles/Vol] 11 mmol/L Normal 7-20 [facility] Comment on above: Performed By: #### L [id number] ####[facility] ([facility])[address] [place] [address] AST [Catalytic activity/Vol] 22 U/L Normal 13-39 [facility] Comment on above: Performed By: #### L [id number] ####[facility] ([facility])[address] [place] [address] Bilirubin [Mass/Vol] 0.7 mg/dL Normal 0.3-1.0 [facility] Comment on above: Performed By: #### L [id number] ####[facility] ([facility])[address] [place] [address] Calcium [Mass/Vol] 9.3 mg/dL Normal 8.6-10.[address] [facility] Comment on above: Performed By: #### L [id number] ####[facility] ([facility])[address] [place] [address] Chloride [Moles/Vol] 94 mmol/L Low 98-107 [facility] Comment on above: Performed By: #### L [id number] ####[facility] ([facility])[address] [place] [address] CO2 [Moles/Vol] 25 mmol/L Normal 21-31 [facility] Comment on above: Performed By: #### L [id number] ####[facility] ([facility])[address] [place] [address] Creatinine [Mass/Vol] 0.85 mg/dL Normal 0.70-1.30 [facility] Comment on above: Performed By: #### L [id number] ####[facility] ([facility])[address] [place] [address] GLOMERULAR FILTRATION RATE ML/MIN/1.73 SQ M.PREDICTED 96.4 mL/min/1.73m*2 Normal >60.0 [facility] Comment on above: Result Comment: The [facility]???s estimated glomerular filtration rate (eGFR) will no [...] of individuals. Performed By: #### L [id number] ####[facility] ([facility])[address] [place] [address] Glucose [Mass/Vol] 115 mg/dL High 70-[address] [facility] Comment on above: Performed By: #### L [id number] ####[facility] ([facility])[address] [place] [address] Potassium [Moles/Vol] 4.2 mmol/L Normal 3.5-5.1 [facility] Comment on above: Performed By: #### L [id number] ####[facility] ([facility])[address] [place] [address] Protein [Mass/Vol] 6.5 g/dL Normal 6.0-8.[address] [facility] Comment on above: Performed By: #### L [id number] ####[facility] (BEAKER)[address] [place] [address] Sodium [Moles/Vol] 126 mmol/L Low 136-[address] [facility] Comment on above: Performed By: #### L [id number] ####[facility] (BEAKER)[address] [place] [address] Urea nitrogen [Mass/Vol] 18 mg/dL Normal 7-25 [facility] Comment on above: Performed By: #### L [id number] ####[facility] [place] [address] UREA NITROGEN/CREATININE (MASS RATIO) IN SER/PLAS 21.2 Normal [facility] Comment on above: Performed By: #### L [id number] ####[facility] ([facility])[address] [place] [address] Infusionon 08-17-2023 Infusion [id number] Osbaldo León 1960 M Date Provider Department [place] 08/17/2023 2272-[facility] CHAIR 1 [facility] INF [facility] Family History Problem Relation Age of Onset Leukemia Mother Cancer Mother Heart attack Father 65 Comments: massive HI Family Status - Relation Status Age at Mother Father Reason for Visit and Comments: OP Infusion [[id number]] Normal [facility] T3, FREEon 08-17-2023 TRIIODOTHYRONINE (T3) FREE (PG/ML) IN SER/PLAS 2.7 pg/mL Normal 2.5-3.9 [facility] Comment on above: Performed By: #### L [id number] #### [facility] [address] [place] [address] T4, FREEon 08-17-2023 THYROXINE (T4) FREE (NG/DL) IN SER/PLAS 0.78 ng/dL Normal 0.71-1.85 [facility] Comment on above: Performed By: #### L [id number] #### [facility] (BEAKER) [address] [place] [address] TSHon 08-17-2023 THYROTROPIN (MIU/L) IN SER/PLAS BY DETECTION LIMIT <= 0.05 MIU/L 0.60 mIU/L Normal 0.34-5.60 [facility] Comment on above: Performed By: #### L [id number] ####[facility] ([facility])[address] [place] [address] CT SOFT TISSUE NECK W IV CON TRASTon 08-06-2023 CT SOFT TISSUE NECK W IV CONTRAST CT SOFT TISSUE NECK W IV CONTRAST 08/06/2023 1:23 PM CLINICAL INDICATIONS: 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 Completed concurrent chemoradiotherapy to head and neck 05/12/2022. CONTRAST: 100 mL of intravenous Omnipaque 350 TECHNIQUE: Multidetector CT axial slices of the neck were obtained with IV contrast. Volumetric acquisition sagittal, coronal, and 3-D reconstructions were performed and viewed on a separate workstation. All CT scans at this facility use dose modulation, iterative reconstruction, and/or weight based dosing when appropriate to reduce radiation dose to as low as reasonably achievable. COMPARISON: PET/CT dated 08/05/2022 and 02/24/2022 FINDINGS: Oropharynx: Posttreatment changes are noted within the tongue and floor the mouth without residual enhancing malignancy noted. Nasopharynx: Within normal limits. Suprahyoid Neck: Within normal limits Infrahyoid Neck: Within normal limits. Thyroid: Within normal limits. Thoracic Inlet and lung apices: There is partial visualization of a new area of pleural-based scarring or consolidation anteriorly in the left upper lobe best seen on image 1. There is an area of groundglass attenuation in the upper segments of the right lower lobe which corresponds to the previous FDG avid nodule in this location. Groundglass attenuation may be treatment related with the entirety measuring 3.9 cm in greatest axial dimension. There is a new 9 mm partly solid nodular opacity anteriorly and medially in the right upper lobe. Orbits: Within normal limits. Paranasal sinuses: Clear. Skull base: Intact. Lymph Nodes: Nonspecific cervical lymph nodes are noted none of which are pathologically enlarged. Vascular Structures: Within normal limits. Other Findings: Degenerative changes are present in the cervical spine. IMPRESSION: Post treatment changes are noted in the tongue and floor the mouth without residual enhancing malignancy. Opacities are noted in the lung parenchyma consistent with known pulmonary metastatic disease. There is a new pleural-based area of opacity/scarring anteriorly in the left upper lobe. A new partly solid nodular opacity is noted in the right upper lobe with a larger focus of groundglass attenuation in the right lower lobe. These may be treatment related or secondary to advancing pulmonary metastatic disease. Nonspecific cervical lymph nodes are noted none of which are pathologically enlarged. Electronically signed: Regino Coleman. Normal [facility] 36on 07-28-2023 36 I called [facility] for pt lipid lab results but no answer. I LVM to fax results or call our office. Normal [facility] Follow-Upon 07-28-2023 Follow-Up [id number] Osbaldo León 1960 M Date Provider Department Center 07/28/2023 [facility] Family History Problem Relation Age of Onset Leukemia Mother Cancer Mother Heart attack Father 65 Comments: massive HI Family Status - Relation Status Age at Mother Father Level of Service:33372 CT OFFICE/OUTPATIENT ESTABLISHED MOD [facility] 30 MIN Reason for Visit and Comments: Coronary Artery Disease [187] Normal [facility] CT CHEST W IV CONTRASTon CT CHEST W IV CONTRAST CT CHEST WITH CON TRAST HISTORY: Malignant neoplasm metastatic to both lungs COMPARISON: 06/22/2023 TECHNIQUE: Routine CT chest with contrast. All CT scans at this facility use dose modulation, iterative reconstruction, and/or weight based dosing when appropriate to reduce radiation dose to as low as reasonably achievable. FINDINGS: Extensive patchy groundglass opacities and irregular masslike airspace opacities are again noted, with some of these findings having improved since previous study for example in the left lower lobe though other areas either worsened or new, examples in the lingula 4.0 cm (series 3, image 68) and in the anterior aspect of the left upper lobe (series 3, image 52). There are additional abnormalities that are unchanged, examples of which measure 4.0 cm in the superior segment right lower lobe and 7.9 cm in the right lower lobe. The central airways are patent. Visualized structures in the lower neck are unremarkable. Right chest port in place. Normal heart size. Visualized structures in the upper abdomen are unremarkable. No pleural or pericardial effusions. Normal heart size. The thoracic aorta is unremarkable. The central pulmonary arteries are unremarkable. Coronary artery calcifications. No enlarged thoracic lymph nodes. Multilevel degenerative changes in the spine. IMPRESSION: *Extensive bilateral groundglass opacities and irregular masslike airspace opacities/consolidatio n, some of which have improved since most recent comparison study though others of which have worsened. Appearance may relate to shifting multifocal pneumonitis (potentially related to chemotherapy agent), multifocal pneumonia, and/or underlying metastatic disease. Recommend correlating with patient's current clinical status and continued follow-up imaging. *No enlarged metastatic lymph nodes or other sites of metastatic disease. Electronically signed: Vinicio Das. Normal [facility] Cholesterol [Mass/volume] in Serum or PlasmaOrdered By: Clara Jordan on 06-05-2023 Cholesterol [Mass/Vol] 152 mg/dL 140-200 [facility] Comment on above: Chol less than 200 m g/dl low riskChol 201-239 mg/dl borderline riskChol 240 mg/dl and greater high risk Cholesterol in LDL Calc [Mas s/Vol]Ordered By: Clara Jordan on 06-05-2023 Cholesterol in LDL [Mass/Vol] 82 mg/dL 0-100 [facility] Comment on above: LDL ATP III CLASSIFI CATIONLDL less than 100 mg/dL OptimalLDL 100-129 mg/dL Near or above optimalLDL 130-159 mg/dL Borderline highLDL 160-189 mg/dL HighLDL greater than 189 mg/dL Very high Cholesterol in VLDL Calc [Ma ss/Vol]Ordered By: Clara Jordan on 06-05-2023 Cholesterol in VLDL [Mass/Vol] 23 mg/dL [facility] Lipid Panelon 06-05-2023 Cholesterol [Mass/Vol] 152 mg/dL Normal 140-200 [facility] Comment on above: Order Comment: FASTI NG Result Comment: Chol less than 200 mg/dl low risk Chol 201-239 mg/dl borderline risk Chol 240 mg/dl and greater high risk Performed By: #### L IPID #### [address] Cholesterol in HDL [Mass/Vol] 47 mg/dL Normal 23-92 [facility] Comment on above: Order Comment: FASTI NG Result Comment: HDL CHOL ATP-III CLASSIFICATION Cardiovascular Risk HDL > or equal to 60 mg/dL LOW HDL < 40 mg/dL HIGH Performed By: #### L IPID #### [facility] [address] Cholesterol.total/Chol esterol in HDL [Mass ratio] 3.2 {ratio} Normal <5.0 [facility] Comment on above: Order Comment: FASTI NG Result Comment: PERF ORMED BY: [place] [address] PATHOLOGIST [employer] MAYA SHELTON M.D. Performed By: #### L IPID #### [facility] [address] LDL Cholesterol,Calculated 82 mg/dL Normal 0-100 [facility] Comment on above: Order Comment: FASTI NG Result Comment: LDL ATP III CLASSIFICATION LDL less than 100 mg/dL Optimal LDL 100-129 mg/dL Near or above optimal LDL 130-159 mg/dL Borderline high LDL 160-189 mg/dL High LDL greater than 189 mg/dL Very high Performed By: #### L IPID #### [facility] [address] Triglyceride w/Reflex 115 mg/dL Normal 0-149 [facility] Comment on above: Order Comment: FASTI NG Result Comment: TRIG ATP III CLASSIFICATION TRIG less than 150 mg/dL Normal TRIG 150-199 mg/dL Borderline high TRIG 200-500 mg/dL High TRIG greater than 500 mg/dL Very high Standard traceable to the Center for Disease Conrtrol and Prevention (CDC) test method. Performed By: #### L IPID #### [facility] [address] VLDL CHOLESTEROL 23 mg/dL Normal [facility] Comment on above: Order Comment: FASTI NG Performed By: #### L IPID #### [facility] [address] [place] [address] Serum or plasma high density lipoprotein (HDL) cholesterol measurementOrdered By: Clara Jordan on 06-05-2023 Cholesterol in HDL [Mass/Vol] 47 mg/dL 23-92 [facility] Comment on above: HDL CHOL ATP-III CLA SSIFICATION Cardiovascular RiskHDL > or equal to 60 mg/dL LOWHDL < 40 mg/dL HIGH Serum or plasma total choles terol/high density lipoprotein (HDL) cholesterol mass ratOrdered By: Clara Jordan on 06-05-2023 Cholesterol.total/Chol esterol in HDL [Mass ratio] 3.2 {ratio} <5.0 [facility] Triglyceride [Mass/volume] i n Serum or PlasmaOrdered By: Clara Jordan on 06-05-2023 Triglyceride [Mass/Vol] 115 mg/dL 0-149 [facility] Comment on above: TRIG ATP III CLASSIF ICATIONTRIG less than 150 mg/dL NormalTRIG 150-199 mg/dL Borderline highTRIG 200-500 mg/dL High TRIG greater than 500 mg/dL Very highStandard traceable to the Center for Disease Conrtrol and Prevention (CDC) test method. Tobacco Screening.on 023 Adult depression screening assessment No [facility] Work Phone: Fall risk assessment a) No falls within the last year [facility] [employer] Work Phone: Tobacco use status CPHS b) No [facility] [employer] Work Phone: A1C HEMOGLOBINon 09-22-2022 HbA1c (Bld) [Mass fraction] 5.9 % [employer] [facility] [place] Other HbA1c (Bld) [Mass fraction]o n 09-22-2022 A1C HEMOGLOBIN [facility] [employer] Other Albumin [Mass/volume] in Ser um or PlasmaOrdered By: Clara Jordan on 09-19-2022 Albumin [Mass/Vol] 3.6 g/dL 3.2-5.5 [facility] Basophils Auto (Bld) [#/Vol] Ordered By: Clara Jordan on 09-19-2022 Basophils (Bld) [#/Vol] 0.0 10*3/uL 0.0-0.2 [facility] Basophils/100 WBC Auto (Bld) Ordered By: Clara Jordan on 09-19-2022 Basophils/100 WBC (Bld) 0.7 % . [facility] CT biopsyOrdered By: Janet Jordan on 09-19-2022 Transferrin [Mass/Vol] 215 mg/dL Normal 180-3 80 mg/dL [facility] Cholesterol [Mass/volume] in Serum or PlasmaOrdered By: Clara Jordan on 09-19-2022 Cholesterol [Mass/Vol] 164 mg/dL Normal 140-2 00 mg/dL [facility] Comment on above: Chol less than 200 m g/dl low riskChol 201-239 mg/dl borderline riskChol 240 mg/dl and greater high risk Cholesterol in LDL Calc [Mas s/Vol]Ordered By: Clara Jordan on 09-19-2022 Cholesterol in LDL [Mass/Vol] 90 mg/dL 0-100 [facility] Comment on above: LDL ATP III CLASSIFI CATIONLDL less than 100 mg/dL OptimalLDL 100-129 mg/dL Near or above optimalLDL 130-159 mg/dL Borderline highLDL 160-189 mg/dL HighLDL greater than 189 mg/dL Very high Cholesterol in VLDL Calc [Ma ss/Vol]Ordered By: Clara Jordan on 09-19-2022 Cholesterol in VLDL [Mass/Vol] 19 mg/dL [facility] Complete Blood Count Auto Di ffon 09-19-2022 Basophils (Bld) [#/Vol] 0.489054848 10*3/uL Normal 0.0-0.2 10*3/uL [facility] Other Basophils/100 WBC (Bld) 0.700 % . % [facility] Other Eosinophils (Bld) [#/Vol] 0.665294695 10*3/uL High 0.0-0.45 10*3/uL [facility] Other Eosinophils/100 WBC (Bld) 12.700 % . % [facility] Other Erythrocyte distribution width (RBC) [Ratio] 12.100 % Normal 12.0-14.8 % [facility] Other Hematocrit (Bld) [Volume fraction] 34.500 % Low 38.8-50.0 % [facility] Other Hemoglobin (Bld) [Mass/Vol] 11.849298 g/dL Low 13.0-17.0 g/dL [facility] Other Lymphocytes (Bld) [#/Vol] 0.512929656 10*3/uL Low 1.00-4.8 10*3/uL [facility] Other Lymphocytes/100 WBC (Bld) 6.900 % . % [facility] Other MCH (RBC) [Entitic mass] 30.6000 pg Normal 27.5-35.2 pg [facility] Other MCV (RBC) [Entitic vol] 88.7000 fL Normal 83.5-101 fL [facility] Other Monocytes (Bld) [#/Vol] 0.423944724 10*3/uL Normal 0.0-0.8 10*3/uL [facility] Other Monocytes/100 WBC (Bld) 14.100 % . % [facility] Other Neutrophils (Bld) [#/Vol] 3.897855842 10*3/uL Normal 1.8-7.7 10*3/uL [facility] Other Neutrophils/100 WBC (Bld) 65.600 % . % [facility] Other Platelet mean volume (Bld) [Entitic vol] 6.3000 fL Low 6.6-10.1 fL [facility] Other WBC (Bld) [#/Vol] 5.933323913 10*3/uL Normal 4.1 -10.5 10*3/uL [facility] Other Complete Blood Count Auto Diff 5.6 10*3/uL Normal 4.1-10.5 10*3/uL [facility] Other Complete Blood Count Auto Diff 34.5 g/dL Normal 32.5-35.6 g/dL [facility] [place] Other Complete Blood Count Auto Diff 0.1 /100{WBC} Normal 0-0.5 /100{WBC} [facility] [place] Other Basophils (Bld) [#/Vol] 0.0 10*3/uL Normal 0.0-0.2 [facility] Comment on above: Order Comment: Reaso n for Exam Well adult exam Result Comment: PERF ORMED BY: [place] [address] PATHOLOGIST [employer] MAYA SHELTON M.D. Performed By: #### V [id number], FE PRO, CMP, [id number], LIPID, CBC, TSH3, URMACRERAT #### [facility] [address] [place] [address] Basophils/100 WBC (Bld) 0.7 % Normal . [facility] Comment on above: Order Comment: Reaso n for Exam Well adult exam Performed By: #### V [id number], FE PRO, CMP, [id number], LIPID, CBC, TSH3, URMACRERAT #### [facility] [address] [place] [address] Eosinophils (Bld) [#/Vol] 0.7 10*3/uL High 0.0-0.45 [facility] Comment on above: Order Comment: Reaso n for Exam Well adult exam Performed By: #### V [id number], FE PRO, CMP, [id number], LIPID, CBC, TSH3, URMACRERAT #### [facility] [address] [place] [address] [place] Eosinophils/100 WBC (Bld) 12.7 % Normal . [facility] Comment on above: Order Comment: Reaso n for Exam Well adult exam Performed By: #### V [id number], FE PRO, CMP, [id number], LIPID, CBC, TSH3, URMACRERAT #### [address] Erythrocyte distribution width (RBC) [Ratio] 12.1 % Normal 12.0-14.8 [facility] Comment on above: Order Comment: Reaso n for Exam Well adult exam Performed By: #### V [id number], FE PRO, CMP, [id number], LIPID, CBC, TSH3, URMACRERAT #### [address] Hematocrit (Bld) [Volume fraction] 34.5 % Low 38.8-50.0 [facility] Comment on above: Order Comment: Reaso n for Exam Well adult exam Performed By: #### V [id number], FE PRO, CMP, [id number], LIPID, CBC, TSH3, URMACRERAT #### [address] Hemoglobin (Bld) [Mass/Vol] 11.9 g/dL Low 13.0-17.0 [facility] Comment on above: Order Comment: Reaso n for Exam Well adult exam Performed By: #### V [id number], FE PRO, CMP, [id number], LIPID, CBC, TSH3, URMACRERAT #### [address] Lymphocytes (Bld) [#/Vol] 0.4 10*3/uL Low 1.00-4.8 [facility] Comment on above: Order Comment: Reaso n for Exam Well adult exam Performed By: #### V [id number], FE PRO, CMP, [id number], LIPID, CBC, TSH3, URMACRERAT #### [address] Lymphocytes/100 WBC (Bld) 6.9 % Normal . [facility] Comment on above: Order Comment: Reaso n for Exam Well adult exam Performed By: #### V [id number], FE PRO, CMP, [id number], LIPID, CBC, TSH3, URMACRERAT #### [address] MCH (RBC) [Entitic mass] 30.6 pg Normal 27.5-35.2 [facility] Comment on above: Order Comment: Reaso n for Exam Well adult exam Performed By: #### V [id number], FE PRO, CMP, [id number], LIPID, CBC, TSH3, URMACRERAT #### [address] MCV (RBC) [Entitic vol] 88.7 fL Normal 83.5-101 [facility] Comment on above: Order Comment: Reaso n for Exam Well adult exam Performed By: #### V [id number], FE PRO, CMP, [id number], LIPID, CBC, TSH3, URMACRERAT #### [address] Mean Corpuscular HGB Conc 34.5 g/dL Normal 32.5-35.6 [facility] Comment on above: Order Comment: Reaso n for Exam Well adult exam Performed By: #### V [id number], FE PRO, CMP, [id number], LIPID, CBC, TSH3, URMACRERAT #### [address] Monocytes (Bld) [#/Vol] 0.8 10*3/uL Normal 0.0-0.8 [facility] Comment on above: Order Comment: Reaso n for Exam Well adult exam Performed By: #### V [id number], FE PRO, CMP, [id number], LIPID, CBC, TSH3, URMACRERAT #### [address] Monocytes/100 WBC (Bld) 14.1 % Normal . [facility] Comment on above: Order Comment: Reaso n for Exam Well adult exam Performed By: #### V [id number], FE PRO, CMP, [id number], LIPID, CBC, TSH3, URMACRERAT #### [address] Neutrophils (Bld) [#/Vol] 3.7 10*3/uL Normal 1.8-7.7 [facility] Comment on above: Order Comment: Reaso n for Exam Well adult exam Performed By: #### V [id number], FE PRO, CMP, [id number], LIPID, CBC, TSH3, URMACRERAT #### [facility] [address] Neutrophils/100 WBC (Bld) 65.6 % Normal . [facility] Comment on above: Order Comment: Reaso n for Exam Well adult exam Performed By: #### V [id number], FE PRO, CMP, [id number], LIPID, CBC, TSH3, URMACRERAT #### [facility] [address] NRBC% 0.1 /100{WBC} Normal 0-0.5 [facility] Comment on above: Order Comment: Reaso n for Exam Well adult exam Performed By: #### V [id number], FE PRO, CMP, [id number], LIPID, CBC, TSH3, URMACRERAT #### [facility] [address] [place] [address] Platelet mean volume (Bld) [Entitic vol] 6.3 fL Low 6.6-10.1 [facility] Comment on above: Order Comment: Reaso n for Exam Well adult exam Performed By: #### V [id number], FE PRO, CMP, [id number], LIPID, CBC, TSH3, URMACRERAT #### [facility] [address] [place] [address] [place] Platelets (Bld) [#/Vol] 282 10*3/uL Normal 150-450 [facility] Comment on above: Order Comment: Reaso n for Exam Well adult exam Performed By: #### V [id number], FE PRO, CMP, [id number], LIPID, CBC, TSH3, URMACRERAT #### [facility] [address] RBC (Bld) [#/Vol] 3.89 10*6/uL Low 3.90-5.60 [facility] Comment on above: Order Comment: Reaso n for Exam Well adult exam Performed By: #### V [id number], FE PRO, CMP, [id number], LIPID, CBC, TSH3, URMACRERAT #### [facility] [address] WBC (Bld) [#/Vol] 5.6 10*3/uL Normal 4.1-10.5 [facility] Comment on above: Order Comment: Reaso n for Exam Well adult exam Performed By: #### V [id number], FE PRO, CMP, [id number], LIPID, CBC, TSH3, URMACRERAT #### [facility] [address] Comprehensive Metabolic Pane yahir 09-19-2022 Albumin [Mass/Vol] 3.782602 g/dL Normal 3.2-5.5 g/dL [facility] [place] Other Bilirubin [Mass/Vol] 0.1534482 mg/dL Normal 0.3- 1.2 mg/dL [facility] Other Calcium [Mass/Vol] 9.0764760 mg/dL Normal 8.2-10 .2 mg/dL [facility] Other CO2 [Moles/Vol] 26.92292222 mmol/L Normal 22.0-3 0.0 mmol/L [facility] Other Creatinine [Mass/Vol] 0.12190710 mg/dL Normal 0. 64-1.27 mg/dL [facility] Other Potassium [Moles/Vol] 4.65480825 mmol/L Normal 3 .5-5.1 mmol/L [facility] Other Protein [Mass/Vol] 6.718636 g/dL Normal 6.1-7.9 g/dL [facility] [place] Other Comprehensive Metabolic Panel > 60 [facility] Other Comprehensive Metabolic Panel 2.6 g/dL [facility] Other Albumin [Mass/Vol] 3.6 g/dL Normal 3.2-5.5 [facility] Comment on above: Order Comment: Reaso n for Exam Well adult exam FASTING Performed By: #### V [id number], FE PRO, CMP, [id number], LIPID, CBC, TSH3, URMACRERAT #### [facility] [address] [place] [id number] [place] Albumin/Globulin [Mass ratio] 1.4 {ratio} Normal [facility] Comment on above: Order Comment: Reaso n for Exam Well adult exam FASTING Performed By: #### V [id number], FE PRO, CMP, [id number], LIPID, CBC, TSH3, URMACRERAT #### [facility] [address] [place] [id number] [place] ALP [Catalytic activity/Vol] 122 U/L High 32-92 [facility] Comment on above: Order Comment: Reaso n for Exam Well adult exam FASTING Performed By: #### V [id number], FE PRO, CMP, [id number], LIPID, CBC, TSH3, URMACRERAT #### [facility] [address] [place] [id number] [place] ALT [Catalytic activity/Vol] 23 U/L Normal 10-60 [facility] Other Comment on above: Order Comment: Reaso n for Exam Well adult exam FASTING Performed By: #### V [id number], FE PRO, CMP, [id number], LIPID, CBC, TSH3, URMACRERAT #### [facility] [address] [place] [id number] [place] Anion gap [Moles/Vol] 12.4 mmol/L Normal 6.0-15.0 [facility] Comment on above: Order Comment: Reaso n for Exam Well adult exam FASTING Performed By: #### V [id number], FE PRO, CMP, [id number], LIPID, CBC, TSH3, URMACRERAT #### [facility] [address] [place] [id number] [place] AST [Catalytic activity/Vol] 27 U/L Normal 10-42 [facility] Comment on above: Order Comment: Reaso n for Exam Well adult exam FASTING Performed By: #### V [id number], FE PRO, CMP, [id number], LIPID, CBC, TSH3, URMACRERAT #### [facility] [address] [place] [id number] [place] Bilirubin [Mass/Vol] 0.6 mg/dL Normal 0.3-1.[address] [facility] Comment on above: Order Comment: Reaso n for Exam Well adult exam FASTING Performed By: #### V [id number], FE PRO, CMP, [id number], LIPID, CBC, TSH3, URMACRERAT #### [facility] [address] Calcium [Mass/Vol] 9.5 mg/dL Normal 8.2-10.2 [facility] Comment on above: Order Comment: Reaso n for Exam Well adult exam FASTING Performed By: #### V [id number], FE PRO, CMP, [id number], LIPID, CBC, TSH3, URMACRERAT #### [facility] [address] [place] [address] [place] Chloride [Moles/Vol] 98 mmol/L Normal 95-[address] [facility] Comment on above: Order Comment: Reaso n for Exam Well adult exam FASTING Performed By: #### V [id number], FE PRO, CMP, [id number], LIPID, CBC, TSH3, URMACRERAT #### [facility] [address] CO2 [Moles/Vol] 26.5 mmol/L Normal 22.0-30.0 [facility] Comment on above: Order Comment: Reaso n for Exam Well adult exam FASTING Performed By: #### V [id number], FE PRO, CMP, [id number], LIPID, CBC, TSH3, URMACRERAT #### [facility] [address] [place] [id number] [place] Creatinine [Mass/Vol] 0.86 mg/dL Normal 0.64-1.27 [facility] Comment on above: Order Comment: Reaso n for Exam Well adult exam FASTING Performed By: #### V [id number], FE PRO, CMP, [id number], LIPID, CBC, TSH3, URMACRERAT #### [facility] [address] Estimated GFR ( Sasha > 60 [facility] Comment on above: Order Comment: Reaso n for Exam Well adult exam FASTING Result Comment: GFR estimated reference range: According to KDOQI guidelines, <60 ml/min/1.73m2 is sufficient to diagnose a patient with chronic kidney disease. Performed By: #### V [id number], FE PRO, CMP, [id number], LIPID, CBC, TSH3, URMACRERAT #### [facility] [address] [place] [address] Estimated GFR (Non- Am > 60 [facility] Comment on above: Order Comment: Reaso n for Exam Well adult exam FASTING Performed By: #### V [id number], FE PRO, CMP, [id number], LIPID, CBC, TSH3, URMACRERAT #### [facility] [address] [place] [address] Globulin (S) [Mass/Vol] 2.6 g/dL [facility] Comment on above: Order Comment: Reaso n for Exam Well adult exam FASTING Performed By: #### V [id number], FE PRO, CMP, [id number], LIPID, CBC, TSH3, URMACRERAT #### [facility] [address] [place] [address] Glucose [Mass/Vol] 110 mg/dL High 70-100 [facility] Comment on above: Order Comment: Reaso n for Exam Well adult exam FASTING Result Comment: [place] om Glucose Reference Range is dependent on time and content of last meal. Glucose of more than 200 mg/dL in a nonstressed, ambulatory subject supports the diagnosis of Diabetes Mellitus. ADA recommended reference range Performed By: #### V [id number], FE PRO, CMP, [id number], LIPID, CBC, TSH3, URMACRERAT #### [facility] [address] [place] [address] Potassium [Moles/Vol] 4.9 mmol/L Normal 3.5-5.1 [facility] Comment on above: Order Comment: Reaso n for Exam Well adult exam FASTING Performed By: #### V [id number], FE PRO, CMP, [id number], LIPID, CBC, TSH3, URMACRERAT #### [facility] [address] [place] [address] [place] Protein [Mass/Vol] 6.2 g/dL Normal 6.1-7.9 [facility] Comment on above: Order Comment: Reaso n for Exam Well adult exam FASTING Performed By: #### V [id number], FE PRO, CMP, [id number], LIPID, CBC, TSH3, URMACRERAT #### [facility] [address] [place] [address] [place] Sodium [Moles/Vol] 132 mmol/L Low 136-146 [facility] Comment on above: Order Comment: Reaso n for Exam Well adult exam FASTING Performed By: #### V [id number], FE PRO, CMP, [id number], LIPID, CBC, TSH3, URMACRERAT #### [facility] [address] [place] [address] [place] Urea nitrogen [Mass/Vol] 8 mg/dL Low 9-23 [facility] Comment on above: Order Comment: Reaso n for Exam Well adult exam FASTING Performed By: #### V [id number], FE PRO, CMP, [id number], LIPID, CBC, TSH3, URMACRERAT #### [facility] [address] [place] [address] [place] Creatinine [Mass/volume] in UrineOrdered By: Clara Jordan on 09-19-2022 Creatinine (U) [Mass/Vol] 61.6 mg/dL [facility] Comment on above: No reference range e stablished Creatinine and Glomerular fi ltration rate.predicted panel (S/P/Bld)Ordered By: Clara Jordan on 09-19-2022 Creatinine [Mass/Vol] 0.86 mg/dL 0.64-1.27 [facility] Eosinophils Auto (Bld) [#/Vo l]Ordered By: Clara Jordan on 09-19-2022 Eosinophils (Bld) [#/Vol] 0.7 10*3/uL 0.0-0.45 [facility] Eosinophils/100 WBC Auto (Bl d)Ordered By: Clara Jordan on 09-19-2022 Eosinophils/100 WBC (Bld) 12.7 % . [facility] Erythrocyte distribution wid th Auto (RBC) [Ratio]Ordered By: Clara Jordan on 09-19-2022 Erythrocyte distribution width (RBC) [Ratio] 12.1 % 12.0-14.8 [facility] Erythrocytes [#/volume] in B lood by Automated countOrdered By: Clara Jordan on 09-19-2022 RBC (Bld) [#/Vol] 3.89 10*6/uL Low 3.90-5.60 [facility] Estimated glomerular filtrat ion rate (GFR) non- AmericanOrdered By: Clara Jordan on 09-19-2022 GFR/1.73 sq M.predicted among non-blacks MDRD (S/P/Bld) [Vol rate/Area] > 60 mL/Min [facility] FE PROon 09-19-2022 Ferritin [Mass/Vol] 309.0234139 ng/mL High 23. 9-336.2 ng/mL [facility] [place] Other FE PRO 301 ug/dL Normal 255-450 ug/dL [facility] [place] Other FE PRO 26.6 % Normal 20-50 % [facility] Other % Iron Saturation 26.6 % Normal 20-50 [facility] Comment on above: Order Comment: Reaso n for Exam Well adult exam FASTING Performed By: #### V [id number], FE PRO, CMP, [id number], LIPID, CBC, TSH3, URMACRERAT #### [address] Ferritin [Mass/Vol] 802.1 ng/mL High 23.9-336.[address] [facility] Comment on above: Order Comment: Reaso n for Exam Well adult exam FASTING Performed By: #### V [id number], FE PRO, CMP, [id number], LIPID, CBC, TSH3, URMACRERAT #### [facility] [address] Iron [Mass/Vol] 80 ug/dL Normal 40-160 [facility] Comment on above: Order Comment: Reaso n for Exam Well adult exam FASTING Performed By: #### V [id number], FE PRO, CMP, [id number], LIPID, CBC, TSH3, URMACRERAT #### [facility] [address] Total Iron Binding Capacity 301 ug/dL Normal 255-450 [facility] Comment on above: Order Comment: Reaso n for Exam Well adult exam FASTING Performed By: #### V [id number], FE PRO, CMP, [id number], LIPID, CBC, TSH3, URMACRERAT #### [facility] [address] Transferrin [Mass/Vol] 215 mg/dL Normal 180-380 [facility] Comment on above: Order Comment: Reaso n for Exam Well adult exam FASTING Performed By: #### V [id number], FE PRO, CMP, [id number], LIPID, CBC, TSH3, URMACRERAT #### [facility] [address] Ferritin [Mass/volume] in Se rum or PlasmaOrdered By: Clara Jordan on 09-19-2022 Ferritin [Mass/Vol] 802.1 ng/mL 23.9-336.[address] [facility] Folate [Mass/volume] in Seru m or PlasmaOrdered By: Clara Jordan on 09-19-2022 Folate [Mass/Vol] ng/mL >5.9 [facility] Comment on above: Folate reference ran ge: >5.9 ng/mlThe WHO technical consultation on folate and vitamin [id number] has determined that folate concentrations lessthan 4 ng/ml are considered deficient. Globulin Calc (S) [Mass/Vol] Ordered By: Clara Jordan on 09-19-2022 Globulin (S) [Mass/Vol] 2.6 g/dL [facility] Hematocrit Auto (Bld) [Volum e fraction]Ordered By: Clara Jordan on 09-19-2022 Hematocrit (Bld) [Volume fraction] 34.5 % 38.8-50.0 [facility] Hemoglobin [Mass/volume] in BloodOrdered By: Clara Jordan on 09-19-2022 Hemoglobin (Bld) [Mass/Vol] 11.9 g/dL 13.0-17.0 [facility] Iron [Mass/volume] in Serum or PlasmaOrdered By: Clara Jordan on 09-19-2022 Iron [Mass/Vol] 80 ug/dL Normal 40-160 ug/dL [facility] Iron binding capacity [Mass/ volume] in Serum or PlasmaOrdered By: Clara Jordan on 09-19-2022 Iron binding capacity [Mass/Vol] 301 ug/dL 255-450 [facility] Iron saturation [Mass Fracti on] in Serum or PlasmaOrdered By: Clara Jordan on 09-19-2022 Iron saturation [Mass fraction] 26.6 % 20-50 [facility] Leukocytes [#/volume] correc kristy for nucleated erythrocytes in Blood by Automated counOrdered By: Clara Jordan on 09-19-2022 WBC corrected for nucl RBC Auto (Bld) [#/Vol] 5.6 10*3/uL 4.1-10.5 [facility] Lipid Panelon 09-19-2022 Cholesterol in LDL Elph Qn 90 mg/dL Normal 0-100 mg/dL [facility] [place] Other Lipid Panel 96 mg/dL Normal 35-149 mg/dL [facility] [place] Other Lipid Panel 19 mg/dL [employer] [facility] [place] Other Cholesterol [Mass/Vol] 164 mg/dL Normal 140-200 [facility] Comment on above: Order Comment: Reaso n for Exam Well adult exam FASTING Result Comment: Chol less than 200 mg/dl low risk Chol 201-239 mg/dl borderline risk Chol 240 mg/dl and greater high risk Performed By: #### V [id number], FE PRO, CMP, [id number], LIPID, CBC, TSH3, URMACRERAT #### [facility] [address] Cholesterol in HDL [Mass/Vol] 55 mg/dL Normal 29-71 [facility] Comment on above: Order Comment: Teodorao n for Exam Well adult exam FASTING Result Comment: HDL CHOL ATP-III CLASSIFICATION Cardiovascular Risk HDL > or equal to 60 mg/dL LOW HDL < 40 mg/dL HIGH Performed By: #### V [id number], FE PRO, CMP, [id number], LIPID, CBC, TSH3, URMACRERAT #### [facility] [address] Cholesterol.total/Chol esterol in HDL [Mass ratio] 3.0 {ratio} Normal <5.0 [facility] Comment on above: Order Comment: Krystyna n for Exam Well adult exam FASTING Performed By: #### V [id number], FE PRO, CMP, [id number], LIPID, CBC, TSH3, URMACRERAT #### [facility] [address] [place] [id number] [place] LDL Cholesterol,Calculated 90 mg/dL Normal 0-100 [facility] Comment on above: Order Comment: Krystyna n for Exam Well adult exam FASTING Result Comment: LDL ATP III CLASSIFICATION LDL less than 100 mg/dL Optimal LDL 100-129 mg/dL Near or above optimal LDL 130-159 mg/dL Borderline high LDL 160-189 mg/dL High LDL greater than 189 mg/dL Very high Performed By: #### V [id number], FE PRO, CMP, [id number], LIPID, CBC, TSH3, URMACRERAT #### [facility] [address] [place] [id number] [place] Triglyceride w/Reflex 96 mg/dL Normal 35-149 [facility] Comment on above: Order Comment: Krystyna n for Exam Well adult exam FASTING Result Comment: TRIG ATP III CLASSIFICATION TRIG less than 150 mg/dL Normal TRIG 150-199 mg/dL Borderline high TRIG 200-500 mg/dL High TRIG greater than 500 mg/dL Very high Standard traceable to the Center for Disease Conrtrol and Prevention (CDC) test method. Performed By: #### V [id number], FE PRO, CMP, [id number], LIPID, CBC, TSH3, URMACRERAT #### [facility] [address] VLDL CHOLESTEROL 19 mg/dL Normal [facility] Comment on above: Order Comment: Reaso n for Exam Well adult exam FASTING Performed By: #### V [id number], FE PRO, CMP, [id number], LIPID, CBC, TSH3, URMACRERAT #### [facility] [address] [place] [id number] [place] Lymphocytes Auto (Bld) [#/Vo l]Ordered By: Clara Jordan on 09-19-2022 Lymphocytes (Bld) [#/Vol] 0.4 10*3/uL 1.00-4.8 [facility] Lymphocytes/100 WBC Auto (Bl d)Ordered By: Clara Jordan on 09-19-2022 Lymphocytes/100 WBC (Bld) 6.9 % . [facility] MCH Auto (RBC) [Entitic mass ]Ordered By: Clara Jordan on 09-19-2022 MCH (RBC) [Entitic mass] 30.6 pg 27.5-35.2 [facility] MCHC Auto (RBC) [Mass/Vol]Or dered By: Clara Jordan on 09-19-2022 MCHC (RBC) [Mass/Vol] 34.5 g/dL 32.5-35.6 [facility] MCV Auto (RBC) [Entitic vol] Ordered By: Clara Jordan on 09-19-2022 MCV (RBC) [Entitic vol] 88.7 fL 83.5-101 [facility] MicroAlb Creat Ratio,Uon Albumin DL <= 20 mg/L (U) [Mass/Vol] 0.7821870 mg/dL Normal 0.0-1.8 mg/dL [facility] Other Albumin/Creatinine DL <= 20 mg/L (U) [Mass ratio] 3.809372 mg/g Normal 0.0-30.0 mg/g [facility] [place] Other Creatinine (U) [Mass/Vol] 61.1110800 mg/dL [facility] [place] Other Albumin DL <= 20 mg/L (U) [Mass/Vol] 0.2 mg/dL Normal 0.0-1.8 [facility] Comment on above: Order Comment: Reaso n for Exam Well adult exam Performed By: #### V [id number], FE PRO, CMP, [id number], LIPID, CBC, TSH3, URMACRERAT #### [facility] [address] [place] [address] Creatinine, Urine (Random) 61.6 mg/dL Normal [facility] Comment on above: Order Comment: Reaso n for Exam Well adult exam Result Comment: No r eference range established Performed By: #### V [id number], FE PRO, CMP, [id number], LIPID, CBC, TSH3, URMACRERAT #### [facility] [address] Microalbumin/Creatinin e Ratio 3.0 mg/g Normal 0.0-30.0 [facility] Comment on above: Order Comment: Reaso n for Exam Well adult exam Result Comment: 30-3 00 mg/g indicates an increased risk for diabetic nephropathy. Greater than 300 mg/g is consistent with clinical nephropathy. (Am. J. Kidney Disease 1994, 25:107) PERFORMED BY: [place] [address] PATHOLOGIST [employer] MAYA SHELTON M.D. Performed By: #### V [id number], FE PRO, CMP, [id number], LIPID, CBC, TSH3, URMACRERAT #### [facility] [address] [place] [address] Monocytes Auto (Bld) [#/Vol] Ordered By: Clara Jordan on 09-19-2022 Monocytes (Bld) [#/Vol] 0.8 10*3/uL 0.0-0.8 [facility] Monocytes/100 WBC Auto (Bld) Ordered By: Clara Jordan on 09-19-2022 Monocytes/100 WBC (Bld) 14.1 % . [facility] Neutrophils Auto (Bld) [#/Vo l]Ordered By: Clara Jordan on 09-19-2022 Neutrophils (Bld) [#/Vol] 3.7 10*3/uL 1.8-7.7 [facility] Neutrophils/100 WBC Auto (Bl d)Ordered By: Clara Jordan on 09-19-2022 Neutrophils/100 WBC (Bld) 65.6 % . [facility] No Panel InformationOrdered By: Clara Jordan on 09-19-2022 25-Hydroxy Vitamin D Total 37.7 ng/mL 30-100 [facility] Comment on above: VITAMIN D STATUS 25( [place])VITAMIN D RANGE (ng/mL) Deficient <20 Insufficient 20 to <30Sufficient 30 to 100Reference: Tatianna MF,Dwayne PERKINS, Mariella GOOD, et al. Evaluation,treatment, and prevention of vitamin D deficiency; an Endocrine Society clinical practice guideline. JCEM. 2010; 96(7):1911-30. Estimated GFR () > 60 mL/Min [facility] Comment on above: GFR estimated refere nce range: According to KDOQI guidelines, <60 ml/min/1.73m2 is sufficient to diagnose a patient with chronic kidney disease. Pharmacy Creatinine Clearance (Chem N/A [facility] Nucleated erythrocytes [Pres ence] in Blood by Automated countOrdered By: Clara Jordan on 09-19-2022 Nucleated RBC Auto Ql (Bld) 0.1 /100{WBC} 0-0.5 [facility] Platelet mean volume Auto (B ld) [Entitic vol]Ordered By: Clara Jordan on 09-19-2022 Platelet mean volume (Bld) [Entitic vol] 6.3 fL 6.6-10.1 [facility] Platelets [#/volume] in Bloo d by Automated countOrdered By: Clara Jordan on 09-19-2022 Platelets (Bld) [#/Vol] 282 10*3/uL Normal 150-450 10*3/uL [facility] Protein [Mass/volume] in Ser um or PlasmaOrdered By: Clara Jordan on 09-19-2022 Protein [Mass/Vol] 6.2 g/dL 6.1-7.9 [facility] Serum or plasma alanine ramos otransferase measurement without P-5'-P (enzymatic activiOrdered By: Clara Jordan on 09-19-2022 ALT No additional P-5'-P [Catalytic activity/Vol] 23 U/L 10-60 [facility] Serum or plasma albumin/glob ulin mass ratioOrdered By: Clara Jordan on 09-19-2022 Albumin/Globulin [Mass ratio] 1.4 {ratio} [facility] Serum or plasma alkaline yulia sphatase measurement (enzymatic activity/volume)Ordered By: Clara Jordan on 09-19-2022 ALP [Catalytic activity/Vol] 122 U/L High 32-92 U/L [facility] Serum or plasma anion gap de terminationOrdered By: Clara Jordan on 09-19-2022 Anion gap [Moles/Vol] 12.4 mmol/L 6.0-15.0 [facility] Serum or plasma aspartate am inotransferase measurement (enzymatic activity/volume)Ordered By: Clara Jordan on 09-19-2022 AST [Catalytic activity/Vol] 27 U/L Normal 10-42 U/L [facility] Serum or plasma calcium adam urement (mass/volume)Ordered By: Clara Jordan on 09-19-2022 Calcium [Mass/Vol] 9.5 mg/dL 8.2-10.2 [facility] Serum or plasma chloride prashant surement (moles/volume)Ordered By: Clara Jordan on 09-19-2022 Chloride [Moles/Vol] 98 mmol/L Normal 95-114 mmol/L [facility] Serum or plasma glucose adam urement (mass/volume)Ordered By: Clara Jordan on 09-19-2022 Glucose [Mass/Vol] 110 mg/dL High 70-100 mg/dL [facility] Comment on above: ADA recommended refe rence rangeRandom Glucose Reference Range is dependent on time and content of last meal. Glucose of more than 200 mg/dL in a nonstressed, ambulatory subject supports the diagnosis of Diabetes Mellitus. Serum or plasma high density lipoprotein (HDL) cholesterol measurementOrdered By: Clara Jordan on 09-19-2022 Cholesterol in HDL [Mass/Vol] 55 mg/dL Normal 29-71 mg/dL [facility] Comment on above: HDL CHOL ATP-III CLA SSIFICATION Cardiovascular RiskHDL > or equal to 60 mg/dL LOWHDL < 40 mg/dL HIGH Serum or plasma potassium me asurement (moles/volume)Ordered By: Clara Jordan on 09-19-2022 Potassium [Moles/Vol] 4.9 mmol/L 3.5-5.1 [facility] Serum or plasma sodium measu rement (moles/volume)Ordered By: Clara Jordan on 09-19-2022 Sodium [Moles/Vol] 132 mmol/L Low 136-146 mmol/L [facility] Serum or plasma total biliru bin measurement (mass/volume)Ordered By: Clara Jordan on 09-19-2022 Bilirubin [Mass/Vol] 0.6 mg/dL 0.3-1.[address] [facility] Serum or plasma total carbon dioxide measurement (moles/volume)Ordered By: Clara Jordan on 09-19-2022 CO2 [Moles/Vol] 26.5 mmol/L 22.0-30.0 [facility] Serum or plasma total choles terol/high density lipoprotein (HDL) cholesterol mass ratOrdered By: Clara Jordan on 09-19-2022 Cholesterol.total/Chol esterol in HDL [Mass ratio] 3.0 {ratio} <5.0 [facility] Serum or plasma urea nitroge n measurement (mass/volume)Ordered By: Clara Jordan on 09-19-2022 Urea nitrogen [Mass/Vol] 8 mg/dL Low 9-23 mg/dL [facility] TSH DL <= 0.005 mIU/L QnOrde red By: Clara Jordan on 09-19-2022 TSH Qn 1.04 m[IU]/L 0.45-5.33 [facility] Thyroid Stimulating Hormoneo n 09-19-2022 TSH Qn 1.82801903417 m[IU]/L Normal 0.45-5 .33 u[iU]/mL [facility] Other TSH Qn 1.04 m[IU]/L Normal 0.45-5.33 [facility] Comment on above: Order Comment: Reaso n for Exam Well adult exam FASTING Performed By: #### V [id number], FE PRO, CMP, [id number], LIPID, CBC, TSH3, URMACRERAT #### [facility] [address] Triglyceride [Mass/volume] i n Serum or PlasmaOrdered By: Clara Jordan on 09-19-2022 Triglyceride [Mass/Vol] 96 mg/dL 35-149 [facility] Comment on above: TRIG ATP III CLASSIF [...] 20 mg/L (U) [Mass/Vol] 0.2 mg/dL 0.0-1.8 [facility] Urine microalbumin/creatinin e mass ratioOrdered By: Clara Jordan on 09-19-2022 Albumin/Creatinine DL <= 20 mg/L (U) [Mass ratio] 3.0 mg/g 0.0-30.0 [facility] Comment on above: 30-300 mg/g indicate s an increased risk for diabetic nephropathy. Greater than 300 mg/g is consistent with clinical nephropathy. (Am. J. Kidney Disease 1995, 25:107) Vit. B12/Folate Profileon Vit. B12/Folate Profile > 22.3 >5.9 [facility] Other Cobalamin (Vitamin B12) [Mass/Vol] 834 pg/mL Normal 180-914 [facility] Comment on above: Order Comment: Reaso n for Exam Well adult exam FASTING Performed By: #### V [id number], FE PRO, CMP, [id number], LIPID, CBC, TSH3, URMACRERAT #### [facility] [address] Folate > 22.3 Normal >5.9 [facility] Comment on above: Order Comment: Reaso n for Exam Well adult exam FASTING Result Comment: Rosi te reference range: >5.9 ng/ml The WHO technical consultation on folate and vitamin b12 deficiencies has determined that folate concentrations less than 4 ng/ml are considered deficient. Performed By: #### V [id number], FE PRO, CMP, [id number], LIPID, CBC, TSH3, URMACRERAT #### [facility] [address] [place] [address] Vit. B12/Folate ProfileOrder ed By: Clara Jordan on 09-19-2022 Cobalamin (Vitamin B12) [Mass/Vol] 834 pg/mL Normal 180-914 pg/mL [facility] Vitamin D 25 Hydroxy Totalon 09-19-2022 Vitamin D 25 Hydroxy Total 37.7 ng/mL Normal 30-100 ng/mL [facility] Other Vitamin D 25 Hydroxy Total 37.7 ng/mL Normal 30-100 [facility] Comment on above: Order Comment: Reaso n for Exam Well adult exam FASTING Result Comment: LONNIE MIN D STATUS 25(OH)VITAMIN D RANGE (ng/mL) Deficient <20 Insufficient 20 to <30 Sufficient 30 to 100 Reference: Tatianna MF,Dwayne NC, Mariella GOOD, et al. Evaluation,treatment, and prevention of vitamin D deficiency; an Endocrine Society clinical practice guideline. JCEM. 2010; 96(7):1911-30. PERFORMED BY: [place] [address] PATHOLOGIST [employer] MAYA SHELTON M.D. Performed By: #### V [id number], FE PRO, CMP, [id number], LIPID, CBC, TSH3, URMACRERAT #### [facility] [address] [place] [id number] [place] WBC Auto (Bld) [#/Vol]Ordere d By: Clara Jordan on 09-19-2022 WBC (Bld) [#/Vol] 5.6 10*3/uL 4.1-10.5 [facility] CBC W/DIFFon 04-14-2022 ABS IMM GRANS 0.0 10*3/uL Normal 0.0-0.2 [facility] Comment on above: Performed By: #### 8 [id number] #### [facility] [address] [place] [address], [place] ABS NEUTROPHILS 2.2 10*3/uL Normal 1.6-7.6 [facility] Comment on above: Performed By: #### 8 [id number] #### [facility] [address] [place] [address], [place] Basophils (Bld) [#/Vol] 0.0 10*3/uL Normal 0.0-0.2 [facility] Comment on above: Performed By: #### 8 [id number] #### [facility] [address] [place] [address], [place] Basophils/100 WBC (Bld) 0.3 % Normal 0.0-1.0 [facility] Comment on above: Performed By: #### 8 [id number] #### [facility] [address] [place] [address], [place] Eosinophils (Bld) [#/Vol] 0.0 10*3/uL Normal 0.0-0.5 [facility] Comment on above: Performed By: #### 8 [id number] #### [facility] [address] [place] [address], [place] Eosinophils/100 WBC (Bld) 1.4 % Normal 0.0-6.0 [facility] Comment on above: Performed By: #### 8 [id number] #### [facility] [address] Erythrocyte distribution width (RBC) [Ratio] 11.9 % Normal 11.5-15.0 [facility] Comment on above: Performed By: #### 8 [id number] #### [facility] [address] [facility] [place] [place] [address], [place] Hematocrit (Bld) [Volume fraction] 28.2 % Low 39.0-50.0 [facility] Comment on above: Performed By: #### 8 [id number] #### [facility] [address] [facility]. [address] Hemoglobin (Bld) [Mass/Vol] 9.5 g/dL Low 13.0-17.0 [facility] Comment on above: Performed By: #### 8 [id number] #### [facility] [address] IMMATURE GRANS 0.3 % Normal 0.0-1.0 [facility] Comment on above: Performed By: #### 8 [id number] #### [facility] [address] [facility] [place] [address], [place] Lymphocytes (Bld) [#/Vol] 0.3 10*3/uL Low 1.2-4.0 [facility] Comment on above: Performed By: #### 8 [id number] #### [facility] [address] [facility] [place] [address], [place] Lymphocytes/100 WBC (Bld) 9.2 % Low 20.0-45.0 [facility] Comment on above: Performed By: #### 8 [id number] #### [facility] [address] [facility] [place] [address], [place] MCH (RBC) [Entitic mass] 29.6 pg Normal 27.0-33.0 [facility] Comment on above: Performed By: #### 8 [id number] #### [facility] [address] [facility] [place] [address], [place] MCHC (RBC) [Mass/Vol] 33.7 g/dL Normal 32.0-35.0 [facility] Comment on above: Performed By: #### 8 [id number] #### [facility] [address] [facility] [place] [address], [place] MCV (RBC) [Entitic vol] 87.9 fL Normal 82.0-98.0 [facility] Comment on above: Performed By: #### 8 [id number] #### [facility] [address] [facility] [place] [address], [place] Monocytes (Bld) [#/Vol] 0.4 10*3/uL Normal 0.1-1.0 [facility] Comment on above: Performed By: #### 8 [id number] #### [facility] [address] [facility] [place] [address], [place] MONOS 13.7 % High 5.0-12.0 [facility] Comment on above: Performed By: #### 8 [id number] #### [facility] [address] [place] [address], [place] Neutrophils/100 WBC (Bld) 75.1 % High 40.0-72.0 [facility] Comment on above: Performed By: #### 8 [id number] #### [facility] [address] [facility] [place] [address], [place] Nucleated RBC/100 WBC (Bld) [Ratio] 0 % Normal 0-0 [facility] Comment on above: Performed By: #### 8 [id number] #### [facility] [address] [facility] [place] [address], [place] PLAT CNT 169 10*3/uL Normal 150-400 [facility] Comment on above: Performed By: #### 8 [id number] #### [facility] [address] [place] [id number], [place] RBC (Bld) [#/Vol] 3.21 10*6/uL Low 4.20-5.70 [facility] Comment on above: Performed By: #### 8 [id number] #### [facility] [address] [facility] [place] [address], [place] WBC (Bld) [#/Vol] 2.92 10*3/uL Low 4.00-10.60 [facility] Comment on above: Performed By: #### 8 [id number] #### [facility] [address] [place] [address], [place] HEMOGRAM CORNELIO POCon 04-14-20 22 ABS NEUT CORNELIO POC 2.2 10*3/uL Normal 1.6-7.6 [facility] Comment on above: Performed By: #### 8 [id number] #### [facility] [address] [place] [address], [place] Hematocrit (Bld) [Volume fraction] 28.1 % Low 39.0-50.0 [facility] Comment on above: Performed By: #### 8 [id number] #### [facility] [address] [facility] [place] [address], [place] Hemoglobin (Bld) [Mass/Vol] 9.6 g/dL Low 13.0-17.0 [facility] Comment on above: Performed By: #### 8 [id number] #### [facility] [address] [facility] [place] [address], [place] PLAT CNT CORNELIO POC 166 10*3/uL Normal 150-400 [facility] Comment on above: Performed By: #### 8 [id number] #### [facility] [address] [facility] [place] [address], [place] WBC (Bld) [#/Vol] 2.8 10*3/uL Low 4.0-10.6 [facility] Comment on above: Performed By: #### 8 [id number] #### [facility] [address] [place] [address], [place] Endoscopy Reporton 2 Endoscopy Report MR#: [id number] [facility] Pt. Name: Osbaldo León Surgery Date: 04/10/2022 Room #: 0C Date of : 1960 PROCEDURE NOTE ATTENDING: Eugenia Cano M.D. SUPERVISOR TOWER: Yusuf Mcdaniels MD. PROCEDURE: EGD with PEG tube placement. INDICATION: Oropharyngeal dysphagia/ History of tongue cancer. ANESTHESIA: Monitored anesthesia care. DESCRIPTION OF PROCEDURE: After obtaining informed consent, the scope was passed under direct vision from the mouth into the 2nd part of the duodenum using the transillumination method. The scope was then directed into the anterior wall of the stomach. The business banking sales assistant marked the spot where the transillumination was of maximum intensity in preparation for insertion of PEG tube. Following this, the abdominal skin the area that was marked, was cleaned with chlorhexidine preps. After this, under sterile technique, the business banking sales assistant made a small wheal of 1 [...] the skin. IMPRESSION: Successful endoscopic placement of 20-Vincentian PEG tube. PEG tube bumper was noted [...] until it was withdrawn. Date Dict: 04/10/2022/01:56 Isaac/Yusuf Mcdaniels MD Date Trans: 04/11/2022 06:04 A/lucretia [id number] Normal [facility] CBC W/DIFFon 04-10-2022 ABS IMM GRANS 0.1 10*3/uL Normal 0.0-0.2 [facility] Comment on above: Performed By: #### 8 [id number] #### [facility] [address] [place] [address], [place] ABS NEUTROPHILS 7.0 10*3/uL Normal 1.6-7.6 [facility] Comment on above: Performed By: #### 8 [id number] #### [facility] [address] [place] [address], [place] Basophils (Bld) [#/Vol] 0.0 10*3/uL Normal 0.0-0.2 [facility] Comment on above: Performed By: #### 8 [id number] #### [facility] [address] [place] [address], [place] Basophils/100 WBC (Bld) 0.0 % Normal 0.0-1.0 [facility] Comment on above: Performed By: #### 8 [id number] #### [facility] [address] [place] [address], [place] Eosinophils (Bld) [#/Vol] 0.0 10*3/uL Normal 0.0-0.5 [facility] Comment on above: Performed By: #### 8 [id number] #### [facility] [address] [place] [address], [place] Eosinophils/100 WBC (Bld) 0.4 % Normal 0.0-6.0 [facility] Comment on above: Performed By: #### 8 [id number] #### [facility] [address] [facility]. [address] Erythrocyte distribution width (RBC) [Ratio] 12.2 % Normal 11.5-15.0 [facility] Comment on above: Performed By: #### 8 [id number] #### [facility] [address] [facility] [place] [address], [place] Hematocrit (Bld) [Volume fraction] 32.0 % Low 39.0-50.0 [facility] Comment on above: Performed By: #### 8 [id number] #### [facility] [address] [facility]. [address] Hemoglobin (Bld) [Mass/Vol] 10.7 g/dL Low 13.0-17.0 [facility] Comment on above: Performed By: #### 8 [id number] #### [facility] [address] [facility]. [address] IMMATURE GRANS 0.6 % Normal 0.0-1.0 [facility] Comment on above: Performed By: #### 8 [id number] #### [facility] [address] [facility]. [address] Lymphocytes (Bld) [#/Vol] 0.5 10*3/uL Low 1.2-4.0 [facility] Comment on above: Performed By: #### 8 [id number] #### [facility] [address] [facility]. [address] Lymphocytes/100 WBC (Bld) 5.5 % Low 20.0-45.0 [facility] Comment on above: Performed By: #### 8 [id number] #### [facility] [address] [facility] [place] [address], [place] MCH (RBC) [Entitic mass] 29.6 pg Normal 27.0-33.0 [facility] Comment on above: Performed By: #### 8 [id number] #### [facility] [address] [place] [address], [place] MCHC (RBC) [Mass/Vol] 33.4 g/dL Normal 32.0-35.0 [facility] Comment on above: Performed By: #### 8 5499 #### [facility] [address] [place] [address], [place] MCV (RBC) [Entitic vol] 88.6 fL Normal 82.0-98.0 [facility] Comment on above: Performed By: #### 8 5499 #### [facility] [address] [facility] [place] [address], [place] Monocytes (Bld) [#/Vol] 0.6 10*3/uL Normal 0.1-1.0 [facility] Comment on above: Performed By: #### 8 [id number] #### [facility] [address] [place] [address], [place] MONOS 7.8 % Normal 5.0-12.0 [facility] Comment on above: Performed By: #### 8 5499 #### [facility] [address] [place] [address], [place] Neutrophils/100 WBC (Bld) 85.7 % High 40.0-72.0 [facility] Comment on above: Performed By: #### 8 5499 #### [facility] [address] [place] [address], [place] Nucleated RBC/100 WBC (Bld) [Ratio] 0 % Normal 0-0 [facility] Comment on above: Performed By: #### 8 [id number] #### [facility] [address] [place] [id number], [place] PLAT CNT 260 10*3/uL Normal 150-400 [facility] Comment on above: Performed By: #### 8 5499 #### [facility] [address] [place] [address], [place] RBC (Bld) [#/Vol] 3.61 10*6/uL Low 4.20-5.70 [facility] Comment on above: Performed By: #### 8 [id number] #### [facility] [address] [place] [address], [place] WBC (Bld) [#/Vol] 8.21 10*3/uL Normal 4.00-10.60 [facility] Comment on above: Performed By: #### 8 [id number] #### [facility] [address] [facility]. [address] COMP METABOLIC PANELon 04-10 Albumin [Mass/Vol] 4.1 g/dL Normal 3.5-5.7 [facility] Comment on above: Performed By: #### 0 0121, [id number] ####[facility] ALKALINE PHOSPH 363 IU/L High 34-104 [facility] Comment on above: Performed By: #### 0 0121, 10904 ####[facility] ALT [Catalytic activity/Vol] 213 U/L High 7-52 [facility] Comment on above: Performed By: #### 0 0121, 67301 ####[facility] AST [Catalytic activity/Vol] 59 U/L High 13-39 [facility] Comment on above: Performed By: #### 0 0121, 74663 ####[facility] Bilirubin [Mass/Vol] 0.8 mg/dL Normal 0.3-1.0 [facility] Comment on above: Performed By: #### 0 0121, 61040 ####[facility] [place] [address], [place] Calcium [Mass/Vol] 9.6 mg/dL Normal 8.6-10.3 [facility] Comment on above: Performed By: #### 0 0121, 33998 ####[facility] [place] [address], [place] Chloride [Moles/Vol] 96 mmol/L Low 98-107 [facility] Comment on above: Performed By: #### 0 0121, 10496 ####[facility] [place] [address], [place] CO2 [Moles/Vol] 28 mmol/L Normal 21-31 [facility] Comment on above: Performed By: #### 0 0121, 24556 ####[facility] [facility] [place] [place] [address], [place] Creatinine [Mass/Vol] 0.96 mg/dL Normal 0.70-1.30 [facility] Comment on above: Performed By: #### 0 0121, 26375 ####[place] [address] [facility] [place] [place] [address], [place] GFR/1.73 sq M.predicted among non-blacks MDRD (S/P/Bld) [Vol rate/Area] mL/min/{1.73_m2} Normal >60 [facility] Comment on above: Result Comment: [facility]'s estimated glomerular filtration rate (eGFR) will no [...] of individuals. Performed By: #### 0 0121, 93174 ####[facility] [place] [address], [place] Glucose [Mass/Vol] 98 mg/dL Normal 70-100 [facility] Comment on above: Performed By: #### 0 0121, 72568 ####[facility] [place] [address], [place] Potassium [Moles/Vol] 4.1 mmol/L Normal 3.5-5.1 [facility] Comment on above: Performed By: #### 0 0121, 69745 ####[facility] [place] [address], [place] Protein [Mass/Vol] 6.9 g/dL Normal 6.0-8.3 [facility] Comment on above: Performed By: #### 0 0121, 56490 ####[facility] [place] [address], [place] Sodium [Moles/Vol] 134 mmol/L Low 136-145 [facility] Comment on above: Performed By: #### 0 0121, 88544 ####[facility] [place] [address], [place] Urea nitrogen [Mass/Vol] 36 mg/dL High 7-25 [facility] Comment on above: Performed By: #### 0 0121, 64979 ####[facility] [place] [address], [place] MAGNESIUM BLOODon 04-10-2022 Magnesium [Mass/Vol] 2.0 mg/dL Normal 1.9-2.7 [facility] Comment on above: Performed By: #### 8 5499 #### [facility] [address] [place] [address], [place] POC GLUCOSE LABon 04-10-2022 Glucose [Mass/Vol] 103 mg/dL High 70-100 [facility] Comment on above: Performed By: #### 8 5499 #### [facility] [facility] [address] CBC W/DIFFon 04-07-2022 ABS IMM GRANS 0.0 10*3/uL Normal 0.0-0.2 [facility] Comment on above: Performed By: #### 8 5499 #### [facility] 3000 [facility] [place] [address], [place] ABS NEUTROPHILS 5.2 10*3/uL Normal 1.6-7.6 [facility] Comment on above: Performed By: #### 8 5499 #### [facility] 3000 [place] [address], [place] Basophils (Bld) [#/Vol] 0.0 10*3/uL Normal 0.0-0.2 [facility] Comment on above: Performed By: #### 8 5499 #### [facility] 3000 [place] [address], [place] Basophils/100 WBC (Bld) 0.2 % Normal 0.0-1.0 [facility] Comment on above: Performed By: #### 8 5499 #### [facility] 3000 [place] [address], [place] Eosinophils (Bld) [#/Vol] 0.1 10*3/uL Normal 0.0-0.5 [facility] Comment on above: Performed By: #### 8 5499 #### [facility] [address] [place] [address], [place] Eosinophils/100 WBC (Bld) 0.9 % Normal 0.0-6.0 [facility] Comment on above: Performed By: #### 8 5499 #### [facility] [address] [place] [address], [place] Erythrocyte distribution width (RBC) [Ratio] 12.1 % Normal 11.5-15.0 [facility] Comment on above: Performed By: #### 8 5499 #### [facility] [address] [facility] Hematocrit (Bld) [Volume fraction] 31.5 % Low 39.0-50.0 [facility] Comment on above: Performed By: #### 8 5499 #### [facility] 3000 [facility]. [address] Hemoglobin (Bld) [Mass/Vol] 11.0 g/dL Low 13.0-17.0 [facility] Comment on above: Performed By: #### 8 5499 #### [facility] 3000 [facility]. [address] IMMATURE GRANS 0.3 % Normal 0.0-1.0 [facility] Comment on above: Performed By: #### 8 5499 #### [facility] [address] Lymphocytes (Bld) [#/Vol] 0.3 10*3/uL Low 1.2-4.0 [facility] Comment on above: Performed By: #### 8 5499 #### [facility] [address] Lymphocytes/100 WBC (Bld) 4.7 % Low 20.0-45.0 [facility] Comment on above: Performed By: #### 8 5499 #### [facility] 3000 [facility]. [address] MCH (RBC) [Entitic mass] 29.9 pg Normal 27.0-33.0 [facility] Comment on above: Performed By: #### 8 5499 #### [facility] 3000 [facility]. [address] MCHC (RBC) [Mass/Vol] 34.9 g/dL Normal 32.0-35.0 [facility] Comment on above: Performed By: #### 8 5499 #### [facility] [address] [place] [address], [place] MCV (RBC) [Entitic vol] 85.6 fL Normal 82.0-98.0 [facility] Comment on above: Performed By: #### 8 5499 #### [facility] [address] [place] [address], [place] Monocytes (Bld) [#/Vol] 0.8 10*3/uL Normal 0.1-1.0 [facility] Comment on above: Performed By: #### 8 5499 #### [facility] [address] [place] [address], [place] MONOS 11.9 % Normal 5.0-12.0 [facility] Comment on above: Performed By: #### 8 5499 #### [facility] [address] [place] [address], [place] Neutrophils/100 WBC (Bld) 82.0 % High 40.0-72.0 [facility] Comment on above: Performed By: #### 8 5499 #### [facility] [address] [facility] [place] [id number], [place] Nucleated RBC/100 WBC (Bld) [Ratio] 0 % Normal 0-0 [facility] Comment on above: Performed By: #### 8 5499 #### [facility] [address] [place] [id number], [place] PLAT CNT 297 10*3/uL Normal 150-400 [facility] Comment on above: Performed By: #### 8 5499 #### [facility] [address] [place] [id number], [place] RBC (Bld) [#/Vol] 3.68 10*6/uL Low 4.20-5.70 [facility] Comment on above: Performed By: #### 8 5499 #### [facility] [address] WBC (Bld) [#/Vol] 6.36 10*3/uL Normal 4.00-10.60 [facility] Comment on above: Performed By: #### 8 5499 #### [facility] [address] [place] [address], [place] HEMOGRAM CORNELIO POCon 04-07-20 22 ABS NEUT CORNELIO POC 5.2 10*3/uL Normal 1.6-7.6 [facility] Comment on above: Performed By: #### 8 5499 #### [facility] 3000 [facility]. [address] Hematocrit (Bld) [Volume fraction] 31.7 % Low 39.0-50.0 [facility] Comment on above: Performed By: #### 8 5499 #### [facility] 3000 [facility]. [address] Hemoglobin (Bld) [Mass/Vol] 11.2 g/dL Low 13.0-17.0 [facility] Comment on above: Performed By: #### 8 5499 #### [facility] 3000 [facility] [place] [address], [place] PLAT CNT CORNELIO POC 294 10*3/uL Normal 150-400 [facility] Comment on above: Performed By: #### 8 5499 #### [facility] 3000 [facility] [place] [address], [place] WBC (Bld) [#/Vol] 6.3 10*3/uL Normal 4.0-10.6 [facility] Comment on above: Performed By: #### 8 5499 #### [facility] 3000 [facility]. [address] BASIC METABOLIC PANELon 03-10 Calcium [Mass/Vol] 9.4 mg/dL Normal 8.6-10.3 [facility] Comment on above: Performed By: #### 0 0071, 86826 ####[facility] [place] [address], [place] Chloride [Moles/Vol] 93 mmol/L Low 98-107 [facility] Comment on above: Performed By: #### 0 0071, 26765 ####[facility] [place] [address], [place] CO2 [Moles/Vol] 23 mmol/L Normal 21-31 [facility] Comment on above: Performed By: #### 0 0071, 38460 ####[facility]3000 [facility] [place] [address], [place] Creatinine [Mass/Vol] 0.73 mg/dL Normal 0.70-1.30 [facility] Comment on above: Performed By: #### 0 0071, 59743 ####[place] [address] [facility] [place] [address], [place] GFR/1.73 sq M.predicted among non-blacks MDRD (S/P/Bld) [Vol rate/Area] mL/min/{1.73_m2} Normal >60 [facility] Comment on above: Result Comment: [facility]'s estimated glomerular filtration rate (eGFR) will no [...] of individuals. Performed By: #### 0 0071, 86387 ####[facility]3000 [facility] [place] [address], [place] Glucose [Mass/Vol] 97 mg/dL Normal 70-100 [facility] Comment on above: Performed By: #### 0 0071, 46275 ####[facility]3000 [facility] [place] [address], [place] Potassium [Moles/Vol] 5.2 mmol/L High 3.5-5.1 [facility] Comment on above: Performed By: #### 0 0071, 95855 ####[facility]3000 [facility] [place] [address], [place] Sodium [Moles/Vol] 129 mmol/L Low 136-145 [facility] Comment on above: Performed By: #### 0 0071, 28811 ####[facility]3000 [facility] [place] [place] [address], [place] Urea nitrogen [Mass/Vol] 31 mg/dL High 7-25 [facility] Comment on above: Performed By: #### 0 0071, 81308 ####[place] [address] LIVER BATTERYon 04-06-2022 Albumin [Mass/Vol] 4.2 g/dL Normal 3.5-5.7 [facility] Comment on above: Order Comment: repea t in 1 week (04/06)PER LAB ORDER ONLY DRAW LIVER FUNCTION PANEL LSPPER LAB ORDER ONLY DRAW LIVER FUNCTION PANEL LSP Performed By: #### 0 0071, 92009 ####[place] [address] ALKALINE PHOSPH 372 IU/L High 34-104 [facility] Comment on above: Order Comment: repea t in 1 week (04/06)PER LAB ORDER ONLY DRAW LIVER FUNCTION PANEL LSPPER LAB ORDER ONLY DRAW LIVER FUNCTION PANEL LSP Performed By: #### 0 0071, 95853 ####[place] [address] [place] [address], [place] ALT [Catalytic activity/Vol] 138 U/L High 7-52 [facility] Comment on above: Order Comment: repea t in 1 week (04/06)PER LAB ORDER ONLY DRAW LIVER FUNCTION PANEL LSPPER LAB ORDER ONLY DRAW LIVER FUNCTION PANEL LSP Performed By: #### 0 0071, 89248 ####[facility] AST [Catalytic activity/Vol] 47 U/L High 13-39 [facility] Comment on above: Order Comment: repea t in 1 week (04/06)PER LAB ORDER ONLY DRAW LIVER FUNCTION PANEL LSPPER LAB ORDER ONLY DRAW LIVER FUNCTION PANEL LSP Performed By: #### 0 0071, 69680 ####[facility]3000 [place] [address], [place] Bilirubin [Mass/Vol] 0.4 mg/dL Normal 0.3-1.0 [facility] Comment on above: Order Comment: repea t in 1 week (04/06)PER LAB ORDER ONLY DRAW LIVER FUNCTION PANEL LSPPER LAB ORDER ONLY DRAW LIVER FUNCTION PANEL LSP Performed By: #### 0 0071, 12286 ####[facility] Bilirubin.direct [Mass/Vol] 0.1 mg/dL Normal 0.0-0.2 [facility] Comment on above: Order Comment: repea t in 1 week (04/06)PER LAB ORDER ONLY DRAW LIVER FUNCTION PANEL LSPPER LAB ORDER ONLY DRAW LIVER FUNCTION PANEL LSP Performed By: #### 0 0071, 24707 ####[facility]3000 [facility] [place] [place] [address], [place] Protein [Mass/Vol] 6.9 g/dL Normal 6.0-8.3 [facility] Comment on above: Order Comment: repea t in 1 week (04/06)PER LAB ORDER ONLY DRAW LIVER FUNCTION PANEL LSPPER LAB ORDER ONLY DRAW LIVER FUNCTION PANEL LSP Performed By: #### 0 0071, 65913 ####[facility] AFP TUMOR MARKER [id number] AFP TUMOR MARKER 3 ng/mL Normal 0-9 [facility] Comment on above: Result Comment: INTE RPRETIVE INFORMATION: Alpha Fetoprotein Tumor Marker The [facility] [place] Access DxI AFP method is used. Results [...] reference intervals for this test in the [facility] Test Directory ([employer]). Performed By: [employer] [address] [place] [address] Environmental Specialist: Alma Cai MD, PhD CBC W/DIFFon 03-30-2022 ABS IMM GRANS 0.1 10*3/uL Normal 0.0-0.2 [facility] Comment on above: Performed By: #### 8 5499 #### [facility] [address] ABS NEUTROPHILS 8.0 10*3/uL High 1.6-7.6 [facility] Comment on above: Performed By: #### 8 5499 #### [facility] [address] Basophils (Bld) [#/Vol] 0.0 10*3/uL Normal 0.0-0.2 [facility] Comment on above: Performed By: #### 8 5499 #### [facility] 3000 [place] [address], [place] Basophils/100 WBC (Bld) 0.2 % Normal 0.0-1.0 [facility] Comment on above: Performed By: #### 8 5499 #### [facility] [address] [facility] [place] [address], [place] Eosinophils (Bld) [#/Vol] 0.1 10*3/uL Normal 0.0-0.5 [facility] Comment on above: Performed By: #### 8 5499 #### [facility] [address] [place] [address], [place] Eosinophils/100 WBC (Bld) 1.2 % Normal 0.0-6.0 [facility] Comment on above: Performed By: #### 8 5499 #### [facility] 3000 [facility]. [address] Erythrocyte distribution width (RBC) [Ratio] 12.2 % Normal 11.5-15.0 [facility] Comment on above: Performed By: #### 8 5499 #### [facility] [address] Hematocrit (Bld) [Volume fraction] 33.4 % Low 39.0-50.0 [facility] Comment on above: Performed By: #### 8 5499 #### [facility] [address] Hemoglobin (Bld) [Mass/Vol] 11.1 g/dL Low 13.0-17.0 [facility] Comment on above: Performed By: #### 8 5499 #### [facility] 3000 [facility] [place] [address], [place] IMMATURE GRANS 0.6 % Normal 0.0-1.0 [facility] Comment on above: Performed By: #### 8 5499 #### [facility] 3000 [facility] [place] [address], [place] Lymphocytes (Bld) [#/Vol] 0.7 10*3/uL Low 1.2-4.0 [facility] Comment on above: Performed By: #### 8 5499 #### [facility] 3000 [facility] [place] [address], [place] Lymphocytes/100 WBC (Bld) 6.7 % Low 20.0-45.0 [facility] Comment on above: Performed By: #### 8 5499 #### [facility] [address] [place] [address], [place] MCH (RBC) [Entitic mass] 29.2 pg Normal 27.0-33.0 [facility] Comment on above: Performed By: #### 8 5499 #### [facility] [address] [place] [address], [place] MCHC (RBC) [Mass/Vol] 33.2 g/dL Normal 32.0-35.0 [facility] Comment on above: Performed By: #### 8 5499 #### [facility] [address] [place] [address], [place] MCV (RBC) [Entitic vol] 87.9 fL Normal 82.0-98.0 [facility] Comment on above: Performed By: #### 8 5499 #### [facility] 3000 [facility] [place] [address], [place] Monocytes (Bld) [#/Vol] 1.0 10*3/uL Normal 0.1-1.0 [facility] Comment on above: Performed By: #### 8 5499 #### [facility] [address] [facility] [place] [address], [place] MONOS 10.3 % Normal 5.0-12.0 [facility] Comment on above: Performed By: #### 8 5499 #### [facility] 3000 [facility] [place] [address], [place] Neutrophils/100 WBC (Bld) 81.0 % High 40.0-72.0 [facility] Comment on above: Performed By: #### 8 5499 #### [facility] [address] [place] [address], [place] Nucleated RBC/100 WBC (Bld) [Ratio] 0 % Normal 0-0 [facility] Comment on above: Performed By: #### 8 5499 #### [facility] [address] [place] [address], [place] PLAT CNT 346 10*3/uL Normal 150-400 [facility] Comment on above: Performed By: #### 8 5499 #### [facility] [address] [place] [address], [place] RBC (Bld) [#/Vol] 3.80 10*6/uL Low 4.20-5.70 [facility] Comment on above: Performed By: #### 8 5499 #### [facility] 3000 [facility] [place] [address], [place] WBC (Bld) [#/Vol] 9.88 10*3/uL Normal 4.00-10.60 [facility] Comment on above: Performed By: #### 8 5499 #### [facility] [address] [place] [address], [place] COMP METABOLIC PANELon 03-30 Albumin [Mass/Vol] 4.1 g/dL Normal 3.5-5.7 [facility] Comment on above: Performed By: #### 0 0121, 35699, 90400 ####[facility]3000 [facility].[address] ALKALINE PHOSPH 369 IU/L High 34-104 [facility] Comment on above: Performed By: #### 0 0121, 29397, 05443 ####[facility]3000 [facility] [place] [place] [address], [place] ALT [Catalytic activity/Vol] 334 U/L Critically high 7-52 [facility] Comment on above: Performed By: #### 0 0121, 35775, 48058 ####[facility] [place] [address], [place] AST [Catalytic activity/Vol] 88 U/L High 13-39 [facility] Comment on above: Performed By: #### 0 0121, 57042, 09936 ####[facility] [place] [address], [place] Bilirubin [Mass/Vol] 0.6 mg/dL Normal 0.3-1.0 [facility] Comment on above: Performed By: #### 0 0121, 95371, 83634 ####[facility] [place] [address], [place] Calcium [Mass/Vol] 9.4 mg/dL Normal 8.6-10.3 [facility] Comment on above: Performed By: #### 0 0121, 35496, 34443 ####[facility] [place] [address], [place] Chloride [Moles/Vol] 92 mmol/L Low 98-107 [facility] Comment on above: Performed By: #### 0 0121, 97057, 87191 ####[facility] [place] [address], [place] CO2 [Moles/Vol] 28 mmol/L Normal 21-31 [facility] Comment on above: Performed By: #### 0 0121, 99896, 68483 ####[facility] [place] [address], [place] Creatinine [Mass/Vol] 0.84 mg/dL Normal 0.70-1.30 [facility] Comment on above: Performed By: #### 0 0121, 39992, 62847 ####[facility] [place] [address], [place] GFR/1.73 sq M.predicted among non-blacks MDRD (S/P/Bld) [Vol rate/Area] mL/min/{1.73_m2} Normal >60 [facility] Comment on above: Result Comment: [facility]'s estimated glomerular filtration rate (eGFR) will no [...] of individuals. Performed By: #### 0 0121, , 09330 ####[facility]3000 [facility] [place] [place] [address], [place] Glucose [Mass/Vol] 94 mg/dL Normal 70-100 [facility] Comment on above: Performed By: #### 0 0121, , ####[place] [address] [facility].[place] [id number], [place] Potassium [Moles/Vol] 4.9 mmol/L Normal 3.5-5.1 [facility] Comment on above: Performed By: #### 0 0121, , 97290 ####[facility]3000 [facility] [place] [address], [place] Protein [Mass/Vol] 6.7 g/dL Normal 6.0-8.3 [facility] Comment on above: Performed By: #### 0 0121, , ####[facility]3000 [facility] [place] [address], [place] Sodium [Moles/Vol] 127 mmol/L Low 136-145 [facility] Comment on above: Performed By: #### 0 0121, , ####[facility]3000 [facility] [place] [place] [address], [place] Urea nitrogen [Mass/Vol] 30 mg/dL High 7-25 [facility] Comment on above: Performed By: #### 0 0121, , 54144 ####[facility] DIRECT BILIon 03-30-2022 Bilirubin.direct [Mass/Vol] 0.2 mg/dL Normal 0.0-0.2 [facility] Comment on above: Order Comment: Liver Battery conflicts with Comprehensive Metabolic Panel. Liver Battery canceled and Direct Bilirubin added. Performed By: #### 0 0121, 38088, 23323 ####[facility] HEPATITIS A ANTIBODY IGMon 0 03-30-2022 HEP A AB IGM Non-Reactive Normal NONREACTIVE [facility] Comment on above: Performed By: #### 3 1397, 03519, 24968, 30650 ####[facility] HEPATITIS B CORE ANTIBODYon 03-30-2022 HEP B CORE AB Non-Reactive Normal NONREACTIVE [facility] Comment on above: Performed By: #### 3 1397, 30248, 58525, 52617 ####[facility] HEPATITIS B SURFACE ANTIGEN QUALon 03-30-2022 HEP B SURF AG QUAL Non-Reactive Normal NONREACTIVE [facility] Comment on above: Performed By: #### 3 1397, 18880, 17910, 66817 ####[facility] HEPATITIS C ANTIBODYon 03-30 ANTI-HCV Non-Reactive Normal NONREACTIVE [facility] Comment on above: Performed By: #### 3 1397, 56163, 89231, 74052 ####[facility] MAGNESIUM BLOODon 03-30-2022 Magnesium [Mass/Vol] 2.1 mg/dL Normal 1.9-2.7 [facility] Comment on above: Performed By: #### 0 0121, 67350, 62581 ####[facility] [place] [address], [place] CBC W/DIFFon 03-18-2022 ABS IMM GRANS 0.0 10*3/uL Normal 0.0-0.2 [facility] Comment on above: Performed By: #### 8 5499 #### [facility] [address] [place] [address], [place] ABS NEUTROPHILS 5.2 10*3/uL Normal 1.6-7.6 [facility] Comment on above: Performed By: #### 8 5499 #### [facility] [address] [place] [address], [place] Basophils (Bld) [#/Vol] 0.0 10*3/uL Normal 0.0-0.2 [facility] Comment on above: Performed By: #### 8 5499 #### [facility] 3000 [facility] [place] [address], [place] Basophils/100 WBC (Bld) 0.5 % Normal 0.0-1.0 [facility] Comment on above: Performed By: #### 8 5499 #### [facility] 3000 [facility] [place] [address], [place] Eosinophils (Bld) [#/Vol] 0.2 10*3/uL Normal 0.0-0.5 [facility] Comment on above: Performed By: #### 8 5499 #### [facility] 3000 [facility]. [place] [id number], [place] Eosinophils/100 WBC (Bld) 2.7 % Normal 0.0-6.0 [facility] Comment on above: Performed By: #### 8 5499 #### [facility] [address] [place] [id number], [place] Erythrocyte distribution width (RBC) [Ratio] 12.6 % Normal 11.5-15.0 [facility] Comment on above: Performed By: #### 8 5499 #### [facility] [address] [place] [address], [place] Hematocrit (Bld) [Volume fraction] 32.1 % Low 39.0-50.0 [facility] Comment on above: Performed By: #### 8 5499 #### [facility] 3000 [facility] [place] [address], [place] Hemoglobin (Bld) [Mass/Vol] 10.6 g/dL Low 13.0-17.0 [facility] Comment on above: Performed By: #### 8 5499 #### [facility] 3000 [facility] [place] [address], [place] IMMATURE GRANS 0.3 % Normal 0.0-1.0 [facility] Comment on above: Performed By: #### 8 5499 #### [facility] 3000 [facility]. [address] Lymphocytes (Bld) [#/Vol] 1.0 10*3/uL Low 1.2-4.0 [facility] Comment on above: Performed By: #### 8 5499 #### [facility] [address] [place] [address], [place] Lymphocytes/100 WBC (Bld) 14.1 % Low 20.0-45.0 [facility] Comment on above: Performed By: #### 8 5499 #### [facility] [address] [facility] [place] [place] [address], [place] MCH (RBC) [Entitic mass] 29.3 pg Normal 27.0-33.0 [facility] Comment on above: Performed By: #### 8 5499 #### [facility] [address] [place] [address], [place] MCHC (RBC) [Mass/Vol] 33.0 g/dL Normal 32.0-35.0 [facility] Comment on above: Performed By: #### 8 5499 #### [facility] [address] [facility] [place] [address], [place] MCV (RBC) [Entitic vol] 88.7 fL Normal 82.0-98.0 [facility] Comment on above: Performed By: #### 8 5499 #### [facility] 3000 [facility] [place] [address], [place] Monocytes (Bld) [#/Vol] 0.8 10*3/uL Normal 0.1-1.0 [facility] Comment on above: Performed By: #### [id number] #### [facility] [address] [facility]. [address] MONOS 10.5 % Normal 5.0-12.0 [facility] Comment on above: Performed By: #### [id number] #### [facility] [address] [facility]. [address] Neutrophils/100 WBC (Bld) 71.9 % Normal 40.0-72.0 [facility] Comment on above: Performed By: #### [id number] #### [facility] [address] [facility]. [address] Nucleated RBC/100 WBC (Bld) [Ratio] 0 % Normal 0-0 [facility] Comment on above: Performed By: #### [id number] #### [facility] [address] [facility] [place] [address], [place] PLAT CNT 385 10*3/uL Normal 150-400 [facility] Comment on above: Performed By: #### [id number] #### [facility] [address] [facility] [place] [address], [place] RBC (Bld) [#/Vol] 3.62 10*6/uL Low 4.20-5.70 [facility] Comment on above: Performed By: #### [id number] #### [facility] [address] [facility]. [place] [address], [place] WBC (Bld) [#/Vol] 7.30 10*3/uL Normal 4.00-10.60 [facility] Comment on above: Performed By: #### 8 5499 #### [facility] [address] [place] [address], [place] COMP METABOLIC PANELon 03-18 Albumin [Mass/Vol] 4.5 g/dL Normal 3.5-5.7 [facility] Comment on above: Performed By: #### 1 0008 #### [facility] [address] [place] [address], [place] ALKALINE PHOSPH 195 IU/L High 34-104 [facility] Comment on above: Performed By: #### 1 0008 #### [facility] [address] [place] [address], [place] ALT [Catalytic activity/Vol] 29 U/L Normal 7-52 [facility] Comment on above: Performed By: #### 1 0008 #### [facility] [address] [place] [address], [place] AST [Catalytic activity/Vol] 30 U/L Normal 13-39 [facility] Comment on above: Performed By: #### 1 0008 #### [facility] [address] [place] [address], [place] Bilirubin [Mass/Vol] 0.5 mg/dL Normal 0.3-1.0 [facility] Comment on above: Performed By: #### 1 0008 #### [facility] [address] [place] [address], [place] Calcium [Mass/Vol] 9.6 mg/dL Normal 8.6-10.3 [facility] Comment on above: Performed By: #### 1 0008 #### [facility] [address] [place] [address], [place] Chloride [Moles/Vol] 97 mmol/L Low 98-107 [facility] Comment on above: Performed By: #### 1 0008 #### [facility] [address] [place] [address], [place] CO2 [Moles/Vol] 28 mmol/L Normal 21-31 [facility] Comment on above: Performed By: #### 1 0008 #### [facility] [address] [place] [address], [place] Creatinine [Mass/Vol] 0.73 mg/dL Normal 0.70-1.30 [facility] Comment on above: Performed By: #### 1 0008 #### [facility] [address] [place] [address], [place] GFR/1.73 sq M.predicted among non-blacks MDRD (S/P/Bld) [Vol rate/Area] mL/min/{1.73_m2} Normal >60 [facility] Comment on above: Result Comment: [facility]'s estimated glomerular filtration rate (eGFR) will no [...] individuals. Performed By: #### 1 0008 #### [facility] [address] [place] [address], [place] Glucose [Mass/Vol] 94 mg/dL Normal 70-100 [facility] Comment on above: Performed By: #### 1 0008 #### [facility] [address] [place] [address], [place] Potassium [Moles/Vol] 4.6 mmol/L Normal 3.5-5.1 [facility] Comment on above: Performed By: #### 1 0008 #### [facility] [address] [place] [address], [place] Protein [Mass/Vol] 7.1 g/dL Normal 6.0-8.3 [facility] Comment on above: Performed By: #### 1 0008 #### [facility] [address] [place] [address], [place] Sodium [Moles/Vol] 133 mmol/L Low 136-145 [facility] Comment on above: Performed By: #### 1 0008 #### [facility] [address] [place] [address], [place] Urea nitrogen [Mass/Vol] 14 mg/dL Normal 7-25 [facility] Comment on above: Performed By: #### 1 0008 #### [facility] [address] MAGNESIUM BLOODon 03-18-2022 Magnesium [Mass/Vol] 2.0 mg/dL Normal 1.9-2.7 [facility] Comment on above: Performed By: #### 1 0008 #### [facility] [address] [facility]. [address] Operative Reporton 2 Operative Report MR#: [id number] [facility] Pt. Name: Osbaldo León Room #: 0C Discharge 03/06/2022 Date: Birthdate: 1960 OPERATIVE REPORT DATE OF SURGERY: 03/06/2022 SURGEON: Oziel Macias M.D. 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 PROCEDURE DONE: Placement of a right subclavian Port-A-Cath. SUPERVISOR TOWER SURGEON: Christine Vogel M.D. ANESTHESIA: Local anesthesia [...] well, with no complications. Electronically Signed by: Oziel Macias M.D. 03/10/2022 09:59 A Oziel Macias M.D. Date Dict: 03/09/2022/07:53 P/Oziel Macias M.D. Date Trans: 03/09/2022 09:26 P/mmo [id number] Normal [facility] POC GLUCOSE LABon 03-06-2022 Glucose [Mass/Vol] 101 mg/dL High 70-100 [facility] Comment on above: Performed By: #### 8 4608 #### [address] TREATMENT PLAN >30 SLICE- RTXon 02-27-2022 CT TREATMENT PLAN >30 SLICE-RTX [facility] Department of Radiology [address] [place] [id number] ======== Patient Name: OSABLDO LÓEN : 1960 Sex: M Age: Race: White Pt. Location: OUTP Patient Status: O Ordered Date: 02/27/2022 4:10:00 PM Completed Date: 02/27/2022 04:52 PM Requesting Provider: NINO CASTRO Attending Provider: IRAIS LORA Report Copy To: Signs & Symptoms: head, neck, lung History: Comments: Exam: CT TREATMENT PLAN >30 SLICE-RTX ======== CT TREATMENT PLAN >30 SLICE-RTX 02/27/2022 4:52 PM SIGN AND SYMPTOMS: Tongue cancer, lung cancer TECHNOLOGIST COMMENTS: Dictate for documentation only FINDINGS: CT scan imaging was utilized for treatment planning. All CT scans at this facility use dose modulation, iterative reconstruction, and/or weight based dosing when appropriate to reduce radiation dose to as low as reasonably achievable. Electronically signed: Migel Saeed. Transcribed by: [email or web address], User Resident: Electronically Signed by: MIGEL SAEED @ 03/03/2022 08:13 AM Normal [facility] FLUORO FOR BRONCHOSCOPYon FLUORO FOR BRONCHOSCOPY [facility] Department of Radiology [address] [place] [phone] ======== Patient Name: OSBALDO LEÓN : 1960 Sex: M Age: Race: White Pt. Location: [facility] Patient Status: O Ordered Date: 02/26/2022 7:30:00 AM Completed Date: 02/26/2022 02:19 PM Requesting Provider: IRAIS LORA Attending Provider: IRAIS LORA Report Copy To: Signs & Symptoms: BRONCH History: Comments: BRONCH Exam: FLUORO FOR BRONCHOSCOPY ======== FLUORO FOR BRONCHOSCOPY CLINICAL INFORMATION: 2.53 mins of fluoro used by Dr Lora. BRONCH. COMPARISON: None. IMPRESSION: * Intraoperative fluoroscopy provided. Dose 13.28 mgy. Time 173.2 seconds. Electronically signed: Annia Johnson. Transcribed by: [email or web address], User Resident: Electronically Signed by: ANNIA JOHNSON @ 02/27/2022 04:21 PM Normal [facility] Comment on above: Order Comment: [facility] [id number] HUMAN PAPILLOMAVIRUS (HPV) HIGH RISK BY IN SITU HYBRIDIZATION [facility] 14139 ACCESSION NUMBER [id number] SLIDES [id number] MISCELLANEOUS PATHon 022 RESULT PLEASE SEE SURGICAL PATHOLOGY REPORT. Normal [facility] Comment on above: Order Comment: [facility] [id number] HUMAN PAPILLOMAVIRUS (HPV) HIGH RISK BY IN SITU HYBRIDIZATION [facility] 22552 ACCESSION NUMBER [id number] SLIDES [id number] Result Comment: Test performed at [facility], [address] [place] [id number]. Performed By: #### 8 4608 #### [address] Order Comment: ACCES IVAN NUMBER [id number] SLIDES [id number] A Operative Reporton Operative Report MR#: [id number] [facility] Pt. Name: [facility] #: 0C Discharge Date: Birthdate: 1960 OPERATIVE [...] Lora MD Date Trans: 02/26/2022 02:45 P/ [id number] Normal [facility] POC GLUCOSE LABon 02-26-2022 Glucose [Mass/Vol] 93 mg/dL Normal 70-100 [facility] Comment on above: Performed By: #### 8 5499 #### [address] POC SARS COV2 IDon 2 SARS-CoV-2 (COVID-19) RNA FRITZ+probe Ql (Unsp spec) Negative Normal NEGATIVE [facility] Comment on above: Result Comment: ID N [...] Accreditation. Performed By: #### 3 1921 #### [address] PORTABLE CHEST 1 VIEWon 02-07 PORTABLE CHEST 1 VIEW [facility] Department of Radiology [address] [place] [phone] ======== Patient Name: OSBALDO LEÓN : 1960 Sex: M Age: Race: White Pt. Location: OUTP Patient Status: O Ordered Date: 02/26/2022 3:05:00 PM Completed Date: 02/26/2022 03:13 PM Requesting Provider: IRAIS LORA Attending Provider: IRAIS LORA Report Copy To: Signs & Symptoms: Post Bronch History: Comments: Evaluate for pneumothorax Exam: PORTABLE CHEST 1 VIEW ======== PORTABLE CHEST 1 VIEW 02/26/2022 3:13 PM [...] mass. Electronically signed: Zack Guevara. Transcribed by: [email or web address], User Resident: ZACK GUEVARA Electronically Signed by: ZACK GUEVARA @ 02/26/2022 03:39 PM I personally read this/these film(s) with this resident Normal [facility] Comment on above: Order Comment: Evalu ate for pneumothorax NM PET CT SKULL-MID THIGH-IN ITIALon 02-24-[address] SKULL-MID THIGH-INITIAL [facility] Department of Radiology [address] [place] [phone] ======== Patient Name: OSBALDO LEÓN : 1960 Sex: M Age: Race: White Pt. Location: 29 Patient Status: D Ordered Date: 02/24/2022 11:00:00 AM Completed Date: 02/24/2022 11:53 AM Requesting Provider: JOSUE GRIMM Attending Provider: Report Copy To: Signs & Symptoms: C01 Cancer of base of Tongue History: order in ris OK'd PER LEVAR elsa'd by AD* Comments: Exam: NM PET CT SKULL-MID THIGH-INITIAL ======== NM PET CT SKULL-MID THIGH-INITIAL 02/24/2022 11:53 AM CLINICAL INDICATIONS: C01 Cancer of base of Tongue TECHNOLOGIST COMMENTS: IS, multiple lung nodules increasing in size, Rt neck mass bx at [facility] 02/20/22-path pending, h/o prostate ca, PSMA PET/CT [...] nonspecific activity is seen at the right [place] prostate bed below the bladder. Electronically signed: Alma Schmitz. Transcribed by: [email or web address], User Resident: Electronically Signed by: ALMA SCHMITZ @ 02/27/2022 05:22 PM Normal [facility] POC GLUCOSE NCon 02-24-2022 Glucose [Mass/Vol] 83 mg/dL Normal 70-100 [facility] Comment on above: Performed By: #### 8 4513 #### [place] [address], [place] [address] CHEST WO CONTRASTon 02-16 CT CHEST WO CONTRAST [facility] Department of Radiology [address] [place] [phone] ======== Patient Name: OSBALDO LEÓN : 1960 Sex: M Age: Race: White Pt. Location: Critical [facility] hospital Patient Status: D Ordered Date: 02/12/2022 11:10:00 AM Completed Date: 02/16/2022 02:50 PM Requesting Provider: MATEUSZ CONROY Attending Provider: MATEUSZ CONROY Report Copy To: Signs & Symptoms: R91.8 Other nonspecific abnormal finding of lung field I10 History: Kate Comments: surveillance of pulmonary nodules. Please compare to PET/CT scan 10/30/2021. Please do at next available. Exam: CT CHEST WO CONTRAST ======== CT CHEST WO CONTRAST 02/16/2022 2:50 PM [...] achievable Electronically signed: Raf Carias. Transcribed by: [email or web address], User Resident: Electronically Signed by: RAF CARIAS @ 02/19/2022 08:04 AM Normal [facility] Comment on above: Order Comment: surve illance of pulmonary nodules. Please compare to PET/CT scan 10/30/2021. Please do at next available. BASIC METABOLIC PANELon 05-1 Calcium [Mass/Vol] 8.5 mg/dL Low 8.6-10.3 [facility] Comment on above: Order Comment: surve illance of pulmonary nodules. Please compare to PET/CT scan 10/30/2021. Please do at next available. Performed By: #### 0 0071, 94099, 88479 ####[facility] [place] [address], [place] Chloride [Moles/Vol] 100 mmol/L Normal 98-107 [facility] Comment on above: Order Comment: surve illance of pulmonary nodules. Please compare to PET/CT scan 10/30/2021. Please do at next available. Performed By: #### 0 0071, 91946, 44560 ####[facility] [place] [address], [place] CO2 [Moles/Vol] 25 mmol/L Normal 21-31 [facility] Comment on above: Order Comment: surve illance of pulmonary nodules. Please compare to PET/CT scan 10/30/2021. Please do at next available. Performed By: #### 0 0071, 40472, 56252 ####[facility] [place] [address], [place] Creatinine [Mass/Vol] 1.21 mg/dL Normal 0.70-1.30 [facility] Comment on above: Order Comment: surve illance of pulmonary nodules. Please compare to PET/CT scan 10/30/2021. Please do at next available. Performed By: #### 0 0071, 65511, 02036 ####[facility] [place] [address], [place] GFR/1.73 sq M.predicted among blacks MDRD (S/P/Bld) [Vol rate/Area] mL/min/{1.73_m2} Normal >60 [facility] Comment on above: Order Comment: surve illance of pulmonary nodules. Please compare to PET/CT scan 10/30/2021. Please do at next available. Performed By: #### 0 0071, 37823, 48412 ####[facility] [place] [address], [place] GFR/1.73 sq M.predicted among non-blacks MDRD (S/P/Bld) [Vol rate/Area] mL/min/{1.73_m2} Normal >60 [facility] Comment on above: Order Comment: surve illance of pulmonary nodules. Please compare to PET/CT scan 10/30/2021. Please do at next available. Performed By: #### 0 0071, 86921, 19411 ####[facility] [place] [address], [place] Glucose [Mass/Vol] 123 mg/dL High 70-100 [facility] Comment on above: Order Comment: surve illance of pulmonary nodules. Please compare to PET/CT scan 10/30/2021. Please do at next available. Performed By: #### 0 0071, 95933, 39340 ####[facility] [place] [address], [place] Potassium [Moles/Vol] 4.2 mmol/L Normal 3.5-5.1 [facility] Comment on above: Order Comment: surve illance of pulmonary nodules. Please compare to PET/CT scan 10/30/2021. Please do at next available. Performed By: #### 0 0071, 26033, 48545 ####[facility] [place] [address], [place] Sodium [Moles/Vol] 133 mmol/L Low 136-145 [facility] Comment on above: Order Comment: surve illance of pulmonary nodules. Please compare to PET/CT scan 10/30/2021. Please do at next available. Performed By: #### 0 0071, 42980, 84257 ####[facility] [place] [address], [place] Urea nitrogen [Mass/Vol] 17 mg/dL Normal 7-25 [facility] Comment on above: Order Comment: surve illance of pulmonary nodules. Please compare to PET/CT scan 10/30/2021. Please do at next available. Performed By: #### 0 0071, 34868, 48426 ####[facility] [place] [address], [place] CBC COMPLETE BLOOD COUNTon 0 - Erythrocyte distribution width (RBC) [Ratio] 13.0 % Normal 11.5-15.0 [facility] Comment on above: Order Comment: No: D o not add to previous draw Performed By: #### 8 5499 #### [facility] [address] Hematocrit (Bld) [Volume fraction] 30.3 % Low 39.0-50.0 [facility] Comment on above: Order Comment: No: D o not add to previous draw Performed By: #### 8 5499 #### [facility] [address] [place] [address], [place] Hemoglobin (Bld) [Mass/Vol] 10.3 g/dL Low 13.0-17.0 [facility] Comment on above: Order Comment: No: D o not add to previous draw Performed By: #### 8 5499 #### [facility] [address] [place] [address], [place] MCH (RBC) [Entitic mass] 30.2 pg Normal 27.0-33.0 [facility] Comment on above: Order Comment: No: D o not add to previous draw Performed By: #### 8 5499 #### [facility] [address] MCHC (RBC) [Mass/Vol] 34.0 g/dL Normal 32.0-35.0 [facility] Comment on above: Order Comment: No: D o not add to previous draw Performed By: #### 8 5499 #### [facility] [address] [place] [address], [place] MCV (RBC) [Entitic vol] 88.9 fL Normal 82.0-98.0 [facility] Comment on above: Order Comment: No: D o not add to previous draw Performed By: #### 8 5499 #### [facility] [address] [place] [address], [place] Nucleated RBC/100 WBC (Bld) [Ratio] 0 % Normal 0-0 [facility] Comment on above: Order Comment: No: D o not add to previous draw Performed By: #### 8 5499 #### [facility] [address] [place] [address], [place] PLAT CNT 276 10*3/uL Normal 150-400 [facility] Comment on above: Order Comment: No: D o not add to previous draw Performed By: #### 8 5499 #### [facility] [address] [place] [address], [place] RBC (Bld) [#/Vol] 3.41 10*6/uL Low 4.20-5.70 [facility] Comment on above: Order Comment: No: D o not add to previous draw Performed By: #### 8 5499 #### [facility] [address] [place] [address], [place] WBC (Bld) [#/Vol] 12.27 10*3/uL High 4.00-10.60 [facility] Comment on above: Order Comment: No: D o not add to previous draw Performed By: #### 8 5499 #### [facility] [address] [place] [address], [place] CREATININE FLUIDon 2 Creatinine [Mass/Vol] 1.4 mg/dL Normal [facility] Comment on above: Order Comment: drain fluid for creatinineNo: Do not add to previous draw Result Comment: The reference range and other method performance specifications have not been established for this test in fluids. the test result should be integrated into the clinical context for interpretation. Performed By: #### 9 6236 ####[facility] [facility] [place] [address], [place] MAGNESIUM BLOODon 12-16-2021 Magnesium [Mass/Vol] 2.8 mg/dL High 1.9-2.7 [facility] Comment on above: Order Comment: surve illance of pulmonary nodules. Please compare to PET/CT scan 10/30/2021. Please do at next available. Performed By: #### 0 0071, 81830, 18362 ####[facility] [facility] [place] [address], [place] PHOSPHORUS BLOODon 2 Phosphate [Mass/Vol] 4.3 mg/dL Normal 2.5-5.0 [facility] Comment on above: Order Comment: surve illance of pulmonary nodules. Please compare to PET/CT scan 10/30/2021. Please do at next available. Performed By: #### 0 0071, 40183, 16489 ####[facility] [place] [address], [place] BASIC METABOLIC PANELon 05-0 Calcium [Mass/Vol] 8.9 mg/dL Normal 8.6-10.3 [facility] Comment on above: Order Comment: No: D o not add to previous draw Performed By: #### 3 1 #### [facility] [address] [place] [address], [place] Chloride [Moles/Vol] 106 mmol/L Normal 98-107 [facility] Comment on above: Order Comment: No: D o not add to previous draw Performed By: #### 3 1 #### [facility] [address] [place] [address], [place] CO2 [Moles/Vol] 24 mmol/L Normal 21-31 [facility] Comment on above: Order Comment: No: D o not add to previous draw Performed By: #### 3 1 #### [facility] [address] [place] [address], [place] Creatinine [Mass/Vol] 0.82 mg/dL Normal 0.70-1.30 [facility] Comment on above: Order Comment: No: D o not add to previous draw Performed By: #### 3 1 #### [facility] [address] [place] [address], [place] GFR/1.73 sq M.predicted among blacks MDRD (S/P/Bld) [Vol rate/Area] mL/min/{1.73_m2} Normal >60 [facility] Comment on above: Order Comment: No: D o not add to previous draw Performed By: #### 3 1921 #### [facility] [address] [place] [address], [place] GFR/1.73 sq M.predicted among non-blacks MDRD (S/P/Bld) [Vol rate/Area] mL/min/{1.73_m2} Normal >60 [facility] Comment on above: Order Comment: No: D o not add to previous draw Performed By: #### 3 1920 #### [facility] [address] [place] [address], [place] Glucose [Mass/Vol] 128 mg/dL High 70-100 [facility] Comment on above: Order Comment: No: D o not add to previous draw Performed By: #### 3 1920 #### [facility] [address] [place] [address], [place] Potassium [Moles/Vol] 4.1 mmol/L Normal 3.5-5.1 [facility] Comment on above: Order Comment: No: D o not add to previous draw Performed By: #### 3 1920 #### [facility] [address] [place] [address], [place] Sodium [Moles/Vol] 140 mmol/L Normal 136-145 [facility] Comment on above: Order Comment: No: D o not add to previous draw Performed By: #### 3 1920 #### [facility] [address] [place] [address], [place] Urea nitrogen [Mass/Vol] 13 mg/dL Normal 7-25 [facility] Comment on above: Order Comment: No: D o not add to previous draw Performed By: #### 3 1920 #### [facility] [address] [place] [address], [place] CBC COMPLETE BLOOD COUNTon 0 - Erythrocyte distribution width (RBC) [Ratio] 12.8 % Normal 11.5-15.0 [facility] Comment on above: Order Comment: No: D o not add to previous draw Performed By: #### 8 5499 #### [facility] [address] [place] [address], [place] Hematocrit (Bld) [Volume fraction] 32.2 % Low 39.0-50.0 [facility] Comment on above: Order Comment: No: D o not add to previous draw Performed By: #### 8 5499 #### [facility] [address] [place] [address], [place] Hemoglobin (Bld) [Mass/Vol] 10.9 g/dL Low 13.0-17.0 [facility] Comment on above: Order Comment: No: D o not add to previous draw Performed By: #### 8 5499 #### [facility] [address] [place] [id number], [place] MCH (RBC) [Entitic mass] 30.0 pg Normal 27.0-33.0 [facility] Comment on above: Order Comment: No: D o not add to previous draw Performed By: #### 8 5499 #### [facility] [address] [place] [address], [place] MCHC (RBC) [Mass/Vol] 33.9 g/dL Normal 32.0-35.0 [facility] Comment on above: Order Comment: No: D o not add to previous draw Performed By: #### 8 5499 #### [facility] [address] [facility] [place] [address], [place] MCV (RBC) [Entitic vol] 88.7 fL Normal 82.0-98.0 [facility] Comment on above: Order Comment: No: D o not add to previous draw Performed By: #### 8 [id number] #### [facility] [address] [place] [address], [place] Nucleated RBC/100 WBC (Bld) [Ratio] 0 % Normal 0-0 [facility] Comment on above: Order Comment: No: D o not add to previous draw Performed By: #### 8 5499 #### [facility] [address] [place] [address], [place] PLAT CNT 309 10*3/uL Normal 150-400 [facility] Comment on above: Order Comment: No: D o not add to previous draw Performed By: #### 8 5499 #### [facility] [address] [facility] [place] [address], [place] RBC (Bld) [#/Vol] 3.63 10*6/uL Low 4.20-5.70 [facility] Comment on above: Order Comment: No: D o not add to previous draw Performed By: #### 8 5499 #### [facility] [address] [facility] [place] [address], [place] WBC (Bld) [#/Vol] 14.24 10*3/uL High 4.00-10.60 [facility] Comment on above: Order Comment: No: D o not add to previous draw Performed By: #### 8 5499 #### [facility] [address] MAGNESIUM BLOODon 12-15-2021 Magnesium [Mass/Vol] 1.8 mg/dL Low 1.9-2.7 [facility] Comment on above: Order Comment: No: D o not add to previous draw Performed By: #### 3 1921 #### [facility] [address] [facility]. [address] Operative Reporton 2 Operative Report MR#: [id number] [facility] Pt. Name: reg [facility] Room #: PAT Discharge Date: Birthdate: 1960 OPERATIVE REPORT DATE OF SURGERY: 12/15/2021 SURGEON: Mateusz Conroy MD SUPERVISOR TOWER: 1. Yanique Barry MD . PREOPERATIVE DIAGNOSIS: [...] nodes. 3. Anterior prostate fat. DRAINS: 1. 19-Vincentian Ayush drain to left lower quadrant. 2. 18-Vincentian 2-way Pittman catheter to gravity drainage. COMPLICATIONS: [...] 08/29/2021. Pathology revealed adenocarcinoma of the prostate, [place] 3+4 = 7; GG 2 involving 5/17 cores up to 50% or 6 mm of the core in JULIANE# and RLM, Rosanna 3+3= 6; GG 1 in 6/17 up to 35% or 5 mm of the core for a total of 8/13 cores positive for malignancy (since JULIANE #1 was sampled more than once). No cribriform histology or PNI. AUA-SI 2/35, QoL 0. VITALY . PRICILA 35 g prostate with right lobe [...] identifiers. All parties were in agreement. An 18-Vincentian indwelling Pittman catheter was placed into the [...] T (more content not included)... Normal [facility] PHOSPHORUS BLOODon 2 Phosphate [Mass/Vol] 4.0 mg/dL Normal 2.5-5.0 [facility] Comment on above: Order Comment: No: D o not add to previous draw Performed By: #### 3 1920 #### [facility] [address] [place] [address], [place] POC GLUCOSE LABon 12-15-2021 Glucose [Mass/Vol] 102 mg/dL High 70-100 [facility] Comment on above: Performed By: #### 8 [id number] #### [facility] [address] [place] [address], [place] *URINE CULTUREon 12-03-2021 *URINE CULTURE Clinical Report: (D) Specimen: URINE Collected: 12/03/2021 14:58 Status: Final Last Updated: 12/05/2021 08:17 CULT RES (Final) NO GROWTH 48 HOURS Normal [facility] Comment on above: Performed By: #### 3 1920 #### [facility] [address] [place] [address], [place] CBC COMPLETE BLOOD COUNTon 0 12-03-2021 Erythrocyte distribution width (RBC) [Ratio] 12.4 % Normal 11.5-15.0 [facility] Comment on above: Performed By: #### 3 1920 #### [facility] [address] [place] [address], [place] Hematocrit (Bld) [Volume fraction] 34.3 % Low 39.0-50.0 [facility] Comment on above: Performed By: #### 3 1920 #### [facility] [address] [place] [address], [place] Hemoglobin (Bld) [Mass/Vol] 11.7 g/dL Low 13.0-17.0 [facility] Comment on above: Performed By: #### 3 1920 #### [facility] [address] [place] [address], [place] MCH (RBC) [Entitic mass] 29.8 pg Normal 27.0-33.0 [facility] Comment on above: Performed By: #### 3 1920 #### [facility] [address] [address], [place] MCHC (RBC) [Mass/Vol] 34.1 g/dL Normal 32.0-35.0 [facility] Comment on above: Performed By: #### 3 1920 #### [facility] [address] [facility] [place] [place] [address], [place] MCV (RBC) [Entitic vol] 87.3 fL Normal 82.0-98.0 [facility] Comment on above: Performed By: #### 3 1920 #### [facility] [address] [facility] [place] [place] [address], [place] Nucleated RBC/100 WBC (Bld) [Ratio] 0 % Normal 0-0 [facility] Comment on above: Performed By: #### 3 1920 #### [facility] [address] [facility] [place] [place] [address], [place] PLAT CNT 349 10*3/uL Normal 150-400 [facility] Comment on above: Performed By: #### 3 1920 #### [facility] [address] [facility] [place] [place] [address], [place] RBC (Bld) [#/Vol] 3.93 10*6/uL Low 4.20-5.70 [facility] Comment on above: Performed By: #### 3 1920 #### [facility] [address] [facility]. [place] [id number], [place] WBC (Bld) [#/Vol] 9.03 10*3/uL Normal 4.00-10.60 [facility] Comment on above: Performed By: #### 3 1920 #### [facility] [address] [place] [address], [place] COMP METABOLIC PANELon 12-03 Albumin [Mass/Vol] 4.6 g/dL Normal 3.5-5.7 [facility] Comment on above: Performed By: #### 0 0121 ####[facility] [facility] [place] [address], [place] ALKALINE PHOSPH 94 IU/L Normal 34-104 [facility] Comment on above: Performed By: #### 0 0121 ####[facility] [facility] [place] [address], [place] ALT [Catalytic activity/Vol] 17 U/L Normal 7-52 [facility] Comment on above: Performed By: #### 0 0121 ####[facility] [facility] [place] [place] [address], [place] AST [Catalytic activity/Vol] 23 U/L Normal 13-39 [facility] Comment on above: Performed By: #### 0 0121 ####[facility] [facility] [place] [address], [place] Bilirubin [Mass/Vol] 0.6 mg/dL Normal 0.3-1.0 [facility] Comment on above: Performed By: #### 0 0121 ####[place] [address] [facility] [place] [address], [place] Calcium [Mass/Vol] 9.5 mg/dL Normal 8.6-10.3 [facility] Comment on above: Performed By: #### 0 0121 ####[facility] [facility] [place] [address], [place] Chloride [Moles/Vol] 98 mmol/L Normal 98-107 [facility] Comment on above: Performed By: #### 0 0121 ####[facility] [facility].[place] [id number], [place] CO2 [Moles/Vol] 25 mmol/L Normal 21-31 [facility] Comment on above: Performed By: #### 0 0121 ####[facility] [place] [address], [place] Creatinine [Mass/Vol] 0.83 mg/dL Normal 0.70-1.30 [facility] Comment on above: Performed By: #### 0 0121 ####[facility] [place] [address], [place] GFR/1.73 sq M.predicted among blacks MDRD (S/P/Bld) [Vol rate/Area] mL/min/{1.73_m2} Normal >60 [facility] Comment on above: Performed By: #### 0 0121 ####[facility] [place] [address], [place] GFR/1.73 sq M.predicted among non-blacks MDRD (S/P/Bld) [Vol rate/Area] mL/min/{1.73_m2} Normal >60 [facility] Comment on above: Performed By: #### 0 0121 ####[facility] [place] [address], [place] Glucose [Mass/Vol] 81 mg/dL Normal 70-100 [facility] Comment on above: Performed By: #### 0 0121 ####[facility] [place] [address], [place] Potassium [Moles/Vol] 4.6 mmol/L Normal 3.5-5.1 [facility] Comment on above: Performed By: #### 0 0121 ####[facility] [place] [address], [place] Protein [Mass/Vol] 7.1 g/dL Normal 6.0-8.3 [facility] Comment on above: Performed By: #### 0 0121 ####[facility] [place] [address], [place] Sodium [Moles/Vol] 135 mmol/L Low 136-145 [facility] Comment on above: Performed By: #### 0 0121 ####[facility] [facility] [address] Urea nitrogen [Mass/Vol] 10 mg/dL Normal 7-25 [facility] Comment on above: Performed By: #### 0 0121 ####[facility] [place] [address], [place] A1C HEMOGLOBINon 11-12-2021 HbA1c (Bld) [Mass fraction] 5.9 % [facility] Other HbA1c (Bld) [Mass fraction]o n 11-12-2021 A1C HEMOGLOBIN Plain Vanilla Other NM PET CT SKULL-MID THIGH WI TH PYLARIFY-INITIALon 10-30-[address] SKULL-MID THIGH WITH PYLARIFY-INITIAL [facility] Department of Radiology [address] [place] [id number] ======== Patient Name: OSBALDO LEÓN : 1960 Sex: M Age: Race: White Pt. Location: [facility] Patient Status: D Ordered Date: 10/16/2021 8:20:00 AM Completed Date: 10/30/2021 01:44 PM Requesting Provider: MATEUSZ CONROY Attending Provider: Report Copy To: Signs & Symptoms: C61 Malignant neoplasm of prostate I10 History: Kate Comments: PSA 5.8 on 07/01/21, Rule out [...] NM PET CT SKULL-MID THIGH WITH PYLARIFY-INITIAL ======== Addendum Begins 4.6 mm sized noncalcified nodule [...] appreciated. Electronically signed: Raf Carias. Transcribed by: [email or web address], User Resident: Electronically Signed by: RAF CARIAS @ 11/01/2021 10:02 AM Normal [facility] Comment on above: Order Comment: [facility] [id number] HUMAN PAPILLOMAVIRUS (HPV) HIGH RISK BY IN SITU HYBRIDIZATION PARAFFIN [facility] [address] ACCESSION NUMBER [id number] SLIDES [id number] Operative Reporton 2 Operative Report MR#: [id number] [facility] Pt. Name: Osbaldo León Room #: 0C [...] into the rectum and prostatography ensued. The [employer] workstation was coupled to the ultrasound probe [...] Jackson MD Date Trans: 08/29/2021 02:35 P/ [id number] Normal [facility] POC GLUCOSE LABon 08-29-2021 Glucose [Mass/Vol] 99 mg/dL Normal 70-100 [facility] Comment on above: Performed By: #### 8 4608 #### [facility] [address] POC SARS COV2 IDon 2 SARS-CoV-2 (COVID-19) RNA FRITZ+probe Ql (Unsp spec) Negative Normal NEGATIVE [facility] Comment on above: Result Comment: ID N [...] Accreditation. Performed By: #### 8 4608 #### [facility] [address] *URINE CULTUREon 08-26-2021 *URINE CULTURE Clinical Report: (D) Specimen: URINE Collected: 08/26/2021 12:29 Status: Final Last Updated: 08/28/2021 07:47 CULT RES (Final) NO GROWTH 48 HOURS Normal [facility] Comment on above: Performed By: #### 3 1921 #### [facility] APTTon 08-26-2021 aPTT Coag (Bld) [Time] 29.1 s Normal 25.0-35.0 [facility] Comment on above: Result Comment: ALL RESULTS [...] FOR THIS PURPOSE. Performed By: #### 3 1921 #### [address] CBC W/DIFFon 08-26-2021 ABS IMM GRANS 0.0 10*3/uL Normal 0.0-0.2 [facility] Comment on above: Performed By: #### 3 192 #### [address] ABS NEUTROPHILS 4.6 10*3/uL Normal 1.6-7.6 [facility] Comment on above: Performed By: #### 3 192 #### [address] Basophils (Bld) [#/Vol] 0.0 10*3/uL Normal 0.0-0.2 [facility] Comment on above: Performed By: #### 3 192 #### [facility] [address] Basophils/100 WBC (Bld) 0.4 % Normal 0.0-1.0 [facility] Comment on above: Performed By: #### 3 192 #### [facility] [address] [place] [address], [place] Eosinophils (Bld) [#/Vol] 0.2 10*3/uL Normal 0.0-0.5 [facility] Comment on above: Performed By: #### 3 1920 #### [facility] [address] [place] [address], [place] Eosinophils/100 WBC (Bld) 3.4 % Normal 0.0-6.0 [facility] Comment on above: Performed By: #### 3 1920 #### [facility] [address] [facility] [place] [address], [place] Erythrocyte distribution width (RBC) [Ratio] 12.7 % Normal 11.5-15.0 [facility] Comment on above: Performed By: #### 3 1920 #### [facility] [address] [place] [address], [place] Hematocrit (Bld) [Volume fraction] 36.0 % Low 39.0-50.0 [facility] Comment on above: Performed By: #### 3 1920 #### [facility] [address] [place] [address], [place] Hemoglobin (Bld) [Mass/Vol] 12.2 g/dL Low 13.0-17.0 [facility] Comment on above: Performed By: #### 3 1920 #### [facility] [address] [place] [address], [place] IMMATURE GRANS 0.3 % Normal 0.0-1.0 [facility] Comment on above: Performed By: #### 3 1920 #### [facility] [address] [facility] [place] [address], [place] Lymphocytes (Bld) [#/Vol] 1.3 10*3/uL Normal 1.2-4.0 [facility] Comment on above: Performed By: #### 3 1920 #### [facility] [address] [place] [id number], [place] Lymphocytes/100 WBC (Bld) 19.3 % Low 20.0-45.0 [facility] Comment on above: Performed By: #### 3 1920 #### [facility] [address] [place] [address], [place] MCH (RBC) [Entitic mass] 29.5 pg Normal 27.0-33.0 [facility] Comment on above: Performed By: #### 3 1920 #### [facility] [address] [place] [address], [place] MCHC (RBC) [Mass/Vol] 33.9 g/dL Normal 32.0-35.0 [facility] Comment on above: Performed By: #### 3 1920 #### [facility] [address] [facility] [place] [address], [place] MCV (RBC) [Entitic vol] 87.0 fL Normal 82.0-98.0 [facility] Comment on above: Performed By: #### 3 1920 #### [facility] [address] [facility] [place] [address], [place] Monocytes (Bld) [#/Vol] 0.6 10*3/uL Normal 0.1-1.0 [facility] Comment on above: Performed By: #### 3 1920 #### [facility] [address] MONOS 8.9 % Normal 5.0-12.0 [facility] Comment on above: Performed By: #### 3 1920 #### [facility] [address] [facility]. [address] Neutrophils/100 WBC (Bld) 67.7 % Normal 40.0-72.0 [facility] Comment on above: Performed By: #### 3 1920 #### [facility] [address] [place] [address], [place] Nucleated RBC/100 WBC (Bld) [Ratio] 0 % Normal 0-0 [facility] Comment on above: Performed By: #### 3 1920 #### [facility] [address] [place] [address], [place] PLAT CNT 322 10*3/uL Normal 150-400 [facility] Comment on above: Performed By: #### 3 1921 #### [facility] [address] [place] [address], [place] RBC (Bld) [#/Vol] 4.14 10*6/uL Low 4.20-5.70 [facility] Comment on above: Performed By: #### 3 1921 #### [facility] [address] [place] [address], [place] WBC (Bld) [#/Vol] 6.73 10*3/uL Normal 4.00-10.60 [facility] Comment on above: Performed By: #### 3 1921 #### [facility] [address] [place] [address], [place] COMP METABOLIC PANELon 08-26 Albumin [Mass/Vol] 4.6 g/dL Normal 3.5-5.7 [facility] Comment on above: Performed By: #### 0 0121 ####[facility] ALKALINE PHOSPH 134 IU/L High 34-104 [facility] Comment on above: Performed By: #### 0 0121 ####[facility] [facility].[address] ALT [Catalytic activity/Vol] 33 U/L Normal 7-52 [facility] Comment on above: Performed By: #### 0 0121 ####[facility] [facility].[address] AST [Catalytic activity/Vol] 30 U/L Normal 13-39 [facility] Comment on above: Performed By: #### 0 0121 ####[facility] [place] [address], [place] Bilirubin [Mass/Vol] 0.5 mg/dL Normal 0.3-1.0 [facility] Comment on above: Performed By: #### 0 0121 ####[facility] [place] [address], [place] Calcium [Mass/Vol] 9.5 mg/dL Normal 8.6-10.3 [facility] Comment on above: Performed By: #### 0 0121 ####[facility] [place] [address], [place] Chloride [Moles/Vol] 103 mmol/L Normal 98-107 [facility] Comment on above: Performed By: #### 0 0121 ####[facility] [place] [address], [place] CO2 [Moles/Vol] 27 mmol/L Normal 21-31 [facility] Comment on above: Performed By: #### 0 0121 ####[facility] [place] [address], [place] Creatinine [Mass/Vol] 0.93 mg/dL Normal 0.70-1.30 [facility] Comment on above: Performed By: #### 0 0121 ####[facility] [place] [address], [place] GFR/1.73 sq M.predicted among blacks MDRD (S/P/Bld) [Vol rate/Area] mL/min/{1.73_m2} Normal >60 [facility] Comment on above: Performed By: #### 0 0121 ####[facility] [place] [address], [place] GFR/1.73 sq M.predicted among non-blacks MDRD (S/P/Bld) [Vol rate/Area] mL/min/{1.73_m2} Normal >60 [facility] Comment on above: Performed By: #### 0 0121 ####[facility] [place] [address], [place] Glucose [Mass/Vol] 97 mg/dL Normal 70-100 [facility] Comment on above: Performed By: #### 0 0121 ####[facility] [place] [address], [place] Potassium [Moles/Vol] 4.2 mmol/L Normal 3.5-5.1 [facility] Comment on above: Performed By: #### 0 0121 ####[facility] [place] [address], [place] Protein [Mass/Vol] 7.1 g/dL Normal 6.0-8.3 [facility] Comment on above: Performed By: #### 0 0121 ####[facility] Sodium [Moles/Vol] 139 mmol/L Normal 136-145 [facility] Comment on above: Performed By: #### 0 0121 ####[facility] Urea nitrogen [Mass/Vol] 11 mg/dL Normal 7-25 [facility] Comment on above: Performed By: #### 0 0121 ####[facility] PROTHROMBIN TIMEon 2 INR Coag (PPP) [Relative time] 0.99 {INR} Normal 0.91-1.16 [facility] Comment on above: Result Comment: ACCC P [...] RANGE. CHEST 1995;108:[id number]-246S. Performed By: #### 3 192 #### [facility] [address] [facility] [place] [address], [place] PT Coag (PPP) [Time] 13.1 s Normal 12.3-14.8 [facility] Comment on above: Result Comment: ALL RESULTS MUST BE INTERPRETED WITH RESPECT TO BLOOD DRAWING ARTIFACT OR DILUTION ERROR OF ANTICOAGULANT AT THE TIME OF SAMPLING. Performed By: #### 3 192 #### [facility] [address] [place] [address], [place] URINALYSISon 08-26-2021 Appearance (U) CLEAR Normal CLEAR [facility] Comment on above: Performed By: #### 1 0008 #### [facility] [address] [facility] [place] [address], [place] Bilirubin Ql (U) Negative Normal NEGATIVE [facility] Comment on above: Performed By: #### 1 0008 #### [facility] [address] [facility] [place] [address], [place] Color (U) STRAW Abnormal YELLOW [facility] Comment on above: Performed By: #### 1 0008 #### [facility] [address] [facility] [place] [address], [place] EPIS NONE SEEN Normal FEW,OCC,NONE SEEN [facility] Comment on above: Performed By: #### 1 0008 #### [facility] [address] [facility] [place] [address], [place] Glucose Ql (U) Negative Normal NEGATIVE [facility] Comment on above: Performed By: #### 1 0008 #### [facility] [address] [place] [address], [place] Hemoglobin Ql (U) MODERATE Abnormal NEGATIVE [facility] Comment on above: Performed By: #### 1 0008 #### [facility] [address] [place] [address], [place] KETONE Negative Normal NEGATIVE [facility] Comment on above: Performed By: #### 1 0008 #### [facility] [address] [place] [address], [place] LEUK IZZY Negative Normal NEGATIVE [facility] Comment on above: Performed By: #### 1 0008 #### [facility] [address] [place] [address], [place] MUCUS THREADS OCC Abnormal NONE SEEN [facility] Comment on above: Performed By: #### 1 0008 #### [facility] [address] [facility] [place] [address], [place] Nitrite Ql (U) Negative Normal NEGATIVE [facility] Comment on above: Performed By: #### 1 0008 #### [facility] [address] [place] [address], [place] pH (U) 5.0 [pH] Normal 5.0-8.0 [facility] Comment on above: Performed By: #### 1 0008 #### [facility] [address] [place] [address], [place] Protein Ql (U) Negative Normal NEGATIVE [facility] Comment on above: Performed By: #### 1 0008 #### [facility] [address] [place] [address], [place] RBC 0-2 Abnormal NONE SEEN [facility] Comment on above: Performed By: #### 1 0008 #### [facility] [address] SPEC GRAV 1.008 Low 1.015-1.020 [facility] Comment on above: Performed By: #### 1 0008 #### [address] WBC UA NONE SEEN Normal NONE SEEN [facility] Comment on above: Performed By: #### 1 0008 #### [address] MRI PROSTATE W WO CONTRAST A ND 3D POST PROCESSINGon 08-06-2021 MRI PROSTATE W WO CONTRAST AND 3D POST PROCESSING [facility] Department of Radiology [address] [place] [address] ======== Patient Name: OSBALDO LEÓN : 1960 Sex: M Age: Race: White Pt. Location: [facility] Patient Status: D Ordered Date: 07/01/2021 1:20:00 PM Completed Date: 08/06/2021 05:41 PM Requesting Provider: NGHIA GALAVIZ Attending Provider: NGHIA GALAVIZ Report Copy To: UNKNOWN, PHYSICIAN Signs & Symptoms: R97.20 Elevated prostate specific antigen [PSA] I10 History: Kate, Luisa no FB per Comments: Exam: MRI PROSTATE W WO CONTRAST AND 3D POST PROCESSING ======== CLINICAL INFORMATION: , Elevated PSA. TECHNIQUE: Multiplanar, multisequence MR imaging of the pelvis was performed with and without intravenous contrast. PROTOCOL: Prostate without and with intravenous contrast COMPARISON: None FINDINGS: The prostate gland measures 3.2 x 3.8 x 4.3 cm (cc x transverse x AP). The prostate volume measures 27.2 ml. Peripheral zone: In the right posteromedial/lateral mid gland there is an 11 mm observation which demonstrates T2-weighted hypointensity with impeded effusion/reduced ADC and early focal enhancement. Transitional zone: No MR features suspicious for carcinoma Central zone: Symmetric hypointensity with no MR features suspicious for carcinoma. Prostatic capsule: Intact. Please note the high resolution small qpmvl-dk-lzbl images were compromised by rectal peristalsis. Neurovascular bundles: No asymmetric thickening. Please note that high-resolution small field of view images were compromised perirectal peristalsis. Seminal vesicles: Unremarkable. Nodes: No enlarged lymph nodes. Bones: No aggressive osseous lesions. Extra prostatic findings :None IMPRESSION: * PI-RADS 4, suspicious 11 mm observation in the right posteromedial/lateral mid gland peripheral zone with extension to the right posterior base and right anterior apex. Electronically signed: Jose López M.D.. Transcribed by: [email or web address], User Resident: Electronically Signed by: JOSE LÓPEZ @ 08/18/2021 08:43 AM Normal [facility] *FLUOROQUINOLONE RESISTANT O Bridget 07-01-2021 *FLUOROQUINOLONE RESISTANT ORGANISMS Clinical Report: (D) Specimen: SWAB Collected: 07/01/2021 13:00 Status: Final Last Updated: 07/04/2021 08:14 (1) No collection time noted on specimen or requisition. The collection time recorded is the time of receipt in the lab. ORGANISM (Final) Ciprofloxacin resistant E. coli - absent Result changed by BERT on 07/04/2021 08:14. The previous result was: ISO (Final) Normal [facility] Comment on above: Order Comment: No co llection time noted on specimen or requisition. The collection time recorded is the time of receipt in the lab. Performed By: #### 3 0628 #### [place] [address] [address], [place] Normal [facility] Comment on above: Result Comment: Test Performed by [facility] [address] [place], [place] [id number] - Released 07/01/2021 21:05 Testosterone [Mass/Vol] 238 ng/dL Normal 220-1000 [facility] Physician Referralon 021 Physician Referral [id number]#1.0 0CD:127 Normal [facility] Formson 02-28-2021 Forms [id number]#1.0 0CD:127 Normal [facility] Lab Reportson 02-28-2021 Lab Reports [id number]#1.0 0CD:127 Normal [facility] Lab Reports [id number] 0CD:127 Normal [facility] Screenson 02-28-2021 Screens [id number] 0CD:127 Normal [facility] Ambulatory Clinical Summaryo n 02-27-2021 Ambulatory Clinical Summary {[id number] Normal [facility] Patient Educationon 02-28-20 21 Patient Education [...] these instructions at home: Medicines ? Take uzsc-igf-fddsjka and prescription medicines only as told by [...] the blood stops without treatment. ? Take khxd-lxv-yoaityx and prescription medicines only as told by your health care provider. ? Drink enough fluid to keep your urine clear or pale yellow. This information is not intended to replace advice given to you by your health care provider. Make sure you discuss any questions you have with your health care provider. Document Released: 07/26/2006 Document Revised: 12/20/2019 Document Reviewed: 08/28/2017 [place] Patient Education ? 2019 [employer]. [facility] Urology Office/Clinic Noteon 02-27-2021 Urology Office/Clinic [...] When Contact Information VALERIE MOJICA, Raf Campoverde, URL In 4 months 06/30/[address] [address]- [phone] Additional Instructions: With psa F/T Patient Education [...] Percent, E (more content not included)... Normal [facility] Comment on above: Result Comment: Elec tronically Signed By: aRf PADILLA MD\.br\Date and Time Signed: 02/27/21 11:00 EDT\.br\Electronically Co-Signed By: Letty Weinberg MA\.br\Date and Time Co-Signed: 02/27/21 10:58 EDT Vital Signs Date Time Vital Sign Value Performing Clinician Facility 06-02-2024 14:24-0400 Body height 182.9 cm Kiran Wilson MD Work Phone: [facility] 06-02-2024 14:24-0400 Body mass index (BMI) [Ratio] 26.51 kg/m2 Kiran Wilson MD Work Phone: [facility] 06-02-2024 14:24-0400 Body weight 88.68 kg Kiran Wilson MD Work Phone: [facility] 01-31-2024 13:50-0400 Body height 182.9 cm Kiran Wilson MD Work Phone: [facility] 01-31-2024 13:50-0400 Body mass index (BMI) [Ratio] 25.02 kg/m2 Kiran Wilson MD Work Phone: [facility] 01-31-2024 13:50-0400 Body temperature 96.8 [degF] Kiran Wilson MD Work Phone: [facility] 01-31-2024 13:50-0400 Body weight 83.69 kg Kiran Wilson MD Work Phone: [facility] 10-04-2023 16:11-0500 Body height 182.9 cm Kiran Wilson MD Work Phone: [facility] 10-04-2023 16:11-0500 Body mass index (BMI) [Ratio] 26.77 kg/m2 Kiran Wilson MD Work Phone: [facility] 10-04-2023 16:11-0500 Body temperature 97 [degF] Kiran Wilson MD Work Phone: [facility] 10-04-2023 16:11-0500 Body weight 89.54 kg Kiran Wilson MD Work Phone: [facility] 05-03-2023 14:56-0400 Body height 182.88 cm No PCP None [facility] [place] Work Phone: 05-03-2023 14:56-0400 Body mass index (BMI) [Ratio] 23.62 kg/m2 No PCP None SF-Hlimyrjprzgecy[facility]q [place] [facility] [place] Work Phone: 05-03-2023 14:56-0400 Body surface area Derived from formula 2.01 m2 No PCP None PV-Knecgpjhuksyos[facility] [facility] [place] [facility] [place] Work Phone: 05-03-2023 14:56-0400 Body weight 79 kg No PCP None [facility] [place] Work Phone: 09-22-2022 15:30-0500 Body height 180.34 cm Clara Jordan Other [facility] Other 09-22-2022 15:30-0500 Body mass index (BMI) [Ratio] 24.84 kg/m2 Clara Jordan Other [facility] Other 09-22-2022 15:30-0500 Body weight 80.79 kg Clara Jordan Other [facility] Other 09-22-2022 15:30-0500 Diastolic blood pressure 70 mm[Hg] Clara Jordan Other [facility] Other 09-22-2022 15:30-0500 Respiratory rate 18 /min Clara Jordan Other [facility] Other 09-22-2022 15:30-0500 SaO2% (BldA) [Mass fraction] 98 % Clara Jordan Other [facility] Other 09-22-2022 15:30-0500 Systolic blood pressure 130 mm[Hg] Clara Jordan Other [facility] Other 06-23-2022 10:00-0500 Body height 180.34 cm Clara Jordan Other [facility] Other 06-23-2022 10:00-0500 Body mass index (BMI) [Ratio] 22.82 kg/m2 Clara Jordan Other [facility] Other 06-23-2022 10:00-0500 Body temperature 97.2 [degF] Clara Jordan Other [facility] Other 06-23-2022 10:00-0500 Body weight 74.21 kg Clara iNkki Other [facility] Other 06-23-2022 10:00-0500 Diastolic blood pressure 70 mm[Hg] Clara Jordan Other [facility] Other 06-23-2022 10:00-0500 Respiratory rate 18 /min Clara Jordan Other [facility] Other 06-23-2022 10:00-0500 SaO2% (BldA) [Mass fraction] 98 % Clara Jordan Other [facility] Other 06-23-2022 10:00-0500 Systolic blood pressure 118 mm[Hg] Clara Jordan Other [facility] Other 05-12-2022 11:00-0400 Body height 180.34 cm Clara Jordan Other [facility] Other 05-12-2022 11:00-0400 Body mass index (BMI) [Ratio] 21.06 kg/m2 Clara Jordan Other [facility] Other 05-12-2022 11:00-0400 Body temperature 97.2 [degF] Clara Nikki Other [facility] Other 05-12-2022 11:00-0400 Body weight 68.49 kg Clara Nikki Other [facility] Other 05-12-2022 11:00-0400 Diastolic blood pressure 70 mm[Hg] Clara Nikki Other [facility] Other 05-12-2022 11:00-0400 Respiratory rate 18 /min Clarabrooke Jordan Other [facility] Other 05-12-2022 11:00-0400 SaO2% (BldA) [Mass fraction] 97 % Clara Nikki Other [facility] Other 05-12-2022 11:00-0400 Systolic blood pressure 100 mm[Hg] Clara Nikki Other [facility] Other 11-12-2021 15:45-0400 Body height 180.34 cm Clara Jordan Other [facility] Other 11-12-2021 15:45-0400 Body mass index (BMI) [Ratio] 26.25 kg/m2 Clara Jordan Other [facility] Other 11-12-2021 15:45-0400 Body temperature 96.6 [degF] Clara Jordan Other [facility] Other 11-12-2021 15:45-0400 Body weight 85.37 kg Clara Jordan Other [facility] Other 11-12-2021 15:45-0400 Diastolic blood pressure 80 mm[Hg] Clara Jordan Other [facility] Other 11-12-2021 15:45-0400 Respiratory rate 18 /min Clara Jordan Other [facility] Other 11-12-2021 15:45-0400 SaO2% (BldA) [Mass fraction] 99 % Clara Jordan Other [facility] Other 11-12-2021 15:45-0400 Systolic blood pressure 128 mm[Hg] Clara Jordan Other [facility] Other Encounters Encounter Date Encounter Type Care Provider Facility Start: 07-18-2024 End: 07-18-2024 ambulatory [facility] Start: 07-13-2024 End: 07-13-2024 ambulatory [facility] Start: 07-13-2024 End: 07-13-2024 [facility] Start: 06-22-2024 End: 06-22-2024 ambulatory [facility] Start: 06-09-2024 End: 06-09-2024 ambulatory [facility] Start: 06-09-2024 End: 06-09-2024 ambulatory [facility] Start: 06-09-2024 End: 06-09-2024 ambulatory [facility] Start: 06-02-2024 End: 06-02-2024 Office outpatient visit 15 minutes Kiran Wilson MD Work Phone: [facility] Comment on above: 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) Start: 06-02-2024 End: 06-02-2024 ambulatory [facility] Start: 05-24-2024 End[facility]: [facility]24 End[facility] Start: 05-05-2024 End: 05-05-2024 ambulatory [facility] Start: 02-29-2024 End: 02-29-2024 ambulatory [facility] Start: 02-24-2024 End: 02-24-2024 ambulatory [facility] Start: 01-31-2024 End: 01-31-2024 Office outpatient visit 15 minutes Kiran Wilson MD Work Phone: [facility] Comment on above: 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) Start: 01-31-2024 End: 01-31-2024 ambulatory [facility] Start: 01-27-2024 ambulatory [facility] Start: 01-18-2024 End: 01-18-2024 ambulatory MATEUSZ CONROY [facility] Start: 01-13-2024 ambulatory [facility] Start: 01-11-2024 End: 01-11-2024 [facility] Start: 12-30-2023 End: 12-30-2023 ambulatory [facility] Start: 12-27-2023 End: 12-27-2023 ambulatory [facility] Start: 12-10-2023 End: 12-10-2023 ambulatory [facility] Start: 11-19-2023 End: 11-19-2023 ambulatory [facility] Start: 11-05-2023 End: 11-05-2023 [facility] Start: 11-05-2023 End: 11-05-2023 Encounter for general adult medical examination without abnormal findings DELPHINE PARKER [facility] Start: 10-29-2023 End: 10-29-2023 [facility] Start: 10-20-2023 End: 10-20-2023 ambulatory [facility] Start: 10-08-2023 End: 10-08-2023 [facility] Start: 10-07-2023 ambulatory [facility] Start: 10-05-2023 End: 10-05-2023 ambulatory [facility] Start: 10-04-2023 End: 10-04-2023 ambulatory KIRAN WILSON [facility] Start: 10-04-2023 End: 10-04-2023 Office outpatient visit 15 minutes Kiran Wilson MD Work Phone: [facility] Comment on above: 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) Start: 09-27-2023 End: 09-27-2023 [facility] Start: 09-21-2023 End: 09-21-2023 ambulatory MATEUSZ CONROY [facility] Start: 09-14-2023 ambulatory [facility] Start: 08-17-2023 End: 08-17-2023 ambulatory [facility] Start: 08-06-2023 End: 08-06-2023 ambulatory [facility] Start: 07-28-2023 End: 07-28-2023 ambulatory SABAS [facility] Start: 07-28-2023 ambulatory CORTEZ XAVIER [facility] Start: 07-22-2023 End: 07-22-2023 ambulatory JESSICA Lb AMBROSE [facility] Start: 07-13-2023 End: 07-13-2023 ambulatory Clara Jordan Other [facility] Other Start: 07-13-2023 Telephone encounter [facility] Start: 06-05-2023 End: 06-05-2023 ambulatory Cortez Morris Facility:[facility] Start: 06-05-2023 End: 06-05-2023 ambulatory DNP Clara Jordan Work Phone: [facility] Work Phone: Start: 06-05-2023 End: 06-05-2023 Patient encounter procedure DNP Clara Nikki Work Phone: [facility] [place] Work Phone: Start: 05-03-2023 Office outpatient ne w 30 minutes No PCP None [facility] Work Phone: Start: 05-03-2023 Patient encounter procedure No PCP None [facility] [place] Work Phone: Start: 05-03-2023 ambulatory KIRAN WILSON Facility: Start: 09-28-2022 End: 09-28-2022 ambulatory Clara Jordan Other [facility] Other Start: 09-28-2022 Telephone encounter Clara Hidalgo [facility] [place] Start: 09-22-2022 End: 09-22-2022 ambulatory Clara Jordan Other [facility] Other Start: 09-22-2022 Encounter for genera l adult medical examination without abnormal findings Clara Jordan [facility] [place] Start: 09-22-2022 Periodic preventive med est patient 40-64yrs Clara Jordan [facility] [place] Start: 09-19-2022 End: 09-19-2022 ambulatory Clara Jordan Facility:[facility] Start: 09-19-2022 End: 09-19-2022 ambulatory DNP Clara Jordan Work Phone: [facility] Work Phone: Start: 09-19-2022 End: 09-19-2022 Patient encounter procedure DNP Clara Jordan Work Phone: [facility] [place] Work Phone: Start: 09-10-2022 End: 09-10-2022 ambulatory Clara Nikki Other [facility] Other Start: 09-10-2022 Encounter for genera l adult medical examination without abnormal findings Clara Jordan [facility] [place] Start: 09-10-2022 Telephone encounter [facility] [place] Start: 06-23-2022 End: 06-23-2022 ambulatory Clara Jordan Other [facility] Other Start: 06-23-2022 Office outpatient vi sit 25 minutes Clara Jordan [facility] [place] Start: 05-12-2022 End: 05-12-2022 ambulatory Clara Jordan Other [facility] Other Start: 05-12-2022 Office outpatient vi sit 25 minutes Clara Jordan [facility] [place] Start: 04-14-2022 End: 04-14-2022 ambulatory JESSICA HAMOUDA Facility:[facility] Start: 04-10-2022 End: 04-11-2022 ambulatory REFERRED SELF Facility:[facility] Start: 03-31-2022 End: 03-31-2022 ambulatory JESSICA HAMOUDA Facility:[facility] Start: 03-23-2022 End: 03-23-2022 ambulatory CLARA JORDAN Facility:[facility] Start: 03-06-2022 End: 03-07-2022 ambulatory BYRONCYRIL MICHELKAIN Facility:[facility] Start: 02-26-2022 End: 02-27-2022 ambulatory Stoneamara HoffmannRivera Lora Facility:[facility] Start: 02-24-2022 End: 02-25-2022 ambulatory E YOLA Facility:[facility] Start: 02-02-2022 End: 02-02-2022 ambulatory Damien Adams Other [facility] Other Start: 02-02-2022 Telephone encounter Damien Adams [facility] [employer] [employer] [facility] Start: 12-15-2021 End: 12-16-2021 Evaluation and management of inpatient KAM MAST Facility:[facility] Start: 12-05-2021 End: 12-05-2021 ambulatory Clara Jordan Other [facility] Other Start: 12-05-2021 Telephone encounter Clara Hidalgo [facility] Start: 11-13-2021 End: 11-13-2021 ambulatory Clara Jordan Other [facility] Other Start: 11-13-2021 Telephone encounter Clara Hidalgo [facility] Start: 11-12-2021 End: 11-12-2021 ambulatory Clara Jordan Other [facility] Other Start: 11-12-2021 Encounter for other preprocedural examination Clara [facility] [place] Start: 11-12-2021 Office outpatient vi sit 25 minutes Clara [facility]EV[facility] [place] Start: 10-30-2021 End: 10-31-2021 ambulatory CLARA JORDAN Facility:[facility] Start: 08-29-2021 End: 08-30-2021 ambulatory KAM MAST Facility:[facility] Procedures Date Procedure Procedure Detail Performing Clinician Start: 06-02-2024 Follow-up visit Follow-up KIRAN WILSON Start: 02-10-2022 PSA screening REFERRED SELF Comment on above: Performed By: #### [id number] ####[facility], [place] [address] Start: 12-03-2021 PSA screening REFERRED SELF Comment on above: Performed By: #### [id number] ####[facility], [place] [address] Start: 10-30-2021 PSA screening REFERRED SELF Comment on above: Performed By: #### [id number] ####[facility], [place] [address] Start: 07-01-2021 PSA screening REFERRED SELF Comment on above: Performed By: #### [id number] ####[facility], [place] [id number] [place] [address] Plan of Treatment Date Care Activity Detail Author Start: 12-01-2024 End: 12-01-2024 Patient encounter procedure 12/01/2024 2:00 PM EDT Office Visit [facility] [address] [place] [id number] [place] [address] [place] [address] [facility] Start: 04-09-2024 COVID-19 Vaccine ( season) COVID-19 Vaccine ( season) [facility] Start: 04-09-2024 Influenza vaccination [facility] Start: 01-31-2024 End: 01-31-2024 Patient encounter procedure 01/31/2024 2:00 PM EDT Office Visit [facility] [address] [place] [address] [place] [address] [place] [address] [facility] Start: 2023 Pneumococcal Vaccine: 65+ Years (1 - PCV) Pneumococcal Vaccine: 65+ Years (1 - PCV) [facility] Start: 2023 Pneumococcal Vaccine: 65+ Years (1 of 1 - PCV) Pneumococcal Vaccine: 65+ Years (1 of 1 - PCV) [facility] Start: 04-09-2023 COVID-19 Vaccine ( season) COVID-19 Vaccine ( season) [facility] Start: 04-09-2023 Influenza vaccination Influenza Vaccine (#1) [facility] Start: 2018 RSV High Risk: (Elderly (60+) or Population) (1 - Risk 60-74 years 1-dose series) RSV High Risk: (Elderly (60+) or Population) (1 - Risk 60-74 years 1-dose series) [facility] Start: 2018 RSV patients and/or patients aged 60+ years (1 - 1-dose 60+ series) RSV patients and/or patients aged 60+ years (1 - 1-dose 60+ series) [facility] Start: 2008 Zoster Vaccines (1 of 2) Zoster Vaccines (1 of 2) [facility] Start: 1980 DTaP/Tdap/Td Vaccines (1 - Tdap) DTaP/Tdap/Td Vaccines (1 - Tdap) [facility] Start: 1976 Diabetes mellitus screening Diabetes Screening [facility] Start: 1976 Hepatitis C screening Hepatitis C Screening [facility] Start: 1959 MMR Vaccines (1 of 1 - Standard series) MMR Vaccines (1 of 1 - Standard series) [facility] Start: 1960 Annual wellness visit Medicare Initial Physical (IPPE) [facility] Start: 1960 Lipid panel Lipid Panel [facility] Start: 1960 Screening for malignant neoplasm of colon [facility] Start: 1960 Yearly Adult Physical Yearly Adult Physical [facility] Immunizations Immunization Date Immunization Notes Care Provider Fa cility 07-22-2022 influenza virus vaccine, unspecified formulation Kiran Wilson MD Work Phone: [facility] Work Phone: 11-15-2020 COVID-19 Vaccine Moderna - Documentation Purposes Only Clara Jordan Other [facility] Other 10-18-2020 COVID-19 Vaccine Moderna - Documentation Purposes Only Clara Jordan Other [facility] Other 05-17-2020 influenza, seasonal, injectable Clara Jordan Other [facility] Other Payers Date Payer Category Payer Medicare [id number] 2023 Medicare supplementa l policy (as second payer) [employer] [id number] 2023 Medicare [id number] 2023 Unknown [id number] 2023 Unknown [id number] 2023 Unknown 2022 Self-pay [id number] 2022 Unknown [id number] 1960 Unknown [id number] 2.16.840.1.382618.3.579.2 .647 1958 Unknown [id number] 2.16.840.1.222311.3.579.2 .647 1960 Unknown [id number] 2.16.840.1.406830.3.579.2 .647 1960 Unknown [id number] 2.16.840.1.507661.3.579.2 .647 1958 Unknown [id number] 2.16.840.1.514970.3.579.2 .647 1958 Unknown [id number] 2.16.840.1.237753.3.579.2 .647 1960 Unknown [id number] 2.16.840.1.390724.3.579.2 .647 1958 Unknown [id number] 2.16.840.1.463090.3.579.2 .647 1958 Unknown [id number] 2.840.1.598749.3.579.2 .647 1958 Unknown [id number] 2.16840.1.706502.3.579.2 .647 1958 Unknown [id number] 2.16840.1.864951.3.579.2 .356 1958 Unknown [id number] 2.16.840.1.047550.3.579.2 .1245 1958 Unknown [id number] 2.16840.1.157747.3.579.2 .1245 1958 Unknown [id number] 2.16840.1.632603.3.579.2 .1244 Unknown [id number] 2.16.840.1.593128.19 Unknown [id number] 2.16.840.1.517293.3.579.2 .531 Unknown [id number] 2.16.840.1.390630.3.579.2 .531 Social History Date Type Detail Facility Unknown if ever smoked [facility] Other Start: 10-04-2023 End: 01-31-2024 Sex Assigned At [facility] Other Start: 1960 Sex Assigned At Male F [facility] Start: 10-04-2023 End: 01-31-2024 Tobacco smoking status NHIS Never smoked tobacco [facility] Work Phone: Start: 10-04-2023 Tobacco use and exposure Smokeless tobacco non-user [facility] Work Phone: Start: 10-04-2023 End: 01-31-2024 History of Social function [facility] Work Phone: Start: 1960 Sex Assigned At Not on file [facility] Work Phone: Start: 09-24-2023 End: 06-02-2024 Exposure to SARS-CoV-2 (event) Not sure [facility] Start: 01-31-2024 Tobacco use and exposure Former smokeless tobacco user [facility] Work Phone: End: 12-07-2021 History of tobacco use Chews Tobacco [facility] Work Phone: Start: 02-01-2024 End: 06-03-2024 Alcoholic beverage intake Not Asked [facility] Work Phone: Start: 01-31-2024 Alcohol Comment ocasional [facility] Work Phone: Clinical Notes 11-12-2021 to 07-18-2024 Kiran Wilson MD - 06/02/2024 2:30 PM Efren Wilson MD - 01/31/2024 2:00 PM Efren Wilson MD - 10/04/2023 4:00 PM EST Note Date & Type Note Facility 07-18-2024 Note PATIENT: Osbaldo ferreira DATE OF : 1960 DATE OF VISIT: 07/18/24 Urology Clinic H&P MATEUSZ CONROY M.D., F.A.C.S. Chief Complaint Unfavorable intermediate risk locally advanced prostate cancer HPI Mr. Osbaldo León is a 63 y.o. 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 He presents for follow-up. Mr. León underwent robot-assisted radical prostatectomy, bilateral pelvic lymph node dissection, left nerve sparing on 12/15/2021. Pathology revealed acinar adenocarcinoma of the prostate, Rosanna's 3+4=7; GG 2 involving 18% of prostate volume, cribriform grade 4 present, EPE at right and left bladder neck up to 1.5 cm, bladder neck invasion, no SVI, LVI but PNI present, 0 out of 18 lymph nodes involved, positive surgical margin at right & left bladder neck up to 1.2 cm, pathologic stage pT3a pN0R1. 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 He received concurrent cisplatin as chemoradiation, has completed x5 cycles of chemotherapy, on 04/21/[address] Ambrose. Currently receiving pembrolizumab cycle #3 given FDG PET/CT scan 08/05/2022 revealed multiple small FDG avid pulmonary nodule seen bilaterally suggesting worsening metastatic disease. G-tube removed on on 09/04/2022. At this visit, Mr. León presents for follow-up accompanied by his . He has become urinary continent within 2 days after catheter on 12/24/2021. He denies gross hematuria, dysuria or significant LUTS or pain, nocturia x2, no urgency or UUI. He has been able to have penetrative intercourse, has spontaneous erection with rigidity 5/10, however, with either Cialis or MATT rigidity becomes 9-10/10. He denies any chest pain, shortness of breath, or leg swelling. I discussed most recent PSA is undetectable, PSA <0.1 ng/mL 07/13/2024, indicating no evidence disease. I made my recommendation in assessment and plan. 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 Had bronchoscopy, BAL, transbronchial biopsy on 06/09/2024 revealed organizing pneumonia with vaguely granulomatous without evidence of malignancy. Recent 07/13/2024 revealed overall significant improvement but residual groundglass remains in both lungs. He had Coronary Angiogram on 06/25/2023 due to severe CAD involving LAD shown on CT scan, heart cath revealed severe to moderate CAD, recommended and managed by medical treatment. No stent placement. Initial Clinical Presentation: Mr. León was noted to have an elevated PSA 5.8 ng/mL 07/01/2021 from PSA 4.8 ng/mL, %fPSA 10 on 05/14/2021. PRICILA reported smooth gland. ExoDx Prostate Intelliscore 68.4 on 07/01/2021. A mpMRI of prostate on 08/06/2021 revealed prostate volume 27.2 mL, PSA density 0.21 ng/mL^, an 11 mm lesion noted in right PZ mid gland with extension to right posterior base and right apex, with MRI characteristics of PI-RADS 4. No SVI, EP, adenopathy. Mr. León underwent systematic and MRI/ultrasound fusion prostate biopsy for a total of 17 cores (12 cores systematic, 5 cores from JULIANE #1) 08/29/2021. FINDINGS: 1. Estimated TRUS prostate volume 19.6 [...] in right medial PZ; volume 1.53 mL. Pathology revealed adenocarcinoma of the prostate, Rosanna 3+4 = 7; GG 2 involving 5/17 cores up to 50% or 6 mm of the core in JULIANE# and RLM, Rosanna 3+3= 6; GG 1 in 6/17 up to 35% or 5 mm of the core for a total of 8/13 cores positive for malignancy (since JULIANE #1 was sampled more than once). No cribriform histology or PNI. Therefore, he was referred to me for consideration of radical prostatectomy. Preoperatively Mr. León denies gross hematuria, dysuria, or significant LUTS. AUA-SI 35, QoL 0. VITALY . PRICILA 35 g prostate with right lobe induration, cT2a, no discrete nodule. I reviewed and discussed his a clinical presentati (more content not included)... [facility] 07-13-2024 Note HEMATOLOGY and MEDIC AL ONCOLOGY Dr. Jessica Ambrose MD / MD Sabas Anne AOCNP / Salo Jarrell CNP / Angy Camara APRN-RITO Patient Name: Osbaldo León Date of : 1960 Encounter Date: 07/13/2024 Patient Care Team: Delphine Parker CNP as PCP - General (Internal Medicine) Jessica Ambrose MD as Consulting Physician (Hematology and Oncology) Mateusz Conroy MD as Consulting Physician (Urology) Nino Castro (Radiation Oncology) Sabas Kim NP as Consulting Physician (Oncology) Josue Grimm MD as Referring Physician Kiran Wilson MD (Otolaryngology) Salo Jarrell NP as Nurse Practitioner (Hematology and Oncology) IMPRESSION and ASSESSMENT: Osbaldo León is a 63 y.o. male with: Cancer Staging Primary malignant neoplasm of prostate (CMS/HCC) Staging form: Prostate, AJCC 8th Edition - Pathologic stage from 12/14/2021: Stage IIIB (pT3, pN0, cM0, PSA: 5.5, Grade Group: 2) - Signed by Jessica Ambrose MD on 04/20/2022 Squamous cell carcinoma of head and neck Staging form: Cutaneous Carcinoma of the Head and Neck, AJCC 8th Edition - Clinical stage from 02/20/2022: Stage IV (cTX, cN3a, pM1) - Signed by Jessica Ambrose MD on 05/06/2022 There are no diagnoses linked to this encounter. Problem List Items Addressed This Visit None RECOMMENDATIONS and PLAN: I personally reviewed CT Chest from 07/13/24 with significant improvement in pneumonitis. Continue steroid, slow taper reviewed and discussed. Repeat CT Chest in 3 months Continue follow-up with pulmonology and steroid taper per their guidance RTC 3 months with imaging, and close monitoring in between for pneumonitis. Kathy Christian, MPH 4th Year Medical Student, [facility] 07/13/24 As the teaching physician, I have personally performed or re-performed the history of present illness, physical exam and medical decision-making activities of the encounter and verified the medical student's documentation. I made pertinent changes as necessary to ensure accurate documentation. There may be additional comments below. Additional Comments: included Jessica Ambrose MD Air Cargo Specialist Supervisor Fred Domínguez M.D. Endowed Professor in Hematology Chief of Hematology/Oncology Tire Room Supervisor, Hematology and Medical Oncology Fellowship Hematology/Oncology. Internal Medicine. [facility] [facility] [employer]. [facility]. Clinic: [phone] Office: [phone] SUBJECTIVE: Interval History: 07/13/2024 Osbaldo León is a 63 y.o. M presenting to clinic today for follow-up. He is accompanied by his to review his recent CT scan. He reports he is doing really well. He reports he is still on steroids for the Drug -induced Pneumonitis. He saw Dr. Lora today and his steroid taper was described as follows 80 mg for the next 8 days, 60 mg for the following 2 weeks, 40 mg for the next 2 weeks and then 20 mg for 2 weeks and then follow-up in clinic to reevaluate. He does report mood-changes associated with the steroids, he reports increased frustration and anger-burst with quick resolution. He also reports that has decreased about 60% since his last visit. Patient denies any chest pain, SOB, fevers, fatigue, night sweats, or weakness. Oncology History Overview Note Osbaldo León is a gentleman with 2 meta-synchronous cancers diagnosed in 2021: Prostate Cancer: pT3a(R1)N0, dx August 2021 s/p radical prostatectomy and bilateral extended pelvis lymphadenectomy. Rosanna 7 (3+4). 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 During this time, he lost about 20 pounds and at time of diagnosis, able to eat semi-solid and soft foods. PMHx: Prostate Cancer. HPL. Surgical Hx: Prostatectomy 2021. Social Hx: Lifelong nonsmoker. Occasional EtOH. Occasional exercise. 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 He lives in [place] with spouse. Pt hopes to continue working Family Hx: Mother - leukemia. PATHOLOGY: 08/29/2021, Prostate Biopsy: Prostate, left lateral base, needle biopsy: Prostatic adenocarcinoma, Rosanna score 6 (3+3); grade group 1. Tumor volume: 14%, length 2.5 mm. Perineural invasion: not seen. Prostate, left medial mid, needle biopsy: Prostatic adenocarcinoma, Rosanna score 6 (3+3); grade group 1. Tumor volume: 20%, length 3 mm. Perineural invasion: not seen. Prostate, left medial apex, needle biopsy: Prostatic adenocarcinoma, Rosanna score 6 (3+3); grade group 1. Tumor volume: 17%, length 2 mm. Perineural invasion: not seen. Prostate, right medial apex, needle biopsy (more content not included)... [facility] 07-13-2024 Note Attestation signed by Irais Lora MD at 07/14/2024 12:10 PM I have seen and examined the patient. I reviewed the resident/fellow note and I agree with the findings and plan. Irais Lora MD Interventional Pulmonary Medicine Pulmonary and Critical Care Medicine [facility] Visit Note Patient: Osbaldo León Age: 63 y.o. : 1960 Account No.: [id number] Referring physician: Dr. Ambrose Chief complaint: Oropharyngeal cancer with pulmonary metastasis HPI Osbaldo León is a 63 y.o. male with PMHx of Oropharyngeal squamous cell carcinoma T3, N2C, M1 p16 positive in February 2022 with pulmonary metastasis s/p chemoradiation to head and neck and s/p right sided lung SBRT, Keytruda induced pneumonitis, meta-synchronous prostate cancer s/p prostatectomy in 2021 who is presenting to clinic for follow up. Patient recently underwent Bronchoscopy with ELAYNE transbronchial cryobiopsy and BAL by Dr. Lora on 06/09/24 which was consistent with recurrent pneumonitis and organizing pneumonia. Patient's Keytruda was therefore held and patient was placed on prolonged high dose steroid taper. Patient had repeat CT chest today. Subjectively, patient denies any acute complaints. He denies any dyspnea, wheezing, chest pain or tightness. He has a mild occasional cough which is mostly dry and is unchanged from prior. The patient is currently taking his Prednisone taper as prescribed. He is taking Bactrim as well. He is requesting medication for GERD. The patient no prior diagnosis of COPD or asthma. He never smoked. He denies any known occupational exposures. He denies any known family history of lung cancer. Last CT chest 05/19/2024: Multifocal pneumonitis, new confluent peripheral left upper lobe airspace opacities and new airspace disease in the right lower lobe. Ill-defined nodular airspace opacity in the inferior right lower lobe appears similar to the prior Study. Bandlike opacities in the right lower lobe are not significantly changed. Multifocal groundglass opacities throughout both lungs. 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 Authorizing Provider aspirin 81 mg EC tablet Take 81 mg by mouth in the morning. Historical Provider, carvedilol (Coreg) 3.125 mg tablet TAKE 1 TABLET BY MOUTH WITH BREAKFAST AND WITH EVENING MEAL 05/03/24 Cortez Morris NP glycopyrrolate (Robinul) 1 mg tablet Take 1 tablet (1 mg) by mouth in the morning and at bedtime. 01/18/24 02/17/24 Nino Castro lidocaine-prilocaine (Emla) 2.5-2.5 % cream APPLY TO PORT SITE AND COVER 30-45 MINUTES PRIOR TO NEEDLE ACCESS 11/19/23 Sabas Kim NP skrkkdwxjupi-mevw-hwmfkihh-folic acid (Multivitamin 50 Plus) tablet Take 1 tablet by mouth in the morning. Pt is holding this med during radiation through 4 weeks post radiation. Historical Provider, predniSONE (Deltasone) 20 mg tablet Take 4 tablets (80 mg) by mouth in the morning. 06/22/24 08/21/24 Chay Martell MD rosuvastatin (Crestor) 40 mg tablet Take 1 tablet (40 mg) by mouth in the morning. Replacing atorvastatin Patient taking differently: Take 40 mg by mouth at bedtime. Replacing atorvastatin 01/11/24 01/10/25 Cortez Morris NP sulfamethoxazole-trimethoprim (Bactrim DS) 800-160 mg tablet Take 1 tablet by mouth every other day. 06/20/24 08/19/24 Mohamed Omballi, MD tadalafil (Cialis) 20 mg tablet Take 1 tablet (20 mg) by mouth if needed for erectile dysfunction. 05/15/24 11/11/24 Mateusz Conroy MD Social history: reports that he has never smoked. He has never been exposed to tobacco smoke. He quit smokeless tobacco use about 2 years ago. His smokeless tobacco use included chew. He reports that he does not currently use alcohol. He reports that he does not use drugs. Family History Problem Relation Name Age of Onset Leukemia Mother Becky León Cancer Mother Becky León Heart attack Father Marc Powers (more content not included)... [facility] 07-13-2024 Note I reviewed the resul t. An appointment for follow up to review with Osbaldo León is scheduled. [facility] 06-22-2024 Note HEMATOLOGY and MEDIC AL ONCOLOGY Dr. Jessica Ambrose MD / MD Sabas Anne, DANIELLE / Salo Jarrell CNP / Angy Camara APRN-RITO Patient Name: Osbaldo León Date of : 1960 Encounter Date: 06/22/2024 Patient Care Team: Delphine Parker CNP as PCP - General (Internal Medicine) Jessica Ambrose MD as Consulting Physician (Hematology and Oncology) Mateusz Conroy MD as Consulting Physician (Urology) Nino Castro (Radiation Oncology) Sabas Kim NP as Consulting Physician (Oncology) Josue Grimm MD as Referring Physician Kiran Wilson MD (Otolaryngology) Salo Jarrell NP as Nurse Practitioner (Hematology and Oncology) IMPRESSION and ASSESSMENT: Osbaldo León is a 63 y.o. male with: Cancer Staging Primary malignant neoplasm of prostate (CMS/HCC) Staging form: Prostate, AJCC 8th Edition - Pathologic stage from 12/14/2021: Stage IIIB (pT3, pN0, cM0, PSA: 5.5, Grade Group: 2) - Signed by Jessica Ambrose MD on 04/20/2022 Squamous cell carcinoma of head and neck Staging form: Cutaneous Carcinoma of the Head and Neck, AJCC 8th Edition - Clinical stage from 02/20/2022: Stage IV (cTX, cN3a, pM1) - Signed by Jessica Ambrose MD on 05/06/2022 Diagnoses and all orders for this visit: Drug-induced pneumonitis - predniSONE (Deltasone) 20 mg tablet; Take 4 tablets (80 mg) by mouth in the morning. 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 We reviewed pathology with pulmonology. Findings are consistent with recurrent pneumonitis, organizing pneumonia. Though Gay was grown in fungal culture, it is likely contaminant as cell block reveals mixture of bronchial cells plus squamous cells in background of bacteria and fungal organisms. I discussed with Dr Lora and reviewed case. We agreed with high-dose steroid (1mg/kg) and will plan eventual slow taper. We'll start with prednisone 1 mg/kg daily x 6-8 weeks (~ 80 mg/kg). Initial Rx sent as 60 mg, sent an extra 20 mg x 6 weeks today. After 6-[address] chest, we can tentatively start a slow, gradual taper. Patient has been diagnosed w/ pneumonitis in past and him and his understand the importance of monitoring every 3-7 days with pulse ox at home. Any issues, they will contact our office. He also has had dry cough in past, and to monitor for changes or worsening of symptoms and promptly call if that should occur. Repeat PSA check and continue follow-up with Dr. Conroy (scheduled in 07/2024) for hx of prostate cancer. Repeat CT chest w/ contrast in month. RTC in 1 month w/ CT chest results. Coordinate to see Dr. Lora on same day. Chay Martell MD Hematology/Oncology, PGY-5 Jessica Ambrose MD Air Cargo Specialist Supervisor Fred Domínguez M.D. Endowed Professor in Hematology Chief of Hematology/Oncology Tire Room Supervisor, Hematology and Medical Oncology Fellowship Hematology/Oncology. Internal Medicine. [employer]. [facility]. Clinic: [phone] Office: [phone] SUBJECTIVE: Interval History: 06/22/2024 Osbaldo León presents to the clinic today accompanied by his to review bronchoscopy results. He reports a continued cough. He started steroids just yesterday at 60 mg. No fevers, chills, nausea, vomiting, abdominal pain. Oncology History Overview Note Osbaldo León is a gentleman with 2 meta-synchronous cancers diagnosed in 2021: Prostate Cancer: pT3a(R1)N0, dx August 2021 s/p radical prostatectomy and bilateral extended pelvis lymphadenectomy. Rosanna 7 (3+4). 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 During this time, he lost about 20 pounds and at time of diagnosis, able to eat semi-solid and soft foods. PMHx: Prostate Cancer. HPL. Surgical Hx: Prostatectomy 2021. Social Hx: Lifelong n (more content not included)... [facility] 06-09-2024 Note Patient: Osbaldo ferreira Procedure Summary Date: 06/09/24 Room / Location: [facility] Main Operating Room Anesthesia Start: 1328 Anesthesia Stop: 1428 Procedure: BRONCHOSCOPY Diagnosis: ILD (interstitial lung disease) (CMS/HCC) Pneumonitis Scheduled Providers: Irais Lora MD; Sam Blood MD; NALDO Burch Responsible Provider: Sam Blood MD Anesthesia Type: general ASA Status: 3 Anesthesia Type: general Vitals Value Taken Time BP 116/74 06/09/24 1425 Temp 36.6 ???C (97.9 ???F) 06/09/24 1425 Pulse 59 06/09/24 1440 Resp 15 06/09/24 1440 SpO2 100 % 06/09/24 1440 Anesthesia Post Evaluation Patient location during evaluation: PACU Patient participation: complete - patient participated Level of consciousness: awake and alert Pain score: 3 Pain management: adequate Airway patency: patent Cardiovascular status: acceptable Respiratory status: acceptable Hydration status: acceptable Patient is hemodynamically stable and is able to be discharged from PACU per anesthesia protocol. There were no known notable events for this encounter. [facility] 06-09-2024 Note Patient: Osbaldo ferreira Procedure Information Anesthesia Start Date/Time: 06/09/24 1328 Scheduled providers: Irais Lora MD; Sam Blood MD; NALDO Burch Procedure: BRONCHOSCOPY Location: [facility] Main Operating Room Relevant Problems Anesthesia (+) Difficult intubation (No view with Espinosa, needed fiberoptic 06/09/24) (+) History of anesthesia complications (Difficult intubation during anesthesia. 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 Neck is very rigid and immobile. Anesthesia Plan ASA 3 general (Patient was interviewed and evaluated prior to the start of the anesthetic. Note was inputted later. Discussed risk of difficult intubation and possible need for fiberoptic scope. Willing to proceed. ) intravenous induction Anesthetic plan and risks discussed with patient. Plan discussed with CAA. Additional Equipment Requests [facility] 06-09-2024 Note A. Satisfactory for evaluation. Examination of the ThinPrep slide and cell block reveals a mixture of bronchial cells and squamous cells in a background of bacteria and fungal organisms morphologically consistent with Gay species. [facility] Comment on above: Performed By: #### L [id number] ####[facility] ([facility])[address] [id number] 06-09-2024 Note Airway Date/Time: 06/09/2024 1:37 PM Urgency: elective Difficult airway General Information and Staff Patient location during procedure: OR Anesthesiologist: Sam Blood MD Resident/CLINICAL QUALITY ASSURANCE ASSOCIATE/CAA: NALDO Burch Performed: anesthesiologist Indications and Patient Condition Indications for airway management: anesthesia Sedation level: deep Preoxygenated: yes Mask difficulty assessment: 1 - vent by mask Final Airway Details Final airway type: endotracheal airway Successful airway: ETT Cuffed: yes Successful intubation technique: flexible bronchoscopy Endotracheal tube insertion site: oral Blade: Fiberoptic Scope ETT size (mm): 8.5 Placement verified by: chest auscultation and capnometry Measured from: teeth ETT to teeth (cm): 22 Number of attempts at approach: 1 Ventilation between attempts: BVM Number of other approaches attempted: 1 Additional Comments Patient was masked easily after induction by one provider. Unable to place patient in sniffing position due to ROM. Gentle placement of Espinosa 3 into mouth which resulted in a Grade 4 view. Base of tongue was relatively stiff and immobile. Cricoid pressure did not change view. Espinosa was removed and patient was mask ventilated. Flexible bronchoscope was placed into mouth without oral airway. Mucosa was not friable. Glottic opening appeared more anterior than expected. Easily passed through vocal cords. Bronchoscope was advanced until jason was visualized. 8.5 ETT was advanced over scope and suitable position was verified by bronchoscopy. Bronchoscope was removed and patient was attached to circuit which showed + ETCO2 and mist in circuit. Breath sounds auscultated bilaterally. [facility] 06-09-2024 Note H&P reviewed. The pa yovanny was examined and there are no changes to the H&P. Re-explained the procedure to the patient along with the associated risk of pneumothorax, bleeding, hypoxia, and respiratory failure. Patient is agreeable and will proceed with the scheduled bronchoscopy and BAL, and TBBx Irais Lora MD Interventional Pulmonary Medicine Pulmonary and Critical Care Medicine [facility] 06-09-2024 Note Patient: Osbaldo ferreira Procedure Summary Date: 06/09/24 Room / Location: [facility] Main Operating Room Anesthesia Start: 1328 Anesthesia Stop: 1428 Procedure: BRONCHOSCOPY Diagnosis: ILD (interstitial lung disease) (CMS/HCC) Pneumonitis Scheduled Providers: Irais Lora MD; Sam Blood MD; NALDO Burch Responsible Provider: Sam Blood MD Anesthesia Type: general ASA Status: Not recorded Anesthesia Post Transport Note Transport to: PACU O2 Route: face mask Oxygen Flow (L/min): 4 Patient Monitor: direct observation Transport: uneventful Patient condition is: stable [facility] 06-09-[address] Isa hammer, patient will start on steroid and monitor for improvement, with plan for slow taper over time. Appt scheduled 06/22/24 to review in person. [facility] 06-02-2024 History of Present illness Narrative ENT Follow [...] is improved from his last CT scan 01/31/24: Patient returns for follow-up. After his last visit he was started on immunotherapy and again developed pneumonitis. He is now off of immunotherapy again and on a steroid taper. He will not be able to do immunotherapy again in the future. He had a CT scan of his chest that shows changes consistent with pneumonitis. They are planning a repeat CT scan in mid February. He is otherwise doing very well 06/02/24: Patient returns for follow-up. He had repeat CT scan of the chest which shows some progression of pneumonitis and inflammatory changes versus nodularity. He is scheduled for [facility] next week From a head neck standpoint he has been stable. No new symptoms or concerns Past Medical History He has no past medical history on file. Surgical History He has no past surgical history on file. Social History He reports that he has never smoked. He quit smokeless tobacco use about 2 years ago. His smokeless tobacco use included chew. He reports that he does not use drugs. No history on file for alcohol use. Family History No family history on file. Allergies Grass pollen Physical Exam: CONSTITUTIONAL: No acute distress VOICE: No hoarseness or other abnormality RESPIRATION: Breathing comfortably, no stridor CV: No clubbing/cyanosis/edema in hands EYES: EOM intact, sclera normal NEURO: Alert and oriented times 3, Cranial nerves II-XII grossly intact and symmetric bilaterally with exception of slight hypoglossal weakness HEAD AND FACE: Symmetric facial features, no [...] atrophy of the tongue due to prior treatment. Tongue base is very soft to palpation PHARYNGEAL STERLING: No masses or lesions NECK/LYMPH: [...] findings included: -No visualized mucosal lesions, airway patent. Volume loss of tongue musculature Last Recorded Vitals Height 1.829 m (6'), weight 88.7 kg (195 lb 8 oz). Relevant Results Assessment and Plan 63 [...] any residual disease in the head neck. He has had ongoing issues with pneumonitis related to immunotherapy -No evidence of disease in the head and neck on exam -Advised them to contact us with any concerns found during bronchoscopy -He will plan to follow-up with me in about 6 months, earlier with any concerns Kiran Wilson MD documented in this encounter [facility] Work Phone: 05-24-2024 Note HEMATOLOGY and MEDIC AL ONCOLOGY Dr. Jessica Ambrose MD / MD Sabas Anne AOCNP / Salo Jarrell CNP / Angy Camara APRN-RITO Patient Name: Osbaldo León Date of : 1960 Encounter Date: 05/24/2024 Patient Care Team: Delphine Parker CNP as PCP - General (Internal Medicine) Jessica Ambrose MD as Consulting Physician (Hematology and Oncology) Mateusz Conroy MD as Consulting Physician (Urology) Nino Castro (Radiation Oncology) Sabas Kim NP as Consulting Physician (Oncology) Josue Grimm MD as Referring Physician Kiran Wilson MD (Otolaryngology) Salo Jarrell NP as Nurse Practitioner (Hematology and Oncology) IMPRESSION and ASSESSMENT: Osbaldo León is a 63 y.o. male with: Cancer Staging Primary malignant neoplasm of prostate (CMS/HCC) Staging form: Prostate, AJCC 8th Edition - Pathologic stage from 12/14/2021: Stage IIIB (pT3, pN0, cM0, PSA: 5.5, Grade Group: 2) - Signed by Jessica Ambrose MD on 04/20/2022 Squamous cell carcinoma of head and neck Staging form: Cutaneous Carcinoma of the Head and Neck, AJCC 8th Edition - Clinical stage from 02/20/2022: Stage IV (cTX, cN3a, pM1) - Signed by Jessica Ambrose MD on 05/06/2022 Diagnoses and all orders for this visit: Squamous cell carcinoma of head and neck [facility]; Future Malignant neoplasm metastatic to left lung (CMS/HCC) - [facility]; Future Pneumonitis Chronic hyponatremia Problem List Items Addressed This Visit Respiratory Malignant neoplasm metastatic to left lung (CMS/HCC) [facility] Pneumonitis Other Squamous cell carcinoma of head and neck - Primary Relevant Orders [facility] Other Visit Diagnoses Chronic hyponatremia RECOMMENDATIONS and PLAN: I reviewed CT chest from 05/19/2024, and compared it again 02/24/2024, 12/27/2023, and 09/27/23 with patient and his family today. There is new finding of a more consolidative process in the right lower lobe, with direct extension/involvement of right middle lobe. This is new compared to prior imaging. Clinically, he has had an increase in cough but is otherwise asymptomatic. I reviewed with him the differential for these findings, with high suspicion for inflammation due to IO related pneumonitis. Other possible etiologies include atypical infections, other organizing pneumonia, recurrence of cancer, other. We will review his imaging at our next lung tumor board, with tentative plan to proceed with bronchoscopy for further diagnostic certainty. I will hold on initiation of steroid until bronchoscopy can be completed, hopefully within the next 1 to 2 weeks. We will reconnect after bronchoscopy results, to proceed with further management. Tentatively plan for repeat CT chest in approximately 6 weeks, with return to clinic in person at that time. Jessica Ambrose MD Air Cargo Specialist Supervisor Fred Domínguez M.D. Endowed Professor in Hematology Chief of Hematology/Oncology Tire Room Supervisor, Hematology and Medical Oncology Fellowship Hematology/Oncology. Internal Medicine. [facility]. [facility]. Clinic: [phone] Office: [phone] SUBJECTIVE: Interval History: 05/24/2024 Osbaldo León presents to the clinic today to review recent CT chest. Since her last visit, he and his both noticed he has had an increase in cough, over the preceding 4 to 6 weeks. He is coughing while he is asleep, and having different episodes of cough which is nonproductive. He has no sick contacts. No fevers or chills, no nausea or vomiting, no change in bowel or bladder habits. He does not endorse any shortness of breath or dyspnea on exertion. He is checking his oxygen saturation, which is consistently running in the 96 to 97% range at home. His energy level is good and stable, his appetite is improved and he has no limitations on his activities of daily living. Oncology History Overview Note Osbaldo León is a gentleman with 2 meta-synchronous cancers diagnosed in 2021: Prostate Cancer: pT3a(R1)N0, dx August 2021 s/p radical prostatectomy and bilateral extended pelvis lymphadenectomy. [facility] Anthony 7 (3+4). 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 During this time, he lost about 20 pounds and at time of diagnosis, able to eat semi-solid and soft foods. PMHx: Prostate Cancer. HPL. Surgical Hx: Prostatectomy 2021. Social Hx: Lifelong nonsmoker. Occasional EtOH. Occasional exercise. Lee work (more content not included)... [facility] 02-29-2024 Note Attestation signed by Jessica Ambrose MD at 03/03/2024 9:07 AM GC: I saw this patient. I personally performed the critical/jonas portions that determines the level of service. I was directly involved in the management and treatment plan of the patient. I reviewed fellow Dr Martell's note and agree with the documentation Diagnoses and all orders for this visit: Pneumonitis - CT chest w IV contrast; Future Squamous cell carcinoma of head and neck - CT chest w IV contrast; Future Malignant neoplasm of prostate (CMS/HCC) Chronic hyponatremia Oropharyngeal dysphagia Jessica Ambrose MD Air C[employer] Specialist Supervisor Fred Domínguez M.D. Endowed Professor in Hematology Chief of Hematology/Oncology Tire Room Supervisor, Hematology and Medical Oncology Fellowship Hematology/Oncology. Internal Medicine. [facility] and [facility] Sciences. [facility]. Clinic:.[phone] Office:.[phone] Jessica Ambrose MD / MD Sabas Anne AOCNP / Salo Jarrell CNP / ABNER Oconnell Patient Name: Osbaldo León Date of : 1960 Encounter Date: 03/01/2024 Patient Care Team: Delphine Parker CNP as PCP - General (Internal Medicine) Jessica Ambrose MD as Consulting Physician (Hematology and Oncology) Mateusz Conroy MD as Consulting Physician (Urology) Nino Castro (Radiation Oncology) Sabas Kim NP as Consulting Physician (Oncology) Josue Grimm MD as Referring Physician Kiran Wilson MD (Otolaryngology) Salo Jarrell NP as Nurse Practitioner (Hematology and Oncology) DIAGNOSIS/ORDERS FOR THIS VISIT: Diagnoses and all orders for this visit: Pneumonitis - CT chest w IV contrast; Future Squamous cell carcinoma of head and neck - CT chest w IV contrast; Future ASSESSMENT AND PLAN: Osbaldo León is a 63 y.o. male with: Cancer Staging Primary malignant neoplasm of prostate (CMS/HCC) Staging form: Prostate, AJCC 8th Edition - Pathologic stage from 12/14/2021: Stage IIIB (pT3, pN0, cM0, PSA: 5.5, Grade Group: 2) - Signed by Jessica Ambrose MD on 04/20/2022 Squamous cell carcinoma of head and neck Staging form: Cutaneous Carcinoma of the Head and Neck, AJCC 8th Edition - Clinical stage from 02/20/2022: Stage IV (cTX, cN3a, pM1) - Signed by Jessica Ambrose MD on 05/06/2022 Plan: We reviewed his CT chest and compared it to prior images, overall looks stable, radiologist did mention multifocal densities have improved in density, compatible with improving multifocal nonspecific pneumonitis. We discussed at last visit as well as this visit retrial of immunotherapy is now not recommended as he has had two episodes of IO-induced pneumonitis. We will continue observation every [address] chest[address] If evidence of disease progression in future, our next line of treatment would likely be a [place] based regimen with Cetuximab. Steroids for pneumonitis have been been completed. Okay to discontinue bactrim. In regards to his prostate cancer, he follows up closely with Urology. PSA remains undetectable < 0.1. Continue PSA checks every 3 months. RTC in 3 months with scans. Patient seen and examined under direct supervision of attending physician, Dr. Ambrose. Chay Martell MD Hematology/Oncology, PGY-5 SUBJECTIVE: Interval History: 03/01/2024 Osbaldo León presents for follow-up to review his CT chest. He reports feeling well with no symptoms at this time. Denies shortness of breath, chest pain, fevers, chills, nausea, vomiting, diarrhea. He completed his steroid taper. Remains on bactrim. Oncology History Overview Note Osbaldo León is a gentleman with 2 meta-synchronous cancers diagnosed in 2021: Prostate Cancer: pT3a(R1)N0, dx August 2021 s/p radical prostatectomy and bilateral extended pelvis lymphadenectomy. [facility] Anthony 7 (3+4). 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 During this time, he lost about 20 pounds and at time of diagnosis, able to eat semi-solid and soft foods. PMHx: Prostate Cancer. HPL. Surgical Hx: Prostatectomy 2021. Social Hx: Lifelong nonsmoker. Occasional EtOH. Occasional exercise. 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 He lives in [place] with spouse. Pt hopes to continue working Family Hx: Mother - leukemia. PATHOLOGY: 08/29/2021, Prostate Biopsy: Prostate, le (more content not included)... [facility] 01-31-2024 History of Present illness Narrative ENT Follow [...] is improved from his last CT scan 01/31/24: Patient returns for follow-up. After his last visit he was started on immunotherapy and again developed pneumonitis. He is now off of immunotherapy again and on a steroid taper. He will not be able to do immunotherapy again in the future. He had a CT scan of his chest that shows changes consistent with pneumonitis. They are planning a repeat CT scan in mid February. He is otherwise doing very well Past Medical History He has no past medical history on file. Surgical History He has no past surgical history on file. Social History He reports that he has never smoked. He quit smokeless tobacco use about 2 years ago. His smokeless tobacco use included chew. He reports that he does not use drugs. No history on file for alcohol use. Family History No family history on file. Allergies Grass pollen Physical Exam: CONSTITUTIONAL: No acute distress VOICE: No hoarseness or other abnormality RESPIRATION: Breathing comfortably, no stridor CV: No clubbing/cyanosis/edema in hands EYES: EOM intact, sclera normal NEURO: Alert and oriented times 3, Cranial nerves II-XII grossly intact and symmetric bilaterally with exception of slight hypoglossal weakness HEAD AND FACE: Symmetric facial features, no [...] atrophy of the tongue due to prior treatment. Tongue base is very soft to palpation PHARYNGEAL STERLING: No masses or lesions NECK/LYMPH: [...] findings included: -No visualized mucosal lesions, airway patent. Volume loss of tongue musculature Last Recorded Vitals Temperature 36 C (96.8 F), height 1.829 m (6'), weight 83.7 kg (184 lb 8 oz). Relevant Results Assessment and Plan 63 [...] evidence of disease in the head and neck on exam -Will follow-up next set of scans -We discussed consideration of [place] DX testing. He is already exhausted many forms of treatment and even if something was identified he does not have a lot of treatment options left. He does not want to pursue it at this time but we can discuss again at the next visit -He will plan to follow-up with me in about 4 months, earlier with any concerns Kiran Wilson MD documented in this encounter [facility] Work Phone: 01-27-2024 Note Patient ID: Osbaldo renner is a 63 y.o. male. Primary oncologist: Dr Ambrose Primary Care Provider: Delphine Parker CNP Subjective Patient presents with spouse telemed for 2 weeks follow up for IO mediated pneumonitis. Current dose prednisone 30mg daily. Mood swings are much better, no dyspnea and cough almost gone. Oncology History Overview Note Osbaldo León is a gentleman with 2 meta-synchronous cancers diagnosed in 2021: Prostate Cancer: pT3a(R1)N0, dx August 2021 s/p radical prostatectomy and bilateral extended pelvis lymphadenectomy. [facility] Anthony 7 (3+4). 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 During this time, he lost about 20 pounds and at time of diagnosis, able to eat semi-solid and soft foods. PMHx: Prostate Cancer. HPL. Surgical Hx: Prostatectomy 2021. Social Hx: Lifelong nonsmoker. Occasional EtOH. Occasional exercise. 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 He lives in [place] with spouse. Pt hopes to continue working Family Hx: Mother - leukemia. PATHOLOGY: 08/29/2021, Prostate Biopsy: Prostate, left lateral base, needle biopsy: Prostatic adenocarcinoma, [facility] Anthony score 6 (3+3); grade group 1. Tumor volume: 14%, length 2.5 mm. Perineural invasion: not seen. Prostate, left medial mid, needle biopsy: Prostatic adenocarcinoma, Rosanna score 6 (3+3); grade group 1. Tumor volume: 20%, length 3 mm. Perineural invasion: not seen. Prostate, left medial apex, needle biopsy: Prostatic adenocarcinoma, [facility] Anthony score 6 (3+3); grade group 1. Tumor volume: 17%, length 2 mm. Perineural invasion: not seen. Prostate, right medial apex, needle biopsy: Prostatic adenocarcinoma, [facility] Anthony score 6 (3+3); grade group 1. Tumor volume: 9%, length 1.5 mm. Perineural invasion: not seen. Prostate, right lateral base, needle biopsy: Prostatic adenocarcinoma, Rosanna score 6 (3+3); grade group 1. Tumor volume: 5%, length 0.5 mm. Perineural invasion: not seen. Prostate, right lateral mid, needle biopsy: Prostatic adenocarcinoma, [facility] Anthony score 7 (3+4); grade group 2. Tumor volume: 35%, length 6 mm. Perineural invasion: not seen. Prostate, right lateral apex, needle biopsy: Prostatic adenocarcinoma, Rosanna score 6 (3+3); grade group 1. Tumor volume: 35%, length 5 mm. Perineural invasion: not seen. Prostate, JULIANE RMPZa, needle biopsy: Prostatic adenocarcinoma, Rosanna score 7 (3+4); grade group 2. Tumor volume: 26%, length 6 mm. Perineural invasion: not seen. 12/14/2021, radical prostatectomy and bilateral extended pelvic lymphadenectomy: Prostatic carcinoma, acinar adenocarcinoma; type: Rosanna score 7 (3+4), involving 18% of prostatic volume. Margins positive for tumor at the right and left bladder neck. Pathologic stage: pT3a(R1)pN0 02/20/2022, right neck mass FNA: Squamous cell carcinoma p16 positive 02/26/2022, transbronchial biopsy, right lower lobe: A. Lung, right lower lobe, Ion-guided fine needle aspiration, cytology and cell block: - Positive for malignancy. Keratinizing squamous cell carcinoma. see comment comment: The biopsy shows clusters of malignant cells as well as epithelium with bronchial squamous metaplasia/dysplasia at least approaching squamous cell carcinoma in situ. Immunohistochemistry with controls performed. Tumor cells are positive for pankeratin, CK5/6 and P16. Tumor cells are negative for PSA and TTF1. The CK5/6 and pankeratin highlights the squamous cell carcinoma cells suspicious but not definitve for stromal invasion. In light of positive P16 block staining clinical correlation suggested as to whether this primary tumor or metastasis. 02/26/2022, FNA right lower lobe lung: A. Lung, right lower lobe, Ion-guided fine needle aspiration, cytology and cell block: - Positive for malignancy. Keratinizing squamous cell carcinoma. B. Lymph node, station 7, EBUS guided fine needle aspiration, cytology and cell block: - Rare atypical keratinized cell present. HPV PENNY High Risk: POSITIVE PDL1 22C3 by IHC Result: Exp >=50% (91-100%) Adequacy of Specimen: Adequate IMAGIN10/30/2021, PET-CT Pylarify: Focus of increased activity in the right posterior aspect of the prostate corresponding to a focus of abnormality on prostate MR consistent with neoplasm. No metastatic foci appreciated. 02/16/2022, CT Chest wo contrast: Multiple pulmonary nodules present, the largest measuring 21 mm in the right lower lobe, increasing in size and number since the prior study. Biopsy suggested. 02/20/2022, ultrasound right neck: 6.3 x 2.5 x 2.1 cm solid hypoechoic mass with irregular m (more content not included)... [facility] 01-18-2024 Note PATIENT: Osbaldo ferreira DATE OF : 1960 DATE OF VISIT: 01/18/24 Urology Clinic H&P MATEUSZ CONROY M.D., F.A.C.S. Chief Complaint Unfavorable intermediate risk locally advanced prostate cancer HPI Mr. Osbaldo León is a 63 y.o. 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 He presents for follow-up. Mr. León underwent robot-assisted radical prostatectomy, bilateral pelvic lymph node dissection, left nerve sparing on 12/15/2021. Pathology revealed acinar adenocarcinoma of the prostate, Saint Anthony's 3+4=7; GG 2 involving 18% of prostate volume, cribriform grade 4 present, EPE at right and left bladder neck up to 1.5 cm, bladder neck invasion, no SVI, LVI but PNI present, 0 out of 18 lymph nodes involved, positive surgical margin at right & left bladder neck up to 1.2 cm, pathologic stage pT3a pN0R1. 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 He received concurrent cisplatin as chemoradiation, has completed x5 cycles of chemotherapy, on 04/21/[address] Ambrose. Currently receiving pembrolizumab cycle #3 given FDG PET/CT scan 08/05/2022 revealed multiple small FDG avid pulmonary nodule seen bilaterally suggesting worsening metastatic disease. G-tube removed on on 09/04/2022. At this visit, Mr. León presents for follow-up accompanied by his . He had Coronary Angiogram on 06/25/2023 due to severe CAD involving LAD shown on CT scan, heart cath revealed severe to moderate CAD, recommended and managed by medical treatment. No stent placement. Last pembrolizumab 05/21/2023, he is being treated with Prednisone for Grade 2 Pneumonitis, since CT chest scheduled for 12/27/2023 revealed worsening multifocal ground-glass and partly solid pulmonary opacities He has become urinary continent within 2 days after catheter on 12/24/2021. He denies gross hematuria, dysuria or significant LUTS or pain, nocturia x2, no urgency or UUI. He has been able to have penetrative intercourse, has spontaneous erection with rigidity 5/10, however, with either Cialis or MATT rigidity becomes 9-10/10. He denies any chest pain, shortness of breath, or leg swelling. I discussed most recent PSA is undetectable, PSA <0.1 ng/mL PSA<0.1 ng/mL 12/27/2023, indicating no evidence disease. For H&N SCC, he is tolerating pembrolizumab well. Initial Clinical Presentation: Mr. León was noted to have an elevated PSA 5.8 ng/mL 07/01/2021 from PSA 4.8 ng/mL, %fPSA 10 on 05/14/2021. PRICILA reported smooth gland. ExoDx Prostate Intelliscore 68.4 on 07/01/2021. A mpMRI of prostate on 08/06/2021 revealed prostate volume 27.2 mL, PSA density 0.21 ng/mL^, an 11 mm lesion noted in right PZ mid gland with extension to right posterior base and right apex, with MRI characteristics of PI-RADS 4. No SVI, EP, adenopathy. Mr. León underwent systematic and MRI/ultrasound fusion prostate biopsy for a total of 17 cores (12 cores systematic, 5 cores from JULIANE #1) 08/29/2021. FINDINGS: 1. Estimated TRUS prostate volume 19.6 [...] in right medial PZ; volume 1.53 mL. Pathology revealed adenocarcinoma of the prostate, Rosanna 3+4 = 7; GG 2 involving 5/17 cores up to 50% or 6 mm of the core in JULIANE# and RLM, Rosanna 3+3= 6; GG 1 in 6/17 up to 35% or 5 mm of the core for a total of 8/13 cores positive for malignancy (since JULIANE #1 was sampled more than once). No cribriform histology or PNI. Therefore, he was referred to me for consideration of radical prostatectomy. Preoperatively Mr. León denies gross hematuria, dysuria, or significant LUTS. AUA-SI , QoL 0. VITALY . PRICILA 35 g prostate with right lobe induration, cT2a, no discrete nodule. I reviewed and discussed his a clinical presentation, laboratory studies including PSA 4.6 ng/ML 10/30/2021, pathology of prostate biopsy as well as PSMA PET/CT scan 10/30/2021 revealing no evidence of metastatic prostate cancer, increased activity in right posterior aspect of the prostate consistent with undertreated neoplasm. None avid right lo (more content not included)... [facility] 01-13-2024 Note Patient ID: Osbaldo renner is a 63 y.o. male. Primary oncologist: Dr Ambrose Primary Care Provider: Delphine Parker CNP Subjective Patient presents with spouse telemed for 2 weeks follow up for IO mediated pneumonitis. Current dose prednisone 60mg daily. Chief c/o mood swings. Denies violence. Cough has lessened. No dyspnea. Continues working. Oncology History Overview Note Osbaldo León is a gentleman with 2 meta-synchronous cancers diagnosed in 2021: Prostate Cancer: pT3a(R1)N0, dx August 2021 s/p radical prostatectomy and bilateral extended pelvis lymphadenectomy. Rosanna 7 (3+4). 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 During this time, he lost about 20 pounds and at time of diagnosis, able to eat semi-solid and soft foods. PMHx: Prostate Cancer. HPL. Surgical Hx: Prostatectomy 2021. Social Hx: Lifelong nonsmoker. Occasional EtOH. Occasional exercise. 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 He lives in [place] with spouse. Pt hopes to continue working Family Hx: Mother - leukemia. PATHOLOGY: 08/29/2021, Prostate Biopsy: Prostate, left lateral base, needle biopsy: Prostatic adenocarcinoma, [facility] Anthony score 6 (3+3); grade group 1. Tumor volume: 14%, length 2.5 mm. Perineural invasion: not seen. Prostate, left medial mid, needle biopsy: Prostatic adenocarcinoma, Rosanna score 6 (3+3); grade group 1. Tumor volume: 20%, length 3 mm. Perineural invasion: not seen. Prostate, left medial apex, needle biopsy: Prostatic adenocarcinoma, Rosanna score 6 (3+3); grade group 1. Tumor volume: 17%, length 2 mm. Perineural invasion: not seen. Prostate, right medial apex, needle biopsy: Prostatic adenocarcinoma, [facility] Anthony score 6 (3+3); grade group 1. Tumor volume: 9%, length 1.5 mm. Perineural invasion: not seen. Prostate, right lateral base, needle biopsy: Prostatic adenocarcinoma, [facility] Anthony score 6 (3+3); grade group 1. Tumor volume: 5%, length 0.5 mm. Perineural invasion: not seen. Prostate, right lateral mid, needle biopsy: Prostatic adenocarcinoma, [facility] Anthony score 7 (3+4); grade group 2. Tumor volume: 35%, length 6 mm. Perineural invasion: not seen. Prostate, right lateral apex, needle biopsy: Prostatic adenocarcinoma, Rosanna score 6 (3+3); grade group 1. Tumor volume: 35%, length 5 mm. Perineural invasion: not seen. Prostate, JULIANE RMPZa, needle biopsy: Prostatic adenocarcinoma, [facility] Anthony score 7 (3+4); grade group 2. Tumor volume: 26%, length 6 mm. Perineural invasion: not seen. 12/14/2021, radical prostatectomy and bilateral extended pelvic lymphadenectomy: Prostatic carcinoma, acinar adenocarcinoma; type: Rosanna score 7 (3+4), involving 18% of prostatic volume. Margins positive for tumor at the right and left bladder neck. Pathologic stage: pT3a(R1)pN0 02/20/2022, right neck mass FNA: Squamous cell carcinoma p16 positive 02/26/2022, transbronchial biopsy, right lower lobe: A. Lung, right lower lobe, Ion-guided fine needle aspiration, cytology and cell block: - Positive for malignancy. Keratinizing squamous cell carcinoma. see comment comment: The biopsy shows clusters of malignant cells as well as epithelium with bronchial squamous metaplasia/dysplasia at least approaching squamous cell carcinoma in situ. Immunohistochemistry with controls performed. Tumor cells are positive for pankeratin, CK5/6 and P16. Tumor cells are negative for PSA and TTF1. The CK5/6 and pankeratin highlights the squamous cell carcinoma cells suspicious but not definitve for stromal invasion. In light of positive P16 block staining clinical correlation suggested as to whether this primary tumor or metastasis. 02/26/2022, FNA right lower lobe lung: A. Lung, right lower lobe, Ion-guided fine needle aspiration, cytology and cell block: - Positive for malignancy. Keratinizing squamous cell carcinoma. B. Lymph node, station 7, EBUS guided fine needle aspiration, cytology and cell block: - Rare atypical keratinized cell present. HPV PENNY High Risk: POSITIVE PDL1 22C3 by IHC Result: Exp >=50% (91-100%) Adequacy of Specimen: Adequate IMAGIN10/30/2021, PET-CT Pylarify: Focus of increased activity in the right posterior aspect of the prostate corresponding to a focus of abnormality on prostate MR consistent with neoplasm. No metastatic foci appreciated. 02/16/2022, CT Chest wo contrast: Multiple pulmonary nodules present, the largest measuring 21 mm in the right lower lobe, increasing in size and number since the prior study. Biopsy suggested. 02/20/2022, ultrasound right neck: 6.3 x 2.5 x 2.1 cm solid hypoec (more content not included)... [facility] 01-11-2024 Note Patient here for 6 m o follow up CAD, HLD, and valvular heart disease. Had lipid panel a few days ago. Atorvastatin was increased to 40mg at last apt in Jul 2023. He denies chest pain, SOB, palpitations, and lightheadedness/syncope. Review of Systems All other systems reviewed and are negative. [facility] 01-11-2024 Note Cardiovascular Medic [facility] SUBJECTIVE Chief Complaint Patient presents with Coronary Artery Disease Hyperlipidemia Coronary Artery Disease Pertinent negatives include no chest pain, leg swelling, palpitations or weight gain. Osbaldo León is a 63 y.o. male here for routine follow-up. He is accompanied by his , Rossana. He is currently dealing with lung CA along with head and neck CA. He was also treated for prostate CA, he had his prostate removed. He recently underwent a routine chest CTA for follow-up on his lung CA. This had noted severe coronary artery calcification and he was referred to cardiology for further evaluation. He was asymptomatic. He underwent an ECHO which found +RWMA and he underwent coronary angiogram. This showed mild to moderate CAD, medical therapy recommended. 01/11/2024 He has been feeling well. He is off of immunotherapy. He still has a lot of inflammation in his lungs. He is currently on steroids. He is undergoing routine follow-up CTs. Denies c/o CP, dyspnea, orthopnea, PND, LE edema, dizziness/LH, palpitations, syncope. Allergies Allergen Reactions Grass Pollen Patient Active Problem List Diagnosis Squamous cell carcinoma of skin of scalp and neck Primary malignant neoplasm of prostate (CMS/HCC) Malignant neoplasm metastatic to lymph nodes (CMS/HCC) Squamous cell carcinoma of head and neck Anemia associated with chemotherapy Oropharyngeal dysphagia Dysarthria Malignant neoplasm of base of tongue (CMS/HCC) Malignant neoplasm metastatic to left lung (CMS/HCC) Malignant neoplasm metastatic to both lungs (CMS/HCC) Coronary artery disease involving [place] coronary artery of [place] heart without angina pectoris Abnormal finding on imaging Mixed hyperlipidemia Abnormal echocardiogram Pneumonitis Past Medical History: Diagnosis Date Lung cancer (CMS/HCC) February 2022 Metastatic cancer (CMS/HCC) February 2022 Prostate cancer (CMS/HCC) 2021 Past Surgical History: Procedure Laterality Date CARDIAC CATHETERIZATION CYSTOSCOPY GASTROSTOMY TUBE CHANGE PEG TUBE PLACEMENT GASTROSTOMY TUBE PLACEMENT NM BONE SPECT W CT 11/01/[address] HUBBARD CONVERSION PORTACATH PLACEMENT PROSTATECTOMY Family History Problem Relation Name Age of Onset Leukemia Mother Becky León Cancer Mother Becky León Heart attack Father Marc León 65 massive HI Social History Tobacco Use Smoking status: Never Passive exposure: Never Smokeless tobacco: Former Types: Chew Quit date: 12/07/2021 Vaping Use Vaping Use: Never used Substance Use Topics Alcohol use: Not Currently Drug use: Never Review of Systems Constitutional: Negative for chills, decreased appetite, fever, malaise/fatigue and weight gain. Cardiovascular: Negative for chest pain, dyspnea on exertion, irregular heartbeat, leg swelling, near-syncope, orthopnea, palpitations, paroxysmal nocturnal dyspnea and syncope. Hematologic/Lymphatic: Negative for bleeding problem. Does not bruise/bleed easily. OBJECTIVE Visit Vitals BP 110/72 (BP Location: Right arm, Patient Position: Sitting) Pulse 61 Ht 1.829 m (6') Wt 83 kg (183 lb) SpO2 98% BMI 24.82 kg/m??? Smoking Status Never BSA 2.05 m??? Medications: Current Outpatient Medications: aspirin 81 mg EC tablet, Take 81 mg by mouth in the morning., Disp: , Rfl: carvedilol (Coreg) 3.125 mg tablet, Take 1 tablet (3.125 mg) by mouth with breakfast and with evening meal., Disp: 60 tablet, Rfl: 11 lidocaine-prilocaine (Emla) 2.5-2.5 % cream, APPLY TO PORT SITE AND COVER 30-45 MINUTES PRIOR TO NEEDLE ACCESS, Disp: 30 g, Rfl: 3 osjwfgkvzzfn-fotg-esgpgvgj-folic acid (Multivitamin 50 Plus) tablet, Take 1 tablet by mouth in the morning. Pt is holding this med during radiation through 4 weeks post radiation., Disp: , Rfl: sulfamethoxazole-trimethoprim (Bactrim DS) 800-160 mg tablet, 1 tablet by mouth Wednesday/Wednesday/Wednesday while on high dose steroid, Disp: 36 tablet, Rfl: 1 glycopyrrolate (Robinul) 1 mg tablet, Take 1 tablet (1 mg) by mouth in the morning and at bedtime., Disp: 60 tablet, Rfl: 0 predniSONE (Deltasone) 20 mg tablet, Take 2.5 tablets (50 mg) by mouth in the morning for 5 days, THEN 2 tablets (40 mg) in the morning for 5 days, THEN 1.5 tablets (30 mg) in the morning for 5 days, THEN 1 tablet (20 mg) in the morning for 5 days, THEN 0.5 tablets (10 mg) in the morning for 5 days., Disp: 60 tablet, Rfl: 0 rosuvastatin (Crestor) 40 mg tablet, Take 1 tablet (40 mg) by mouth in the morning. Replacing atorvastatin, Disp: 90 tablet, Rfl: 3 tadalafil (Cialis) 20 mg tablet, Take 1 tablet (20 mg) by mouth if needed for erectile dysfunction., Disp: 10 tablet, Rfl: 5 Physical Exam Constitutional: Appearance: Normal appearance. He is normal weight. HENT: Head: Normocephalic and atraumatic. Right Ear: External ear normal. Left Ear: External ear normal. (more content not included)... [facility] 12-30-2023 Note Patient ID: Osbaldo renner is a 63 y.o. male. Primary oncologist: Dr Ambrose Primary Care Provider: Delphine Parker CNP Subjective Patient presents with spouse to review recent imaging. Son Akil on speaker call for some of visit. He is feeling well overall. Denies dyspnea. Pt states cough in the morning with mucous production. Family has noticed an increase in dry cough at night and during the day. HPI Recurrent pneumonitis: Imaging 12/27/2023 Worsening multifocal groundglass and part-solid solid pulmonary opacities. Findings are nonspecific, can be seen with treatment related pneumonitis and/or atypical/viral infection. Difficult to exclude any underlying metastatic disease. Review of Systems Constitutional: Negative for appetite change, chills, fatigue and fever. HENT: Negative for hearing loss, mouth sores, nosebleeds, sore throat and trouble swallowing. Eyes: Negative for eye problems. Respiratory: Positive for cough. Negative for chest tightness, hemoptysis, shortness of breath and wheezing. Cardiovascular: Negative for chest pain, leg swelling and palpitations. Gastrointestinal: Negative for abdominal pain, constipation, diarrhea, nausea and vomiting. Genitourinary: Negative for difficulty urinating, dysuria and frequency. Musculoskeletal: Negative for arthralgias, back pain and myalgias. Skin: Negative for itching and rash. Neurological: Negative for dizziness, headaches, numbness and seizures. Hematological: Negative for adenopathy. Does not bruise/bleed easily. Psychiatric/Behavioral: Negative for confusion, depression and sleep disturbance. The patient is not nervous/anxious. Oncology History Overview Note Osbaldo León is a 61 y.o. man with 2 meta-synchronous cancers diagnosed in 2021: Prostate Cancer: pT3a(R1)N0, dx August 2021 s/p radical prostatectomy and bilateral extended pelvis lymphadenectomy. Rosanna 7 (3+4). 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 During this time, he lost about 20 pounds and at time of diagnosis, able to eat semi-solid and soft foods. PMHx: Prostate Cancer. HPL. Surgical Hx: Prostatectomy 2021. Social Hx: Lifelong nonsmoker. Occasional EtOH. Occasional exercise. 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 He lives in [place] with spouse. Pt hopes to continue working Family Hx: Mother - leukemia. PATHOLOGY: 08/29/2021, Prostate Biopsy: Prostate, left lateral base, needle biopsy: Prostatic adenocarcinoma, Saint Anthony score 6 (3+3); grade group 1. Tumor volume: 14%, length 2.5 mm. Perineural invasion: not seen. Prostate, left medial mid, needle biopsy: Prostatic adenocarcinoma, Saint Anthony score 6 (3+3); grade group 1. Tumor volume: 20%, length 3 mm. Perineural invasion: not seen. Prostate, left medial apex, needle biopsy: Prostatic adenocarcinoma, Rosanna score 6 (3+3); grade group 1. Tumor volume: 17%, length 2 mm. Perineural invasion: not seen. Prostate, right medial apex, needle biopsy: Prostatic adenocarcinoma, Saint Anthony score 6 (3+3); grade group 1. Tumor volume: 9%, length 1.5 mm. Perineural invasion: not seen. Prostate, right lateral base, needle biopsy: Prostatic adenocarcinoma, Rosanna score 6 (3+3); grade group 1. Tumor volume: 5%, length 0.5 mm. Perineural invasion: not seen. Prostate, right lateral mid, needle biopsy: Prostatic adenocarcinoma, Rosanna score 7 (3+4); grade group 2. Tumor volume: 35%, length 6 mm. Perineural invasion: not seen. Prostate, right lateral apex, needle biopsy: Prostatic adenocarcinoma, Rosanna score 6 (3+3); grade group 1. Tumor volume: 35%, length 5 mm. Perineural invasion: not seen. Prostate, JULIANE RMPZa, needle biopsy: Prostatic adenocarcinoma, Rosanna score 7 (3+4); grade group 2. Tumor volume: 26%, length 6 mm. Perineural invasion: not seen. 12/14/2021, radical prostatectomy and bilateral extended pelvic lymphadenectomy: Prostatic carcinoma, acinar adenocarcinoma; type: Saint Anthony score 7 (3+4), involving 18% of prostatic volume. Margins positive for tumor at the right and left bladder neck. Pathologic stage: pT3a(R1)pN0 02/20/2022, right neck mass FNA: Squamous cell carcinoma p16 positive 02/26/2022, transbronchial biopsy, right lower lobe: A. Lung, right lower lobe, Ion-guided fine needle aspiration, cytology and cell block: - Positive for malignancy. Keratinizing squamous cell carcinoma. see comment comment: The biopsy shows clusters of malignant cells as well as epithelium with bronchial squamous metaplasia/dysplasia at least approaching squamous cell carcinoma in situ. Immunohistochemistry (more content not included)... [facility] 12-27-2023 Note I reviewed the resul t. An appointment for follow up to review with Osbaldo León is scheduled. [facility] 11-19-2023 Note Patient ID: Osbaldo renner is a 63 y.o. male. Primary oncologist: Dr Ambrose Primary Care Provider: Delphine Parker CNP Subjective Patient presents to [facility] C17 Pembrolizumab. He is doing very well. 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 Review of Systems Constitutional: Negative for appetite change, chills, fatigue and fever. HENT: Negative for hearing loss, mouth sores, nosebleeds, sore throat and trouble swallowing. Eyes: Negative for eye problems. Respiratory: Positive for cough (phlegm, not new,not worse). Negative for chest tightness, hemoptysis and shortness of breath (with exertion sometimes carrying dry wall, need to catch my breath). Cardiovascular: Negative for chest pain, leg swelling and palpitations. Gastrointestinal: Negative for abdominal pain, constipation, diarrhea, nausea and vomiting. Endocrine: Positive for hot flashes (sometimes at night). Genitourinary: Negative for difficulty urinating, dysuria and frequency. Musculoskeletal: Negative for arthralgias (hands, not new), back pain, gait problem and myalgias. Skin: Negative for itching and rash. Neurological: Negative for dizziness, gait problem, headaches, light-headedness, numbness and seizures. Hematological: Negative for adenopathy. Does not bruise/bleed easily. Psychiatric/Behavioral: Negative for confusion, depression and sleep disturbance. The patient is not nervous/anxious. Oncology History Overview Note Osbaldo León is a 61 y.o. man with 2 meta-synchronous cancers diagnosed in 2021: Prostate Cancer: pT3a(R1)N0, dx August 2021 s/p radical prostatectomy and bilateral extended pelvis lymphadenectomy. Rosanna 7 (3+4). 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 During this time, he lost about 20 pounds and at time of diagnosis, able to eat semi-solid and soft foods. PMHx: Prostate Cancer. HPL. Surgical Hx: Prostatectomy 2021. Social Hx: Lifelong nonsmoker. Occasional EtOH. Occasional exercise. 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 He lives in [place] with spouse. Pt hopes to continue working Family Hx: Mother - leukemia. PATHOLOGY: 08/29/2021, Prostate Biopsy: Prostate, left lateral base, needle biopsy: Prostatic adenocarcinoma, Saint Anthony score 6 (3+3); grade group 1. Tumor volume: 14%, length 2.5 mm. Perineural invasion: not seen. Prostate, left medial mid, needle biopsy: Prostatic adenocarcinoma, Saint Anthony score 6 (3+3); grade group 1. Tumor volume: 20%, length 3 mm. Perineural invasion: not seen. Prostate, left medial apex, needle biopsy: Prostatic adenocarcinoma, Rosanna score 6 (3+3); grade group 1. Tumor volume: 17%, length 2 mm. Perineural invasion: not seen. Prostate, right medial apex, needle biopsy: Prostatic adenocarcinoma, Rosanna score 6 (3+3); grade group 1. Tumor volume: 9%, length 1.5 mm. Perineural invasion: not seen. Prostate, right lateral base, needle biopsy: Prostatic adenocarcinoma, Saint Anthony score 6 (3+3); grade group 1. Tumor volume: 5%, length 0.5 mm. Perineural invasion: not seen. Prostate, right lateral mid, needle biopsy: Prostatic adenocarcinoma, Rosanna score 7 (3+4); grade group 2. Tumor volume: 35%, length 6 mm. Perineural invasion: not seen. Prostate, right lateral apex, needle biopsy: Prostatic adenocarcinoma, Saint Anthony score 6 (3+3); grade group 1. Tumor volume: 35%, length 5 mm. Perineural invasion: not seen. Prostate, JULIANE RMPZa, needle biopsy: Prostatic adenocarcinoma, Rosanna score 7 (3+4); grade group 2. Tumor volume: 26%, length 6 mm. Perineural invasion: not seen. 12/14/2021, radical prostatectomy and bilateral extended pelvic lymphadenectomy: Prostatic carcinoma, acinar adenocarcinoma; type: Rosanna score 7 (3+4), involving 18% of prostatic volume. Margins positive for tumor at the right and left bladder neck. Pathologic stage: pT3a(R1)pN0 02/20/2022, right neck mass FNA: Squamous cell carcinoma p16 positive 02/26/2022, transbronchial biopsy, right lower lobe: A. Lung, right lower lobe, Ion-guided fine needle aspiration, cytology and cell block: - Positive for malignancy. Keratinizing squamous cell carcinoma. see comment comment: The biopsy shows clusters of malignant cells as well as epithelium with bronchial squamous metaplasia/dysplasia at least approaching squamous cell carcinoma in situ. Immunohistochemistry with controls performed. Tumor cells are positive for pankeratin, CK5/6 and P16. Tumor cells are negative for PSA and TTF1. The CK5/6 and pankeratin highlights the squamous cell carcinoma cells suspici (more content not included)... [facility] 11-05-2023 Note Subjective Patient ID: Osbaldo León is a 63 y.o. male who presents for [facility]. HPI Pt. Here from [place] to [facility]. He is currently undergoing treatment at [facility]. He is here with his and both would like to establish care here to keep all of their doctors in the same place for continuity of care. Has hx of prostate cancer and had prostatectomy. Also had oropharyngeal cancer. He received chemo and radiation and has recovered well. Still has some difficulty swallowing and speaking but overall doing very good. 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 Healthy weight: BMI 26.04 Injury prevention: Wears a seatbelt, smoke detectors at home Misuse of tobacco, alcohol, and drugs: No tobacco, no THC, drinks occasional beer but had nothing for 2 years Sexual behavior: Sexually active with one partner, Dental health: Follows regularly Mental health: Denies any depression or anxiety Screening Services: Cholesterol: getting re-drawn soon Diabetes: Will check hgb A1C Colorectal cancer: needs a colonoscopy Review of Systems Constitutional: Negative. HENT: Negative. Eyes: Negative. Respiratory: Negative. Cardiovascular: Negative for chest pain and palpitations. Gastrointestinal: Negative. Endocrine: Negative. Genitourinary: Negative. Musculoskeletal: Positive for arthralgias. Joint pain from arthritis Skin: Negative. Allergic/Immunologic: Negative. Neurological: Negative. Hematological: Negative. Psychiatric/Behavioral: Negative. Objective Temp: [36.6 ???C (97.9 ???F)] 36.6 ???C (97.9 ???F) Heart Rate: [53] 53 BP: (131-139)/(84-87) 139/84 Physical Exam Constitutional: Appearance: He is normal weight. HENT: Head: Normocephalic. Right Ear: External ear normal. Left Ear: External ear normal. Nose: Nose normal. Mouth/Throat: Mouth: Mucous membranes are moist. Eyes: Extraocular Movements: Extraocular movements intact. Conjunctiva/sclera: Conjunctivae normal. Cardiovascular: Rate and Rhythm: Normal rate and regular rhythm. Pulses: Normal pulses. Heart sounds: No murmur heard. Pulmonary: Effort: Pulmonary effort is normal. Breath sounds: Normal breath sounds. Abdominal: General: Bowel sounds are normal. Palpations: Abdomen is soft. Musculoskeletal: General: Normal range of motion. Cervical back: Normal range of motion. Right lower leg: No edema. Left lower leg: No edema. Skin: General: Skin is warm. Neurological: Mental Status: He is oriented to person, place, and time. Psychiatric: Mood and Affect: Mood normal. Behavior: Behavior normal. Assessment/Plan Pt. Is continuing treatment for lung cancer. Currently on immunosuppressive therapy and will likely be on it another year. He is following with Dr. Ambrose at [facility]. Also sees cardiology here for CAD, and urology for hx of prostate cancer. Will follow in 6 mo. to do Medicare Annual Wellness exam. Pending labs to be completed. Diagnoses and all orders for this visit: Wellness examination - Hemoglobin A1c; Future - Screening Colonoscopy; Future Screening for colon cancer - Screening Colonoscopy; Future Orders Placed This Encounter Procedures Hemoglobin A1c Standing Status: Future Number of Occurrences: 1 Standing Expiration Date: 11/04/2024 Order Specific Question: Release to Patient Answer: Immediately No results found for this or any previous visit (from the past 36 hour(s)). Follow up in about 6 months (around 05/07/2024). [facility] 10-29-2023 Note Patient ID: Osbaldo renner is a 63 y.o. male. Primary oncologist: Dr Ambrose Primary Care Provider: Clara Jordan NP Subjective Patient presents to infusion center C16 Pembrolizumab. He is doing very well. No c/o. 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 Review of Systems Constitutional: Negative for appetite change, chills, fatigue and fever. HENT: Negative for hearing loss, mouth sores, nosebleeds, sore throat and trouble swallowing. Eyes: Negative for eye problems. Respiratory: Negative for chest tightness, cough, hemoptysis and shortness of breath. Cardiovascular: Negative for chest pain, leg swelling and palpitations. Gastrointestinal: Negative for abdominal pain, constipation, diarrhea, nausea and vomiting. Genitourinary: Negative for difficulty urinating, dysuria and frequency. Musculoskeletal: Negative for arthralgias (hands, not new), back pain and myalgias. Skin: Negative for itching and rash. Neurological: Negative for dizziness, headaches, numbness and seizures. Hematological: Negative for adenopathy. Does not bruise/bleed easily. Psychiatric/Behavioral: Negative for confusion, depression and sleep disturbance. The patient is not nervous/anxious. Oncology History Overview Note Osbaldo León is a 61 y.o. man with 2 meta-synchronous cancers diagnosed in 2021: Prostate Cancer: pT3a(R1)N0, dx August 2021 s/p radical prostatectomy and bilateral extended pelvis lymphadenectomy. Rosanna 7 (3+4). 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 During this time, he lost about 20 pounds and at time of diagnosis, able to eat semi-solid and soft foods. PMHx: Prostate Cancer. HPL. Surgical Hx: Prostatectomy 2021. Social Hx: Lifelong nonsmoker. Occasional EtOH. Occasional exercise. 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 He lives in [place] with spouse. Pt hopes to continue working Family Hx: Mother - leukemia. PATHOLOGY: 08/29/2021, Prostate Biopsy: Prostate, left lateral base, needle biopsy: Prostatic adenocarcinoma, Rosanna score 6 (3+3); grade group 1. Tumor volume: 14%, length 2.5 mm. Perineural invasion: not seen. Prostate, left medial mid, needle biopsy: Prostatic adenocarcinoma, Saint Anthony score 6 (3+3); grade group 1. Tumor volume: 20%, length 3 mm. Perineural invasion: not seen. Prostate, left medial apex, needle biopsy: Prostatic adenocarcinoma, Saint Anthony score 6 (3+3); grade group 1. Tumor volume: 17%, length 2 mm. Perineural invasion: not seen. Prostate, right medial apex, needle biopsy: Prostatic adenocarcinoma, Rosanna score 6 (3+3); grade group 1. Tumor volume: 9%, length 1.5 mm. Perineural invasion: not seen. Prostate, right lateral base, needle biopsy: Prostatic adenocarcinoma, Saint Anthony score 6 (3+3); grade group 1. Tumor volume: 5%, length 0.5 mm. Perineural invasion: not seen. Prostate, right lateral mid, needle biopsy: Prostatic adenocarcinoma, Saint Anthony score 7 (3+4); grade group 2. Tumor volume: 35%, length 6 mm. Perineural invasion: not seen. Prostate, right lateral apex, needle biopsy: Prostatic adenocarcinoma, Saint Anthony score 6 (3+3); grade group 1. Tumor volume: 35%, length 5 mm. Perineural invasion: not seen. Prostate, JULIANE RMPZa, needle biopsy: Prostatic adenocarcinoma, Rosanna score 7 (3+4); grade group 2. Tumor volume: 26%, length 6 mm. Perineural invasion: not seen. 12/14/2021, radical prostatectomy and bilateral extended pelvic lymphadenectomy: Prostatic carcinoma, acinar adenocarcinoma; type: Rosanna score 7 (3+4), involving 18% of prostatic volume. Margins positive for tumor at the right and left bladder neck. Pathologic stage: pT3a(R1)pN0 02/20/2022, right neck mass FNA: Squamous cell carcinoma p16 positive 02/26/2022, transbronchial biopsy, right lower lobe: A. Lung, right lower lobe, Ion-guided fine needle aspiration, cytology and cell block: - Positive for malignancy. Keratinizing squamous cell carcinoma. see comment comment: The biopsy shows clusters of malignant cells as well as epithelium with bronchial squamous metaplasia/dysplasia at least approaching squamous cell carcinoma in situ. Immunohistochemistry with controls performed. Tumor cells are positive for pankeratin, CK5/6 and P16. Tumor cells are negative for PSA and TTF1. The CK5/6 and pankeratin highlights the squamous cell carcinoma cells suspicious but not definitve for stromal invasion. In light of positive P16 block staining clinical correlation suggested as to whether this primary tumor or metastasis. 02/26/2022, FNA right lower lobe lung: (more content not included)... [facility] 10-20-2023 Note [facility] t [facility] Department of Radiation Oncology [address] [place] [address] RADIATION ONCOLOGY FOLLOW UP NOTE Date of Service: 10/20/23 Patient Name: Osbaldo León Patient : 1960 Diagnosis: 62 y.o. 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 Chief Complaint: I feel great. Interval History: Patient returns in a previously scheduled follow up visit. We last saw the patient a couple of months ago. He completed a course of steroids for pneumonitis; he's very glad to be off steroids due to weight gain. He has resumed IO recently and is being monitored closely for pneumonitis. He's markedly improved in terms of energy level, ability to chew and swallow. He complains of thick saliva that is difficult to cough up. Denies coughing after swallowing except occasionally; pain has resolved. Denies SoB, cough, chest pain. He is eating a regular diet. 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 He voices no complaints. I reviewed the patient???s medical, surgical, social and family history, as well as allergies/medications as per the medical record. Review of Systems: As per HPI. PHYSICAL EXAM: BP 153/87 (BP Location: Left arm, Patient Position: Sitting) Pulse 51 Temp 36.6 ???C (97.8 ???F) (Oral) Wt 88.3 kg (194 lb 9.6 oz) BMI 26.39 kg/m??? GENERAL: ECOG 1, looks very good, in no apparent distress, alert and fully oriented, answers questions appropriately, accompanied by his spouse and son. HEENT: Normocephalic, atraumatic, facial asymmetry resolved, PER, EOMI. Speech is still mildly dysarthric. NECK: No cervical or supraclavicular lymphadenopathy. Mild fibrosis. ABD: No visceromegaly or masses. EXTREMITIES: Normal range of motion, no cyanosis/clubbing/edema. LYMPH: No appreciable adenopathy. NEURO: AOx4, granulating blender grossly normal, gait normal, muscle power in extremities normal. PSYCH: Appropriate affect for the clinical situation. Insight and judgment not impaired. LABS: PSA <0.1 ng/mL on 03/18/2023 (s/p R1 prostatectomy in December 2021) RADS: CT chest w IV contrast Result Date: 09/28/2023 1. Many of the areas of previously seen groundglass opacity has significantly improved since the prior exam. Findings may reflect interval improvement in infectious or inflammatory causes. Organizing pneumonia, either related to therapy or cryptogenic organizing pneumonia not excluded. There are no findings of disease progression. Continued clinical correlation and follow-up recommended. Electronically signed: Raf Tran. CT soft tissue neck w IV contrast Result Date: 08/06/2023 Post treatment changes are noted in the tongue and floor the mouth without residual enhancing malignancy. Opacities are noted in the lung parenchyma consistent with known pulmonary metastatic disease. There is a new pleural-based area of opacity/scarring anteriorly in the left upper lobe. A new partly solid nodular opacity is noted in the right upper lobe with a larger focus of groundglass attenuation in the right lower lobe. These may be treatment related or secondary to advancing pulmonary metastatic disease. Nonspecific cervical lymph nodes are noted none of which are pathologically enlarged. Electronically signed: Regino Coleman. CT chest w IV contrast Result Date: 07/23/2023 *Extensive bilateral groundglass opacities and irregular masslike airspace opacities/consolidation, some of which have improved since most recent comparison study though others of which have worsened. Appearance may relate to shifting multifocal pneumonitis (potentially related to chemotherapy agent), multifocal pneumonia, and/or underlying metastatic disease. Recommend correlating with patient's current clinical status and continued follow-up imaging. *No enlarged metastatic lymph nodes or other sites of metastatic disease. Electronically signed: Vinicio Das. CT chest w IV contrast Result Date: 06/23/2023 Stable multifocal groundglass opacities and septal airspace consolidations without significant interval change or progression again suggestive of sequela atypical inflammatory or infectious process and/or pneumonitis. No acute process. Electronically signed: Jonathan Wild. CT chest w IV contrast Result Date: 05/27/2023 1. Severe coronary artery calcified lesions involving the LAD with possible noncalcified plaque. Significant stenosis of (more content not included)... [facility] 10-05-2023 Note HEMATOLOGY/ONCOLOGY [facility] Patient Name: Osbaldo León Date of : 1960 Encounter Date: 10/15/2023 Patient Care Team: Clara Jordan NP as PCP - General (Family Medicine) Jessica Ambrose MD as Consulting Physician (Hematology and Oncology) Mateusz Conroy MD as Consulting Physician (Urology) Nino Castro (Radiation Oncology) Sabas Kim NP as Consulting Physician (Oncology) Josue Grimm MD as Referring Physician Kiran Wilson MD (Otolaryngology) Osbaldo León is a 63 y.o. male with [Associated problem not found]. Chief Complaint Patient presents with Follow-up Follow-up after steroids with CT Chest 09/27 results to disclose. Last seen 08/17/2023 Sabas Kim NP. Results (SubjectiveBegin) Interval History: Osbaldo León presents to clinic today to review imaging, and consideration of resuming pembrolizumab. He is feeling well. Completed slow taper of prednisone earlier this month, feeling well. No chest pain, shortness of breath, or cough. No dysphagia, hoarseness, change in appetite. Good energy. No rash. Oncology History Overview Note Osbaldo León is a 61 y.o. man with 2 meta-synchronous cancers diagnosed in 2021: Prostate Cancer: pT3a(R1)N0, dx August 2021 s/p radical prostatectomy and bilateral extended pelvis lymphadenectomy. Rosanna 7 (3+4). 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 During this time, he lost about 20 pounds and at time of diagnosis, able to eat semi-solid and soft foods. PMHx: Prostate Cancer. HPL. Surgical Hx: Prostatectomy 2021. Social Hx: Lifelong nonsmoker. Occasional EtOH. Occasional exercise. 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 He lives in [place] with spouse. Pt hopes to continue working Family Hx: Mother - leukemia. PATHOLOGY: 08/29/2021, Prostate Biopsy: Prostate, left lateral base, needle biopsy: Prostatic adenocarcinoma, Rosanna score 6 (3+3); grade group 1. Tumor volume: 14%, length 2.5 mm. Perineural invasion: not seen. Prostate, left medial mid, needle biopsy: Prostatic adenocarcinoma, Saint Anthony score 6 (3+3); grade group 1. Tumor volume: 20%, length 3 mm. Perineural invasion: not seen. Prostate, left medial apex, needle biopsy: Prostatic adenocarcinoma, Saint Anthony score 6 (3+3); grade group 1. Tumor volume: 17%, length 2 mm. Perineural invasion: not seen. Prostate, right medial apex, needle biopsy: Prostatic adenocarcinoma, Saint Anthony score 6 (3+3); grade group 1. Tumor volume: 9%, length 1.5 mm. Perineural invasion: not seen. Prostate, right lateral base, needle biopsy: Prostatic adenocarcinoma, Saint Anthony score 6 (3+3); grade group 1. Tumor volume: 5%, length 0.5 mm. Perineural invasion: not seen. Prostate, right lateral mid, needle biopsy: Prostatic adenocarcinoma, Rosanna score 7 (3+4); grade group 2. Tumor volume: 35%, length 6 mm. Perineural invasion: not seen. Prostate, right lateral apex, needle biopsy: Prostatic adenocarcinoma, Saint Anthony score 6 (3+3); grade group 1. Tumor volume: 35%, length 5 mm. Perineural invasion: not seen. Prostate, JULIANE RMPZa, needle biopsy: Prostatic adenocarcinoma, Saint Anthony score 7 (3+4); grade group 2. Tumor volume: 26%, length 6 mm. Perineural invasion: not seen. 12/14/2021, radical prostatectomy and bilateral extended pelvic lymphadenectomy: Prostatic carcinoma, acinar adenocarcinoma; type: Rosanna score 7 (3+4), involving 18% of prostatic volume. Margins positive for tumor at the right and left bladder neck. Pathologic stage: pT3a(R1)pN0 02/20/2022, right neck mass FNA: Squamous cell carcinoma p16 positive 02/26/2022, transbronchial biopsy, right lower lobe: A. Lung, right lower lobe, Ion-guided fine needle aspiration, cytology and cell block: - Positive for malignancy. Keratinizing squamous cell carcinoma. see comment comment: The biopsy shows clusters of malignant cells as well as epithelium with bronchial squamous metaplasia/dysplasia at least approaching squamous cell carcinoma in situ. Immunohistochemistry with controls performed. Tumor cells are positive for pankeratin, CK5/6 and P16. Tumor cells are negative for PSA and TTF1. The CK5/6 and pankeratin highlights the squamous cell carcinoma cells suspicious but not definitve for stromal invasion. In light of positive P16 block staining clinical correlation suggested as to whether this primary tumor or metastasis. 02/26/2022, FNA right lower lobe lung: A. Lung, right lower lobe, Ion-guided fine needle aspiration, cytology and cell block: - Positive for malignancy. Keratin (more content not included)... [facility] 10-04-2023 History of Present illness Narrative ENT [...] recommendations from his pending oncology visits near [place]. Advised them to discuss [place] Dx with local providers. Will follow-up -He will plan to follow-up with me in about 4 months, earlier with any concerns Kiran Wilson MD documented in this encounter [facility] Work Phone: 09-21-2023 Note PATIENT: Osbaldo ferreira DATE OF : 1960 DATE OF VISIT: 09/21/23 Urology Clinic [facility] MATEUSZ CONROY M.D., F.A.C.S. Chief Complaint Unfavorable intermediate risk locally advanced prostate cancer HPI Mr. Osbaldo León is a 63 y.o. 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 He presents for follow-up. Mr. León underwent robot-assisted radical prostatectomy, bilateral pelvic lymph node dissection, left nerve sparing on 12/15/2021. Pathology revealed acinar adenocarcinoma of the prostate, Saint Anthony's 3+4=7; GG 2 involving 18% of prostate volume, cribriform grade 4 present, EPE at right and left bladder neck up to 1.5 cm, bladder neck invasion, no SVI, LVI but PNI present, 0 out of 18 lymph nodes involved, positive surgical margin at right & left bladder neck up to 1.2 cm, pathologic stage pT3a pN0R1. 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 He received concurrent cisplatin as chemoradiation, has completed x5 cycles of chemotherapy, on 04/21/[address] Ambrose. Currently receiving pembrolizumab cycle #3 given FDG PET/CT scan 08/05/2022 revealed multiple small FDG avid pulmonary nodule seen bilaterally suggesting worsening metastatic disease. G-tube removed on on 09/04/2022. At this visit, Mr. León presents for follow-up accompanied by his . He had Coronary Angiogram on 06/25/2023 due to severe CAD involving LAD shown on CT scan, heart cath revealed severe to moderate CAD, recommended and managed by medical treatment. No stent placement. Last pembrolizumab 05/21/2023, he was treated with Prednisone for Pneumoitis, CT chest scheduled for 09/27/2023 and will follow with Dr. Ambrose. He has become urinary continent within 2 days after catheter on 12/24/2021. He denies gross hematuria, dysuria or significant LUTS or pain, nocturia x2, no urgency or UUI. He has been able to have penetrative intercourse, has spontaneous erection with rigidity 5/10, however, with either Cialis or MATT rigidity becomes 9-10/10. He denies any chest pain, shortness of breath, or leg swelling. I discussed most recent PSA is undetectable, PSA <0.1 ng/mL 09/14/2023, indicating no evidence disease. For H&N SCC, he is tolerating pembrolizumab well. Initial Clinical Presentation: Mr. León was noted to have an elevated PSA 5.8 ng/mL 07/01/2021 from PSA 4.8 ng/mL, %fPSA 10 on 05/14/2021. PRICILA reported smooth gland. ExoDx Prostate Intelliscore 68.4 on 07/01/2021. A mpMRI of prostate on 08/06/2021 revealed prostate volume 27.2 mL, PSA density 0.21 ng/mL^, an 11 mm lesion noted in right PZ mid gland with extension to right posterior base and right apex, with MRI characteristics of PI-RADS 4. No SVI, EP, adenopathy. Mr. León underwent systematic and MRI/ultrasound fusion prostate biopsy for a total of 17 cores (12 cores systematic, 5 cores from JULIANE #1) 08/29/2021. FINDINGS: 1. Estimated TRUS prostate volume 19.6 [...] in right medial PZ; volume 1.53 mL. Pathology revealed adenocarcinoma of the prostate, Rosanna 3+4 = 7; GG 2 involving 5/17 cores up to 50% or 6 mm of the core in JULIANE# and RLM, Rosanna 3+3= 6; GG 1 in 6/17 up to 35% or 5 mm of the core for a total of 8/13 cores positive for malignancy (since JULIANE #1 was sampled more than once). No cribriform histology or PNI. Therefore, he was referred to me for consideration of radical prostatectomy. Preoperatively Mr. León denies gross hematuria, dysuria, or significant LUTS. AUA-SI 2/35, QoL 0. VITALY . PRICILA 35 g prostate with right lobe induration, cT2a, no discrete nodule. I reviewed and discussed his a clinical presentation, laboratory studies including PSA 4.6 ng/ML 10/30/2021, pathology of prostate biopsy as well as PSMA PET/CT scan 10/30/2021 revealing no evidence of metastatic prostate cancer, increased activity in right posterior aspect of the prostate consistent with undertreated neoplasm. None avid right lower lobe pulmonary nodules largest up to [address] scan. PSA levels P (more content not included)... [facility] 08-17-2023 Note Patient ID: Osbaldo renner is a 63 y.o. male. Primary oncologist: Dr Ambrose Primary Care Provider: Clara Jordan NP HPI: Subjective Patient presents with spouse for follow up pneumonitis. 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 He continues to feel well. Continued working. Denies dyspnea. Cough is his 'normal' with clear phlegm production. No increase in frequency of cough or intensity. 100%RA Current prednisone dose 60mg daily in am with food. Some heartburn relieved by tums. No insomnia. Increase in appetite Pembro on hold for grade 2 pneumonitis. Last dose given 05/21/2023. Patient asymptomatic, radiographic finding Repeat CT 07/22/2023 *Extensive bilateral groundglass opacities and irregular masslike airspace opacities/consolidation, some of which have improved since most recent comparison study though others of which have worsened. Appearance may relate to shifting multifocal pneumonitis (potentially related to chemotherapy agent), multifocal pneumonia, and/or underlying metastatic disease. Recommend correlating with patient's current clinical status and continued follow-up imaging. *No enlarged metastatic lymph nodes or other sites of metastatic disease. Image on left 07/22/2023, image on right 06/22/2023 ROS: See HPI Oncology History Overview Note Osbaldo León is a 61 y.o. man with 2 meta-synchronous cancers diagnosed in 2021: Prostate Cancer: pT3a(R1)N0, dx August 2021 s/p radical prostatectomy and bilateral extended pelvis lymphadenectomy. Rosanna 7 (3+4). 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 During this time, he lost about 20 pounds and at time of diagnosis, able to eat semi-solid and soft foods. PMHx: Prostate Cancer. HPL. Surgical Hx: Prostatectomy 2021. Social Hx: Lifelong nonsmoker. Occasional EtOH. Occasional exercise. 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 He lives in [place] with spouse. Pt hopes to continue working Family Hx: Mother - leukemia. PATHOLOGY: 08/29/2021, Prostate Biopsy: Prostate, left lateral base, needle biopsy: Prostatic adenocarcinoma, Saint Anthony score 6 (3+3); grade group 1. Tumor volume: 14%, length 2.5 mm. Perineural invasion: not seen. Prostate, left medial mid, needle biopsy: Prostatic adenocarcinoma, Rosanna score 6 (3+3); grade group 1. Tumor volume: 20%, length 3 mm. Perineural invasion: not seen. Prostate, left medial apex, needle biopsy: Prostatic adenocarcinoma, Rosanna score 6 (3+3); grade group 1. Tumor volume: 17%, length 2 mm. Perineural invasion: not seen. Prostate, right medial apex, needle biopsy: Prostatic adenocarcinoma, Rosanna score 6 (3+3); grade group 1. Tumor volume: 9%, length 1.5 mm. Perineural invasion: not seen. Prostate, right lateral base, needle biopsy: Prostatic adenocarcinoma, Rosanna score 6 (3+3); grade group 1. Tumor volume: 5%, length 0.5 mm. Perineural invasion: not seen. Prostate, right lateral mid, needle biopsy: Prostatic adenocarcinoma, Saint Anthony score 7 (3+4); grade group 2. Tumor volume: 35%, length 6 mm. Perineural invasion: not seen. Prostate, right lateral apex, needle biopsy: Prostatic adenocarcinoma, Rosanna score 6 (3+3); grade group 1. Tumor volume: 35%, length 5 mm. Perineural invasion: not seen. Prostate, JULIANE RMPZa, needle biopsy: Prostatic adenocarcinoma, Saint Anthony score 7 (3+4); grade group 2. Tumor volume: 26%, length 6 mm. Perineural invasion: not seen. 12/14/2021, radical prostatectomy and bilateral extended pelvic lymphadenectomy: Prostatic carcinoma, acinar adenocarcinoma; type: Saint Anthony score 7 (3+4), involving 18% of prostatic volume. Margins positive for tumor at the right and left bladder neck. Pathologic stage: pT3a(R1)pN0 02/20/2022, right neck mass FNA: Squamous cell carcinoma p16 positive 02/26/2022, transbronchial biopsy, right lower lobe: A. Lung, right lower lobe, Ion-guided fine needle aspiration, cytology and cell block: - Positive for malignancy. Keratinizing squamous cell carcinoma. see comment comment: The biopsy shows clusters of malignant cells as well as epithelium with bronchial squamous metaplasia/dysplasia at least approaching squamous cell carcinoma in situ. Immunohistochemistry with controls performed. Tumor cells are positive for pankeratin, CK5/6 and P16. Tumor cells are negative for PSA and TTF1. The CK5/6 and pankeratin highlights the squamous cell carcinoma cells suspicious but not definitve for stromal invasion. In light of positive P16 block staining clinical correlation suggested as to whether this primary tumor or metastas (more content not included)... [facility] 08-17-2023 Note CREDIT ANALYST NOTE: Osbaldo is here for F/U accompanied by Telma. Pt completed CT chest with contrast 07/22/[address] Soft Tissue Neck with contrast completed 08/06/24. Pt denies pain, shortness of breath, or any concerns at this time. Pt states he has gained weight and increased appetite from current Prednisone course, taper continues. [facility] 07-28-2023 Note Patient ID: Osbaldo renner is a 62 y.o. male. Primary oncologist: Dr Ambrose Primary Care Provider: Clara Jordan NP Subjective Patient presents with spouse and son. He continues to feel well. Continued working. Denies dyspnea. Cough is his 'normal' with clear phlegm production. No increase in frequency of cough or intensity HPI Pembro on hold for grade 2 pneumonitis. Patient asymptomatic, radiographic finding Repeat CT 07/22/2023 *Extensive bilateral groundglass opacities and irregular masslike airspace opacities/consolidation, some of which have improved since most recent comparison study though others of which have worsened. Appearance may relate to shifting multifocal pneumonitis (potentially related to chemotherapy agent), multifocal pneumonia, and/or underlying metastatic disease. Recommend correlating with patient's current clinical status and continued follow-up imaging. *No enlarged metastatic lymph nodes or other sites of metastatic disease. Image on left 07/22/2023, image on right 06/22/2023 Review of Systems Constitutional: Negative for appetite change, chills, fatigue and fever. HENT: Negative for hearing loss, mouth sores, nosebleeds, sore throat and trouble swallowing (unchanged, radation scar tissue). Eyes: Negative for eye problems. Respiratory: Positive for cough. Negative for chest tightness, hemoptysis, shortness of breath and wheezing. Cardiovascular: Negative for chest pain, leg swelling and palpitations. Gastrointestinal: Negative for abdominal pain, constipation, diarrhea, nausea and vomiting. Genitourinary: Negative for difficulty urinating, dysuria and frequency. Musculoskeletal: Negative for arthralgias, back pain and myalgias. Skin: Negative for itching and rash. Neurological: Negative for dizziness, headaches, numbness and seizures. Hematological: Negative for adenopathy. Does not bruise/bleed easily. Psychiatric/Behavioral: Negative for confusion, depression and sleep disturbance. The patient is not nervous/anxious. Oncology History Overview Note Osbaldo León is a 61 y.o. man with 2 meta-synchronous cancers diagnosed in 2021: Prostate Cancer: pT3a(R1)N0, dx August 2021 s/p radical prostatectomy and bilateral extended pelvis lymphadenectomy. Rosanna 7 (3+4). 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 During this time, he lost about 20 pounds and at time of diagnosis, able to eat semi-solid and soft foods. PMHx: Prostate Cancer. HPL. Surgical Hx: Prostatectomy 2021. Social Hx: Lifelong nonsmoker. Occasional EtOH. Occasional exercise. 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 He lives in [place] with spouse. Pt hopes to continue working Family Hx: Mother - leukemia. PATHOLOGY: 08/29/2021, Prostate Biopsy: Prostate, left lateral base, needle biopsy: Prostatic adenocarcinoma, Saint Anthony score 6 (3+3); grade group 1. Tumor volume: 14%, length 2.5 mm. Perineural invasion: not seen. Prostate, left medial mid, needle biopsy: Prostatic adenocarcinoma, Saint Anthony score 6 (3+3); grade group 1. Tumor volume: 20%, length 3 mm. Perineural invasion: not seen. Prostate, left medial apex, needle biopsy: Prostatic adenocarcinoma, Rosanna score 6 (3+3); grade group 1. Tumor volume: 17%, length 2 mm. Perineural invasion: not seen. Prostate, right medial apex, needle biopsy: Prostatic adenocarcinoma, Saint Anthony score 6 (3+3); grade group 1. Tumor volume: 9%, length 1.5 mm. Perineural invasion: not seen. Prostate, right lateral base, needle biopsy: Prostatic adenocarcinoma, Rosanna score 6 (3+3); grade group 1. Tumor volume: 5%, length 0.5 mm. Perineural invasion: not seen. Prostate, right lateral mid, needle biopsy: Prostatic adenocarcinoma, Saint Anthony score 7 (3+4); grade group 2. Tumor volume: 35%, length 6 mm. Perineural invasion: not seen. Prostate, right lateral apex, needle biopsy: Prostatic adenocarcinoma, Saint Anthony score 6 (3+3); grade group 1. Tumor volume: 35%, length 5 mm. Perineural invasion: not seen. Prostate, JULIANE RMPZa, needle biopsy: Prostatic adenocarcinoma, Saint Anthony score 7 (3+4); grade group 2. Tumor volume: 26%, length 6 mm. Perineural invasion: not seen. 12/14/2021, radical prostatectomy and bilateral extended pelvic lymphadenectomy: Prostatic carcinoma, acinar adenocarcinoma; type: Rosanna score 7 (3+4), involving 18% of prostatic volume. Margins positive for tumor at the right and left bladder neck. Pathologic stage: pT3a(R1)pN0 02/20/2022, right neck mass FNA: Squamous cell carcinoma p16 positive 02/26/2022, transbronchial biopsy, right (more content not included)... [facility] 07-28-2023 Note [facility] SUBJECTIVE Chief Complaint Patient presents with Coronary Artery Disease Coronary Artery Disease Pertinent negatives include no chest pain, leg swelling, palpitations or weight gain. Osbaldo León is a 62 y.o. male here for follow-up after his recent cardiac cath which was done in light of his abnormal ECHO. He is accompanied by his , Rossana. He is currently dealing with lung CA along with head and neck CA. He was also treated for prostate CA, he had his prostate removed last year. He recently underwent a routine chest CTA for follow-up on his lung CA. This had noted severe coronary artery calcification and he was referred to cardiology for further evaluation. 07/28/23 He has been doing well since his heart cath procedure. He adamantly denies any cardiac symptoms including no CP, dyspnea, VILLARREAL, orthopnea, PND, LE edema, dizziness/LH, palpitations. He stays active, he continues to work for a [employer]. He has undergone multiple radiation and chemo treatments. He continues to follow with oncology. Allergies Allergen Reactions Grass Pollen Patient Active Problem List Diagnosis Squamous cell carcinoma of skin of scalp and neck Primary malignant neoplasm of prostate (CMS/HCC) Malignant neoplasm metastatic to lymph nodes (CMS/HCC) Squamous cell carcinoma of head and neck (CMS/HCC) Anemia associated with chemotherapy Oropharyngeal dysphagia Dysarthria Malignant neoplasm of base of tongue (CMS/HCC) Malignant neoplasm metastatic to left lung (CMS/HCC) Malignant neoplasm metastatic to both lungs (CMS/HCC) Coronary artery disease involving [place] coronary artery of [place] heart without angina pectoris Abnormal finding on imaging Mixed hyperlipidemia Abnormal echocardiogram Past Medical History: Diagnosis Date Lung cancer (CMS/HCC) February 2022 Metastatic cancer (CMS/HCC) February 2022 Prostate cancer (CMS/HCC) 2021 Past Surgical History: Procedure Laterality Date CARDIAC CATHETERIZATION CYSTOSCOPY GASTROSTOMY TUBE CHANGE PEG TUBE PLACEMENT GASTROSTOMY TUBE PLACEMENT NM BONE SPECT W CT 11/01/[address] HUBBARD CONVERSION PORTACATH PLACEMENT PROSTATECTOMY Family History Problem Relation Name Age of Onset Leukemia Mother Becky Powersp Cancer Mother Becky Shupp Heart attack Father Orgabrielle Shupp 65 massive HI Social History Tobacco Use Smoking status: Never Passive exposure: Never Smokeless tobacco: Former Types: Chew Quit date: 12/07/2021 Vaping Use Vaping Use: Never used Substance Use Topics Alcohol use: Not Currently Drug use: Never Review of Systems Constitutional: Negative for chills, decreased appetite, fever, malaise/fatigue and weight gain. Cardiovascular: Negative for chest pain, dyspnea on exertion, irregular heartbeat, leg swelling, near-syncope, orthopnea, palpitations, paroxysmal nocturnal dyspnea and syncope. Hematologic/Lymphatic: Negative for bleeding problem. Does not bruise/bleed easily. OBJECTIVE Visit Vitals BP 114/76 (BP Location: Left arm, Patient Position: Standing, BP Cuff Size: Adult long) Pulse 59 Ht 1.829 m (6') Wt 82.6 kg (182 lb) BMI 24.68 kg/m??? Smoking Status Never BSA 2.05 m??? Medications: Current Outpatient Medications: aspirin 81 mg EC tablet, Take 81 mg by mouth in the morning., Disp: , Rfl: carvedilol (Coreg) 3.125 mg tablet, Take 1 tablet (3.125 mg) by mouth with breakfast and with evening meal., Disp: 60 tablet, Rfl: 11 lidocaine-prilocaine (Emla) 2.5-2.5 % cream, APPLY TO PORT SITE AND COVER 30-45 MINUTES PRIOR TO NEEDLE ACCESS, Disp: 30 g, Rfl: 3 hgjmyiqtuhwa-mldr-uyqtshme-folic acid (Multivitamin 50 Plus) tablet, Take 1 tablet by mouth in the morning. Pt is holding this med during radiation through 4 weeks post radiation., Disp: , Rfl: tadalafil (Cialis) 20 mg tablet, Take 1 tablet (20 mg) by mouth if needed for erectile dysfunction., Disp: 10 tablet, Rfl: 5 atorvastatin (Lipitor) 40 mg tablet, Take 1 tablet (40 mg) by mouth in the morning., Disp: 90 tablet, Rfl: 3 predniSONE (Deltasone) 20 mg tablet, Take 4 tablets (80 mg) by mouth in the morning for 7 days, THEN 3.5 tablets (70 mg) in the morning for 7 days, THEN 3 tablets (60 mg) in the morning for 7 days, THEN 2.5 tablets (50 mg) in the morning for 7 days, THEN 2 tablets (40 mg) in the morning for 7 days, THEN 1.5 tablets (30 mg) in the morning for 7 days, THEN 1 tablet (20 mg) in the morning for 7 days, THEN 0.5 tablets (10 mg) in the morning for 7 days, THEN 0.5 tablets (10 mg) every other day for 7 days., Disp: 120 tablet, Rfl: 0 sulfamethoxazole-trimethoprim (Bactrim DS) 800-160 mg tablet, Take 1 tab M/W/, Disp: 24 tablet, Rfl: 1 Physical Exam Constitutional: Appearance: Normal appearance. He is normal weight. HENT: Head: Normocephalic and atraumatic. Right Ear: External ear normal. Left Ear: External ear no (more content not included)... [facility] 07-22-2023 Note I reviewed the resul t. An appointment for follow up to review with Osbaldo León is scheduled. [facility] 09-22-2022 Evaluation note Encounter Date Diagnosis Assessment [...] oncologist. He will continue to follow with [facility] specialists for this. Specialty notes reviewed as received. Sep, Malignant neoplasm of lung, unspecified laterality, unspecified part of lung (ICD-10 - C34.90) He will share his mildly low H/H and high ferritin levels with his oncologist. He will continue to follow with [facility] specialists for this. Specialty notes reviewed as received. Sep, Tongue cancer (ICD-10 - C02.9) He will share his mildly low H/H and high ferritin levels with his oncologist. He will continue to follow with [facility] specialists for this. Specialty notes reviewed as received. Sep, Gouty arthropathy (ICD-10 - M10.9) Stable at this time without medications. No recent flare ups. [facility] Other 02-02-2023 Evaluation note* Encounter Date Diagnosis Assessment Notes Treatment Notes Treatment Clinical Notes Sep, Well adult exam (ICD-10 - Z00.00) [facility] Other 11-15-2022 Evaluation note* Encounter Date Diagnosis [...] verbalizes understanding and agree to treatment plan. [facility] Other 10-04-2022 Evaluation note* Encounter Date Diagnosis Assessment Notes Treatment Notes Treatment Clinical Notes May, Prostate cancer (ICD-10 - C61) He will continue to follow with [facility] specialists for this. Specialty notes reviewed [...] days with food. He will call his [facility] specialists and make sure this is okay for him to take prior to taking. Medication profile and possible SE reviewed with him. He will keep us posted if this becomes a more recurrent issue. Notify office should this persist and not improve. May, Malignant neoplasm of lung, unspecified laterality, unspecified part of lung (ICD-10 - C34.90) He will continue to follow with [facility] specialists for this. Specialty notes reviewed as received. May, Tongue cancer (ICD-10 - C02.9) He will continue to follow with [facility] specialists for this. Specialty notes reviewed as received. [facility] Other 10-03-2022 History of Present illness Narrative* [...] prostate cancer and he had a prostatectomy. [facility] Work Phone: [phone]) 456-680005-10-2022 NoteMR#: [id number] [facility] Pt. Name: Osbaldo León Admitted: 12/15/2021 Discharged: 12/16/2021 Date of : 1960 Physician: Mateusz Conroy MD DISCHARGE SUMMARY Date of admission: 12/15/2021 Date of discharge: 12/16/2021 ADMITTING DIAGNOSIS: Rosanna 3+4 = 7 prostate cancer DISCHARGE DIAGNOSIS: Saint Anthony 3+4 = 7 prostate cancer PROCEDURE PERFORMED: Robot-assisted radical prostatectomy with extended bilateral pelvic lymph node dissection HOSPITAL COURSE: This is a 61-year-old male with unfavorable intermediate risk Saint Anthony 3+4 = 7 prostate cancer who presented [...] Polk, DO Date Trans: 12/16/2021 02:41 P/ [id number] [facility]04-29-2022 Evaluation note* Encounter Date Diagnosis Assessment Notes Treatment Notes Treatment Clinical Notes Nov, Low hemoglobin (ICD-10 - D64.9) [facility] Other 04-06-2022 Evaluation note* Encounter Date Diagnosis [...] 15, 2021. OV note needs faxed to [phone]. He will be having preop testing 3 [...] F10.20) Recommended daily allowances reviewed with patient. [facility] Other Evaluation noteNo [employer] Other Evaluation noteNo assessment information available [facility] Work Phone: Evaluation note* Diagnosis Malignant neoplasm of base of tongue (CMS/HCC)- Primary Malignant neoplasm of base of tongue documented in this encounter [facility] Work Phone: Evaluation note* Diagnosis Malignant neoplasm of base of tongue (Multi)- Primary Malignant neoplasm of base of tongue documented in this encounter [facility] Work Phone: History general Narrative - Reported* Type Description Date Medical History hx gout Surgical History wisdom teeth Hospitalization History No know Hospitalization history [facility] Other History general Narrative - Reported* Type Description Date Medical History hx gout Medical History prostate cancer Medical History lung cancer Medical History tongue cancer Surgical History wisdom teeth Hospitalization History No know Hospitalization history [facility] Other Summary Purpose Family History No Family [...] Date/ Time Advance Directives No March 11 5:56am Reason for Referral Reason * Waiting for appt Refer to GI for low H/H Diagnosis 1 Low hemoglobin (D64. 9) Referral Organization [facility] Referring Provider First Name Clara Referring Provider Last Name Nikki Referring Provider Specialty Nurse Pract itioner Referred Organization [facility] Referred Provider Damien Adams Referred Address [address],[facility] [address] [facility] [address] ,[place], [place],[address] Referred Provider Specialty Gastroentero logy Referral Priority [...] section and content) DATE CREATED AUTHOR 07/19/2021 [facility] DATE CREATED AUTHOR AUTHOR'S ORGANIZ ATION 04/17/2022 [facility] DATE CREATED AUTHOR AUTHOR'S ORGANIZ ATION 05/14/2023 [facility] [place] DATE CREATED AUTHOR AUTHOR'S ORGANIZ ATION 06/13/2023 [facility] DATE CREATED AUTHOR AUTHOR'S ORGANIZ ATION 02/06/2024 [facility] DATE CREATED AUTHOR AUTHOR'S ORGANIZ ATION 06/04/2024 [facility] DATE CREATED AUTHOR AUTHOR'S ORGANIZ ATION 07/22/2024 [facility] REASON FOR VISIT (unrecogniz ed section and content) Reason Comments Follow-up Reason Comments Cancer Care Teams (unrecognized sec tion and content) Team Status: Inactive Member Role Status Dates Clara Jordan DNP Primary Care Provider, Attending Provider Active Team Status: Active Member Role Status Dates Clara Jordan DNP Primary Care Provider Active Team Status: Inactive Member Role Status Dates Clara Jordan DNP Primary Care Provider Active ANTON Dove Attending Provider Active Underwriting 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 [employer] [facility]. provides no warranty or guarantee of the accuracy or completeness of information in this document.
[2024-07-22 07:45] LABS: Alanine Aminotransferase 35 U/L (16-63); Albumin Globulin Ratio 1.1; Albumin Level 3.3 g/dL (3.4-5.0); Alkaline Phosphatase 55 U/L (46-116); Aspartate Amino Transferase 22 U/L (15-37); Bilirubin Direct 0.2 mg/dL (0.0-0.2); Bilirubin Total 0.7 mg/dL (0.2-1.0); Chol HDL Ratio 1.9; Cholesterol 189 mg/dL (<=200); Globulin 2.9 g/dL; HDL Cholesterol 101 mg/dL (40-60); Total Protein 6.2 g/dL (6.4-8.2); Triglycerides 88 mg/dL (<=150); VLDL CHOLESTEROL 17.6 mg/dL
== END 2024-07-22 07:07 | disposition home or self-care (01) ==
LOC: LAB 07:09
PROVIDERS: PCP Nurse Practitioner Family; Visit Provider Nurse Practitioner Family
DX: E78.2 Mixed hyperlipidemia (principal)
CPT/HCPCS: 36415; 80061; 80076